=== PATIENT | male | born 1940 | race Caucasian/White ===

== ENCOUNTER 2017-06-26 12:56 | Emergency (ER) | payer OTHER ==
[~2017-06-26] VITALS: Ht 165.1 cm; Wt 60.0 kg
[~2017-06-26 12:56] MED LIST: ASPI325T PO
[2017-06-26 13:07] VITALS: BP 135/73; PULSE 86; RESP 18; TEMP 97.9; O2SAT 99
[2017-06-26] MEDS ORDERED: TETANUS/DIPHTHERIA TOXOID ADULT 0.5 ML VIAL IM ONE (13:15)
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
[2017-06-26 13:35] LABS: AUTOMATED NEUTROPHIL # 2.8 TH/MM3 (1.8-7.7); BASOPHIL % 0.7 % (0.0-2.0); EOSINOPHIL # 0.2 TH/MM3 (0-0.4); EOSINOPHIL % 2.5 % (0.0-4.0); HEMATOCRIT 41.8 % (39.0-51.0); HEMOGLOBIN 14.9 GM/DL (13.0-17.0); LYMPH % 44.7 % (9.0-44.0); LYMPHOCYTE # 2.9 TH/MM3 (1.0-4.8); MEAN CELL VOLUME 97.2 FL (80.0-100.0); MEAN CORPUSCULAR HEMOGLOBIN 34.6 PG (27.0-34.0); MEAN CORPUSCULAR HGB CONC 35.6 % (32.0-36.0); MEAN PLATELET VOLUME 7.4 FL (7.0-11.0); MONO % 8.3 % (0.0-8.0); MONOCYTE # 0.5 TH/MM3 (0-0.9); NEUT % 43.8 % (16.0-70.0); PLATELET COUNT 165 TH/MM3 (150-450); RED CELL DISTRIBUTION WIDTH 14.3 % (11.6-17.2); WHITE BLOOD COUNT 6.4 TH/MM3 (4.0-11.0)
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
[2017-06-26 15:37] VITALS: BP 176/82; PULSE 79; RESP 18; O2SAT 98
[2017-06-26 16:30] LABS: BICARBONATE 26.3 MEQ/L (21.0-32.0); CALCIUM 8.3 MG/DL (8.5-10.1); CREATININE 0.56 MG/DL (0.60-1.30)
[2017-06-26 16:35] LABS: INTERNATIONAL NORMALIZED RATIO 0.9 RATIO; PROTHROMBIN TIME - PATIENT 9.6 SEC (9.8-11.6)
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
== END 2017-06-26 18:47 | disposition home or self-care (01) ==
LOC: NEPE 12:56
DX: S01.81XA Laceration without foreign body of other part of head, initial encounter (principal); F10.129 Alcohol abuse with intoxication, unspecified; R07.9 Chest pain, unspecified; V49.40XA Driver injured in collision with unspecified motor vehicles in traffic accident, initial encounter; W01.0XXA Fall on same level from slipping, tripping and stumbling without subsequent striking against object, initial encounter; Y90.8 Blood alcohol level of 240 mg/100 ml or more; Z23 Encounter for immunization; Z79.82 Long term (current) use of aspirin
CPT/HCPCS: 70450; 71010; 72125; 72170; 80048; 80307; 85025; 85610; 85730; 90471; 90714

== ENCOUNTER 2017-09-19 10:49 | Inpatient (IN) | payer OTHER, MEDICARE ==
[~2017-09-19] VITALS: Ht 165.1 cm; Wt 58.0 kg
[2017-09-19 10:51] VITALS: BP 144/99; PULSE 163; RESP 19; TEMP 98.8
[2017-09-19] MEDS ORDERED: DILTIAZEM HCL 25 MG/5 ML VIAL IV PUSH ONE (11:00)
[2017-09-19] MEDS ORDERED: SODIUM CHLORIDE 0.9% FLUSH 10 ML FLUSH IV FLUSH PRN ×2 (11:00→12:45)
[2017-09-19] MEDS ORDERED: SODIUM CHLORIDE 0.9% FLUSH 10 ML FLUSH IVF PRN (11:00)
[2017-09-19] MEDS ORDERED: DILTIAZEM INJ 125 MG in SODIUM CHLORIDE 0.9% INJ 100 ML IV PRN (11:00)
[2017-09-19 11:05] VITALS: BP 144/99; PULSE 140; O2SAT 95
[2017-09-19] MEDS ORDERED: ASPI-183 PO (11:05)
[2017-09-19] MEDS ORDERED: LISI-515 PO (11:05)
[2017-09-19] MEDS ORDERED: APIX5TAB PO (11:05)
--- NOTE | 2017-09-19 11:15 | PD ---
HPI Chief Complaint: Cardiac Complaint Time Seen by Provider: 10:56 Travel History International Travel<30 days: No Contact w/Intl Traveler<30days: No Traveled to known affect area: No History of Present Illness HPI 77-year-old male patient with history of atrial fibrillation, CAD, presents to the ER today brought in by EMS from cardiology office, was about to get a nuclear stress test when they had identified that he was having rapid A. fib rates of about 160 bpm. Patient is otherwise asymptomatic, but states he has not been feeling well for several months. He denies any new chest pains, shortness of breath, or other symptoms. He states that he does feel weaker than usual but that has been going on for several months. They apparently had tried to get him started on Eliquis last week but he states he responded badly. Modifying Factors: None Associated Signs & Symptoms: General weakness, A. fib with rapid ventricular response Risk Factors: History of A. fib PFSH Past Medical History Cancer: No Cardiovascular Problems: Yes Coronary Artery Disease: Yes Diabetes: No Diminished Hearing: No Glaucoma: No Hepatitis: No Hiatal Hernia: No Hypertension: Yes Medical other: Yes (arthritis) Thyroid Disease: Yes Tetanus Vaccination: < 5 Years Past Surgical History Pacemaker: No Social History Alcohol Use: Yes (3 drinks per day) Tobacco Use: Yes (1 PPD) Substance Use: No Allergies-Medications (Allergen,Severity, Reaction): Coded Allergies: hydrocodone (Unverified Allergy, Severe, nausea and vomiting, 09/19/17) penicillin G (Unverified Allergy, Mild, 09/19/17) heart palpitations Reported Meds & Prescriptions Reported Meds & Active Scripts Active Reported Eliquis (Apixaban) 5 Mg Tab 5 Mg PO BID Aspirin 325 Mg Tab 325 Mg PO DAILY Lisinopril 20 Mg Tab 20 Mg PO DAILY Aspirin 325 mg (Aspirin) 325 Mg Tab 325 Mg PO PRN Review of Systems Except as stated in HPI: all other systems reviewed are Neg Physical Exam Narrative GENERAL: Well-developed elderly white male patient currently and mild distress, mildly agitated. Awake and oriented 3. SKIN: Focused skin assessment warm/dry. HEAD: Atraumatic. Normocephalic. EYES: Pupils equal and round. No scleral icterus. No injection or drainage. ENT: No nasal bleeding or discharge. Mucous membranes pink and moist. NECK: Trachea midline. No JVD. Supple. CARDIOVASCULAR: Fast and irregularly irregular. RESPIRATORY: No accessory muscle use. Clear to auscultation. Breath sounds equal bilaterally. GASTROINTESTINAL: Abdomen soft, non-tender, nondistended. Hepatic and splenic margins not palpable. MUSCULOSKELETAL: No obvious deformities. No clubbing. No cyanosis. No edema. NEUROLOGICAL: Awake and alert. No obvious cranial nerve deficits. Motor grossly within normal limits. Normal speech. PSYCHIATRIC: Appropriate mood and affect; insight and judgment normal. Data Data Last Documented VS Vital Signs Date Time Temp Pulse Resp B/P (MAP) Pulse Ox O2 Delivery O2 Flow Rate FiO2 09/19/17 11:34 81 20 112/66 (81) 95 Room Air 09/19/17 10:51 98.8 Orders Orders Electrocardiogram (09/19/17 10:56) Basic Metabolic Panel (Bmp) (09/19/17 10:56) B-Type Natriuretic Peptide (09/19/17 10:56) Ckmb (Isoenzyme) Profile (09/19/17 10:56) Complete Blood Count With Diff (09/19/17 10:56) Magnesium (Mg) (09/19/17 10:56) Prothrombin Time / Inr (Pt) (09/19/17 10:56) Act Partial Throm Time (Ptt) (09/19/17 10:56) Troponin I (09/19/17 10:56) Ecg Monitoring (09/19/17 10:56) Bilateral Bp Monitoring (09/19/17 10:56) Iv Access Insert/Monitor (09/19/17 10:56) Oximetry (09/19/17 10:56) Oxygen Administration (09/19/17 10:56) Sodium Chloride 0.9% Flush (Ns Flush) (09/19/17 11:00) Chest, Pa & Lat (09/19/17 10:56) Diltiazem Inj (Cardizem Inj) (09/19/17 11:00) Sodium Chloride 0.9% Flush (Ns Flush) (09/19/17 11:00) Diltiazem Inj (Cardizem Inj) (09/19/17 11:30) CKMB (09/19/17 11:05) CKMB% (09/19/17 11:05) Labs Laboratory Tests Test 09/19/17 11:05 White Blood Count 8.8 TH/MM3 Red Blood Count 4.72 MIL/MM3 Hemoglobin 15.6 GM/DL Hematocrit 46.4 % Mean Corpuscular Volume 98.3 FL Mean Corpuscular Hemoglobin 33.1 PG Mean Corpuscular Hemoglobin Concent 33.7 % Red Cell Distribution Width 14.4 % Platelet Count 223 TH/MM3 Mean Platelet Volume 8.3 FL Neutrophils (%) (Auto) 71.1 % Lymphocytes (%) (Auto) 20.5 % Monocytes (%) (Auto) 7.5 % Eosinophils (%) (Auto) 0.6 % Basophils (%) (Auto) 0.3 % Neutrophils # (Auto) 6.2 TH/MM3 Lymphocytes # (Auto) 1.8 TH/MM3 Monocytes # (Auto) 0.7 TH/MM3 Eosinophils # (Auto) 0.1 TH/MM3 Basophils # (Auto) 0.0 TH/MM3 CBC Comment DIFF FINAL Differential Comment Prothrombin Time 9.9 SEC Prothromb Time International Ratio 1.0 RATIO Activated Partial Thromboplast Time 25.7 SEC Blood Urea Nitrogen 17 MG/DL Creatinine 0.89 MG/DL Random Glucose 177 MG/DL Calcium Level 8.7 MG/DL Magnesium Level 2.1 MG/DL Sodium Level 136 MEQ/L Potassium Level 4.7 MEQ/L Chloride Level 100 MEQ/L Carbon Dioxide Level 28.0 MEQ/L Anion Gap 8 MEQ/L Estimat Glomerular Filtration Rate 83 ML/MIN Total Creatine Kinase 113 U/L Creatine Kinase MB 10.6 NG/ML Troponin I 0.40 NG/ML B-Type Natriuretic Peptide 106 PG/ML MDM Medical Decision Making Medical Screen Exam Complete: Yes Emergency Medical Condition: Yes Medical Record Reviewed: Yes Interpretation(s) EKG shows A. fib with rapid ventricular response at a rate of [address] depressions and T-wave depressions in the lateral leads. No signs of ST elevations. Differential Diagnosis A. fib with rapid ventricular response Narrative Course Case was briefly discussed with Dr. Francis who is patient's mohs surgeon/general dermatologist and he recommends that we slow the heart rate down with Cardizem and recommends that we admit the patient to the hospital. Lab work shows mildly elevated troponin likely related to patient's elevated heart rate. After Cardizem was given, his heart rate came down into the 80s. Case was discussed with Dr. Villanueva for admission. Diagnosis Primary Impression: Atrial fibrillation with rapid ventricular response Admitting Information Admitting Physician Requests: it Joann Yang MD Sep 19, 2017 11:15
[2017-09-19 11:22] LABS: AUTOMATED NEUTROPHIL # 6.2 TH/MM3 (1.8-7.7); BASOPHIL % 0.3 % (0.0-2.0); EOSINOPHIL # 0.1 TH/MM3 (0-0.4); EOSINOPHIL % 0.6 % (0.0-4.0); HEMATOCRIT 46.4 % (39.0-51.0); HEMOGLOBIN 15.6 GM/DL (13.0-17.0); LYMPH % 20.5 % (9.0-44.0); LYMPHOCYTE # 1.8 TH/MM3 (1.0-4.8); MEAN CELL VOLUME 98.3 FL (80.0-100.0); MEAN CORPUSCULAR HEMOGLOBIN 33.1 PG (27.0-34.0); MEAN CORPUSCULAR HGB CONC 33.7 % (32.0-36.0); MEAN PLATELET VOLUME 8.3 FL (7.0-11.0); MONO % 7.5 % (0.0-8.0); MONOCYTE # 0.7 TH/MM3 (0-0.9); NEUT % 71.1 % (16.0-70.0); PLATELET COUNT 223 TH/MM3 (150-450); RED BLOOD COUNT 4.72 MIL/MM3 (4.50-5.90); RED CELL DISTRIBUTION WIDTH 14.4 % (11.6-17.2); WHITE BLOOD COUNT 8.8 TH/MM3 (4.0-11.0)
[2017-09-19] MEDS ORDERED: DILTIAZEM HCL 50 MG/10 ML VIAL IV PUSH ONE (11:30)
[2017-09-19 11:33] LABS: PROTHROMBIN TIME - PATIENT 9.9 SEC (9.8-11.6)
[2017-09-19 11:34] VITALS: BP 112/66; PULSE 81; RESP 20; O2SAT 95
[2017-09-19 11:49] LABS: BLOOD UREA NITROGEN 17 MG/DL (7-18); CALCIUM 8.7 MG/DL (8.5-10.1); CHLORIDE 100 MEQ/L (98-107); CREATININE 0.89 MG/DL (0.60-1.30); GLOMERULAR FILTRATION RATE 83 ML/MIN (>89); GLUCOSE,RANDOM 177 MG/DL (74-106); MAGNESIUM 2.1 MG/DL (1.5-2.5); SODIUM (NA) 136 MEQ/L (136-145)
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
[2017-09-19 12:30] VITALS: BP 115/79; PULSE 83; RESP 20; O2SAT 96
--- NOTE | 2017-09-19 12:44 | HHI.HP ---
HPI Service [facility] Primary Care Physician Unknown Admission Diagnosis A. fib with RVR/elevated troponin Diagnoses: (1) Atrial fibrillation with rapid ventricular response Chief Complaint: Sent from doctor's office secondary to A. fib with RVR Travel History International Travel<30 Days: No Contact w/Intl Traveler <30 Da: No Traveled to Known Affected Are: No History of Present Illness 77-year-old male with a history of PAF, hypertension was sent from doctor's office secondary to atrial fibrillation with RVR and patient was scheduled for exercise stress test this a.m. secondary to ongoing chest pain over the past several days to weeks, however prior to the beginning of the study he was noted to be in A. fib with RVR for which he was sent to the ED for further evaluation. He was recently diagnosed with PAF and started on Eliquis among other medicine on 09/09/17. However patient states, 4 days into taking this medicine he started having severe chest discomfort, dizziness and a feeling of heart attack. He had stopped taking that medicine 3-4 days now. He was put back on aspirin and continued on his lisinopril for hypertension. Her this morning, patient had complaint of chest pain however since his admissions report improvements of symptoms. He also complained of decreased appetite but denies any nausea and vomiting with by mouth intake. Initial cardiac enzyme was elevated Review of Systems Except as stated in HPI: all other systems reviewed are Neg Past Family Social History Past Medical History Cardiovascular Problems: Yes Coronary Artery Disease: Yes Hypertension: Yes Medical other: Yes (arthritis) Thyroid Disease: Yes Past Surgical History Tonsillectomy Reported Medications Eliquis (Apixaban) 5 Mg Tab 5 Mg PO BID Aspirin 325 Mg Tab 325 Mg PO DAILY Lisinopril 20 Mg Tab 20 Mg PO DAILY Aspirin 325 mg (Aspirin) 325 Mg Tab 325 Mg PO PRN Allergies: Coded Allergies: hydrocodone (Unverified Allergy, Severe, nausea and vomiting, 09/19/17) penicillin G (Unverified Allergy, Mild, 09/19/17) heart palpitations Family History Mother had diabetes type 2 Social History Alcohol Use: Yes (3 drinks per day) Tobacco Use: Yes (1 PPD) Substance Use: No Physical Exam Vital Signs Vital Signs Date Time Temp Pulse Resp B/P (MAP) Pulse Ox O2 Delivery O2 Flow Rate FiO2 09/19/17 11:34 81 20 112/66 (81) 95 Room Air 09/19/17 11:05 18 95 Room Air 09/19/17 11:05 95 Room Air 09/19/17 11:05 140 144/99 (114) 09/19/17 10:51 98.8 163 19 144/99 (114) Physical Exam GENERAL: This is a well-nourished, well-developed patient, in no apparent distress. SKIN: No rashes, ecchymoses or lesions. Cool and dry. HEAD: Atraumatic. Normocephalic. No temporal or scalp tenderness. EYES: Pupils equal round and reactive. Extraocular motions intact. No scleral icterus. No injection or drainage. ENT: Nose without bleeding, purulent drainage or septal hematoma. Throat without erythema, tonsillar hypertrophy or exudate. Uvula midline. Airway patent. NECK: Trachea midline. No JVD or lymphadenopathy. Supple, nontender, no meningeal signs. CARDIOVASCULAR: Irregular Regular rate and rhythm without murmurs, gallops, or rubs. RESPIRATORY: Clear to auscultation. Breath sounds equal bilaterally. No wheezes , rales, or rhonchi. GASTROINTESTINAL: Abdomen soft, non-tender, nondistended. No hepato-splenomegaly , or palpable masses. No guarding. MUSCULOSKELETAL: Extremities without clubbing, cyanosis, or edema. No joint tenderness, effusion, or edema noted. No calf tenderness. Negative Homans sign bilaterally. NEUROLOGICAL: Awake and alert. Cranial nerves II through XII intact. Motor and sensory grossly within normal limits. Five out of 5 muscle strength in all muscle groups. Normal speech. Laboratory Laboratory Tests Test 09/19/17 11:05 White Blood Count 8.8 Red Blood Count 4.72 Hemoglobin 15.6 Hematocrit 46.4 Mean Corpuscular Volume 98.3 Mean Corpuscular Hemoglobin 33.1 Mean Corpuscular Hemoglobin Concent 33.7 Red Cell Distribution Width 14.4 Platelet Count 223 Mean Platelet Volume 8.3 Neutrophils (%) (Auto) 71.1 Lymphocytes (%) (Auto) 20.5 Monocytes (%) (Auto) 7.5 Eosinophils (%) (Auto) 0.6 Basophils (%) (Auto) 0.3 Neutrophils # (Auto) 6.2 Lymphocytes # (Auto) 1.8 Monocytes # (Auto) 0.7 Eosinophils # (Auto) 0.1 Basophils # (Auto) 0.0 CBC Comment DIFF FINAL Differential Comment Prothrombin Time 9.9 Prothromb Time International Ratio 1.0 Activated Partial Thromboplast Time 25.7 Blood Urea Nitrogen 17 Creatinine 0.89 Random Glucose 177 Calcium Level 8.7 Magnesium Level 2.1 Sodium Level 136 Potassium Level 4.7 Chloride Level 100 Carbon Dioxide Level 28.0 Anion Gap 8 Estimat Glomerular Filtration Rate 83 Total Creatine Kinase 113 Creatine Kinase MB 10.6 Troponin I 0.40 B-Type Natriuretic Peptide 106 Result Diagram: 09/19/17 1105 09/19/17 1105 Imaging Last Impressions Chest X-Ray 09/19/17 1056 Signed Impressions: Service Date/Time: Tuesday, September 19, 2017 11:55 - CONCLUSION: 1. COPD changes. No acute abnormality. Chi Berg MD Septic Shock Reassessment Septic shock perfusion: reassessment completed Caprini VTE Risk Assessment Caprini VTE Risk Assessment: Mod/High Risk (score >= 2) Caprini Risk Assessment Model Point Value = 1 Point Value = 2 Point Value = 3 Point Value = 5 Age 41-60 Minor surgery BMI > 25 kg/m2 Swollen legs Varicose veins or History of unexplained or recurrent spontaneous Oral contraceptives or hormone replacement Sepsis (< 1 month) Serious lung disease, including pneumonia (< 1 month) Abnormal pulmonary function Acute myocardial infarction Congestive heart failure (< 1 month) History of inflammatory bowel disease Medical patient at bed rest Age 61-74 Arthroscopic surgery Major open surgery (> 45 min) Laparoscopic surgery (> 45 min) Malignancy Confined to bed (> 72 hours) Immobilizing plaster cast Central venous access Age >= 75 History of VTE Family history of VTE Factor V Leiden Prothrombin [id number] Lupus anticoagulant Anticardiolipin antibodies Elevated serum homocysteine Heparin-induced thrombocytopenia Other congenital or acquired thrombophilia Stroke (< 1 month) Elective arthroplasty Hip, pelvis, or leg fracture Acute spinal cord injury (< 1 month) Prophylaxis Regimen Total Risk Factor Score Risk Level Prophylaxis Regimen 0-1 Low Early ambulation 2 Moderate Order ONE of the following: *Sequential Compression Device (SCD) *Heparin 5000 units SQ BID 3-4 Higher Order ONE of the following medications: *Heparin 5000 units SQ TID *Enoxaparin/Lovenox 40 mg SQ daily (WT < 150 kg, CrCl > 30 mL/min) *Enoxaparin/Lovenox 30 mg SQ daily (WT < 150 kg, CrCl > 10-29 mL/min) *Enoxaparin/Lovenox 30 mg SQ BID (WT < 150 kg, CrCl > 30 mL/min) AND/OR *Sequential Compression Device (SCD) 5 or more Highest Order ONE of the following medications: *Heparin 5000 units SQ TID (Preferred with Epidurals) *Enoxaparin/Lovenox 40 mg SQ daily (WT < 150 kg, CrCl > 30 mL/min) *Enoxaparin/Lovenox 30 mg SQ daily (WT < 150 kg, CrCl > 10-29 mL/min) *Enoxaparin/Lovenox 30 mg SQ BID (WT < 150 kg, CrCl > 30 mL/min) AND *Sequential Compression Device (SCD) Assessment and Plan Problem List: (1) Atrial fibrillation with rapid ventricular response ICD Code: I48.91 - Unspecified atrial fibrillation Status: Acute Assessment and Plan 77-year-old man with Atrial fibrillation with RVR Rule out ACS per protocol with serial cardiac enzyme and EKGs Chest x-ray noted and review by me without any cardio pulmonary disease start Heparin drip pending consultation from cardiology Hold Eliquis secondary to side effect Responded well to Cardizem IV 1, start Cardizem 30 mg 4 times a day Check 2-D echo Hypertension Resume lisinopril Tobacco abuse Tobacco cessation counseling provided Patient declined nicotine patch DVT prophylaxis: Heparin drip Code Status Full code Discussed Condition With Patient, ED physician Physician Certification 2 Midnight Certification Type: Admission for Inpatient Services Order for Inpatient Services The services are ordered in accordance with Medicare regulations or non- Medicare payer requirements, as applicable. In the case of services not specified as inpatient-only, they are appropriately provided as inpatient services in accordance with the 2-midnight benchmark. Estimated LOS (days): 2 days is the estimated time the patient will need to remain in the hospital, assuming treatment plan goals are met and no additional complications. Post-Hospital Plan: Not yet determined Malachi Villanueva MD Sep 19, 2017 12:44
[2017-09-19] MEDS ORDERED: ONDANSETRON HCL 4 MG/2 ML VIAL IV PUSH PRN (12:45)
[2017-09-19] MEDS ORDERED: RESP: ALBUTEROL 2.5 MG/IPRATROPIUM 0.5 MG NEB (PRN) NEB (12:45)
[2017-09-19] MEDS ORDERED: TEMAZEPAM 15 MG CAP PO PRN (12:45)
[2017-09-19] MEDS ORDERED: DOCUSATE SODIUM 50 MG/SENNA 8.6 MG TAB PO PRN (12:45)
[2017-09-19] MEDS ORDERED: ENALAPRILAT 2.5 MG/2 ML VIAL IV PUSH PRN (12:45)
[2017-09-19] MEDS ORDERED: ALUMINUM/MAGNESIUM/SIMETH 30 ML CUP PO PRN (12:45)
[2017-09-19] MEDS ORDERED: ACETAMINOPHEN 325 MG TAB PO PRN (12:45)
[2017-09-19] MEDS: DILTIAZEM-CD 240 MG CAP ER PO SCH (14:49)
[2017-09-19 16:18] VITALS: BP 128/78; PULSE 110; RESP 20; TEMP 99.3; O2SAT 95
[2017-09-19] MEDS ORDERED: DILTIAZEM HCL 30 MG TAB PO SCH (18:00)
[2017-09-19] MEDS ORDERED: PILL SPLITTER OTHER PRN (19:15)
[2017-09-19 20:36] VITALS: BP 101/64; PULSE 80; RESP 18; TEMP 99.1; O2SAT 94
[2017-09-19 22:37] LABS: ALBUMIN 3.3 GM/DL (3.4-5.0); ALT (GPT) 25 U/L (12-78); AST (GOT) 150 U/L (15-37); BICARBONATE 24.8 MEQ/L (21.0-32.0); BLOOD UREA NITROGEN 22 MG/DL (7-18); CALCIUM 8.7 MG/DL (8.5-10.1); CHLORIDE 100 MEQ/L (98-107); CREATININE 1.03 MG/DL (0.60-1.30); GLOMERULAR FILTRATION RATE 70 ML/MIN (>89); GLUCOSE,RANDOM 251 MG/DL (74-106); MAGNESIUM 2.1 MG/DL (1.5-2.5); SODIUM (NA) 136 MEQ/L (136-145)
[2017-09-19 22:42] LABS: ALKALINE PHOSPHATASE 86 U/L (45-117); TOTAL BILIRUBIN ADULT 0.7 MG/DL (0.2-1.0); TOTAL PROTEIN 6.5 GM/DL (6.4-8.2)
[2017-09-20] VITALS (13 sets, daily range): BP systolic 80–105; BP diastolic 50–63; PULSE 44–81; RESP 16–20; TEMP 98.1–99.5; O2SAT 93–96
[2017-09-20] MEDS: SODIUM CHLORIDE 0.9% FLUSH 10 ML FLUSH IV FLUSH SCH ×3 (00:33→21:00)
[2017-09-20] MEDS: HEPARIN-D5W 25,000 U/250 ML 250 ML IV PRN (00:37)
[2017-09-20] MEDS: METOPROLOL TARTRATE 25 MG TAB PO SCH ×4 (00:41→22:00)
[2017-09-20 05:57] LABS: HEMATOCRIT 43.8 % (39.0-51.0); MEAN CELL VOLUME 98.2 FL (80.0-100.0); MEAN CORPUSCULAR HEMOGLOBIN 33.6 PG (27.0-34.0); MEAN CORPUSCULAR HGB CONC 34.2 % (32.0-36.0); MEAN PLATELET VOLUME 8.1 FL (7.0-11.0); PLATELET COUNT 150 TH/MM3 (150-450); RED BLOOD COUNT 4.46 MIL/MM3 (4.50-5.90); RED CELL DISTRIBUTION WIDTH 14.2 % (11.6-17.2); WHITE BLOOD COUNT 9.7 TH/MM3 (4.0-11.0)
[2017-09-20 06:07] LABS: CHOLESTEROL 174 MG/DL (120-200); TRIGLYCERIDES 87 MG/DL (42-150)
[2017-09-20 06:10] LABS: CHOLESTEROL/ HDL RATIO 2.17 RATIO; LDL CHOLESTEROL 77 MG/DL (0-99)
[2017-09-20] MEDS: ASPIRIN 325 MG TAB PO SCH (08:20)
[2017-09-20] MEDS: DILTIAZEM-CD 240 MG CAP ER PO SCH (08:20)
[2017-09-20] MEDS: SODIUM CHLOR 0.9% 1000 ML INJ 1,000 ML IV SCH ×2 (08:28→21:29)
[2017-09-20] MEDS ORDERED: DIAZEPAM 5 MG TAB PO SCH (08:30)
[2017-09-20] MEDS ORDERED: diphenhydrAMINE HCL 50 MG CAP PO SCH (08:30)
--- NOTE | 2017-09-20 08:35 | PD.CARD.PN ---
Subjective Subjective Remarks no chest pain since treatment with diltiazem Objective Medications Current Medications Medications (Trade) Dose Ordered Sig/Casey Route Start Time Stop Time Status Last Admin Diltiazem HCl 125 mg/Sodium Chloride 125 ml @ 5 mls/hr TITRATE PRN IV 09/19/17 11:00 (NS Flush) 2 ml UNSCH PRN IV FLUSH 09/19/17 12:45 (NS Flush) 2 ml BID IV FLUSH 09/19/17 21:00 09/20/17 00:33 (Tylenol) 650 mg Q4H PRN PO 09/19/17 12:45 (Zofran Inj) 4 mg Q6H PRN IV PUSH 09/19/17 12:45 (Katie-Colace) 1 tab BID PRN PO 09/19/17 12:45 09/20/17 08:19 (Mag-Al Plus Susp Liq) 30 ml Q6H PRN PO 09/19/17 12:45 (Restoril) 15 mg HS PRN PO 09/19/17 12:45 09/20/17 00:42 (Duoneb Neb) 1 ampule Q2HR NEB PRN NEB 09/19/17 12:45 (Vasotec Inj) 2.5 mg Q6H PRN IV PUSH 09/19/17 12:45 Heparin Sodium/ Dextrose 250 ml @ 7 mls/hr TITRATE PRN IV 09/19/17 15:00 09/20/17 00:37 (Prinivil) 20 mg DAILY PO 09/20/17 09:00 09/20/17 08:20 (Cardizem Cd) 240 mg DAILY PO 09/19/17 14:00 09/20/17 08:20 (Aspirin) 81 mg DAILY PO 09/20/17 09:00 09/20/17 08:20 (Lopressor) 12.5 mg Q8HR PO 09/19/17 22:00 09/20/17 00:41 (Pill Splitter) 1 ea UNSCH PRN OTHER 09/19/17 19:15 Vital Signs / I&O Vital Signs Date Time Temp Pulse Resp B/P (MAP) Pulse Ox O2 Delivery O2 Flow Rate FiO2 09/20/17 08:00 98.6 78 18 98/62 (74) 93 09/20/17 04:12 99.5 77 18 93/63 (73) 93 09/20/17 00:40 99.2 81 18 105/61 (76) 96 09/19/17 20:36 99.1 80 18 101/64 (76) 94 09/19/17 16:18 99.3 110 20 128/78 (95) 95 09/19/17 12:30 83 20 115/79 (91) 96 Room Air 09/19/17 11:34 81 20 112/66 (81) 95 Room Air 09/19/17 11:05 18 95 Room Air 09/19/17 11:05 95 Room Air 09/19/17 11:05 140 144/99 (114) 09/19/17 10:51 98.8 163 19 144/99 (114) Physical Exam rersting in NAD Tele: AF controlled Chest: diminished BS CV S1S2 irr irr No edema EKG's have shown ST depression Laboratory Laboratory Tests Test 09/19/17 11:05 09/19/17 21:31 09/20/17 04:59 White Blood Count 8.8 TH/MM3 9.7 TH/MM3 Red Blood Count 4.72 MIL/MM3 4.46 MIL/MM3 Hemoglobin 15.6 GM/DL 15.0 GM/DL Hematocrit 46.4 % 43.8 % Mean Corpuscular Volume 98.3 FL 98.2 FL Mean Corpuscular Hemoglobin 33.1 PG 33.6 PG Mean Corpuscular Hemoglobin Concent 33.7 % 34.2 % Red Cell Distribution Width 14.4 % 14.2 % Platelet Count 223 TH/MM3 150 TH/MM3 Mean Platelet Volume 8.3 FL 8.1 FL Neutrophils (%) (Auto) 71.1 % Lymphocytes (%) (Auto) 20.5 % Monocytes (%) (Auto) 7.5 % Eosinophils (%) (Auto) 0.6 % Basophils (%) (Auto) 0.3 % Neutrophils # (Auto) 6.2 TH/MM3 Lymphocytes # (Auto) 1.8 TH/MM3 Monocytes # (Auto) 0.7 TH/MM3 Eosinophils # (Auto) 0.1 TH/MM3 Basophils # (Auto) 0.0 TH/MM3 CBC Comment DIFF FINAL Differential Comment Prothrombin Time 9.9 SEC Prothromb Time International Ratio 1.0 RATIO Activated Partial Thromboplast Time 25.7 SEC 26.2 SEC Blood Urea Nitrogen 17 MG/DL 22 MG/DL Creatinine 0.89 MG/DL 1.03 MG/DL Random Glucose 177 MG/DL 251 MG/DL Calcium Level 8.7 MG/DL 8.7 MG/DL Magnesium Level 2.1 MG/DL 2.1 MG/DL Sodium Level 136 MEQ/L 136 MEQ/L Potassium Level 4.7 MEQ/L 4.0 MEQ/L Chloride Level 100 MEQ/L 100 MEQ/L Carbon Dioxide Level 28.0 MEQ/L 24.8 MEQ/L Anion Gap 8 MEQ/L 11 MEQ/L Estimat Glomerular Filtration Rate 83 ML/MIN 70 ML/MIN Total Creatine Kinase 113 U/L 812 U/L 512 U/L Creatine Kinase MB 10.6 NG/ML 113.4 NG/ML Troponin I 0.40 NG/ML 34.10 NG/ML 20.30 NG/ML B-Type Natriuretic Peptide 106 PG/ML Total Protein 6.5 GM/DL Albumin 3.3 GM/DL Alkaline Phosphatase 86 U/L Aspartate Amino Transf (AST/SGOT) 150 U/L Alanine Aminotransferase (ALT/SGPT) 25 U/L Total Bilirubin 0.7 MG/DL Creatine Kinase MB % 14.0 % Triglycerides Level 87 MG/DL Cholesterol Level 174 MG/DL LDL Cholesterol 77 MG/DL HDL Cholesterol 80.0 MG/DL Cholesterol/HDL Ratio 2.17 RATIO Imaging Last 24 hours Impressions Chest X-Ray 09/19/17 1056 Signed Impressions: Service Date/Time: Tuesday, September 19, 2017 11:55 - CONCLUSION: 1. COPD changes. No acute abnormality. Chi Berg MD Assessment and Plan Problem List: (1) Tobacco abuse ICD Codes: Z72.0 - Tobacco use Plan: counseled to stop (2) Non-STEMI (non-ST elevated myocardial infarction) ICD Codes: I21.4 - Non-ST elevation (NSTEMI) myocardial infarction Plan: cardiac cath 7:30AM. Cont hepain/ ASA. Move to CIC (3) Atrial fibrillation with rapid ventricular response ICD Codes: I48.91 - Unspecified atrial fibrillation Status: Acute Plan: now controlled Andrea Huynh MD Sep 20, 2017 08:35
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
[2017-09-20] MEDS ORDERED: LISINOPRIL 20 MG TAB PO SCH (09:00)
[2017-09-20] MEDS ORDERED: ASPIRIN 325 MG TAB PO SCH (09:00)
[2017-09-20] MEDS: LISINOPRIL 5 MG TAB PO SCH (09:56)
--- NOTE | 2017-09-20 12:21 | ECHRPT ---
Indication: Atrial fib CONCLUSIONS The left ventricular systolic function is hyperdynamic with an estimated ejection fraction in the ra nge of 65- 70%. Normal left ventricular size. Wall thickness is normal. No regional wall motion abnormalities are present. Trace mitral valve regurgitation. Aortic valve sclerosis is present. There is trace tricuspid valve regurgitation. The estimated pulmonary arterial pressure is 45 mmHg. BP: 98 / 62 HR: 78 Rhythm: Atrial flutter Technical Quality:Good FINDINGS LEFT VENTRICLE The left ventricular systolic function is hyperdynamic with an estimated ejection fraction in the ra nge of 65- 70%. Normal left ventricular size. Wall thickness is normal. No regional wall motion abnormalities are present. RIGHT VENTRICLE Normal right ventricular size and systolic function. LEFT ATRIUM The left atrial size is normal. RIGHT ATRIUM The right atrial size is normal. ATRIAL SEPTUM Normal atrial septal thickness without atrial level shunting by limited color doppler interrogation. AORTA The aortic root and proximal ascending aorta are normal in size on limited imaging. MITRAL VALVE Trace mitral valve regurgitation. AORTIC VALVE Trileaflet aortic valve. Aortic valve sclerosis is present. TRICUSPID VALVE Structurally normal tricuspid valve. There is trace tricuspid valve regurgitation. The estimated pulmonary arterial pressure is 45 mmHg. PULMONARY VALVE The pulmonary valve is not well visualized. VESSELS The inferior vena cava is normal in size. PERICARDIUM No pericardial effusion. Shon Horner MD, FACC (Electronically Signed) Final Date:20 September 2017 12:20
--- NOTE | 2017-09-20 15:14 | HHI.PR ---
Subjective Remarks Follow up NSTEMI/PAF 09/20/17-patient seen and examined, denies any chest pain or shortness of breath. NO Palpitation Objective Vitals Vital Signs Date Time Temp Pulse Resp B/P (MAP) Pulse Ox O2 Delivery O2 Flow Rate FiO2 09/20/17 11:59 98.8 51 20 100/57 (71) 95 09/20/17 08:00 98.6 78 18 98/62 (74) 93 09/20/17 04:12 99.5 77 18 93/63 (73) 93 09/20/17 00:40 99.2 81 18 105/61 (76) 96 09/19/17 20:36 99.1 80 18 101/64 (76) 94 09/19/17 16:18 99.3 110 20 128/78 (95) 95 Result Diagram: 09/20/17 0459 09/19/17 2131 Imaging Last Impressions Chest X-Ray 09/19/17 1056 Signed Impressions: Service Date/Time: Tuesday, September 19, 2017 11:55 - CONCLUSION: 1. COPD changes. No acute abnormality. Chi Berg MD Objective Remarks GENERAL: NAD SKIN: Warm and dry. HEAD: Normocephalic. EYES: No scleral icterus. No injection or drainage. NECK: Supple, trachea midline. No JVD or lymphadenopathy. CARDIOVASCULAR: irreg Regular rate and rhythm without murmurs, gallops, or rubs. RESPIRATORY: Breath sounds equal bilaterally. No accessory muscle use. GASTROINTESTINAL: Abdomen soft, non-tender, nondistended. MUSCULOSKELETAL: No cyanosis, or edema. BACK: Nontender without obvious deformity. No CVA tenderness. A/P Problem List: (1) Atrial fibrillation with rapid ventricular response ICD Code: I48.91 - Unspecified atrial fibrillation Status: Acute (2) Non-STEMI (non-ST elevated myocardial infarction) ICD Code: I21.4 - Non-ST elevation (NSTEMI) myocardial infarction Assessment and Plan 77-year-old man with Atrial fibrillation with RVR Rate controlled on Cardizem 30 mg 4 times a day Heparin drip until OAC started by Cardiology 2-D echo pending NSTEMI Continue with Heparin drip/ASA Plan for left heart catheterization Cardiology ff Hypertension continue lisinopril Tobacco abuse Tobacco cessation counseling provided Patient declined nicotine patch DVT prophylaxis: Heparin drip Malachi Villanueva MD Sep 20, 2017 15:14
[2017-09-20 16:10] LABS: HEMOGLOBIN A1C 5.7 % (4.3-6.0)
--- NOTE | 2017-09-20 16:12 | EKG ---
Date Performed: 09/19/2017 Time Performed: 11:43:42 PTAGE: 77 years EKG: ATRIAL FLUTTER/TACHYCARDIA MARKED ST DEPRESSION, CONSIDER SUBENDOCARDIAL INJURY ABNORMAL E CG PREVIOUS TRACING : 02/11/2009 09.20 No significant change from previous tracing noted. DOCTOR: Inder Sheridan Interpretating Date/Time 09/20/2017 16:10:57
--- NOTE | 2017-09-20 16:15 | EKG ---
Date Performed: 09/19/2017 Time Performed: 10:52:56 PTAGE: 77 years EKG: ATRIAL FIBRILLATION WITH RAPID VENTRICULAR RESPONSE MARKED ST DEPRESSION, CONSIDER SUBENDO CARDIAL INJURY ABNORMAL ECG NO PREVIOUS TRACING DOCTOR: Inder Sheridan Interpretating Date/Time 09/20/2017 16:13:02
--- NOTE | 2017-09-20 17:15 | PD.CARD.PN ---
Subjective Subjective Remarks Note: Patient was seen at 8:30AM. No chest pain since treatment with diltiazem Objective Medications Current Medications Medications (Trade) Dose Ordered Sig/Casey Route Start Time Stop Time Status Last Admin Diltiazem HCl 125 mg/Sodium Chloride 125 ml @ 5 mls/hr TITRATE PRN IV 09/19/17 11:00 (NS Flush) 2 ml UNSCH PRN IV FLUSH 09/19/17 12:45 (NS Flush) 2 ml BID IV FLUSH 09/19/17 21:00 09/20/17 00:33 (Tylenol) 650 mg Q4H PRN PO 09/19/17 12:45 (Zofran Inj) 4 mg Q6H PRN IV PUSH 09/19/17 12:45 (Katie-Colace) 1 tab BID PRN PO 09/19/17 12:45 09/20/17 08:19 (Mag-Al Plus Susp Liq) 30 ml Q6H PRN PO 09/19/17 12:45 (Restoril) 15 mg HS PRN PO 09/19/17 12:45 09/20/17 00:42 (Duoneb Neb) 1 ampule Q2HR NEB PRN NEB 09/19/17 12:45 (Vasotec Inj) 2.5 mg Q6H PRN IV PUSH 09/19/17 12:45 Heparin Sodium/ Dextrose 250 ml @ 7 mls/hr TITRATE PRN IV 09/19/17 15:00 09/20/17 00:37 (Cardizem Cd) 240 mg DAILY PO 09/19/17 14:00 09/20/17 08:20 (Aspirin) 81 mg DAILY PO 09/20/17 09:00 09/20/17 08:20 (Lopressor) 12.5 mg Q8HR PO 09/19/17 22:00 09/20/17 14:00 (Pill Splitter) 1 ea UNSCH PRN OTHER 09/19/17 19:15 Sodium Chloride 1,000 ml @ 100 mls/hr Q10H IV 09/20/17 08:28 09/25/17 08:27 (Benadryl) 25 mg HOUSE VISITOR PO 09/20/17 08:30 09/24/17 08:29 (Valium) 5 mg HOUSE VISITOR PO 09/20/17 08:30 09/24/17 08:29 (Prinivil) 5 mg DAILY PO 09/20/17 09:00 09/20/17 09:56 Vital Signs / I&O Vital Signs Date Time Temp Pulse Resp B/P (MAP) Pulse Ox O2 Delivery O2 Flow Rate FiO2 09/20/17 11:59 98.8 51 20 100/57 (71) 95 09/20/17 08:00 98.6 78 18 98/62 (74) 93 09/20/17 04:12 99.5 77 18 93/63 (73) 93 09/20/17 00:40 99.2 81 18 105/61 (76) 96 09/19/17 20:36 99.1 80 18 101/64 (76) 94 Physical Exam rersting in NAD Tele: AF controlled Chest: diminished BS CV S1S2 irr irr No edema EKG's have shown ST depression Troponins significantly elevated. Laboratory Laboratory Tests Test 09/19/17 21:31 09/20/17 04:59 09/20/17 08:30 Activated Partial Thromboplast Time 26.2 SEC 31.9 SEC Blood Urea Nitrogen 22 MG/DL Creatinine 1.03 MG/DL Random Glucose 251 MG/DL Total Protein 6.5 GM/DL Albumin 3.3 GM/DL Calcium Level 8.7 MG/DL Magnesium Level 2.1 MG/DL Alkaline Phosphatase 86 U/L Aspartate Amino Transf (AST/SGOT) 150 U/L Alanine Aminotransferase (ALT/SGPT) 25 U/L Total Bilirubin 0.7 MG/DL Sodium Level 136 MEQ/L Potassium Level 4.0 MEQ/L Chloride Level 100 MEQ/L Carbon Dioxide Level 24.8 MEQ/L Anion Gap 11 MEQ/L Estimat Glomerular Filtration Rate 70 ML/MIN Total Creatine Kinase 812 U/L 512 U/L Creatine Kinase MB 113.4 NG/ML 59.7 NG/ML Creatine Kinase MB % 14.0 % 11.7 % Troponin I 34.10 NG/ML 20.30 NG/ML White Blood Count 9.7 TH/MM3 Red Blood Count 4.46 MIL/MM3 Hemoglobin 15.0 GM/DL Hematocrit 43.8 % Mean Corpuscular Volume 98.2 FL Mean Corpuscular Hemoglobin 33.6 PG Mean Corpuscular Hemoglobin Concent 34.2 % Red Cell Distribution Width 14.2 % Platelet Count 150 TH/MM3 Mean Platelet Volume 8.1 FL Triglycerides Level 87 MG/DL Cholesterol Level 174 MG/DL LDL Cholesterol 77 MG/DL HDL Cholesterol 80.0 MG/DL Cholesterol/HDL Ratio 2.17 RATIO Imaging Last 48 hours Impressions Chest X-Ray 09/19/17 1056 Signed Impressions: Service Date/Time: Tuesday, September 19, 2017 11:55 - CONCLUSION: 1. COPD changes. No acute abnormality. Chi Berg MD Assessment and Plan Problem List: (1) Tobacco abuse ICD Codes: Z72.0 - Tobacco use (2) Non-STEMI (non-ST elevated myocardial infarction) ICD Codes: I21.4 - Non-ST elevation (NSTEMI) myocardial infarction (3) Atrial fibrillation with rapid ventricular response ICD Codes: I48.91 - Unspecified atrial fibrillation Status: Acute Plan: Ventricular rate controlled Assessment and Plan Informed consent for cardiac cath 7:30AM with possible PCI. Will continue IV heparin. Andrea Huynh MD Sep 20, 2017 17:15
[2017-09-20] MEDS ORDERED: SODIUM CHLORID 0.9% 500 ML INJ 500 ML IV ONE (18:15)
[2017-09-20] MEDS ORDERED: SODIUM CHLOR 0.9% 1000 ML INJ 1,000 ML IV SCH (18:15)
[2017-09-21] VITALS (27 sets, daily range): BP systolic 107–126; BP diastolic 53–83; PULSE 52–114; RESP 16–24; TEMP 98.8–99.2; O2SAT 92–99
[2017-09-21] MEDS: SODIUM CHLOR 0.9% 1000 ML INJ 1,000 ML IV SCH (03:30)
[2017-09-21] MEDS: HEPARIN-D5W 25,000 U/250 ML 250 ML IV PRN (03:32)
[2017-09-21] MEDS: ASPIRIN 325 MG TAB PO SCH (06:59)
[2017-09-21] MEDS: METOPROLOL TARTRATE 25 MG TAB PO SCH ×3 (07:00→22:22)
[2017-09-21] MEDS ORDERED: HEPARIN-NS/PF FLUSH BAG 2,000 ML IV FLUSH ONE (07:20)
[2017-09-21] MEDS ORDERED: MIDAZOLAM HCL 2 MG/2 ML VIAL ONE (07:21)
[2017-09-21] MEDS ORDERED: NITROGLYCERIN INJ 5 ML ONE (07:21)
--- NOTE | 2017-09-21 08:34 | CATHPROC ---
[facility] Report Study Information Study Number Admission Scheduled Start Study Start [id number] Sep 19 2017 12:42PM 09/20/2017 Sep 21 2017 7:26AM [place] [facility] Cardiac Catheterization Admit Source Facility Department Other [facility] - Inside Barrel Polisher Physician and Clinical Staff Initial Andrea Cantu Spa Coordinator Dipti Perez,DISHA Spa Coordinator Cruz Zavala,DISHA Other cathlab, cathlab Recorder Ivon Nunez,RT(R) TECH2 Recorder Tiffanie Bains RCIS TECH2 Scrub Sanna Headley,RT(R) (BS) Procedures Performed Procedure Location (Site) Vessel Name Angiogram LV LV Ventricle Coronary Angiograms LCA Left Coronary Equipment Time Dental Hygiene Administrative Assistant Description Size Mfg Part Number Used/Scraped TRANSDUCER, TRCHRISTIANO [id number] 07:28 TESFAYE MASSEY * Used W/STOCKCOCK *[id number] *[id number] *[id number] *[id number] PIGTAIL ANG. 145 INFINITI [id number] CATHETER *[id number] 08:01 DAIG/ST. ASHLEY MEDICAL ANGIOSEAL, FR6 VIP FR 6 Used *[id number] 07:28 MEDLINE INDUSTRIES PACK, CCL CUSTOM * Used *[id number] 07:28 MEDLINE PACER PEN, SKIN DUAL W/ RULER * Used *[id number] 07:28 Guitar Party MEDICAL SHEATH, FR6.5 PRELUDE 11CM FR 6.5 038ACT Used *[id number] 07:28 Guitar Party MEDICAL WIRE, 3MMJ .035 180CM 180CM Used *[id number] 07:28 NAMIC MANIFOLD, 4 PORT * Used *[id number] 07:28 NYCOMED OMNIPAQUE, 350 MG, 100ML 100ML [id number] Used [id number] 07:28 COELLO MEDICAL BLANKET,WARM AIR CCL * Used *[id number] Equipment Model, Serial, Lot Number and Expiration Data Description Model Number Serial Number Lot Number Expiration Date ANGIOSEAL, FR6 VIP [id number] 06-02-2018 History: Current Medications Medication Dosage/Unit Route Frequency Last Date/Time Taken ASA LOPRESSOR ELIQUIS LASIX History: Allergies Allergy Reaction hydrocodone nausea and vomiting penicillin G History: Risk Factors Family History of Hypertension Dyslipidemia Previous [place] Previous Heart Failure Premature CAD Yes No No No No Prior Valve Prior PCI Prior CABG Surgery No Yes No Cerebrovascular Peripheral Artery Chronic Lung On Dialysis Diabetes Disease Disease Disease No No No No No History: Stress Tests Stress or Imaging Studies Performed No History: Other Disease Selection Items HTN History: Other Current Smoker Method Packs a Day Years Used Pack Years Yes Cigarettes 1 54 54 Labs Hgb (g/dl) Hct (%) WBC (l/cumm) Platelets (thousands) 11.60-17.00 35.00-51.00 4.00-11.00 150.00-450.00 15.0 43.8 9.7 150 Glucose (mg/dl) BUN (mg/dl) Creatinine (mg/dl) BUN:Creatinine (1:x) 74.00-106.00 7.00-18.00 0.50-1.30 10.00-20.00 251 22 1.0 22 Na (meq/l) K (meq/l) 136.00-145.00 3.50-5.10 136 4 PT (sec) PTT (sec) INR (PTT:PT) 9.80-11.60 24.30-30.10 0.90-1.10 9.9 45.6 1 Troponin I (ng/ml) CPK (u/l) CPK-MB (ng/ML) 0.02-0.05 26.00-308.00 0.50-3.60 20.3 512 59.7 Medication Medication Total Dose (Bolus/Oral) Medication Total Dosage/Unit 1% XYLOCAINE 20 mL OXYGEN 5 l/min Medications (Bolus/Oral) Medication Time Given Dosage/Unit Administered By Reason OXYGEN 09/21/2017 7:15:23 AM 3 l/min Patient arrived on 3 l/min OXYGEN via Nasal. 1% XYLOCAINE 09/21/2017 7:44:53 AM 20 mL Andrea Huynh For pain 20 mL 1% XYLOCAINE given in lab by Andrea Huynh in Right Groin via Subcutaneous. Ordered by Andrea Huynh. Reason: For pain. OXYGEN 09/21/2017 7:56:48 AM 2 l/min Dipti Perez 2 l/min OXYGEN given in lab by Dipti Perez, RN via Nasal. Ordered by Andrea Huynh. Medication (Drip) Medication Time Given Dosage/Unit Concentration/Unit Diluent (ml) Solution HEPARIN DRIP 09/21/2017 7:31:01 AM 900 units/hr 65205 units 250 D5W 900 units/hr HEPARIN DRIP given pre op by cathasha ross in Left Antecubital via Peripheral IV. Pum p/Drip Flow = 9 ml/hr [place] [address] units in 250 ml. Ordered by Andrea Huynh. IV Solutions 09/21/2017 7:30:39 AM 0 mL (IV) 500 NaCl .9 IV Solutions given pre op by asha barry in Right Antecubital via Peripheral IV. Pump/Drip Flow = 100 ml/hr using NaCl .9. Ordered by Andrea Huynh. Final Case Assessment Cardiovascular HR NIBP Chest Pain 75 119/78 0 Circulatory - Right Pulses Dorsalis Pedis Femoral 1 2 Scale (0,1,2,3,4,d) Circulatory - Left Pulses Dorsalis Pedis Femoral 1 2 Scale (0,1,2,3,4,d) Neurological State Oriented to time-place- Alert Moves all extremities person Respiration - General Respiration Rate SpO2 (%) O2 (lpm) (B/min) 20 95 4 Initial Case Assessment Cardiovascular HR Rhythm NIBP Chest Pain 80 sr 128/85 0 Circulatory - Right Pulses Dorsalis Pedis Femoral 1 2 Scale (0,1,2,3,4,d) Circulatory - Left Pulses Dorsalis Pedis Femoral 1 2 Scale (0,1,2,3,4,d) Neurological State Oriented to time-place- Alert Moves all extremities person Respiration - General Respiration Rate SpO2 (%) O2 (lpm) (B/min) 20 95 3 Chronological Log Time Study Chronological Log 7:15:14 Patient arrived via Bed. 7:15:20 Patient Name, D.O.B, / Armband Verified By R.N. 7:15:23 Patient arrived on 3 l/min OXYGEN via Nasal. 7:16:25 Pre-op and post- op instructions given; patient acknowledges understanding of instructions. 7:26:30 Presedation assessment performed by Inside Barrel Polisher RN. 7:26:32 Patient has been NPO for More than 6Hrs. 7:26:33 Skin Breakdown-none per patient 7:27:09 HR=80 bpm, VMNO=902/85 mmhg, SpO2=95.0 %, Resp=20 B/min, Pain=0, Chava=10, Cool=2 Vitals capture started with the following parameters, Patient=Adult, Interval=5 min, Initial Pre imiwx=385 mmHg, 7:27:24 Deflation Rate=5 mmHg, Cuff placed on Unknown Assessment: Initial Case, HR=80 BPM, Rhythm=sr, HITV=262/85 mmhg, Chest Pain=0 Right Pulses: Anirudh Ped=1, Femoral=2 7:27:32 Left Pulses: Anirudh Ped=1, Femoral=2 Neurological: State=Alert, Ox3, ZUNIGA Respiration: Resp=20 B/min, SpO2=95 %, O2=3 lpm 7:27:52 HR=80 bpm, SDDE=963/97 mmhg, SpO2=95.0 %, Resp=21 B/min, Pain=0, Chava=10, Cool=2 7:28:39 Lea Prominences Protected 7:28:47 A # 20 IV was noted in the Antecubital (left). Grade = 0 7:30:32 A # 20 IV was noted in the Antecubital (right). Grade = 0 IV Solutions given pre op by cathlab, cathlab in Right Antecubital via Peripheral IV. Pump/Drip Flow = 100 ml/hr using 7:30:39 NaCl .9. Ordered by Andrea Huynh. 900 units/hr HEPARIN DRIP given pre op by cathlab, cathlab in Left Antecubital via Peripheral IV . Pump/Drip Flow = 9 7:31:01 ml/hr [place] [address] units in 250 ml. Ordered by Andrea Huynh. 7:31:22 paged 7:31:28 Bilateral groins prepped with 2% chlorhexidine, and draped after a 3 minute waiting time. 7:32:06 HR=80 bpm, YICU=354/72 mmhg, SpO2=95.0 %, Resp=18 B/min, Pain=0, Chava=10, Cool=2 7:32:29 Pressure channel 1 zeroed. 7:33:20 Reference ECG taken 7:36:46 MD arrived. 7:37:09 HR=79 bpm, MOPR=135/76 mmhg, SpO2=96 %, Resp=20 B/min, Pain=0, Chava=10, Cool=2 7:42:10 HR=79 bpm, JDAG=474/71 mmhg, SpO2=93.0 %, Resp=21 B/min, Pain=0, Chava=10, Cool=2 Time Out. Correct patient, correct procedure, correct physician, power injector loaded with cont rast with surgical team 7:43:22 present. Time Out Concurred by MD and individual staff in procedure. 7:43:38 Case Start 20 mL 1% XYLOCAINE given in lab by Andrea Huynh in Right Groin via Subcutaneous. Ordered by Andrea Peace. 7:44:53 Reason: For pain. 7:45:48 Access site was Right Femoral Artery. 7:45:56 A SHEATH, FR6.5 PRELUDE 11CM FR 6.5 was advanced into the Fem Art (right) using the Percutan eous technique. A PIGTAIL ANG. 145 INFINITI CATHETER FR 6 was advanced over a wire. OMNIPAQUE, 350 MG, 100ML 100 ML was 7:46:28 used for injections. 7:47:09 HR=84 bpm, XOWI=230/69 mmhg, SpO2=95 %, Resp=20 B/min Recorded Pressure: LV, HR=79, Condition=Condition 1 7:47:50 (Left Ventricle) LV 111/5/11 7:48:10 The LV was injected at 8 cc/sec for a total of 24. OMNIPAQUE, 350 MG, 100ML 100ML used. Recorded Pressure: LV, Ao, HR=77, Condition=Condition 1 7:49:56 (Left Ventricle) LV 108/8/13, (Aorta) Ao 113/62/83 7:50:08 Catheter was removed A JL 5.0 INFINITI CATHETER FR 6 was advanced over a wire. OMNIPAQUE, 350 MG, 100ML 100ML was ed for 7:50:08 injections. Recorded Pressure: Ao, HR=77, Condition=Condition 1 7:52:08 (Aorta) Ao 113/62/85 7:52:08 HR=77 bpm, CTOF=761/76 mmhg, SpO2=97.0 %, Resp=25 B/min 7:53:00 The Recorder is being relieved by Tiffanie Bains RCIS TECH2. 7:53:14 The LCA was injected and visualized at various angles. OMNIPAQUE, 350 MG, 100ML 100ML used . 7:56:48 2 l/min OXYGEN given in lab by Dipti Perez, DISHA via Nasal. Ordered by Andrea Huynh. 7:57:11 HR=73 bpm, CWLO=905/66 mmhg, SpO2=94.0 %, Resp=24 B/min After removing the current catheter a 3DRC INFINITI CATHETER FR 6 was advanced over a WIRE, 3MM J .035 180CM 7:58:09 180CM. 7:59:31 Catheter was removed 8:00:29 An injection in the Fem Art (right) was made through the SHEATH, FR6.5 PRELUDE 11CM FR 6.5. 8:01:02 Access site prepped with chloroprep for closure device. 8:02:43 HR=75 bpm, ILIB=954/78 mmhg, SpO2=95.0 %, Resp=23 B/min 8:03:12 ANGIOSEAL, FR6 VIP FR 6 placement in the Fem Art (right) 8:03:21 Sterile dressing applied to site 8:03:22 No case complications noted. 8:03:24 Cine recording checked. Assessment: Final Case, HR=75 BPM, TICO=760/78 mmhg, Chest Pain=0 Right Pulses: Anirudh Ped=1, Femoral=2 8:03:27 Left Pulses: Anirudh Ped=1, Femoral=2 Neurological: State=Alert, Ox3, ZUNIGA Respiration: Resp=20 B/min, SpO2=95 %, O2=4 lpm 8:04:40 Case End 8:07:09 HR=76 bpm, JIDE=241/75 mmhg, SpO2=90.0 %, Resp=25 B/min 8:15:04 CICU called. Spoke to Noem[facility] unit receptionist. 8:15:24 [facility] Cine recording checked. 8:16:30 Bedside Report will be given. End Study - Contrast Media Used In Study Contrast Total Opened (mL) Total Used (mL) Total Wasted (mL) Omnipaque 60 60 0 End Study - Maximum Contrast Load Max Contrast Load (mL) 275.0 End Study - Radiation Exposure Fluoro Time (minutes) 3.0 End Study - Sheaths Sheaths Pulled By Sheath Hold Time (min) Andrea Huynh End Study - Patient Disposition Complications Transferred To Interventional Outcome No Telemetry Bed No attempt made
[2017-09-21] MEDS ORDERED: SODIUM CHLORIDE 0.9% FLUSH 10 ML FLUSH IV FLUSH PRN ×2 (08:45→17:00)
[2017-09-21] MEDS ORDERED: ONDANSETRON HCL 4 MG/2 ML VIAL IV PUSH PRN (08:45)
[2017-09-21] MEDS ORDERED: SODIUM CHLOR 0.9% 1000 ML INJ 1,000 ML IV SCH (08:45)
[2017-09-21] MEDS ORDERED: MISC INFORMATION XX ONE (08:45)
[2017-09-21] MEDS ORDERED: BACITRACIN OINT 0.9 GM PKT TOP ONE (08:45)
[2017-09-21] MEDS ORDERED: IOHEXOL 350 MG/ML 50 ML BTL (for Cath Lab) OTHER ONE (09:03)
--- NOTE | 2017-09-21 09:17 | MA ---
cc: Andrea Huynh MD, Joshua A MD DATE: 09/21/2017 PROCEDURE PERFORMED: Left heart catheterization, left ventriculography, coronary angiography, right femoral angiography with Angio-Seal placement. DESCRIPTION OF THE PROCEDURE: The patient was brought to the cardiac catheterization lab in a fasting state. The right groin was prepped and draped in sterile fashion. Using 1% lidocaine for local anesthesia, a 6-1/2-St Helenian sheath was inserted in the right femoral artery. Next, left ventricular pressure was recorded using a pigtail catheter, followed by left ventriculography and then a pullback. Coronary angiography was then performed using a left 5 Maria Isabel for the left coronary artery and a 3DRC for the right coronary artery. The patient tolerated the procedure well. There was no hypotension or chest pain. He had obvious left main disease. I made a clinical decision not to place a balloon pump. Cardiothoracic surgery is being consulted. IV heparin is being continued. The right groin was sealed with Angio-Seal with hemostasis. FINDINGS: Hemodynamics: Left ventricular pressure was 108/8 with an end diastolic pressure of 13. Aortic pressure is 113/62 with a mean of 85. There is no gradient during pullback from the left ventricle to the aorta. Left ventriculography: there was mild anterolateral and apical hypokinesis with a preserved ejection fraction of 60%. Coronary Angiography: Prior to coronary angiography, it is noted that the aortic root is significantly calcified and mildly dilated. The left main tapers to a distal 60% stenosis. There is ostial LAD disease of 70% severity. There is ostial circumflex disease of 70% severity. This is a Girard classification 1,1,1. The LAD gives off 1 major diagonal branch which in the TONY views can be shown to have at least 80% disease proximally. The distal LAD appears graftable, but it is not much more than about 2 mm in size. The circumflex artery is nondominant. It bifurcates to a small marginal branch and a small distal circumflex. At the bifurcation, there is a severe disease of about 70%. The marginal branch is small and may not be graftable. The right coronary artery is dominant. The proximal, mid, and distal vessels appear fairly smooth and normal. The posterior descending artery branch is severely and diffusely diseased. It is also small caliber and there is probably 75% mid disease of the PDA branch. The posterolateral branch of the right coronary artery is very small. One of the major finding from this procedure is that all of his coronary arteries are very small. CONCLUSIONS: 1. Normal hemodynamics. 2. Preserved left ventricular function, but with wall motion abnormalities in the LAD distribution. 3. Critical coronary disease involving the distal left main, ostial circumflex, and ostial LAD. Additionally, there is diagonal involvement. The coronary vessels are small. The aortic root is significantly calcified. This patient is going to be very high risk for revascularization. We will get a cardiothoracic surgery consult and go from there. Andrea Huynh MD VEMadeline/HILARIO , 08:30 AM , 09:16 AM
[2017-09-21] MEDS: SODIUM CHLORIDE 0.9% FLUSH 10 ML FLUSH IV FLUSH SCH ×3 (09:54→22:22)
[2017-09-21] MEDS: DILTIAZEM-CD 240 MG CAP ER PO SCH (10:01)
[2017-09-21] MEDS: LISINOPRIL 5 MG TAB PO SCH (10:01)
--- NOTE | 2017-09-21 11:20 | HHI.PR ---
Subjective Remarks Follow up NSTEMI/PAF 09/20/17-patient seen and examined, denies any chest pain or shortness of breath. NO Palpitation 09/21/17-patient seen and examined, he had left heart catheterization this morning with finding of multivessel disease. Patient is very upset and wants to be discharged home Objective Vitals Vital Signs Date Time Temp Pulse Resp B/P (MAP) Pulse Ox O2 Delivery O2 Flow Rate FiO2 09/21/17 10:20 76 09/21/17 09:00 76 09/21/17 08:36 76 09/21/17 07:15 99.2 80 23 126/76 (93) 92 09/21/17 07:00 80 09/21/17 06:00 78 09/21/17 05:00 78 09/21/17 04:00 78 09/21/17 03:00 98.8 79 16 107/53 (71) 96 09/21/17 03:00 78 09/21/17 02:00 80 09/21/17 01:00 78 09/21/17 00:00 52 09/20/17 23:00 53 09/20/17 23:00 98.1 53 16 94/50 (65) 94 09/20/17 22:00 46 09/20/17 21:00 50 09/20/17 20:00 60 09/20/17 19:00 44 09/20/17 18:17 98.6 48 20 80/50 (60) 94 09/20/17 17:58 48 09/20/17 16:00 99.4 53 18 90/53 (65) 93 09/20/17 14:00 74 09/20/17 11:59 98.8 51 20 100/57 (71) 95 I/O 09/20/17 09/20/17 09/20/17 09/21/17 09/21/17 09/21/17 07:00 15:00 23:00 07:00 15:00 23:00 Intake Total 500 ml 480 ml Balance 500 ml 480 ml Intake Oral 480 ml IV Total 500 ml # Voids 1 3 1 # Bowel Movements 1 1 Result Diagram: 09/20/17 0459 09/19/17 2131 Objective Remarks GENERAL: NAD SKIN: Warm and dry. HEAD: Normocephalic. EYES: No scleral icterus. No injection or drainage. NECK: Supple, trachea midline. No JVD or lymphadenopathy. CARDIOVASCULAR: irreg Regular rate and rhythm without murmurs, gallops, or rubs. RESPIRATORY: Breath sounds equal bilaterally. No accessory muscle use. GASTROINTESTINAL: Abdomen soft, non-tender, nondistended. MUSCULOSKELETAL: No cyanosis, or edema. BACK: Nontender without obvious deformity. No CVA tenderness. A/P Problem List: (1) Atrial fibrillation with rapid ventricular response ICD Code: I48.91 - Unspecified atrial fibrillation Status: Acute (2) Non-STEMI (non-ST elevated myocardial infarction) ICD Code: I21.4 - Non-ST elevation (NSTEMI) myocardial infarction Assessment and Plan 77-year-old man with Atrial fibrillation with RVR Rate controlled on Cardizem 30 mg 4 times a day Heparin drip until OAC started by Cardiology 2-D echo with EF 65-70% NSTEMI Continue with Heparin drip/ASA Status post left heart catheterization 09/21/17 Cardiology ff Multivessel coronary artery disease Patient is status post left heart catheterization today with finding of Critical coronary disease involving the distal left main, ostial circumflex, and ostial LAD Cardiothoracic surgery has been consulted Hold lisinopril in anticipation for possible CABG Hypertension d/t Hypotension will hold lisinopril Tobacco abuse Tobacco cessation counseling provided Patient declined nicotine patch DVT prophylaxis: Heparin drip Malachi Villanueva MD Sep 21, 2017 11:20
--- NOTE | 2017-09-21 15:44 | RADRPT ---
EXAM DATE/TIME: 09/21/2017 13:23 [place] COMPARISON: CHEST PA & LAT, September 19, 2017, 11:55. INDICATIONS : Chest pain. RADIATION DOSE: 6.05 CTDIvol (mGy) MEDICAL HISTORY : Cardiovascular disease. Hypertension. SURGICAL HISTORY : None. ENCOUNTER: Initial ACUITY: 1 day PAIN SCALE: 4/10 LOCATION: chest TECHNIQUE: Volumetric scanning of the chest was performed. Using automated exposure control and adjustment of t he mA and/or kV according to patient size, radiation dose was kept as low as reasonably achievable to obtain optimal diagnostic quality images. DICOM format image data is available electronically for r eview and comparison. Follow-up recommendations for detected pulmonary nodules are based at a minimum on nodule size and pa tient risk factors according to Fleischner Society Guidelines. FINDINGS: LUNGS: There is a 1.2 cm spiculated nodule in the right upper lobe inferiorly. Adjacent satellite nodule jumana suring up to 7 mm. Small cluster of groundglass nodules in the left upper lobe measuring up to 5 mm. Mild interlobular septal thickening with groundglass opacities at the lung bases. Mild upper lobe pre dominant bilateral centrilobular emphysema. PLEURAE: Small bilateral pleural effusions slightly larger on the right with very small loculation superiorly. MEDIASTINUM: Ascending thoracic aorta is aneurysmal measuring up to 4.1 cm. Moderate coronary artery calcification s. Heart is unremarkable without significant pericardial effusion. Multiple mediastinal nodes but the largest in the AP window and anterior toribio measuring up to 11 mm. AXILLAE: Within normal limits. No lymphadenopathy. MUSCULOSKELETAL: No abnormal focal lytic or blastic bony lesions. MISCELLANEOUS: The visualized upper abdominal organs demonstrate no acute abnormality. CONCLUSION: 1. Upper lobe predominant centrilobular emphysema with 1.2 cm spiculated nodule in the right upper lo be inferiorly and adjacent satellite nodule measuring up to 7 mm. The findings are highly concerning for primary lung malignancy. Recommend PET/CT examination or sampling per 2017 Fleischner criteria. 2. Mediastinal adenopathy measuring up to 11 mm. Although nonspecific, cannot exclude metastatic eder opathy. PET/CT examination would be extremely beneficial in further assessment of the mediastinal tatiana nopathy. 3. Small bilateral pleural effusions more prominent on the right with associated compressive atelecta sis in the lower lobes and upper lobe interstitial edema, particularly on the right 4. Ascending thoracic aortic aneurysm measuring up to 4.1 cm. 5. Moderate coronary artery calcifications. Baldo Mcclain MD on September 21, 2017 at 15:31 Board Certified Radiologist. This report was verified electronically.
[2017-09-21] MEDS ORDERED: PAPAVERINE INJ 60 MG, NITROGLYCERIN INJ 100 MCG, DILTIAZEM INJ 100 MG in SODIUM CHLORID... IRRIGATION SCH (17:00)
[2017-09-21] MEDS ORDERED: DEXTROSE 50% IN WATER 50 ML VIAL(D50) IV PUSH PRN (17:00)
[2017-09-21] MEDS ORDERED: METOPROLOL TARTRATE 25 MG TAB PO SCH (17:00)
[2017-09-21] MEDS ORDERED: INSULIN REGULAR (IV INFUSION) 100 UNITS in SODIUM CHLORIDE 0.9% INJ 99 ML IV PRN (17:00)
[2017-09-21] MEDS ORDERED: CHLORHEXIDINE GLUCONATE 4% SOLN 120 ML BTL TOPICAL SCH (17:00)
[2017-09-21] MEDS ORDERED: VANCOMYCIN INJ 1,000 MG in SODIUM CHLORIDE 0.9% IRR BTL 1,000 ML IRRIGATION SCH (17:00)
[2017-09-21] MEDS ORDERED: VANCOMYCIN INJ 1,000 MG in SODIUM CHLOR 0.9% 250 ML INJ 250 ML IV SCH (17:00)
--- NOTE | 2017-09-21 18:13 | PD.CAR.PN ---
CVT Progress Note Subjective/Hospital Course: Risk Model and Variables - [facility] Adult Cardiac Surgery Database Version 2.81 RISK SCORES About the STS Risk Calculator Procedure: CAB Only Risk of Mortality: 2.584% Morbidity or Mortality: 18.389% Long Length of Stay: 7.74% Short Length of Stay: 35.189% Permanent Stroke: 1.805% Prolonged Ventilation: 12.904% DSW Infection: 0.288% Renal Failure: 3.19% Reoperation: 7.647% Objective: Vital Signs Date Time Temp Pulse Resp B/P (MAP) Pulse Ox O2 Delivery O2 Flow Rate FiO2 09/21/17 17:18 81 09/21/17 16:00 81 09/21/17 15:18 98.8 74 22 126/83 (97) 94 09/21/17 15:00 75 09/21/17 14:00 80 09/21/17 13:05 76 09/21/17 12:15 78 09/21/17 11:21 98.9 77 24 126/83 (97) 99 09/21/17 11:08 77 09/21/17 10:20 76 09/21/17 09:00 76 09/21/17 08:36 76 09/21/17 07:15 99.2 80 23 126/76 (93) 92 09/21/17 07:00 80 09/21/17 06:00 78 09/21/17 05:00 78 09/21/17 04:00 78 09/21/17 03:00 98.8 79 16 107/53 (71) 96 09/21/17 03:00 78 09/21/17 02:00 80 09/21/17 01:00 78 09/21/17 00:00 52 09/20/17 23:00 53 09/20/17 23:00 98.1 53 16 94/50 (65) 94 09/20/17 22:00 46 09/20/17 21:00 50 09/20/17 20:00 60 09/20/17 19:00 44 09/20/17 18:17 98.6 48 20 80/50 (60) 94 Labs: Laboratory Tests Test 09/21/17 15:17 Activated Partial Thromboplast Time 39.4 SEC (24.3-30.1) Result Diagram: 09/20/17 3162 09/19/172130 (1) Tobacco abuse (2) Non-STEMI (non-ST elevated myocardial infarction) (3) Atrial fibrillation with rapid ventricular response Plan: Ventricular rate controlled Kevin Ferrell MD Sep 21, 2017 18:13
--- NOTE | 2017-09-21 18:14 | RADRPT ---
EXAM DATE/TIME: 09/21/2017 17:12 [facility] COMPARISON: No previous studies available for comparison. INDICATIONS : Pre op cardiac surgery. MEDICAL HISTORY : Hypertension. Arthritis. Myocardial infarction. Coronary artery disease. Thyroid disease. Afib. SURGICAL HISTORY : Right shoulder surgery. ENCOUNTER: Initial ACUITY: 1 day PAIN SCORE: 0/10 LOCATION: Bilateral legs. TECHNIQUE: Venous ultrasound of the left and right leg was performed from the inguinal ligament to the proximal calf. Real-time, color Doppler and spectral tracing, compression and augmentation techniques were us ed. FINDINGS: RIGHT LEG: There is normal compressibility of the deep venous system from the inguinal region to the proximal ca lf. No echogenic clot is seen in the lumen of the common femoral, femoral, popliteal, and posterior tibial veins. There is a normal response of the venous system to proximal and distal augmentation an d respiration. LEFT LEG: There is normal compressibility of the deep venous system from the inguinal region to the proximal ca lf. No echogenic clot is seen in the lumen of the common femoral, femoral, popliteal, and posterior tibial veins. There is a normal response of the venous system to proximal and distal augmentation an d respiration. CONCLUSION: Normal examination. Farhad Chao MD on September 21, 2017 at 18:12 Board Certified Radiologist. This report was verified electronically.
--- NOTE | 2017-09-21 18:15 | RADRPT ---
EXAM DATE/TIME: 09/21/2017 17:20 [facility] COMPARISON: No previous studies available for comparison. INDICATIONS : Pre op cardiac surgery. MEDICAL HISTORY : Hypertension. Arthritis. Myocardial infarction. Coronary artery disease. Thyroid disease. Afib. SURGICAL HISTORY : Right shoulder surgery. ENCOUNTER: Initial ACUITY: 1 day PAIN SCORE: 0/10 LOCATION: Bilateral legs. GREATER SAPHENOUS VEIN THIGH: PROXIMAL: Right 4 mm Left 6 mm MID: Right 3 mm Left 5 mm DISTAL: Right 2 mm Left 4 mm CALF: PROXIMAL: Right 1 mm Left 3 mm MID: Right 1 mm Left 1 mm DISTAL: Right 2 mm Left 2 mm FINDINGS: The venous system of the lower extremities are patent by color Doppler imaging. Measurements of the leg veins (in mm) are listed above. CONCLUSION: 1. Venous measurements as above. Findings within normal limits. Farhad Chao MD on September 21, 2017 at 18:12 Board Certified Radiologist. This report was verified electronically.
--- NOTE | 2017-09-21 18:16 | RADRPT ---
EXAM DATE/TIME: 09/21/2017 17:39 [facility] COMPARISON: No previous studies available for comparison. INDICATIONS : Pre op cardiac surgery. MEDICAL HISTORY : Hypertension. Arthritis. Myocardial infarction. Coronary artery disease. Thyroid disease. Afib. SURGICAL HISTORY : Right shoulder surgery. ENCOUNTER: Initial ACUITY: 1 day PAIN SCORE: 0/10 LOCATION: Bilateral neck PEAK SYSTOLIC VELOCITIES (cm/sec): ICA/CCA RATIO: Right: 1.0 Left: 1.1 ICA: Right: 57 Left: 66 CCA: Right: 55 Left: 59 ECA: Right: 104 Left: 101 VERTEBRAL: Right: 34 antegrade Left: 32 antegrade Elevated flow velocities and ICA/CCA ratios have been found to correlate with increased degrees of vessel stenosis, calculated as percentage of diameter relative to a normal segment of distal ICA/CCA FINDINGS: RIGHT CAROTID: No significant stenosis is visualized. The waveforms are within normal limits. LEFT CAROTID: No significant stenosis is visualized. The waveforms are within normal limits. VERTEBRAL ARTERIES: Antegrade flow is seen in both vertebral arteries. MISCELLANEOUS: None. CONCLUSION: 1. Mild visible plaque formation in the carotid arteries. No hemodynamically significant stenosis. Ve rtebral artery flow antegrade. Farhad Chao MD on September 21, 2017 at 18:14 Board Certified Radiologist. This report was verified electronically.
--- NOTE | 2017-09-21 18:21 | PD.CAR.PN ---
CVT Progress Note Subjective/Hospital Course: Pt examined and chart reviewed. Full consult dictated. Planned OR - 3rd case - tomorrow if Plavix Verify is within normal range. Thanks. Objective: Vital Signs Date Time Temp Pulse Resp B/P (MAP) Pulse Ox O2 Delivery O2 Flow Rate FiO2 09/21/17 17:18 81 09/21/17 16:00 81 09/21/17 15:18 98.8 74 22 126/83 (97) 94 09/21/17 15:00 75 09/21/17 14:00 80 09/21/17 13:05 76 09/21/17 12:15 78 09/21/17 11:21 98.9 77 24 126/83 (97) 99 09/21/17 11:08 77 09/21/17 10:20 76 09/21/17 09:00 76 09/21/17 08:36 76 09/21/17 07:15 99.2 80 23 126/76 (93) 92 09/21/17 07:00 80 09/21/17 06:00 78 09/21/17 05:00 78 09/21/17 04:00 78 09/21/17 03:00 98.8 79 16 107/53 (71) 96 09/21/17 03:00 78 09/21/17 02:00 80 09/21/17 01:00 78 09/21/17 00:00 52 09/20/17 23:00 53 09/20/17 23:00 98.1 53 16 94/50 (65) 94 09/20/17 22:00 46 09/20/17 21:00 50 09/20/17 20:00 60 09/20/17 19:00 44 Labs: Laboratory Tests Test 09/21/17 15:17 Activated Partial Thromboplast Time 39.4 SEC (24.3-30.1) Result Diagram: 09/20/17 0459 09/19/17 213 (1) Tobacco abuse (2) Non-STEMI (non-ST elevated myocardial infarction) (3) Atrial fibrillation with rapid ventricular response Plan: Ventricular rate controlled Kevin Ferrell MD Sep 21, 2017 18:21
[2017-09-21 18:39] LABS: BILIRUBIN, URINE NEG (NEG); BLOOD, URINE TRACE (NEG); GLUCOSE,URINE NEG (NEG); KETONE, URINE NEG (NEG); NITRITE,URINE NEG (NEG); SQUAMOUS EPITHELIAL CELL URINE <1 /hpf (0-5); URINE COLOR YELLOW (YELLW/STRAW); URINE LEUKOCYTE ESTERASE NEG (NEG)
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
[2017-09-21] MEDS: MUPIROCIN 2% OINT 1 APPLIC/GM SYR EACH NARE SCH (22:22)
[2017-09-22] VITALS (25 sets, daily range): BP systolic 92–130; BP diastolic 47–79; PULSE 51–84; RESP 12–16; TEMP 97.7–98.9; O2SAT 90–99
[2017-09-22] MEDS: METOPROLOL TARTRATE 25 MG TAB PO SCH ×3 (05:47→22:00)
[2017-09-22 06:54] LABS: AUTOMATED NEUTROPHIL # 7.4 TH/MM3 (1.8-7.7); BASOPHIL % 0.4 % (0.0-2.0); EOSINOPHIL # 0.1 TH/MM3 (0-0.4); EOSINOPHIL % 0.6 % (0.0-4.0); HEMATOCRIT 42.2 % (39.0-51.0); HEMOGLOBIN 14.2 GM/DL (13.0-17.0); LYMPH % 15.4 % (9.0-44.0); LYMPHOCYTE # 1.5 TH/MM3 (1.0-4.8); MEAN CELL VOLUME 99.7 FL (80.0-100.0); MEAN CORPUSCULAR HEMOGLOBIN 33.6 PG (27.0-34.0); MEAN CORPUSCULAR HGB CONC 33.7 % (32.0-36.0); MEAN PLATELET VOLUME 8.7 FL (7.0-11.0); MONO % 9.7 % (0.0-8.0); NEUT % 73.9 % (16.0-70.0); PLATELET COUNT 125 TH/MM3 (150-450); RED BLOOD COUNT 4.24 MIL/MM3 (4.50-5.90); RED CELL DISTRIBUTION WIDTH 13.9 % (11.6-17.2)
[2017-09-22 07:31] LABS: BICARBONATE 23.2 MEQ/L (21.0-32.0); CALCIUM 8.3 MG/DL (8.5-10.1); CREATININE 0.72 MG/DL (0.60-1.30)
[2017-09-22] MEDS ORDERED: ASPIRIN 81 MG CHEW TAB PO SCH (09:00)
[2017-09-22] MEDS: SODIUM CHLORIDE 0.9% FLUSH 10 ML FLUSH IV FLUSH SCH ×3 (09:11→21:00)
[2017-09-22] MEDS: DILTIAZEM-CD 240 MG CAP ER PO SCH (09:25)
[2017-09-22] MEDS: MUPIROCIN 2% OINT 1 APPLIC/GM SYR EACH NARE SCH ×2 (09:25→21:00)
[2017-09-22] MEDS: HEPARIN-D5W 25,000 U/250 ML 250 ML IV PRN (09:27)
--- NOTE | 2017-09-22 11:03 | HHI.PR ---
Subjective Remarks Follow up NSTEMI/PAF 09/20/17-patient seen and examined, denies any chest pain or shortness of breath. NO Palpitation 09/21/17-patient seen and examined, he had left heart catheterization this morning with finding of multivessel disease. Patient is very upset and wants to be discharged home 09/22/17-patient seen and examined, states he is ready for surgery today. No acute event overnight Objective Vitals Vital Signs Date Time Temp Pulse Resp B/P (MAP) Pulse Ox O2 Delivery O2 Flow Rate FiO2 09/22/17 10:03 78 09/22/17 09:00 62 09/22/17 08:00 56 09/22/17 07:46 98.4 55 16 92/49 (63) 94 09/22/17 07:00 51 09/22/17 05:51 79 09/22/17 05:00 68 09/22/17 04:00 78 09/22/17 03:15 58 09/22/17 03:00 97.7 78 16 130/79 (96) 97 09/22/17 02:00 64 09/22/17 01:00 63 09/22/17 00:00 61 09/21/17 23:00 98.8 81 16 117/74 (88) 96 09/21/17 23:00 81 09/21/17 22:00 85 09/21/17 21:00 80 09/21/17 20:00 82 09/21/17 20:00 98.9 82 18 122/67 (85) 93 09/21/17 19:22 114 09/21/17 18:05 80 09/21/17 17:18 81 09/21/17 16:00 81 09/21/17 15:18 98.8 74 22 126/83 (97) 94 09/21/17 15:00 75 09/21/17 14:00 80 09/21/17 13:05 76 09/21/17 12:15 78 09/21/17 11:21 98.9 77 24 126/83 (97) 99 09/21/17 11:08 77 I/O 09/21/17 09/21/17 09/21/17 09/22/17 09/22/17 09/22/17 07:00 15:00 23:00 07:00 15:00 23:00 Intake Total 480 ml 150 ml 1600 ml 480 ml Output Total 1400 ml 550 ml Balance 480 ml 150 ml 200 ml -70 ml Intake Oral 480 ml 600 ml 480 ml IV Total 150 ml 1000 ml Output Urine Total 1400 ml 550 ml # Voids 1 # Bowel Movements 1 Result Diagram: 09/22/17 0509 09/22/17 0509 Imaging Last Impressions Lower Extremity Ultrasound 09/21/17 0000 Signed Impressions: Service Date/Time: Thursday, September 21, 2017 17:12 - CONCLUSION: Normal examination. Farhad Chao MD Chest CT 09/21/17 0000 Signed Impressions: Service Date/Time: Thursday, September 21, 2017 13:23 - CONCLUSION: 1. Upper lobe predominant centrilobular emphysema with 1.2 cm spiculated nodule in the right upper lobe inferiorly and adjacent satellite nodule measuring up to 7 mm. The findings are highly concerning for primary lung malignancy. Recommend PET/CT examination or sampling per 2017 Fleischner criteria. 2. Mediastinal adenopathy measuring up to 11 mm. Although nonspecific, cannot exclude metastatic adenopathy. PET/CT examination would be extremely beneficial in further assessment of the mediastinal adenopathy. 3. Small bilateral pleural effusions more prominent on the right with associated compressive atelectasis in the lower lobes and upper lobe interstitial edema, particularly on the right 4. Ascending thoracic aortic aneurysm measuring up to 4.1 cm. 5. Moderate coronary artery calcifications. Baldo Mcclain MD Carotid Artery Ultrasound 09/21/17 0000 Signed Impressions: Service Date/Time: Thursday, September 21, 2017 17:39 - CONCLUSION: 1. Mild visible plaque formation in the carotid arteries. No hemodynamically significant stenosis. Vertebral artery flow antegrade. Farhad Chao MD Chest X-Ray 09/19/17 1056 Signed Impressions: Service Date/Time: Tuesday, September 19, 2017 11:55 - CONCLUSION: 1. COPD changes. No acute abnormality. Chi Berg MD Objective Remarks GENERAL: NAD SKIN: Warm and dry. HEAD: Normocephalic. EYES: No scleral icterus. No injection or drainage. NECK: Supple, trachea midline. No JVD or lymphadenopathy. CARDIOVASCULAR: irreg Regular rate and rhythm without murmurs, gallops, or rubs. RESPIRATORY: Breath sounds equal bilaterally. No accessory muscle use. GASTROINTESTINAL: Abdomen soft, non-tender, nondistended. MUSCULOSKELETAL: No cyanosis, or edema. BACK: Nontender without obvious deformity. No CVA tenderness. A/P Problem List: (1) Atrial fibrillation with rapid ventricular response ICD Code: I48.91 - Unspecified atrial fibrillation Status: Acute (2) Non-STEMI (non-ST elevated myocardial infarction) ICD Code: I21.4 - Non-ST elevation (NSTEMI) myocardial infarction (3) Multi-vessel coronary artery stenosis ICD Code: I25.10 - Atherosclerotic heart disease of [place] coronary artery without angina pectoris Assessment and Plan 77-year-old man with Atrial fibrillation with RVR Rate controlled on Cardizem 30 mg 4 times a day Heparin drip until OAC started by Cardiology 2-D echo with EF 65-70% NSTEMI Continue with Heparin drip/ASA Status post left heart catheterization 09/21/17 Cardiology ff Multivessel coronary artery disease Patient is status post left heart catheterization today with finding of Critical coronary disease involving the distal left main, ostial circumflex, and ostial LAD Cardiothoracic surgery has been consulted and plan for surgery today 09/22/17 Hold lisinopril in anticipation for possible CABG Hypertension hold lisinopril Beta maurice Tobacco abuse Tobacco cessation counseling provided Patient declined nicotine patch DVT prophylaxis: Heparin drip Malachi Villanueva MD Sep 22, 2017 11:03
[2017-09-22] MEDS ORDERED: MAGNESIUM SULFATE 1 GM/2 ML VIAL IV ONE (12:00)
[2017-09-22] MEDS ORDERED: HEPARIN SODIUM - SQ 10,000 UNITS/ML VIAL SQ ONE (12:00)
[2017-09-22] MEDS ORDERED: LIDOCAINE HCL 2% 100 MG/5 ML SYRINGE IV PUSH ONE (12:00)
[2017-09-22] MEDS ORDERED: PHENYLEPH/NS 1000 MCG/10 ML SYR IV ONE (12:00)
[2017-09-22] MEDS ORDERED: VECURONIUM BROMIDE 20 MG VIAL IV ONE (12:00)
[2017-09-22] MEDS ORDERED: PROTAMINE SULFATE 50 MG/5 ML VIAL IV ONE (12:00)
[2017-09-22] MEDS ORDERED: DEXMEDETOMIDINE HCL 200 MCG/2 ML VIAL IV ONE (12:00)
[2017-09-22] MEDS ORDERED: DOPamine 800 MG/500 ML INJ 500 ML IV ONE (12:00)
[2017-09-22] MEDS ORDERED: SODIUM CHLOR 0.9% 250 ML INJ 250 ML ONE (14:21)
[2017-09-22] MEDS ORDERED: VANCOMYCIN HCL 1000 MG VIAL ONE ×2 (14:21→14:23)
[2017-09-22] MEDS ORDERED: HEPARIN SODIUM - SQ 10,000 UNITS/ML VIAL ONE (14:23)
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
[2017-09-22] MEDS ORDERED: MIDAZOLAM HCL 5 MG/ML VIAL (1 ML) ONE (17:04)
[2017-09-22] MEDS ORDERED: fentaNYL CITRATE 250 MCG/5 ML AMP ONE (17:04)
[2017-09-22] MEDS ORDERED: POTASSIUM CHLORIDE 20 MEQ/10 ML VIAL ONE (20:10)
[2017-09-22] MEDS ORDERED: DOBUTamine PREMIX DRIP 250 ML IV PRN (20:33)
--- NOTE | 2017-09-22 20:43 | PD.OP ---
cc: Kevin Ferrell MD; Andrea Huynh MD Operative Report Date of Surgery: Sep 22, 2017 Preoperative Diagnosis: Postoperative Diagnosis: Procedure: 1. Urgent Off-pump Coronary Artery Bypass Grafting x 1 with Left Internal Mammary Artery (BRODERICK) to the Left Anterior Descending (LAD) 2. Synchronized Cardioversion 3. Left Leg Endoscopic Vein Scenic 4. Intraoperative Vein Mapping Surgeon: Kevin Ferrell Athletic Shoe Designer(s): Joseph Gonsalez Operation and Findings: PREPROCEDURE DIAGNOSES 1. Multi-Vessel Coronary Artery Disease. 2. Atrial Flutter with Rapid Ventricular Response 3. Porcelain Aorta 4. Severe COPD POSTPROCEDURE DIAGNOSES Same SURGICAL PROCEDURE 1. Urgent Off-pump Coronary Artery Bypass Grafting x 1 with Left Internal Mammary Artery (BRODERICK) to the Left Anterior Descending (LAD) 2. Synchronized Cardioversion 3. Left Leg Endoscopic Vein Scenic 4. Intraoperative Vein Mapping SURGEON Kevin Ferrell MD LACQUER PIN PRESS OPERATOR Gregorio Gonsalez SALES ASSISTANT ANESTHESIA General endotracheal CODER OPERATOR WALT Alvarez MD PREPARATION ChloraPrep. COUNTS Needle, sponge, and instrument counts were correct. DRAINS Two 32-[place] mediastinal tubes. COMPLICATIONS None. INDICATIONS FOR PROCEDURE The patient is a 63-year-old initially presenting with chest pain and multi- vessel coronary artery disease. He is being brought to the operating room for surgical revascularization therapy. PROCEDURE Patient was brought to the operating room and placed supine on the OR table. Following the induction of adequate general endotracheal anesthesia and placement of appropriate monitoring devices, intraoperative vein mapping was performed which revealed suitable-caliber conduit in the left leg. The patient was then prepped and draped in standard sterile fashion. Next, 2500 units of intravenous heparin was given. Left leg greater saphenous veins were harvested endoscopically. This appeared to be a good-caliber conduit. Simultaneously, a median sternotomy was performed and the left internal mammary artery dissected free off the posterior sternal table. Of note, the BRODERICK was densely adherent to the posterior table of the sternum in its mid aspect and was carefully dissected free. The patient was systemically heparinized and anticoagulation monitored by serial ACT measurements. The internal mammary artery had good pulsatile flow in it and was an decent-caliber conduit. The pericardium was then divided in the midline, the cradle created and target analyzed. Palpation of the ascending aorta confirmed the preoperative findings of a porcelain aorta extending into the arch with no soft spots. At this point, the left internal mammary artery was anastomosed to the distal LAD (2 mm) in an end-to-side fashion using 7-0 Prolene. This was done in a beating heart fashion using the Maquet stabilizing system. The anastomotic site was inspected and appeared to be hemostatic and patent. Protamine solution was given. CAMRYN was performed to assure that there was no thrombus in the pulmonary veins and then synchronized cardioversion was performed at 20 Joules with successful conversion to NSR. Strict hemostasis was assured. The closure was undertaken. 2 chest tubes were placed. The pericardium was reapproximated in the midline. The sternum was approximated using sternal wires. The muscular and fascial layer were then closed in 3 layers. The endoscopic vein harvest sites were closed in 2 layers. The patient tolerated the procedure well and was transferred to CVICU in stable condition. Kevin Ferrell MD Sep 22, 2017 20:43
[2017-09-22] MEDS ORDERED: POTASSIUM CHLOR 20 MEQ PREMIX 100 ML IV PRN ×3 (20:45)
[2017-09-22] MEDS ORDERED: PHENYLEPHRINE INJ 40 MG in DEXTROSE 5% IN WATE 500 ML INJ 496 ML IV PRN ×2 (20:45)
[2017-09-22] MEDS ORDERED: hydrALAZINE HCL 20 MG/ML VIAL IV PUSH PRN (20:45)
[2017-09-22] MEDS ORDERED: POTASSIUM CHLORIDE 20 MEQ CONTROLLED RELEASE TAB PO PRN ×2 (20:45)
[2017-09-22] MEDS ORDERED: CALCIUM CHLORIDE 10% 1 GRAM/10 ML VIAL IV PUSH PRN (20:45)
[2017-09-22] MEDS ORDERED: NITROGLYCERIN-D5W 50 MG/250 ML 250 ML IV PRN (20:45)
[2017-09-22] MEDS ORDERED: MEPERIDINE HCL 25 MG/ML VIAL IV PUSH PRN (20:45)
[2017-09-22] MEDS ORDERED: SODIUM CHLORIDE 0.9% FLUSH 10 ML FLUSH IV FLUSH PRN (20:45)
[2017-09-22] MEDS ORDERED: ACETAMINOPHEN 325 MG TAB PO PRN (20:45)
[2017-09-22] MEDS ORDERED: DOPamine 800 MG/500 ML INJ 500 ML IV PRN (20:45)
[2017-09-22] MEDS ORDERED: RESP: RACEPINEPHRINE 2.25% 0.5 ML NEB NEB PRN ×2 (20:45→21:30)
[2017-09-22] MEDS ORDERED: METOPROLOL TARTRATE 5 MG/5 ML VIAL IV PUSH PRN (20:45)
[2017-09-22] MEDS ORDERED: SODIUM BICARBONATE 8.4% SOLN 50 MEQ/50 ML VIAL IV PUSH PRN ×2 (20:45)
[2017-09-22] MEDS ORDERED: DEXMEDETOMIDINE INJ 200 MCG in SODIUM CHLORIDE 0.9% INJ 50 ML IV PRN (20:45)
[2017-09-22] MEDS ORDERED: Post-op Orders (for Pharmacy) OTHER ONE (20:45)
[2017-09-22] MEDS ORDERED: ACETAMINOPHEN 650 MG SUPP RECTAL PRN (20:45)
[2017-09-22] MEDS ORDERED: MAGNESIUM SULFATE INJ 2 GM in SODIUM CHLORIDE 0.9% INJ 100 ML IV PRN ×4 (20:45)
[2017-09-22] MEDS ORDERED: CLEVIDIPINE INJ 50 ML IV PRN (20:45)
[2017-09-22] MEDS ORDERED: DEXTROSE 50% IN WATER 50 ML VIAL(D50) IV PUSH PRN (20:45)
[2017-09-22] MEDS ORDERED: MORPHINE SULFATE 4 MG/ML INJ IV PUSH PRN (20:45)
[2017-09-22] MEDS ORDERED: INSULIN REGULAR (IV INFUSION) 100 UNITS in SODIUM CHLORIDE 0.9% INJ 99 ML IV PRN (20:45)
[2017-09-22] MEDS ORDERED: KETOROLAC TROMETHAMINE 30 MG/ML (IVP) VIAL IV PUSH PRN (20:45)
[2017-09-22] MEDS ORDERED: ONDANSETRON HCL 4 MG/2 ML VIAL IV PUSH PRN (20:45)
[2017-09-22] MEDS: AMIODARONE 200 MG TAB PO SCH (21:00)
[2017-09-22] MEDS ORDERED: LACTATED RINGER'S 1000 ML INJ 500 ML IV PRN (21:00)
[2017-09-22] MEDS ORDERED: RESP: ALBUTEROL 2.5 MG/IPRATROPIUM 0.5 MG NEB (PRN) NEB (21:30)
[2017-09-22] MEDS ORDERED: RESP: ALBUTEROL 2.5 MG/IPRATROPIUM 0.5 MG NEB (SCH) NEB (22:00)
[2017-09-22] MEDS: RESP: ALBUTEROL 2.5 MG/IPRATROPIUM 0.5 MG NEB (SCH) NEB (22:08)
[2017-09-22] MEDS: CALCIUM CHLORIDE INJ 1 GM in SODIUM CHLORIDE 0.9% INJ 100 ML IV PRN ×2 (22:16→23:30)
[2017-09-22] MEDS: ACETAMINOPHEN 1000 MG/100 ML 100 ML IV SCH (22:24)
--- NOTE | 2017-09-22 22:28 | RADRPT ---
EXAM DATE/TIME: 09/22/2017 21:37 [facility] COMPARISON: No previous studies available for comparison. INDICATIONS : Post CABG. MEDICAL HISTORY : Cardiovascular disease. Hypertension. SURGICAL HISTORY : None. ENCOUNTER: Subsequent ACUITY: 4 - 6 days PAIN SCORE: Non-responsive. LOCATION: Bilateral chest FINDINGS: A single view of the chest demonstrates endotracheal tube in good position. NG enters stomach. Centra l and left chest tube without significant pneumothorax. Right central line in superior cava. Patchy a irspace disease in the lungs. Small effusions. CONCLUSION: 1. Postoperative CABG with support apparatus as above. No pneumothorax. 2. Bilateral mostly basilar and perihilar airspace disease. Farhad Chao MD on September 22, 2017 at 22:25 Board Certified Radiologist. This report was verified electronically.
[2017-09-22] MEDS: ALBUMIN 5% INJ 250 ML IV PRN ×2 (22:47→23:02)
[2017-09-23] VITALS (10 sets, daily range): BP systolic 91–137; BP diastolic 44–73; PULSE 81–98; RESP 18–24; TEMP 97.8–98.6; O2SAT 92–98
[2017-09-23] MEDS: RESP: ALBUTEROL 2.5 MG/IPRATROPIUM 0.5 MG NEB (PRN) NEB (01:13)
[2017-09-23] MEDS: RESP: ALBUTEROL 2.5 MG/IPRATROPIUM 0.5 MG NEB (SCH) NEB ×4 (02:54→20:09)
[2017-09-23] MEDS: ACETAMINOPHEN 1000 MG/100 ML 100 ML IV SCH ×2 (03:29→09:44)
[2017-09-23 04:42] LABS: HEMATOCRIT 29.9 % (39.0-51.0); HEMOGLOBIN 10.1 GM/DL (13.0-17.0); MEAN CELL VOLUME 100.3 FL (80.0-100.0); MEAN CORPUSCULAR HEMOGLOBIN 33.9 PG (27.0-34.0); MEAN CORPUSCULAR HGB CONC 33.8 % (32.0-36.0); MEAN PLATELET VOLUME 8.6 FL (7.0-11.0); PLATELET COUNT 119 TH/MM3 (150-450); RED BLOOD COUNT 2.98 MIL/MM3 (4.50-5.90)
[2017-09-23] MEDS: PANTOPRAZOLE SOD 40 MG DELAYED RELEASE TAB PO SCH (05:03)
[2017-09-23] MEDS: VANCOMYCIN INJ 1,000 MG in SODIUM CHLOR 0.9% 250 ML INJ 250 ML IV SCH ×2 (05:03→17:30)
[2017-09-23 05:07] LABS: BICARBONATE 16.8 MEQ/L (21.0-32.0); CALCIUM 7.7 MG/DL (8.5-10.1); CREATININE 0.48 MG/DL (0.60-1.30); MAGNESIUM 1.9 MG/DL (1.5-2.5)
[2017-09-23] MEDS: METOPROLOL TARTRATE 25 MG TAB PO SCH ×2 (05:39→20:16)
--- NOTE | 2017-09-23 05:52 | RADRPT ---
EXAM DATE/TIME: 09/23/2017 04:48 [facility] COMPARISON: CHEST SINGLE AP, September 22, 2017, 21:37. INDICATIONS : Status post CABG. MEDICAL HISTORY : Cardiovascular disease. Hypertension. SURGICAL HISTORY : None. ENCOUNTER: Subsequent ACUITY: 2 days PAIN SCORE: Non-responsive. LOCATION: chest FINDINGS: A single AP semierect view of the chest was obtained and demonstrates interval extubation and removal of the nasogastric tube. The right internal jugular central venous line remains in place. A mediasti nal chest tube a left-sided chest tube remain in place without pneumothorax. Coarse interstitial opac ities remain in both lungs right greater than left. This appears increased at the right lung base. Th e heart size is mildly prominent. The patient is again noted to be status post median sternotomy. Bot h costophrenic angles are mildly blunted. CONCLUSION: 1. Interval extubation and removal of nasogastric tube. 2. Hazy opacity remains in both lungs with interval increase in opacity at the right lung base. 3. The costophrenic angles are mildly blunted. Ángel Frazier MD on September 23, 2017 at 5:47 Board Certified Radiologist. This report was verified electronically.
[2017-09-23] MEDS: MUPIROCIN 2% OINT 1 APPLIC/GM SYR EACH NARE SCH (09:42)
[2017-09-23] MEDS: DILTIAZEM-CD 240 MG CAP ER PO SCH (09:44)
[2017-09-23] MEDS: CLOPIDOGREL 75 MG TAB PO SCH (09:45)
[2017-09-23] MEDS: ASPIRIN 81 MG CHEW TAB PO SCH (09:45)
[2017-09-23] MEDS: AMIODARONE 200 MG TAB PO SCH ×2 (09:45→20:14)
[2017-09-23] MEDS: SODIUM CHLORIDE 0.9% FLUSH 10 ML FLUSH IV FLUSH SCH ×2 (09:47→21:00)
[2017-09-23] MEDS: ACETAMINOPHEN/HYDROcodone 325 MG/5 MG TAB PO PRN ×2 (10:14→17:31)
[2017-09-23] MEDS ORDERED: GLUCAGON 1 MG/ML VIAL OTHER PRN (11:15)
[2017-09-23] MEDS ORDERED: DEXTROSE 50% IN WATER 50 ML VIAL(D50) IV PUSH PRN (11:15)
[2017-09-23] MEDS ORDERED: BISACODYL 10 MG SUPP RECTAL PRN (11:15)
[2017-09-23] MEDS ORDERED: SOD PHOSPHATE/SOD BIPHOSPHATE (ADULT) ENEMA 133ML RECTAL PRN (11:15)
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
[2017-09-23] MEDS: INSULIN ASPART SUPPLEMENTAL SCALE SQ SCH ×3 (14:46→22:00)
[2017-09-23] MEDS: DOCUSATE SODIUM 100 MG CAP PO SCH ×2 (14:48→21:00)
[2017-09-23] MEDS: FOLIC ACID 1 MG TAB PO SCH (14:48)
[2017-09-23] MEDS: THIAMINE HCL 100 MG TAB PO SCH (14:48)
[2017-09-23] MEDS ORDERED: POTASSIUM CHLORIDE 20 MEQ CONTROLLED RELEASE TAB PO ONE (18:15)
[2017-09-23] MEDS ORDERED: FUROSEMIDE 40 MG/4 ML VIAL IV PUSH ONE (18:15)
[2017-09-23 18:21] LABS: AUTOMATED NEUTROPHIL # 2.5 TH/MM3 (1.8-7.7); BASOPHIL % 0.3 % (0.0-2.0); HEMATOCRIT 30.6 % (39.0-51.0); HEMOGLOBIN 10.3 GM/DL (13.0-17.0); LYMPH % 13.6 % (9.0-44.0); LYMPHOCYTE # 0.5 TH/MM3 (1.0-4.8); MEAN CELL VOLUME 99.7 FL (80.0-100.0); MEAN CORPUSCULAR HEMOGLOBIN 33.6 PG (27.0-34.0); MEAN CORPUSCULAR HGB CONC 33.7 % (32.0-36.0); MEAN PLATELET VOLUME 8.4 FL (7.0-11.0); MONO % 16.7 % (0.0-8.0); MONOCYTE # 0.6 TH/MM3 (0-0.9); NEUT % 69.4 % (16.0-70.0); PLATELET COUNT 130 TH/MM3 (150-450); RED BLOOD COUNT 3.07 MIL/MM3 (4.50-5.90); RED CELL DISTRIBUTION WIDTH 13.9 % (11.6-17.2); WHITE BLOOD COUNT 3.6 TH/MM3 (4.0-11.0)
[2017-09-23 18:33] LABS: PROTHROMBIN TIME - PATIENT 10.2 SEC (9.8-11.6)
--- NOTE | 2017-09-23 19:53 | EKG ---
Date Performed: 09/23/2017 Time Performed: 03:40:08 PTAGE: 77 years EKG: Sinus rhythm with PAC(s) Lateral ST-T changes may be due to myocardial ischemia Since previous tracing, no signif icant change noted Abnormal ECG PREVIOUS TRACING : 09/19/2017 11.43 DOCTOR: Song Mullins Interpretating Date/Time 09/23/2017 19:51:44
[2017-09-23] MEDS: SENNOSIDES 8.6 MG TAB PO SCH (20:15)
[2017-09-23] MEDS ORDERED: METOPROLOL TARTRATE 25 MG TAB PO SCH (21:00)
[2017-09-24] VITALS (20 sets, daily range): BP systolic 99–128; BP diastolic 55–81; PULSE 75–118; RESP 20; TEMP 97.8–100; O2SAT 95–97
[2017-09-24] MEDS: ACETAMINOPHEN/HYDROcodone 325 MG/5 MG TAB PO PRN ×2 (05:06→09:23)
[2017-09-24] MEDS: VANCOMYCIN INJ 1,000 MG in SODIUM CHLOR 0.9% 250 ML INJ 250 ML IV SCH (05:07)
[2017-09-24] MEDS: PANTOPRAZOLE SOD 40 MG DELAYED RELEASE TAB PO SCH (05:07)
[2017-09-24 06:00] LABS: AUTOMATED NEUTROPHIL # 1.7 TH/MM3 (1.8-7.7); BASOPHIL % 0.4 % (0.0-2.0); EOSINOPHIL % 0.1 % (0.0-4.0); HEMATOCRIT 28.2 % (39.0-51.0); HEMOGLOBIN 9.5 GM/DL (13.0-17.0); LYMPH % 22.5 % (9.0-44.0); LYMPHOCYTE # 0.7 TH/MM3 (1.0-4.8); MEAN CELL VOLUME 100.1 FL (80.0-100.0); MEAN CORPUSCULAR HEMOGLOBIN 33.7 PG (27.0-34.0); MEAN CORPUSCULAR HGB CONC 33.6 % (32.0-36.0); MONO % 19.3 % (0.0-8.0); MONOCYTE # 0.6 TH/MM3 (0-0.9); NEUT % 57.7 % (16.0-70.0); PLATELET COUNT 116 TH/MM3 (150-450); RED BLOOD COUNT 2.82 MIL/MM3 (4.50-5.90); RED CELL DISTRIBUTION WIDTH 13.8 % (11.6-17.2)
[2017-09-24] MEDS: INSULIN ASPART SUPPLEMENTAL SCALE SQ SCH ×4 (06:00→21:00)
[2017-09-24 06:15] LABS: ALBUMIN 2.4 GM/DL (3.4-5.0); AST (GOT) 23 U/L (15-37); BICARBONATE 20.2 MEQ/L (21.0-32.0); BLOOD UREA NITROGEN 19 MG/DL (7-18); CALCIUM 7.7 MG/DL (8.5-10.1); CHLORIDE 108 MEQ/L (98-107); CREATININE 0.82 MG/DL (0.60-1.30); GLOMERULAR FILTRATION RATE 91 ML/MIN (>89); GLUCOSE,RANDOM 139 MG/DL (74-106); MAGNESIUM 2.2 MG/DL (1.5-2.5); SODIUM (NA) 137 MEQ/L (136-145)
[2017-09-24 06:17] LABS: ALT (GPT) 19 U/L (12-78)
[2017-09-24 06:19] LABS: ALKALINE PHOSPHATASE 48 U/L (45-117); TOTAL BILIRUBIN ADULT 0.5 MG/DL (0.2-1.0); TOTAL PROTEIN 5.1 GM/DL (6.4-8.2)
[2017-09-24] MEDS: RESP: ALBUTEROL 2.5 MG/IPRATROPIUM 0.5 MG NEB (SCH) NEB (08:09)
[2017-09-24] MEDS: METOPROLOL TARTRATE 25 MG TAB PO SCH ×2 (09:00→21:38)
[2017-09-24] MEDS: POLYETHYLENE GLYCOL 17 GM PKG PO SCH (09:00)
[2017-09-24] MEDS: MULTIVITAMINS/MINERALS THERAPEUTIC TAB PO SCH (09:00)
[2017-09-24] MEDS: SODIUM CHLORIDE 0.9% FLUSH 10 ML FLUSH IV FLUSH SCH ×2 (09:00→21:37)
[2017-09-24] MEDS: MAGNESIUM HYDROXIDE SUSP 30 ML CUP PO SCH (09:23)
[2017-09-24] MEDS: THIAMINE HCL 100 MG TAB PO SCH (09:23)
[2017-09-24] MEDS: ASPIRIN 81 MG CHEW TAB PO SCH (09:23)
[2017-09-24] MEDS: FOLIC ACID 1 MG TAB PO SCH (09:23)
[2017-09-24] MEDS: CLOPIDOGREL 75 MG TAB PO SCH (09:23)
[2017-09-24] MEDS: AMIODARONE 200 MG TAB PO SCH (09:24)
[2017-09-24] MEDS: DOCUSATE SODIUM 100 MG CAP PO SCH ×2 (09:24→21:38)
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
[2017-09-24] MEDS ORDERED: AMIODARONE 150 MG/D5W 97 ML BOLUS 10 MINUTES IV ONE ×2 (13:30)
[2017-09-24] MEDS: MAGNESIUM SULFAT 1 GM PREMIX 100 ML x2 bags IV SCH ×2 (14:28→15:00)
--- NOTE | 2017-09-24 14:51 | HHI.PR ---
Subjective Remarks Patient is transferred out of the CVICU today. He feels he is not doing well and his discouragement regards to his ability to walk. I think he is progressing nicely for his age. Chest tube still present. Objective Vital Signs Date Time Temp Pulse Resp B/P (MAP) Pulse Ox O2 Delivery O2 Flow Rate FiO2 09/24/17 14:31 91 123/62 09/24/17 13:00 93 09/24/17 12:00 95 09/24/17 11:00 98.0 86 20 103/56 (72) 96 09/24/17 11:00 96 09/24/17 10:00 94 09/24/17 09:00 96 09/24/17 08:09 97 Nasal Cannula 3.00 09/24/17 08:00 98.2 81 20 109/62 (78) 97 09/24/17 08:00 76 09/24/17 06:37 18 09/24/17 06:00 80 09/24/17 03:00 98.4 75 20 99/55 (70) 97 09/24/17 03:00 75 09/23/17 23:00 81 09/23/17 23:00 98.2 81 20 101/55 (70) 97 Arterial Line 09/23/17 21:15 20 09/23/17 20:09 96 Nasal Cannula 6.00 09/23/17 19:00 97.9 98 24 114/70 (85) 92 09/23/17 19:00 98 09/23/17 16:00 98.5 84 18 135/73 (93) 98 09/23/17 16:00 107 135/73 09/23/17 15:00 94 139/59 I/O 09/23/17 09/23/17 09/23/17 09/24/17 09/24/17 09/24/17 06:59 14:59 22:59 06:59 14:59 22:59 Intake Total 1270 ml 970 ml 730 ml 100 ml Output Total 880 ml 1730 ml 1690 ml Balance 390 ml -760 ml -960 ml 100 ml Intake Oral 100 ml 720 ml 480 ml IV Total 1170 ml 250 ml 250 ml 100 ml Output Urine Total 500 ml 400 ml 1200 ml Chest Tube Drainage Total 380 ml 1330 ml 490 ml # Bowel Movements 0 0 Result Diagram: 09/24/17 0418 09/24/17 0418 Imaging Last Impressions Chest X-Ray 09/23/17 0500 Signed Impressions: Service Date/Time: Saturday, September 23, 2017 04:48 - CONCLUSION: 1. Interval extubation and removal of nasogastric tube. 2. Hazy opacity remains in both lungs with interval increase in opacity at the right lung base. 3. The costophrenic angles are mildly blunted. Ángle Frazier MD Lower Extremity Ultrasound 09/21/17 0000 Signed Impressions: Service Date/Time: Thursday, September 21, 2017 17:12 - CONCLUSION: Normal examination. Farhad Chao MD Chest CT 09/21/17 0000 Signed Impressions: Service Date/Time: Thursday, September 21, 2017 13:23 - CONCLUSION: 1. Upper lobe predominant centrilobular emphysema with 1.2 cm spiculated nodule in the right upper lobe inferiorly and adjacent satellite nodule measuring up to 7 mm. The findings are highly concerning for primary lung malignancy. Recommend PET/CT examination or sampling per 2017 Fleischner criteria. 2. Mediastinal adenopathy measuring up to 11 mm. Although nonspecific, cannot exclude metastatic adenopathy. PET/CT examination would be extremely beneficial in further assessment of the mediastinal adenopathy. 3. Small bilateral pleural effusions more prominent on the right with associated compressive atelectasis in the lower lobes and upper lobe interstitial edema, particularly on the right 4. Ascending thoracic aortic aneurysm measuring up to 4.1 cm. 5. Moderate coronary artery calcifications. Baldo Mcclain MD Carotid Artery Ultrasound 09/21/17 0000 Signed Impressions: Service Date/Time: Thursday, September 21, 2017 17:39 - CONCLUSION: 1. Mild visible plaque formation in the carotid arteries. No hemodynamically significant stenosis. Vertebral artery flow antegrade. Farhad Chao MD Objective Remarks GENERAL: NAD, A&Ox3 HEAD: Normocephalic. NECK: Supple, trachea midline. No lymphadenopathy. EYES: No scleral icterus. No injection or drainage. CARDIOVASCULAR: Regular rate and rhythm without murmurs, gallops, or rubs. RESPIRATORY: Breath sounds equal bilaterally. No accessory muscle use. GASTROINTESTINAL: Abdomen soft, non-tender, nondistended. MUSCULOSKELETAL: No cyanosis, or edema. Sternal wound is present. Chest tube remains. SKIN: Warm and dry. NEURO: No focal neurological deficitis. A/P Problem List: (1) S/P CABG x 1 ICD Code: Z95.1 - Presence of aortocoronary bypass graft (2) Multi-vessel coronary artery stenosis ICD Code: I25.10 - Atherosclerotic heart disease of [place] coronary artery without angina pectoris (3) Non-STEMI (non-ST elevated myocardial infarction) ICD Code: I21.4 - Non-ST elevation (NSTEMI) myocardial infarction (4) Tobacco abuse ICD Code: Z72.0 - Tobacco use (5) Atrial fibrillation with rapid ventricular response ICD Code: I48.91 - Unspecified atrial fibrillation Status: Acute Assessment and Plan 77-year-old man admitted with A. fib RVR and NSTEMI now status post CABG 1 Status post CABG 1 Coronary artery disease Cardiovascular surgery following Continue pain treatments Continue postop care Continue rehabilitation Atrial fibrillation with RVR Rate controlled Continue Cardizem Status post NSTEMI Cardiology following Status post bypass surgery Hypertension No change in present treatment Follow blood pressures Tobacco abuse Patient has quit smoking, declines NicoDerm patch DVT prophylaxis SCDs Chi Holden MD Sep 24, 2017 14:51
[2017-09-24] MEDS: ATORVASTATIN 40 MG TAB PO SCH (21:37)
[2017-09-24] MEDS: SENNOSIDES 8.6 MG TAB PO SCH (21:38)
[2017-09-25] VITALS (15 sets, daily range): BP systolic 116–190; BP diastolic 68–135; PULSE 86–110; RESP 16–24; TEMP 97.6–99.5; O2SAT 93–99
[2017-09-25 05:05] LABS: AUTOMATED NEUTROPHIL # 3.2 TH/MM3 (1.8-7.7); BASOPHIL % 0.2 % (0.0-2.0); EOSINOPHIL % 0.6 % (0.0-4.0); HEMOGLOBIN 9.8 GM/DL (13.0-17.0); LYMPHOCYTE # 0.6 TH/MM3 (1.0-4.8); MEAN CORPUSCULAR HEMOGLOBIN 33.3 PG (27.0-34.0); MEAN PLATELET VOLUME 8.5 FL (7.0-11.0); MONO % 19.6 % (0.0-8.0); NEUT % 66.6 % (16.0-70.0); PLATELET COUNT 133 TH/MM3 (150-450); RED BLOOD COUNT 2.96 MIL/MM3 (4.50-5.90); RED CELL DISTRIBUTION WIDTH 13.7 % (11.6-17.2); WHITE BLOOD COUNT 4.8 TH/MM3 (4.0-11.0)
[2017-09-25 05:30] LABS: ALBUMIN 2.3 GM/DL (3.4-5.0); BICARBONATE 22.9 MEQ/L (21.0-32.0); CALCIUM 7.3 MG/DL (8.5-10.1); CREATININE 0.49 MG/DL (0.60-1.30)
[2017-09-25 05:34] LABS: CALCIUM-PROTEIN CORRECTED 8.4 MG/DL (8.5-10.1); TOTAL BILIRUBIN ADULT 0.5 MG/DL (0.2-1.0); TOTAL PROTEIN 5.1 GM/DL (6.4-8.2)
[2017-09-25] MEDS: PANTOPRAZOLE SOD 40 MG DELAYED RELEASE TAB PO SCH (06:21)
[2017-09-25] MEDS: INSULIN ASPART SUPPLEMENTAL SCALE SQ SCH ×4 (08:00→21:00)
--- NOTE | 2017-09-25 08:25 | RADRPT ---
EXAM DATE/TIME: 09/25/2017 08:10 [facility] COMPARISON: CT BRAIN W/O CONTRAST, June 26, 2017, 16:04. INDICATIONS : Stroke alert.Right gaze, aphasic, right extremities flaccid. RADIATION DOSE: 57.67 CTDIvol (mGy) This report was called by Dr. Mckeon to Dr. Khan at the 8: 21 AM on 09/25/17. MEDICAL HISTORY : Cardiovascular disease. Hypertension. CAD,Afib SURGICAL HISTORY : None. ENCOUNTER: Initial ACUITY: 1 day PAIN SCALE: 0/10 LOCATION: cranial TECHNIQUE: Multiple contiguous axial images were obtained of the head. Using automated exposure control and adj ustment of the mA and/or kV according to patient size, radiation dose was kept as low as reasonably a chievable to obtain optimal diagnostic quality images. DICOM format image data is available electro nically for review and comparison. FINDINGS: CEREBRUM: The ventricles are normal for age. No evidence of midline shift, mass lesion, hemorrhage or acute in farction. No extra-axial fluid collections are seen. POSTERIOR FOSSA: There is a focal area of decreased attenuation within the left cerebellar hemisphere consistent with possible acute infarct. Clinical correlation is recommended. The brainstem is intact. The 4th ventri sascha is midline. The cerebellopontine angle is unremarkable. EXTRACRANIAL: The visualized portion of the orbits is intact. Mild mucosal thickening is noted within the left maxi llary sinus. SKULL: The calvaria is intact. No evidence of skull fracture. CONCLUSION: 1. Focal area decreased attenuation within the left cerebellar hemisphere consistent with possible ac [place] infarct. Clinical correlation is recommended. 2. No acute hemorrhage, midline shift or extra-axial fluid collections. Scotty Mckeon MD on September 25, 2017 at 8:17 Board Certified Radiologist. This report was verified electronically.
[2017-09-25 08:56] LABS: TROPONIN I 0.65 NG/ML (0.02-0.05)
[2017-09-25] MEDS: METOPROLOL TARTRATE 25 MG TAB PO SCH (09:00)
[2017-09-25] MEDS ORDERED: IOHEXOL 350 MG/ML 10 ML VIAL (for RAD DIAG) IVCONTRAST ONE (09:11)
[2017-09-25] MEDS ORDERED: PHENYLEPHRINE HCL 10 MG/ML VIAL ONE (09:18)
[2017-09-25] MEDS ORDERED: TERBUTALINE INJ 1 MG/ML AMP SQ PRN (09:30)
--- NOTE | 2017-09-25 09:45 | RADRPT ---
EXAM DATE/TIME: 09/25/2017 09:05 [facility] COMPARISON: No previous studies available for comparison. INDICATIONS : Altered mental status, aphasia and right sided facial droop. IV CONTRAST: 73 cc Omnipaque 350 (iohexol) IV ; Cumulative dose for multiple exams. RADIATION DOSE: 27.71 CTDIvol (mGy) ; Combined studies MEDICAL HISTORY : Hypertension. SURGICAL HISTORY : Non-responsive. ENCOUNTER: Initial ACUITY: 1 day PAIN SCALE: Non-responsive LOCATION: Bilateral head TECHNIQUE: Volumetric scanning was performed using a multi-row detector CT scanner. The data was post processed with a variety of visualization algorithms including full volume maximum intensity projection, multi -planar sliding thin slab reformation, curved planar reformation, and surface rendering techniques. Using automated exposure control and adjustment of the mA and/or kV according to patient size, radiat ion dose was kept as low as reasonably achievable to obtain optimal diagnostic quality images. DICO M format image data is available electronically for review and comparison. FINDINGS: There is evidence of truncation of the left middle cerebral artery suggesting acute thrombus at the M 1 segment extending for a 11 mm to the trifurcation. The findings were called immediately to Dr. Bairon rodriguez at 9:42 AM on 09/25/17. There are tiny biapical pneumothoraces. Patchy opacities are noted within th e upper lung [place] bilaterally. Underlying emphysematous changes are noted. CONCLUSION: 1. Truncation of the left middle cerebral artery suggesting acute thrombus at the M1 segment extendin g for a 11 mm to the trifurcation. The findings were called immediately to Dr. Khan at 9: 2. 42 AM on 09/25/17. 3. Tiny biapical pneumothoraces. 4. Patchy opacities are noted within the upper lung waddell bilaterally. 5. Underlying emphysematous changes are noted. Scotty Mckeon MD on September 25, 2017 at 9:37 Board Certified Radiologist. This report was verified electronically.
--- NOTE | 2017-09-25 09:53 | RADRPT ---
EXAM DATE/TIME: 09/25/2017 09:05 [facility] COMPARISON: No previous studies available for comparison. INDICATIONS : Altered mental status, aphasia and right sided facial droop. IV CONTRAST: 73 cc Omnipaque 350 (iohexol) IV ; Cumulative dose for multiple exams. RADIATION DOSE: 25.24 CTDIvol (mGy) ; Combined studies MEDICAL HISTORY : Hypertension. SURGICAL HISTORY : None. ENCOUNTER: Initial ACUITY: 1 day PAIN SCALE: Non-responsive LOCATION: Bilateral neck Elevated flow velocities and ICA/CCA ratios have been found to correlate with increased degrees of vessel stenosis, calculated as percentage of diameter relative to a normal segment of distal ICA/CCA. TECHNIQUE: Volumetric scanning was performed using a multirow detector CT scanner. The data was post processed with a variety of visualization algorithms including full-volume maximum intensity projection, multip lanar sliding thin-slab reformation, curved-planar reformation, and surface-rendering techniques. Us ing automated exposure control and adjustment of the mA and/or kV according to patient size, radiatio n dose was kept as low as reasonably achievable to obtain optimal diagnostic quality images. DICOM f ormat image data is available electronically for review and comparison. FINDINGS: AORTIC ARCH: There is a three-vessel origin of the great vessels from the aorta. No evidence of ostial narrowing. RIGHT CAROTID: The common carotid artery is intact. The carotid bulb has a normal configuration without ulceration o r narrowing. The internal carotid artery lumen is smooth without stenosis. The external carotid lisa ry is intact. LEFT CAROTID: The common carotid artery is intact. The carotid bulb has a normal configuration without ulceration or narrowing. The internal carotid artery lumen is smooth without stenosis. The external carotid ar ida is intact. VERTEBRALS: The vertebral arteries have a symmetric diameter. No stenotic lesions are seen. CONCLUSION: No significant stenosis or occlusion of the carotid or vertebral arteries. Tiny biapical pneumothorac es. Patchiness within the lung apices consistent with possible pneumonia superimposed on emphysematou s changes. Scotty Mckeon MD on September 25, 2017 at 9:48 Board Certified Radiologist. This report was verified electronically.
--- NOTE | 2017-09-25 09:54 | PD.CONS ---
[facility] Service Critical Care Medicine Consult Requested By Dr. Holland Reason for Consult acute change in mental status Primary Care Physician Unknown History of Present Illness This is a 77-year-old male with a history of paroxysmal A. fib, hypertension, and presented with ischemic A. fib RVR with a proximal LAD lesion. He is now postop day 3 status post off-pump CABG with a BRODERICK to the LAD. He was on the floor clinically improving when he had sudden onset altered mental status and obtundation. He was last seen normal at 5 AM. Stroke alert was called at 7:[address] suggested the possibility of a left posterior fossa ischemic territory without evidence of hemorrhage. He was emergently transferred to the CVICU. I immediately evaluated him in the CVICU where he had acute left-sided facial droop, left-sided gaze deviation, flaccid right upper and lower extremities, and both receptive and expressive aphasia. I me immediately ordered an emergent CTA head and neck which demonstrated large filling defect in the primary left MCA near the M1 branch. I discussed the case with Dr. Gary front loader residential driver with interventional radiology who took the patient emergently for intervention. I placed emergent right radial arterial line, see separate procedure note for details. We will suppress the patient above 180 for systolic blood pressure and found that he intermittently with spontaneous movement his right upper extremity with blood pressures above 180. No additional information is available from the patient due to his severe obtundation. ROS unavailable. Review of Systems ROS Limitations: Clinical Condition, Altered Mental Status, Unresponsive Past Family Social History Allergies: Coded Allergies: hydrocodone (Unverified Allergy, Severe, nausea and vomiting, 09/19/17) penicillin G (Unverified Allergy, Mild, 09/19/17) heart palpitations Past Medical History HTN arthritis thyroid disease Past Surgical History Tonsillectomy Reported Medications Eliquis (Apixaban) 5 Mg Tab 5 Mg PO BID Aspirin 325 Mg Tab 325 Mg PO DAILY Lisinopril 20 Mg Tab 20 Mg PO DAILY Active Ordered Medications See MAR Family History Mother had diabetes type 2 Social History 1ppd smoker, drinks 3 drinks/day. Physical Exam Vital Signs Vital Signs Date Time Temp Pulse Resp B/P (MAP) Pulse Ox O2 Delivery O2 Flow Rate FiO2 09/25/17 08:50 99.5 101 16 116/68 (84) 93 09/25/17 06:00 107 09/25/17 05:14 90 09/25/17 04:00 101 09/25/17 03:00 98.4 107 120/76 (91) 97 09/25/17 03:00 98 09/25/17 03:00 97 Nasal Cannula 2.00 09/25/17 02:00 110 09/25/17 01:00 100 09/25/17 00:00 102 09/24/17 23:00 90 09/24/17 23:00 95 Nasal Cannula 2.00 09/24/17 23:00 100.0 101 110/67 (81) 95 09/24/17 22:00 114 09/24/17 21:00 110 09/24/17 20:04 96 Nasal Cannula 3.00 09/24/17 20:00 96 09/24/17 19:00 94 09/24/17 19:00 96 Nasal Cannula 2.00 09/24/17 19:00 99.6 112 128/81 (97) 96 09/24/17 18:00 109 09/24/17 17:00 118 09/24/17 16:00 104 09/24/17 15:00 93 09/24/17 15:00 97.8 88 20 124/68 (86) 95 09/24/17 14:31 91 123/62 09/24/17 14:00 102 09/24/17 13:00 93 09/24/17 12:00 95 09/24/17 11:00 98.0 86 20 103/56 (72) 96 09/24/17 11:00 96 09/24/17 10:00 94 Physical Exam GENERAL: Elderly male, lying in bed, acutely altered HEENT: Normocephalic. Atraumatic. Pupils are 3 mm, equal, reactive, but deviated to the left. Mucous membranes are moist NECK: Trachea is midline. There is no JVD. CHEST: There is a midline sternotomy incision with a wound VAC in place. Equal chest rise. Nasal cannula oxygen. There is a chest tube exit subxiphoid and is on waterseal. CARDIOVASCULAR: Tachycardic rate, regular rhythm. Appears sinus by telemetry. ABDOMEN: Soft, nontender, nondistended. No guarding. MUSCULOSKELETAL: Pulses 2+. No peripheral edema. NEUROLOGICAL: RASS -3. Pupils as above with noted left gaze deviation. Right- sided facial droop. Patient has evidence of both expressive and receptive aphasia. Right upper and lower extremities are flaccid without any movement to painful stimuli. Briskly withdraws to pain in the left upper extremity, purposeful in the left upper extremity, moves both the left and upper and lower extremities to pain and spontaneously. Does not follow any commands, though this is likely secondary to his aphasia. Gait not assessed. Laboratory Laboratory Tests Test 09/25/17 04:20 09/25/17 07:50 White Blood Count 4.8 Red Blood Count 2.96 Hemoglobin 9.8 Hematocrit 29.0 Mean Corpuscular Volume 98.0 Mean Corpuscular Hemoglobin 33.3 Mean Corpuscular Hemoglobin Concent 34.0 Red Cell Distribution Width 13.7 Platelet Count 133 Mean Platelet Volume 8.5 Neutrophils (%) (Auto) 66.6 Lymphocytes (%) (Auto) 13.0 Monocytes (%) (Auto) 19.6 Eosinophils (%) (Auto) 0.6 Basophils (%) (Auto) 0.2 Neutrophils # (Auto) 3.2 Lymphocytes # (Auto) 0.6 Monocytes # (Auto) 1.0 Eosinophils # (Auto) 0.0 Basophils # (Auto) 0.0 CBC Comment DIFF FINAL Differential Comment Blood Urea Nitrogen 17 Creatinine 0.49 Random Glucose 84 Total Protein 5.1 Albumin 2.3 Calcium Level 7.3 Alkaline Phosphatase 52 Aspartate Amino Transf (AST/SGOT) 21 Alanine Aminotransferase (ALT/SGPT) 17 Total Bilirubin 0.5 Sodium Level 134 Potassium Level 3.8 Chloride Level 103 Carbon Dioxide Level 22.9 Anion Gap 8 Estimat Glomerular Filtration Rate 165 Protein Corrected Calcium 8.4 Bedside Hemoglobin 9.2 Bedside Hematocrit 27.0 Prothrombin Time 10.0 Prothromb Time International Ratio 1.0 Activated Partial Thromboplast Time 30.1 Fibrinogen 407 Bedside Sodium 134 Bedside Potassium 3.6 Bedside Chloride 101 Bedside Blood Urea Nitrogen 14 Bedside Creatinine 0.5 Bedside Glucose 80 Total Creatine Kinase 122 Troponin I 0.65 Result Diagram: 09/25/1741909/25/17 042 Imaging Last Impressions Chest X-Ray 09/23/17 0500 Signed Impressions: Service Date/Time: Saturday, September 23, 2017 04:48 - CONCLUSION: 1. Interval extubation and removal of nasogastric tube. 2. Hazy opacity remains in both lungs with interval increase in opacity at the right lung base. 3. The costophrenic angles are mildly blunted. Ángel Frazier MD Lower Extremity Ultrasound 09/21/17 0000 Signed Impressions: Service Date/Time: Thursday, September 21, 2017 17:12 - CONCLUSION: Normal examination. Farhad Chao MD Chest CT 09/21/17 0000 Signed Impressions: Service Date/Time: Thursday, September 21, 2017 13:23 - CONCLUSION: 1. Upper lobe predominant centrilobular emphysema with 1.2 cm spiculated nodule in the right upper lobe inferiorly and adjacent satellite nodule measuring up to 7 mm. The findings are highly concerning for primary lung malignancy. Recommend PET/CT examination or sampling per 2017 Fleischner criteria. 2. Mediastinal adenopathy measuring up to 11 mm. Although nonspecific, cannot exclude metastatic adenopathy. PET/CT examination would be extremely beneficial in further assessment of the mediastinal adenopathy. 3. Small bilateral pleural effusions more prominent on the right with associated compressive atelectasis in the lower lobes and upper lobe interstitial edema, particularly on the right 4. Ascending thoracic aortic aneurysm measuring up to 4.1 cm. 5. Moderate coronary artery calcifications. Baldo Mcclain MD Carotid Artery Ultrasound 09/21/17 0000 Signed Impressions: Service Date/Time: Thursday, September 21, 2017 17:39 - CONCLUSION: 1. Mild visible plaque formation in the carotid arteries. No hemodynamically significant stenosis. Vertebral artery flow antegrade. Farhad Chao MD Assessment and Plan Assessment and Plan Assessment: This is a 77-year-old male with coronary artery disease now status post CABG course, gated by large left MCA CVA. Taken emergently for interventional radiology and thrombectomy, however when he went down to angiography, there was no more evidence of clot on four-vessel angioplasty at there is adequate perfusion distal to the left MCA, M1 branch. He remains very critically ill and has very large deficits with an NIH stroke scale 31. We will press the patient up, as in a trial of vasopressors, when his systolic was greater than 180 he had evidence of very small amount of intermittent spontaneous movement of his right side and normalization of his gaze deviation. We will continue at least 24 hours of elevation of blood pressure greater than 180. Continue aspirin and Plavix. Consult neurology. He remains very critically ill. Active problems: Status post CABG Coronary artery disease Acute large left MCA CVA Acute encephalopathy Plan: N.p.o. Place NG tube for meds Swallow eval Press patient with a systolic greater than 180 Use phenylephrine for vasopressor Consult neurology Contraindicated for systemic TPA IR attempted thrombectomy 09/25 with apparent resolution of the clot Hold on further diuresis as this may worsen cerebral perfusion Hold beta blockers Start maintenance fluids, normal saline at 75 cc an hour Continue aspirin Plavix Transfer back to ICU Frequent neuro checks Already has recent 2D echo Already has recent carotid Dopplers Already has recent lipid panel: Continue Lipitor [facility] [place] Continue arterial line This patient remains critically ill with one or more organ systems which are or may become a threat to life. I have spent in excess of 77 minutes discontinuously in the care and management of this patient. This time is exclusive of procedures, and includes, but is not limited to, evaluation of the patient, review of the medical record, discussions with family, consultants, nursing staff, or respiratory therapy, and documentation in the medical record. Charly Mcghee MD Sep 25, 2017 09:54
[2017-09-25] MEDS ORDERED: VERAPAMIL HCL 5 MG/2 ML VIAL ONE (10:33)
[2017-09-25] MEDS ORDERED: MIDAZOLAM HCL 2 MG/2 ML VIAL ONE (10:42)
--- NOTE | 2017-09-25 11:07 | PD.RAD ---
Post Procedure Progress Note Pre Procedure Diagnosis: (1) CVA (cerebral vascular accident) Post Procedure Diagnosis: (1) CVA (cerebral vascular accident) Procedure Date: Sep 25, 2017 Supervising Radiologist: Emile Gary Proceduralist/Assist: Beatris Barr, RT(R), Tegan Bright RT(R)() Anesthesia: Conscious Sedation Plan of Activity Patient to Unit: Critical Care Patient Condition: Critical See PACS Report for procedural detail/treatment Vascular-Arterial Procedure Procedure 1 Procedure Site: Cerebral Procedure(s): Angiogram Access Access Site(s): Right Femoral Artery Closure Site(s): Right manual pressure Findings: no embolism identified Emile aGry MD Sep 25, 2017 11:07
[2017-09-25] MEDS ORDERED: IODIXANOL 320 MG/ML 50 ML VIAL (for RAD SPEC) I-ARTERIAL ONE (11:24)
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
[2017-09-25] MEDS: RESP: ALBUTEROL 2.5 MG/IPRATROPIUM 0.5 MG NEB (PRN) NEB ×2 (13:11→20:23)
--- NOTE | 2017-09-25 14:13 | PD.PROCEDR ---
Procedure Note Procedure Procedure: Arterial Line Placement Right radial arterial line Diagnosis: Acute CVA Indications: Need for beat to beat hemodynamic monitoring Consent: Emergent Description of the Procedure: The right wrist was prepped and draped sterilely. 1% lidocaine was used for local anesthesia. The pulse was located and a needle was advanced into the artery. A 20 gauge, 12 cm catheter was advanced into the artery using a modified Seldinger technique. The catheter was sutured to the skin and a sterile dressing was applied. The catheter was connected to a pressure transducer and an arterial waveform was noted. There were no immediate complications noted. There was minimal EBL. I personally performed the procedure. Charly Mcghee MD Sep 25, 2017 14:13
[2017-09-25] MEDS: THIAMINE HCL 100 MG TAB PO SCH (14:17)
[2017-09-25] MEDS: MAGNESIUM HYDROXIDE SUSP 30 ML CUP PO SCH (14:17)
[2017-09-25] MEDS: MULTIVITAMINS/MINERALS THERAPEUTIC TAB PO SCH (14:17)
[2017-09-25] MEDS: ASPIRIN 81 MG CHEW TAB PO SCH (14:17)
[2017-09-25] MEDS: POLYETHYLENE GLYCOL 17 GM PKG PO SCH (14:18)
[2017-09-25] MEDS: FOLIC ACID 1 MG TAB PO SCH (14:18)
[2017-09-25] MEDS: DOCUSATE SODIUM 100 MG CAP PO SCH ×2 (14:18→21:53)
[2017-09-25] MEDS: CLOPIDOGREL 75 MG TAB PO SCH (14:18)
[2017-09-25] MEDS: SODIUM CHLORIDE 0.9% FLUSH 10 ML FLUSH IV FLUSH SCH ×2 (16:12→21:00)
--- NOTE | 2017-09-25 16:12 | HHI.PR ---
Subjective Remarks Onset of CVA symptoms overnight (at about 5am). Symptoms included right-sided movement deficits and difficulty speaking. By time I understand the patient has afternoon he has improvement in his right-sided movement and some residual signs of facial droop. No new complaints from the patient. She's been transferred to intensive service. Objective Vital Signs Date Time Temp Pulse Resp B/P (MAP) Pulse Ox O2 Delivery O2 Flow Rate FiO2 09/25/17 14:18 12 09/25/17 08:50 99.5 101 16 116/68 (84) 93 09/25/17 08:25 101 09/25/17 08:25 93 Nasal Cannula 3.00 09/25/17 06:00 107 09/25/17 05:14 90 09/25/17 04:00 101 09/25/17 03:00 98.4 107 120/76 (91) 97 09/25/17 03:00 98 09/25/17 03:00 97 Nasal Cannula 2.00 09/25/17 02:00 110 09/25/17 01:00 100 09/25/17 00:00 102 09/24/17 23:00 90 09/24/17 23:00 95 Nasal Cannula 2.00 09/24/17 23:00 100.0 101 110/67 (81) 95 09/24/17 22:00 114 09/24/17 21:00 110 09/24/17 20:04 96 Nasal Cannula 3.00 09/24/17 20:00 96 09/24/17 19:00 94 09/24/17 19:00 96 Nasal Cannula 2.00 09/24/17 19:00 99.6 112 128/81 (97) 96 09/24/17 18:00 109 09/24/17 17:00 118 I/O 09/24/17 09/24/17 09/24/17 09/25/17 09/25/17 09/25/17 07:00 15:00 23:00 07:00 15:00 23:00 Intake Total 730 ml 100 ml 960 ml 120 ml Output Total 1690 ml 1190 ml 520 ml Balance -960 ml 100 ml -230 ml -400 ml Intake Oral 480 ml 960 ml 120 ml IV Total 250 ml 100 ml Output Urine Total 1200 ml 850 ml 350 ml Chest Tube Drainage Total 490 ml 340 ml 170 ml # Bowel Movements 0 0 Result Diagram: 09/25/1741909/25/17419 Objective Remarks GENERAL: NAD, A&Ox3 HEAD: Normocephalic. NECK: Supple, trachea midline. No lymphadenopathy. EYES: No scleral icterus. No injection or drainage. CARDIOVASCULAR: Regular rate and rhythm without murmurs, gallops, or rubs. RESPIRATORY: Breath sounds equal bilaterally. No accessory muscle use. GASTROINTESTINAL: Abdomen soft, non-tender, nondistended. MUSCULOSKELETAL: No cyanosis, or edema. Sternal wound is present. Chest tube remains. SKIN: Warm and dry. NEURO: No focal neurological deficitis. A/P Problem List: (1) S/P CABG x 1 ICD Code: Z95.1 - Presence of aortocoronary bypass graft (2) Multi-vessel coronary artery stenosis ICD Code: I25.10 - Atherosclerotic heart disease of [place] coronary artery without angina pectoris (3) Non-STEMI (non-ST elevated myocardial infarction) ICD Code: I21.4 - Non-ST elevation (NSTEMI) myocardial infarction (4) Tobacco abuse ICD Code: Z72.0 - Tobacco use (5) Atrial fibrillation with rapid ventricular response ICD Code: I48.91 - Unspecified atrial fibrillation Status: Acute Assessment and Plan 77-year-old man admitted with A. fib RVR and NSTEMI now status post CABG 1, status post CVA. New onset CVA Neurology has been consulted Patient transferred to ICU Director Plans consulted TOS to Director Plans Neurology consulted Monitor neurological status Neurological status improving to time Patient is not yet to baseline Status post CABG 1 Coronary artery disease Cardiovascular surgery following Continue pain treatments Continue postop care Continue rehabilitation Atrial fibrillation with RVR Rate controlled Continue Cardizem Status post NSTEMI Cardiology following Status post bypass surgery Hypertension No change in present treatment Follow blood pressures Tobacco abuse Patient has quit smoking, declines NicoDerm patch DVT prophylaxis SCDs Chi Holden MD Sep 25, 2017 16:12
--- NOTE | 2017-09-25 19:47 | EKG ---
Date Performed: 09/24/2017 Time Performed: 12:46:22 PTAGE: 77 years EKG: Atrial fibrillation with rapid ventricular response Ant/septal and lateral ST-T changes are nonspecific Since the previous tracing, no significant change noted Abnormal ECG PREVIOUS TRACING : 09/23/2017 03.40 DOCTOR: Nomi Giles Interpretating Date/Time 09/25/2017 19:45:33
[2017-09-25] MEDS: PHENYLEPHRINE INJ 40 MG in SODIUM CHLORID 0.9% 500 ML INJ 500 ML IV PRN (19:55)
[2017-09-25] MEDS: ATORVASTATIN 40 MG TAB PO SCH (21:52)
[2017-09-25] MEDS: SENNOSIDES 8.6 MG TAB PO SCH (21:52)
[2017-09-26] VITALS (12 sets, daily range): BP systolic 153–200; BP diastolic 87–110; PULSE 85–104; RESP 16–20; TEMP 97.2–99.5; O2SAT 98–99
[2017-09-26] MEDS: RESP: ALBUTEROL 2.5 MG/IPRATROPIUM 0.5 MG NEB (PRN) NEB ×2 (03:15→11:08)
[2017-09-26] MEDS: PHENYLEPHRINE INJ 40 MG in SODIUM CHLORID 0.9% 500 ML INJ 500 ML IV PRN ×3 (04:00→14:39)
[2017-09-26 05:28] LABS: ALBUMIN 2.3 GM/DL (3.4-5.0); BICARBONATE 17.1 MEQ/L (21.0-32.0); CALCIUM 7.4 MG/DL (8.5-10.1); CALCIUM-PROTEIN CORRECTED 8.3 MG/DL (8.5-10.1); CREATININE 0.51 MG/DL (0.60-1.30); TOTAL BILIRUBIN ADULT 0.5 MG/DL (0.2-1.0); TOTAL PROTEIN 5.4 GM/DL (6.4-8.2)
--- NOTE | 2017-09-26 05:36 | RADRPT ---
EXAM DATE/TIME: 09/26/2017 04:47 [facility] COMPARISON: CHEST SINGLE AP, September 23, 2017, 4:48. INDICATIONS : Shortness of breath, possible pulmonary disease. MEDICAL HISTORY : Cardiovascular disease. Hypertension SURGICAL HISTORY : CABG. ENCOUNTER: Subsequent ACUITY: 1 week PAIN SCORE: Non-responsive. LOCATION: Bilateral chest FINDINGS: A single view of the chest demonstrates worsening consolidation throughout the right lung. Pulmonary vascular congestion and interstitial prominence. Heart mildly enlarged. Status post CABG. Nasogastric tube tip in stomach. Mediastinal and left-sided chest tube without pneumothorax.. Osseous structure s are intact. CONCLUSION: 1. Worsening dilation throughout the right lung. 2. Status post CABG. 3. Mediastinal and left-sided chest tube without pneumothorax. Malachi Bauman MD on September 26, 2017 at 5:32 Board Certified Radiologist. This report was verified electronically.
[2017-09-26] MEDS: PANTOPRAZOLE SOD 40 MG DELAYED RELEASE TAB PO SCH (06:00)
[2017-09-26 06:12] LABS: AUTOMATED NEUTROPHIL # 6.1 TH/MM3 (1.8-7.7); BASOPHIL % 0.1 % (0.0-2.0); HEMATOCRIT 30.8 % (39.0-51.0); HEMOGLOBIN 10.4 GM/DL (13.0-17.0); LYMPHOCYTE # 0.8 TH/MM3 (1.0-4.8); MEAN CORPUSCULAR HEMOGLOBIN 33.5 PG (27.0-34.0); MEAN CORPUSCULAR HGB CONC 33.8 % (32.0-36.0); MEAN PLATELET VOLUME 8.1 FL (7.0-11.0); MONO % 16.4 % (0.0-8.0); MONOCYTE # 1.4 TH/MM3 (0-0.9); NEUT % 73.5 % (16.0-70.0); PLATELET COUNT 178 TH/MM3 (150-450); RED BLOOD COUNT 3.11 MIL/MM3 (4.50-5.90); RED CELL DISTRIBUTION WIDTH 13.8 % (11.6-17.2); WHITE BLOOD COUNT 8.4 TH/MM3 (4.0-11.0)
[2017-09-26] MEDS ORDERED: ETOMIDATE 20 MG/10 ML VIAL IV PUSH ONE (07:30)
[2017-09-26] MEDS ORDERED: MIDAZOLAM HCL 5 MG/ML VIAL (1 ML) IV ONE (07:30)
--- NOTE | 2017-09-26 07:39 | HHI.CCPN ---
Subjective Remarks/Hospital Course This is a 77-year-old male with a history of paroxysmal A. fib, hypertension, and presented with ischemic A. fib RVR with a proximal LAD lesion. He is now postop day 3 status post off-pump CABG with a BRODERICK to the LAD. He was on the floor clinically improving when he had sudden onset altered mental status and obtundation. He was last seen normal at 5 AM. Stroke alert was called at 7:[address] suggested the possibility of a left posterior fossa ischemic territory without evidence of hemorrhage. He was emergently transferred to the CVICU. I immediately evaluated him in the CVICU where he had acute left-sided facial droop, left-sided gaze deviation, flaccid right upper and lower extremities, and both receptive and expressive aphasia. I me immediately ordered an emergent CTA head and neck which demonstrated large filling defect in the primary left MCA near the M1 branch. I discussed the case with Dr. Gary shop and alteration tailor with interventional radiology who took the patient emergently for intervention. I placed emergent right radial arterial line, see separate procedure note for details. We will suppress the patient above 180 for systolic blood pressure and found that he intermittently with spontaneous movement his right upper extremity with blood pressures above 180. No additional information is available from the patient due to his severe obtundation. ROS unavailable. SUBJ 09/27: Worsening respiratory status, tachypneic. Bilateral coarse rhonchi and crackles. Chest x-ray shows extensive right-sided consolidation. Questionable airway protection probable aspiration. Patient and daughter at the bedside updated. Due to progressive respiratory failure and inability to protect airway will proceed with endotracheal intubation. Both are agreeable for trach if needed Objective Vital Signs Date Time Temp Pulse Resp B/P (MAP) Pulse Ox O2 Delivery O2 Flow Rate FiO2 09/26/17 04:00 119 213/103 09/26/17 03:00 99 Simple Mask 8.00 09/26/17 03:00 98.6 18 09/22/17 22:03 50 Intake and Output 09/26/17 09/26/17 09/27/17 08:00 16:00 00:00 Intake Total 1697 ml Output Total 780 ml Balance 917 ml Result Diagram: 09/26/17 0430 09/26/17 0420 Other Results Laboratory Tests Test 09/26/17 07:05 Blood Gas Puncture Site ART LINE Blood Gas Patient Temperature 98.6 Blood Gas HCO3 17 mmol/L (22-26) Blood Gas Base Excess -7.2 mmol/L (-2-2) Blood Gas Oxygen Saturation 97 % (90-100) Arterial Blood pH 7.37 (7.380-7.420) Arterial Blood Partial Pressure CO2 31 mmHg (38-42) Arterial Blood Partial Pressure O2 168 mmHg (61-120) Arterial Blood Oxygen Content 14.2 Vol % (12.0-20.0) Arterial Blood Carboxyhemoglobin 0.7 % (0-4) Arterial Blood Methemoglobin 1.2 % (0-2) Blood Gas Hemoglobin 10.1 G/DL (12.0-16.0) Oxygen Delivery Device SIMPLE MASK Blood Gas Liter Flow 8 L/M Imaging Last Impressions Chest X-Ray 09/23/17 0500 Signed Impressions: Service Date/Time: Saturday, September 23, 2017 04:48 - CONCLUSION: 1. Interval extubation and removal of nasogastric tube. 2. Hazy opacity remains in both lungs with interval increase in opacity at the right lung base. 3. The costophrenic angles are mildly blunted. Ángel Frazier MD Lower Extremity Ultrasound 09/21/17 0000 Signed Impressions: Service Date/Time: Thursday, September 21, 2017 17:12 - CONCLUSION: Normal examination. Farhad Chao MD Chest CT 09/21/17 0000 Signed Impressions: Service Date/Time: Thursday, September 21, 2017 13:23 - CONCLUSION: 1. Upper lobe predominant centrilobular emphysema with 1.2 cm spiculated nodule in the right upper lobe inferiorly and adjacent satellite nodule measuring up to 7 mm. The findings are highly concerning for primary lung malignancy. Recommend PET/CT examination or sampling per 2017 Fleischner criteria. 2. Mediastinal adenopathy measuring up to 11 mm. Although nonspecific, cannot exclude metastatic adenopathy. PET/CT examination would be extremely beneficial in further assessment of the mediastinal adenopathy. 3. Small bilateral pleural effusions more prominent on the right with associated compressive atelectasis in the lower lobes and upper lobe interstitial edema, particularly on the right 4. Ascending thoracic aortic aneurysm measuring up to 4.1 cm. 5. Moderate coronary artery calcifications. Baldo Mcclain MD Carotid Artery Ultrasound 09/21/17 0000 Signed Impressions: Service Date/Time: Thursday, September 21, 2017 17:39 - CONCLUSION: 1. Mild visible plaque formation in the carotid arteries. No hemodynamically significant stenosis. Vertebral artery flow antegrade. Farhad Chao MD Objective Remarks GENERAL: Elderly male, lying in bed, tachypneic audible wheezing HEENT: Normocephalic. Atraumatic. Pupils are 3 mm, equal, reactive NECK: Trachea is midline. There is no JVD. CHEST: There is a midline sternotomy incision with a wound VAC in place. Equal chest rise. Coarse bilateral rhonchi and crackles predominantly right chest CARDIOVASCULAR: Tachycardic rate, rhythm atrial fibrillation. On Richard- Synephrine to maintain systolic blood pressure 160-180 ABDOMEN: Soft, nontender, nondistended. No guarding. MUSCULOSKELETAL: Pulses 2+. No peripheral edema. NEUROLOGICAL: Alert awake able to follow commands. Right-sided facial droop. + expressive, but able to state his name. Right upper and lower extremities 4/5 power. Normal strength on the left side A/P Assessment and Plan Assessment: This is a 77-year-old male with coronary artery disease now status post CABG complicated by large left MCA CVA. Taken emergently for interventional radiology and thrombectomy, however when he went down to angiography, there was no more evidence of clot on four-vessel angioplasty at there is adequate perfusion distal to the left MCA, M1 branch. He remains very critically ill and has left sided deficits with (NIH stroke scale 31 09/25/17). Keep systolic was greater than 160- 180. Continue aspirin and Plavix. Consult neurology. He remains very critically ill. Now with evidence of aspiration and increasing right lung consolidation. Proceed with endotracheal intubation Active problems: Acute large left MCA CVA Acute encephalopathy Acute hypoxemic respiratory failure Aspiration pneumonia Inability to protect her Status post CABG Coronary artery disease Plan: N.p.o. continue NG tube for meds D/W Dr. Mcgovern neurology, avoid full anticoagulation with heparin now due to cerebellar infarct possibility of secondary hemorrhage Continue aspirin Plavix Respiratory status deteriorating with evidence of aspiration and extensive right lung consolidation Intubate for airway protection and hypoxia Start Zosyn 4.5 g every 6 hours, check sputum culture Press patient with a systolic greater than 180 Use phenylephrine for vasopressor Consult neurology (Dr. Khan did not get consult yesterday, I have discussed with Dr. Mcgovern who will see him today) Contraindicated for systemic TPA IR attempted thrombectomy 09/25 with apparent resolution of the clot Holding further diuresis as this may worsen cerebral perfusion Hold beta blockers Start maintenance fluids, normal saline at 75 cc an hour Frequent neuro checks Already has recent 2D echo Already has recent carotid Dopplers Already has recent lipid panel: Continue Lipitor [facility] [place] Continue arterial line, may need central line This patient remains critically ill with one or more organ systems which are or may become a threat to life. I have spent in excess of 37 minutes discontinuously in the care and management of this patient, excluding procedures. This time is exclusive of procedures, and includes, but is not limited to, evaluation of the patient, review of the medical record, discussions with family, consultants, nursing staff, or respiratory therapy, and documentation in the medical record. Discussed with patient and daughter, discussed with Yassine Edgar MD Sep 26, 2017 07:39
[2017-09-26] MEDS ORDERED: ROCURONIUM INJ 50 MG/5 ML VIAL IV ONE (08:15)
[2017-09-26] MEDS ORDERED: SODIUM BICARBONATE 8.4% INJ 50 MEQ/50 ML SYR IV PUSH ONE (08:15)
[2017-09-26] MEDS ORDERED: PROPOFOL 500 MG/50 ML INJ 50 ML ONE (08:53)
[2017-09-26] MEDS: SODIUM CHLORIDE 0.9% FLUSH 10 ML FLUSH IV FLUSH SCH ×2 (09:00→20:56)
--- NOTE | 2017-09-26 09:13 | PD.PROCEDR ---
Procedure Note Procedure Resp failure, inability to protect airway: INTUBATION: The patient was put in optimal position for the procedure. Rapid sequence intubation was initiated by me using 20 milligrams of etomidate IV and 5 milligrams of Versed IV. NM paralysis with 50 mg IV rocuronium. DL with Mac 4 blade grade 1 view. The patient was intubated with a 8.0 cuffed endotracheal tube. Tube placement was confirmed by visualization of the tube and balloon passing through the cords, capnometry and subsequent chest x-ray. Breath sounds were equal and well aerated bilaterally postintubation. No breath sounds over stomach. Patient tolerated procedure well. Yassine Perkins MD Sep 26, 2017 09:13
--- NOTE | 2017-09-26 09:14 | PD.PROCEDR ---
Central Line Procedure REASON FOR PROCEDURE Central venous access PROCEDURE PERFORMED Central line placement: Davin subclavian central line CONSENT Informed consent for procedure was obtained from daughter. The risks and benefits of the procedure were discussed to include but limited to bleeding, clot formation, infection, and even . ANESTHESIA Local injection of 1% Lidocaine DESCRIPTION OF THE PROCEDURE The patient was placed in supine, mild Trendelenburg position. The area was exposed and cleansed with ChloraPrep, times two. Large sterile drape was used to cover the patient, with the site exposed, under sterile conditions including cap, face mask, sterile gown, and sterile gloves. On single attempt, the introducer needle was inserted with negative pressure in syringe and venous flash was obtained. The guide wire was then advanced without any restriction and the needle was removed. The dilator was used without any complications. Using Seldinger technique the 20 cm 7f triple lumen catheter was advanced over the guide wire to a depth of 17 centimeters. The guide wire was removed. All ports were aspirated with dark venous blood return and flushed easily with sterile saline. All ports were capped. Antibiotic disc was placed around central line at puncture site. The central line was secured to the skin with two interrupted 2.0 silk sutures. The area was bandaged with sterile see- through central line bandage. COMPLICATIONS: No apparent complications ESTIMATED BLOOD LOSS: Less than 1 cc. Yassine Perkins MD Sep 26, 2017 09:14
[2017-09-26] MEDS ORDERED: METOPROLOL TARTRATE 5 MG/5 ML VIAL ONE (09:20)
--- NOTE | 2017-09-26 09:57 | RADRPT ---
EXAM DATE/TIME: 09/26/2017 09:14 [facility] COMPARISON: CHEST SINGLE AP, September 26, 2017, 4:47. INDICATIONS : Intubation. Central line. MEDICAL HISTORY : Cardiovascular disease. Hypertension SURGICAL HISTORY : CABG. ENCOUNTER: Subsequent ACUITY: 1 week PAIN SCORE: Non-responsive. LOCATION: Bilateral chest FINDINGS: 2 AP supine portable views of the chest were obtained again demonstrating interval intubation with th e endotracheal tube tip approximately 2 cm above the toribio. The nasogastric tube remains in place. T here has been interval placement of a left subclavian central venous line with the tip projected over the superior vena cava. The lungs are slightly better expanded. There has been no significant change in the bilateral airspace disease right greater than left. Infiltrate remains throughout the right l jillian. The heart size at the upper limits of normal. The patient is status post median sternotomy. The mediastinal and left-sided chest tubes remain in place with no pneumothorax. Both costophrenic angles are mildly blunted. CONCLUSION: 1. No intubation with the endotracheal tube tip approximately 2 cm above the toribio. 2. Interval placement of nasogastric tube. 3. No significant change in the bilateral airspace disease right greater than left. There are bilater al small effusions again noted. Ángel Frazier MD on September 26, 2017 at 9:52 Board Certified Radiologist. This report was verified electronically.
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
[2017-09-26] MEDS: FOLIC ACID 1 MG TAB PO SCH (10:45)
[2017-09-26] MEDS: THIAMINE HCL 100 MG TAB PO SCH (10:45)
[2017-09-26] MEDS: DOCUSATE SODIUM 100 MG CAP PO SCH ×2 (10:45→20:55)
[2017-09-26] MEDS: MAGNESIUM HYDROXIDE SUSP 30 ML CUP PO SCH (10:45)
[2017-09-26] MEDS: POLYETHYLENE GLYCOL 17 GM PKG PO SCH (10:45)
[2017-09-26] MEDS: ASPIRIN 81 MG CHEW TAB PO SCH (10:45)
[2017-09-26] MEDS: MULTIVITAMINS/MINERALS THERAPEUTIC TAB PO SCH (10:45)
[2017-09-26] MEDS: CLOPIDOGREL 75 MG TAB PO SCH (10:46)
[2017-09-26] MEDS: metroNIDAZOLE 500 MG INJ 100 ML IV SCH ×2 (10:46→18:38)
[2017-09-26] MEDS: INSULIN ASPART SUPPLEMENTAL SCALE SQ SCH ×4 (10:55→21:00)
--- NOTE | 2017-09-26 12:11 | RSPPFT ---
DATE OF PROCEDURE: 09/21/17 COMMENTS: The forced vital capacity is markedly reduced. The FEV1 and FEF 25-75 are both markedly reduced. The FEV1/FVC ratio is normal. IMPRESSION: This is compatible with severe, large and small airways, obstructive lung disease. There may be a restriction that can be determined with a total lung capacity.
[2017-09-26] MEDS: CEFEPIME INJ 2,000 MG in SODIUM CHLORIDE 0.9% INJ 100 ML IV SCH ×2 (12:17→20:55)
[2017-09-26] MEDS: PROPOFOL 1000 MG/100 ML INJ 100 ML IV PRN (12:58)
--- NOTE | 2017-09-26 15:20 | MB ---
cc: Andrea Mcgovern MD, PhD DATE: 09/26/2017 REASON FOR CONSULTATION: Stroke. HISTORY OF PRESENT ILLNESS: Mr. Sullivan is a 77-year-old man who is 4 days status post CABG procedure. The patient was recovering well yesterday and developed acute onset of obtunded mental status with weakness involving the right side with a left facial droop, left-sided gaze deviation. He has flaccid right upper and lower extremities. A stroke alert was called. CT of the brain showed an area of low attenuation, left cerebellar hemisphere consistent with acute stroke, no hemorrhage. He had also a CTA done of the neck, which was normal with no evidence of any significant stenosis. He had a CTA of the brain done as well showing truncation of the left MCA suggesting acute thrombus at the M1 segment. As the patient was postop, he was not a candidate for IV TPA. He underwent emergent cerebral angiography in search of a possible thrombus for thrombectomy; however, no thrombus was identified. The patient has been on Plavix and aspirin. He does have atrial fibrillation. Apparently, prior to admission, was on Eliquis. PAST MEDICAL HISTORY: He has a history of atrial fibrillation, recently diagnosed on 09/09 of this year, started on Eliquis at that time. He stopped the Eliquis because he developed chest pain, which he thought was due to the Eliquis. He is status post recent CABG 4 days ago. CURRENT MEDICATIONS: Plavix 75 mg daily, Lipitor 40 mg daily, terbutaline, phenylephrine, propofol, multivitamin, folic acid, thiamine, aspirin 81 mg daily, Protonix 40 mg daily, Tylenol p.r.n. PHYSICAL EXAMINATION: VITAL SIGNS: Blood pressure is 199/110, pulse is 95, in Afib. NEUROLOGIC: Higher cortical function, he is sedated. The pupils are 1 mm, symmetric, minimally reactive. Extraocular movements intact to doll's eyes. There is no facial asymmetry. Motor: He is sedated. It is difficult to fully assess. There is no posturing, no withdrawal. Reflexes are symmetric. LABORATORY DATA: The white count is 8400, hemoglobin 10.4, hematocrit 30%, platelet count 178,000. Sodium is 139, potassium 3.8, chloride 108, CO2 is 17, BUN is 13, creatinine 0.51, glucose 121, calcium 7.4, AST 20, ALT is 18. Cholesterol is 174, LDL is 77. PT 10, INR 1, aPTT 30.1. IMPRESSION: 1. Cerebellar stroke on CT scan, left hemisphere. 2. Atrial fibrillation. RECOMMENDATION: Continue Plavix and aspirin for now. I would not recommend anticoagulation at the present time because of the potential for hemorrhagic conversion of the stroke. I would recommend continuing Plavix and aspirin for the next 2-3 days. At that point, repeat CT of the brain and if stable, consider anticoagulation at that time. Andrea Mcgovern MD, PhD TOM/SB , 03:01 PM , 03:20 PM
[2017-09-26] MEDS: SENNOSIDES 8.6 MG TAB PO SCH (20:55)
[2017-09-26] MEDS: ATORVASTATIN 40 MG TAB PO SCH (20:55)
[2017-09-26] MEDS: CHLORHEXIDINE 0.12% (ORAL KIT) 15 ML CUP MT SCH (20:57)
[2017-09-27] VITALS (13 sets, daily range): BP systolic 135–168; BP diastolic 73–87; PULSE 73–107; RESP 15–25; TEMP 98.1–100.4; O2SAT 97–99
[2017-09-27] MEDS: metroNIDAZOLE 500 MG INJ 100 ML IV SCH ×3 (02:00→18:19)
[2017-09-27] MEDS: CEFEPIME INJ 2,000 MG in SODIUM CHLORIDE 0.9% INJ 100 ML IV SCH ×3 (04:00→20:46)
--- NOTE | 2017-09-27 04:34 | RADRPT ---
EXAM DATE/TIME: 09/27/2017 03:20 [facility] COMPARISON: CHEST SINGLE AP, September 26, 2017, 9:14. INDICATIONS : Short of breath. MEDICAL HISTORY : Cardiovascular disease. Hypertension SURGICAL HISTORY : CABG. ENCOUNTER: Subsequent ACUITY: 1 week PAIN SCORE: 0/10 LOCATION: Bilateral chest FINDINGS: A single view of the chest demonstrates slight improvement of airspace disease throughout the right l jillian and left lung base. Mediastinal and left-sided chest tube without pneumothorax. Endotracheal tube , nasogastric and left subclavian central line in stable position. Osseous structures are intact. CONCLUSION: Slight improvement of airspace disease in the right lung and left lung base. Malachi Bauman MD on September 27, 2017 at 4:30 Board Certified Radiologist. This report was verified electronically.
[2017-09-27 04:39] LABS: AUTOMATED NEUTROPHIL # 5.7 TH/MM3 (1.8-7.7); BASOPHIL % 0.3 % (0.0-2.0); EOSINOPHIL # 0.1 TH/MM3 (0-0.4); EOSINOPHIL % 0.8 % (0.0-4.0); HEMATOCRIT 28.8 % (39.0-51.0); LYMPH % 14.5 % (9.0-44.0); LYMPHOCYTE # 1.2 TH/MM3 (1.0-4.8); MEAN CELL VOLUME 97.2 FL (80.0-100.0); MEAN CORPUSCULAR HEMOGLOBIN 33.6 PG (27.0-34.0); MEAN CORPUSCULAR HGB CONC 34.6 % (32.0-36.0); MEAN PLATELET VOLUME 7.4 FL (7.0-11.0); MONO % 16.4 % (0.0-8.0); MONOCYTE # 1.4 TH/MM3 (0-0.9); PLATELET COUNT 212 TH/MM3 (150-450); RED BLOOD COUNT 2.96 MIL/MM3 (4.50-5.90); RED CELL DISTRIBUTION WIDTH 14.1 % (11.6-17.2); WHITE BLOOD COUNT 8.4 TH/MM3 (4.0-11.0)
[2017-09-27 05:06] LABS: ALBUMIN 1.9 GM/DL (3.4-5.0); BICARBONATE 24.9 MEQ/L (21.0-32.0); CALCIUM 7.3 MG/DL (8.5-10.1); CALCIUM-PROTEIN CORRECTED 8.6 MG/DL (8.5-10.1); CREATININE 0.46 MG/DL (0.60-1.30); MAGNESIUM 2.3 MG/DL (1.5-2.5); TOTAL BILIRUBIN ADULT 0.4 MG/DL (0.2-1.0); TOTAL PROTEIN 4.8 GM/DL (6.4-8.2)
[2017-09-27] MEDS: PANTOPRAZOLE SOD 40 MG DELAYED RELEASE TAB PO SCH (06:00)
[2017-09-27] MEDS: CHLORHEXIDINE 0.12% (ORAL KIT) 15 ML CUP MT SCH ×2 (08:00→20:46)
[2017-09-27] MEDS: INSULIN ASPART SUPPLEMENTAL SCALE SQ SCH ×4 (08:00→21:00)
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
[2017-09-27] MEDS: LACTULOSE SYRUP 20 GM/30 ML CUP PO SCH (09:29)
[2017-09-27] MEDS: MAGNESIUM HYDROXIDE SUSP 30 ML CUP PO SCH (09:29)
[2017-09-27] MEDS: POLYETHYLENE GLYCOL 17 GM PKG PO SCH (09:29)
[2017-09-27] MEDS: DOCUSATE SODIUM 100 MG CAP PO SCH ×2 (09:30→20:46)
[2017-09-27] MEDS: CLOPIDOGREL 75 MG TAB PO SCH (09:30)
[2017-09-27] MEDS: PROPOFOL 1000 MG/100 ML INJ 100 ML IV PRN (09:30)
[2017-09-27] MEDS: ASPIRIN 81 MG CHEW TAB PO SCH (09:30)
[2017-09-27] MEDS: FOLIC ACID 1 MG TAB PO SCH (09:30)
[2017-09-27] MEDS: MULTIVITAMINS/MINERALS THERAPEUTIC TAB PO SCH (09:30)
[2017-09-27] MEDS: THIAMINE HCL 100 MG TAB PO SCH (09:31)
[2017-09-27] MEDS: SODIUM CHLORIDE 0.9% FLUSH 10 ML FLUSH IV FLUSH SCH ×2 (09:32→20:47)
[2017-09-27] MEDS ORDERED: POTASSIUM CHLORIDE 25 MEQ EFFERVESCENT TAB PO ONE (10:00)
[2017-09-27] MEDS ORDERED: FUROSEMIDE 40 MG/4 ML VIAL IV PUSH ONE (10:00)
--- NOTE | 2017-09-27 11:40 | HHI.CCPN ---
Subjective Remarks/Hospital Course This is a 77-year-old male with a history of paroxysmal A. fib, hypertension, and presented with ischemic A. fib RVR with a proximal LAD lesion. He is now postop day 3 status post off-pump CABG with a BRODERICK to the LAD. He was on the floor clinically improving when he had sudden onset altered mental status and obtundation. He was last seen normal at 5 AM. Stroke alert was called at 7:[address] suggested the possibility of a left posterior fossa ischemic territory without evidence of hemorrhage. He was emergently transferred to the CVICU. I immediately evaluated him in the CVICU where he had acute left-sided facial droop, left-sided gaze deviation, flaccid right upper and lower extremities, and both receptive and expressive aphasia. I me immediately ordered an emergent CTA head and neck which demonstrated large filling defect in the primary left MCA near the M1 branch. I discussed the case with Dr. Gary evp operations with interventional radiology who took the patient emergently for intervention. I placed emergent right radial arterial line, see separate procedure note for details. We will suppress the patient above 180 for systolic blood pressure and found that he intermittently with spontaneous movement his right upper extremity with blood pressures above 180. No additional information is available from the patient due to his severe obtundation. ROS unavailable. SUBJ 09/26: Worsening respiratory status, tachypneic. Bilateral coarse rhonchi and crackles. Chest x-ray shows extensive right-sided consolidation. Questionable airway protection probable aspiration. Patient and daughter at the bedside updated. Due to progressive respiratory failure and inability to protect airway will proceed with endotracheal intubation. Both are agreeable for trach if needed 09/27: Intubated yesterday for worsening respiratory status and aspiration. Currently intubated sedated but wakes up follows commands 4. Cough appears to be improved, secretions are decreasing. Chest x-ray shows some improvement in right-sided infiltrates. Remains on Richard-Synephrine 90 mcg/min to maintain cerebral perfusion. Will reduce systolic blood pressure target to 140-[address] Mcgovern. Also start IV Lasix 40 mg now and 20 every 12 due to fluid overload. Objective Vital Signs Date Time Temp Pulse Resp B/P (MAP) Pulse Ox O2 Delivery O2 Flow Rate FiO2 09/27/17 11:02 40 09/27/17 11:01 98 09/27/17 07:00 98.6 78 16 166/86 (112) 09/27/17 07:00 Mechanical Ventilator 09/26/17 07:59 8.00 Intake and Output 09/27/17 09/27/17 09/27/17 07:59 15:59 23:59 Intake Total 1027 ml Output Total 705 ml Balance 322 ml Result Diagram: 09/27/17 0400 09/27/17 0400 Imaging Last Impressions Chest X-Ray 09/23/17 0500 Signed Impressions: Service Date/Time: Saturday, September 23, 2017 04:48 - CONCLUSION: 1. Interval extubation and removal of nasogastric tube. 2. Hazy opacity remains in both lungs with interval increase in opacity at the right lung base. 3. The costophrenic angles are mildly blunted. Ángel Frazier MD Lower Extremity Ultrasound 09/21/17 0000 Signed Impressions: Service Date/Time: Thursday, September 21, 2017 17:12 - CONCLUSION: Normal examination. Farhad Chao MD Chest CT 09/21/17 0000 Signed Impressions: Service Date/Time: Thursday, September 21, 2017 13:23 - CONCLUSION: 1. Upper lobe predominant centrilobular emphysema with 1.2 cm spiculated nodule in the right upper lobe inferiorly and adjacent satellite nodule measuring up to 7 mm. The findings are highly concerning for primary lung malignancy. Recommend PET/CT examination or sampling per 2017 Fleischner criteria. 2. Mediastinal adenopathy measuring up to 11 mm. Although nonspecific, cannot exclude metastatic adenopathy. PET/CT examination would be extremely beneficial in further assessment of the mediastinal adenopathy. 3. Small bilateral pleural effusions more prominent on the right with associated compressive atelectasis in the lower lobes and upper lobe interstitial edema, particularly on the right 4. Ascending thoracic aortic aneurysm measuring up to 4.1 cm. 5. Moderate coronary artery calcifications. Baldo Mcclain MD Carotid Artery Ultrasound 09/21/17 0000 Signed Impressions: Service Date/Time: Thursday, September 21, 2017 17:39 - CONCLUSION: 1. Mild visible plaque formation in the carotid arteries. No hemodynamically significant stenosis. Vertebral artery flow antegrade. Farhad Chao MD Objective Remarks GENERAL: Elderly male, lying in bed, sedated. HEENT: Normocephalic. Atraumatic. Pupils are 3 mm, equal, reactive NECK: Trachea is midline. There is no JVD. CHEST: There is a midline sternotomy incision with a wound VAC in place. Equal chest rise. Bilateral rhonchi and crackles predominantly right chest CARDIOVASCULAR: Intermittently tachycardic rate, rhythm atrial fibrillation. On Richard-Synephrine to maintain systolic blood pressure 160-180 ABDOMEN: Soft, nontender, nondistended. No guarding. MUSCULOSKELETAL: Pulses 2+. No peripheral edema. NEUROLOGICAL: On lightening sedation able to follow commands. Right-sided facial droop. Unable to check accurate muscle strength A/P Assessment and Plan Assessment: This is a 77-year-old male with coronary artery disease now status post CABG complicated by large left MCA CVA. Taken emergently for interventional radiology and thrombectomy, however when he went down to angiography, there was no more evidence of clot on four-vessel angioplasty at there is adequate perfusion distal to the left MCA, M1 branch. He remains very critically ill and has left sided deficits with (NIH stroke scale 31 09/25/17). He remains very critically ill. Now with evidence of aspiration and increasing right lung consolidation. Intubated yesterday Active problems: Acute large left MCA stroke Acute encephalopathy Acute hypoxemic respiratory failure Aspiration pneumonia Inability to protect her Status post CABG Coronary artery disease Plan: N.p.o. Start tube feeds with Jevity D/W Dr. Mcgovern neurology, avoid full anticoagulation with heparin now due to cerebellar infarct possibility of secondary hemorrhage Continue aspirin Plavix. Start Lovenox 40 mg sq daily. Will d/w Dr. Mcgovern, Dr Paredes Keep SBP 150-170, due to recent CABG Intubated 09/26 for aspiration and extensive right lung consolidation Continue Zosyn 4.5 g every 6 hours, GPC in sputum Gram stain, give 1 dose of vancomycin Use phenylephrine for vasopressor Neuro Dr. Mcgovern. Contraindicated for systemic TPA IR attempted thrombectomy 09/25 with apparent resolution of the clot Start diuresis to facilitate vent weaning, 40 mg IV Lasix 1 now and 20 every 12 Hold beta blockers Discontinue maintenance fluids Frequent neuro checks Already has recent 2D echo, Already has recent carotid Dopplers Already has recent lipid panel: Continue Lipitor Clemente Continue arterial line, L subclavian central line placed 3/26/18 This patient remains critically ill with one or more organ systems which are or may become a threat to life. I have spent in excess of 32 minutes discontinuously in the care and management of this patient, excluding procedures. This time is exclusive of procedures, and includes, but is not limited to, evaluation of the patient, review of the medical record, discussions with family, consultants, nursing staff, or respiratory therapy, and documentation in the medical record. Discussed with patient and daughter, discussed with Yassine Edgar MD Sep 27, 2017 11:40
[2017-09-27] MEDS ORDERED: VANCOMYCIN INJ 1,000 MG in SODIUM CHLOR 0.9% 250 ML INJ 250 ML IV ONE (12:00)
[2017-09-27] MEDS ORDERED: ENOXAPARIN SODIUM 40 MG/0.4 ML SYRINGE SQ SCH (16:00)
[2017-09-27] MEDS: FUROSEMIDE 20 MG/2 ML VIAL IV PUSH SCH (18:20)
[2017-09-27] MEDS: SENNOSIDES 8.6 MG TAB PO SCH (20:46)
[2017-09-27] MEDS: ATORVASTATIN 40 MG TAB PO SCH (20:46)
--- NOTE | 2017-09-27 21:24 | HHI.PR ---
Review/Management Diagnosis left cerebellar CVA afib Plan repeat CT brain on and if stable could start anticoagulation Diagnosis/Plan: Subjective Subjective Comments No acute events reported Active Medications Current Medications Medications (Trade) Dose Ordered Sig/Casey Route Start Time Stop Time Status Last Admin (Mag-Al Plus Susp Liq) 30 ml Q6H PRN PO 09/19/17 12:45 (Pill Splitter) 1 ea UNSCH PRN OTHER 09/19/17 19:15 (NS Flush) 2 ml BID IV FLUSH 09/22/17 21:00 09/27/17 20:47 (NS Flush) 2 ml UNSCH PRN IV FLUSH 09/22/17 20:45 (Aspirin Chew) 81 mg DAILY PO 09/23/17 09:00 09/27/17 09:30 (Plavix) 75 mg DAILY PO 09/23/17 09:00 09/27/17 09:30 (Protonix) 40 mg DAILY@06 PO 09/23/17 06:00 09/27/17 06:00 (Tylenol) 650 mg Q4H PRN PO 09/22/17 20:45 (Zofran Inj) 4 mg Q6H PRN IV PUSH 09/22/17 20:45 (Apresoline Inj) 10 mg Q4H PRN IV PUSH 09/22/17 20:45 (Duoneb Neb) 1 ampule Q2HR NEB PRN NEB 09/22/17 20:45 09/26/17 11:08 (Colace) 100 mg BID PO 09/23/17 12:00 09/27/17 20:46 (Theragran M Tab) 1 tab DAILY PO 09/24/17 09:00 09/27/17 09:30 (Milk Of Magnesia Liq) 30 ml DAILY PO 09/24/17 09:00 09/27/17 09:29 (Dulcolax Supp) 10 mg UNSCH PRN RECTAL 09/23/17 11:15 (Miralax) 17 gm DAILY PO 09/24/17 09:00 09/27/17 09:29 (Senokot) 8.6 mg HS PO 09/23/17 21:00 09/27/17 20:46 (Fleets Enema (Adult)) 118 ml UNSCH PRN RECTAL 09/23/17 11:15 (D50w (Vial) Inj) 50 ml UNSCH PRN IV PUSH 09/23/17 11:15 (Glucagon Inj) 1 mg UNSCH PRN OTHER 09/23/17 11:15 (Folate) 1 mg DAILY PO 09/23/17 12:00 09/27/17 09:30 (Vitamin B1) 100 mg DAILY PO 09/23/17 12:00 09/27/17 09:31 (NovoLOG SUPPLEMENTAL SCALE) 1 ACHS SQ 09/24/17 17:00 09/26/17 10:55 (Lopressor) 12.5 mg Q12HR PO 09/23/17 18:15 Future Hold 09/24/17 21:38 (Lipitor) 40 mg HS PO 09/24/17 21:00 09/27/17 20:46 (Brethine Inj) 1 mg UNSCH PRN SQ 09/25/17 09:30 (Peridex 0.12% Liq) 15 ml BID@08,20 MT 09/26/17 20:00 09/27/17 20:46 Propofol 100 ml @ 0 mls/hr TITRATE PRN IV 09/26/17 11:00 09/27/17 09:30 (Lopressor Inj) 5 mg Q6H PRN IV PUSH 09/26/17 11:00 Cefepime HCl 2000 mg/Sodium Chloride 100 ml @ 200 mls/hr Q8H IV 09/26/17 12:00 09/27/17 20:46 Metronidazole 100 ml @ 100 mls/hr Q8H IV 09/26/17 10:00 09/27/17 18:19 (Lactulose Liq) 30 ml DAILY PO 09/27/17 09:00 09/27/17 09:29 (Lasix Inj) 20 mg BID@09,18 IV PUSH 09/27/17 18:00 09/27/17 18:20 Phenylephrine HCl 40 mg/Sodium Chloride 500 ml @ 30 mls/hr TITRATE PRN IV 09/27/17 12:00 (Lovenox Inj) 40 mg Q24H SQ 09/27/17 16:00 09/27/17 18:20 Allergies Allergies Coded Allergies hydrocodone (Unverified Allergy, Severe, nausea and vomiting, 09/19/17) penicillin G (Unverified Allergy, Mild, 09/19/17) Exam I&O / VS 09/27/17 09/27/17 09/28/17 15:00 23:00 07:00 Intake Total 0 ml Balance 0 ml Intake Oral 0 ml Vital Signs Date Time Temp Pulse Resp B/P (MAP) Pulse Ox O2 Delivery O2 Flow Rate FiO2 09/27/17 20:20 98 40 09/27/17 19:55 98 Mechanical Ventilator 40 09/27/17 19:55 40 09/27/17 16:11 96 120/70 09/27/17 15:11 99 40 09/27/17 15:00 90 09/27/17 15:00 40 09/27/17 15:00 98 Mechanical Ventilator 09/27/17 15:00 98.6 94 15 144/84 (104) 99 147/74 (98) 09/27/17 12:09 97 40 09/27/17 11:27 98.1 107 25 154/81 (105) 97 09/27/17 11:27 105 09/27/17 11:27 98 Mechanical Ventilator 09/27/17 11:02 40 09/27/17 11:01 98 40 09/27/17 08:07 98 40 09/27/17 07:00 98.6 78 16 166/86 (112) 98 09/27/17 07:00 82 09/27/17 07:00 40 09/27/17 07:00 98 Mechanical Ventilator 40 09/27/17 05:00 89 167/87 09/27/17 04:00 91 176/88 09/27/17 03:49 98 40 09/27/17 03:00 40 09/27/17 03:00 98 Mechanical Ventilator 40 09/27/17 03:00 73 09/27/17 03:00 99.6 73 16 163/87 (112) 98 09/27/17 00:00 98 40 09/26/17 23:00 40 09/26/17 23:00 98 Mechanical Ventilator 40 09/26/17 23:00 99.5 91 16 153/87 (109) 98 09/26/17 23:00 87 Exam Comments more alert, follow simple commands CN intact MOTOR weaker RUE compared with LUE Objective Micro and Labs Laboratory Tests Test 09/27/17 04:00 White Blood Count 8.4 Red Blood Count 2.96 Hemoglobin 10.0 Hematocrit 28.8 Mean Corpuscular Volume 97.2 Mean Corpuscular Hemoglobin 33.6 Mean Corpuscular Hemoglobin Concent 34.6 Red Cell Distribution Width 14.1 Platelet Count 212 Mean Platelet Volume 7.4 Neutrophils (%) (Auto) 68.0 Lymphocytes (%) (Auto) 14.5 Monocytes (%) (Auto) 16.4 Eosinophils (%) (Auto) 0.8 Basophils (%) (Auto) 0.3 Neutrophils # (Auto) 5.7 Lymphocytes # (Auto) 1.2 Monocytes # (Auto) 1.4 Eosinophils # (Auto) 0.1 Basophils # (Auto) 0.0 CBC Comment DIFF FINAL Differential Comment Blood Urea Nitrogen 10 Creatinine 0.46 Random Glucose 90 Total Protein 4.8 Albumin 1.9 Calcium Level 7.3 Magnesium Level 2.3 Alkaline Phosphatase 62 Aspartate Amino Transf (AST/SGOT) 15 Alanine Aminotransferase (ALT/SGPT) 14 Total Bilirubin 0.4 Sodium Level 143 Potassium Level 3.3 Chloride Level 108 Carbon Dioxide Level 24.9 Anion Gap 10 Estimat Glomerular Filtration Rate 178 Protein Corrected Calcium 8.6 Date/Time Source Procedure Growth Status 09/26/17 17:00 Blood Peripheral Aerobic Blood Culture - Preliminary NO GROWTH IN 1 DAY Resulted 09/26/17 17:00 Blood Peripheral Anaerobic Blood Culture - Preliminary NO GROWTH IN 1 DAY Resulted 09/26/17 10:21 Sputum Endotracheal Gram Stain - Final Resulted 09/26/17 10:21 Sputum Culture - Preliminary Gram Negative Pop Resulted Andrea Mcgovern MD PhD Sep 27, 2017 21:24
[2017-09-27] MEDS: PHENYLEPHRINE INJ 40 MG in SODIUM CHLORID 0.9% 500 ML INJ 496 ML IV PRN (22:02)
[2017-09-28] VITALS (16 sets, daily range): BP systolic 116–167; BP diastolic 54–102; PULSE 77–121; RESP 16–18; TEMP 98.1–99.9; O2SAT 97–99
[2017-09-28] MEDS: metroNIDAZOLE 500 MG INJ 100 ML IV SCH ×3 (02:15→18:09)
[2017-09-28] MEDS: PROPOFOL 1000 MG/100 ML INJ 100 ML IV PRN ×2 (02:53→21:58)
[2017-09-28] MEDS: CEFEPIME INJ 2,000 MG in SODIUM CHLORIDE 0.9% INJ 100 ML IV SCH ×3 (04:30→22:31)
--- NOTE | 2017-09-28 05:48 | RADRPT ---
EXAM DATE/TIME: 09/28/2017 04:22 [facility] COMPARISON: CHEST SINGLE AP, September 27, 2017, 3:20. INDICATIONS : Short of breath. MEDICAL HISTORY : Cardiovascular disease. Hypertension SURGICAL HISTORY : CABG. ENCOUNTER: Subsequent ACUITY: 1 week PAIN SCORE: 0/10 LOCATION: Bilateral chest FINDINGS: A single view of the chest demonstrates hazy opacities throughout the right lung. Left basilar densit y. Status post CABG. Endotracheal tube, nasogastric tube and left subclavian central line in stable p osition. Mediastinal and left-sided chest tube without pneumothorax. CONCLUSION: Airspace disease throughout the right lung and left lower lobe. Status post CABG. Left sided chest tu be without pneumothorax. Malachi Bauman MD on September 28, 2017 at 5:45 Board Certified Radiologist. This report was verified electronically.
[2017-09-28 05:49] LABS: AUTOMATED NEUTROPHIL # 6.4 TH/MM3 (1.8-7.7); BASOPHIL # 0.2 TH/MM3 (0-0.2); EOSINOPHIL # 0.2 TH/MM3 (0-0.4); EOSINOPHIL % 2.1 % (0.0-4.0); HEMATOCRIT 28.7 % (39.0-51.0); HEMOGLOBIN 9.7 GM/DL (13.0-17.0); LYMPH % 11.9 % (9.0-44.0); LYMPHOCYTE # 1.1 TH/MM3 (1.0-4.8); MEAN CELL VOLUME 96.8 FL (80.0-100.0); MEAN CORPUSCULAR HEMOGLOBIN 32.8 PG (27.0-34.0); MEAN CORPUSCULAR HGB CONC 33.9 % (32.0-36.0); MEAN PLATELET VOLUME 7.3 FL (7.0-11.0); MONO % 11.5 % (0.0-8.0); NEUT % 72.5 % (16.0-70.0); PLATELET COUNT 247 TH/MM3 (150-450); RED BLOOD COUNT 2.97 MIL/MM3 (4.50-5.90); RED CELL DISTRIBUTION WIDTH 13.8 % (11.6-17.2); WHITE BLOOD COUNT 8.8 TH/MM3 (4.0-11.0)
[2017-09-28] MEDS: PANTOPRAZOLE SOD 40 MG DELAYED RELEASE TAB PO SCH (06:00)
[2017-09-28 06:20] LABS: ALBUMIN 1.7 GM/DL (3.4-5.0); BICARBONATE 26.4 MEQ/L (21.0-32.0); CALCIUM 7.1 MG/DL (8.5-10.1); CALCIUM-PROTEIN CORRECTED 8.5 MG/DL (8.5-10.1); CREATININE 0.54 MG/DL (0.60-1.30); MAGNESIUM 2.3 MG/DL (1.5-2.5); TOTAL BILIRUBIN ADULT 0.5 MG/DL (0.2-1.0); TOTAL PROTEIN 4.6 GM/DL (6.4-8.2)
--- NOTE | 2017-09-28 07:51 | HHI.CCPN ---
Subjective Remarks/Hospital Course This is a 77-year-old male with a history of paroxysmal A. fib, hypertension, and presented with ischemic A. fib RVR with a proximal LAD lesion. He is now postop day 3 status post off-pump CABG with a BRODERICK to the LAD. He was on the floor clinically improving when he had sudden onset altered mental status and obtundation. He was last seen normal at 5 AM. Stroke alert was called at 7:[address] suggested the possibility of a left posterior fossa ischemic territory without evidence of hemorrhage. He was emergently transferred to the CVICU. I immediately evaluated him in the CVICU where he had acute left-sided facial droop, left-sided gaze deviation, flaccid right upper and lower extremities, and both receptive and expressive aphasia. I me immediately ordered an emergent CTA head and neck which demonstrated large filling defect in the primary left MCA near the M1 branch. I discussed the case with Dr. Gary finance and administration manager with interventional radiology who took the patient emergently for intervention. I placed emergent right radial arterial line, see separate procedure note for details. We will suppress the patient above 180 for systolic blood pressure and found that he intermittently with spontaneous movement his right upper extremity with blood pressures above 180. No additional information is available from the patient due to his severe obtundation. ROS unavailable. SUBJ 09/26: Worsening respiratory status, tachypneic. Bilateral coarse rhonchi and crackles. Chest x-ray shows extensive right-sided consolidation. Questionable airway protection probable aspiration. Patient and daughter at the bedside updated. Due to progressive respiratory failure and inability to protect airway will proceed with endotracheal intubation. Both are agreeable for trach if needed 09/27: Intubated yesterday for worsening respiratory status and aspiration. Currently intubated sedated but wakes up follows commands 4. Cough appears to be improved, secretions are decreasing. Chest x-ray shows some improvement in right-sided infiltrates. Remains on Richard-Synephrine 90 mcg/min to maintain cerebral perfusion. Will reduce systolic blood pressure target to 140-[address] Mcgovern. Also start IV Lasix 40 mg now and 20 every 12 due to fluid overload. 09/28: Clinically showing some respiratory improvement even though chest x-ray shows consolidation involving most of right lung and left lower lobe. Will get CT to further evaluate the chest also repeat CT of the brain. Not cleared for subcu Lovenox by Dr. Mcgovern. Remains on Richard-Synephrine to maintain cerebral perfusion Objective Vital Signs Date Time Temp Pulse Resp B/P (MAP) Pulse Ox O2 Delivery O2 Flow Rate FiO2 09/28/17 05:01 88 101/50 09/28/17 04:00 99.2 16 98 09/28/17 04:00 Mechanical Ventilator 35 09/26/17 07:59 8.00 Intake and Output 09/28/17 09/28/17 09/29/17 08:00 16:00 00:00 Intake Total 847 ml Output Total 1915 ml Balance -1068 ml Result Diagram: 09/28/17 0530 09/28/17 0530 Imaging Last Impressions Chest X-Ray 09/23/17 0500 Signed Impressions: Service Date/Time: Saturday, September 23, 2017 04:48 - CONCLUSION: 1. Interval extubation and removal of nasogastric tube. 2. Hazy opacity remains in both lungs with interval increase in opacity at the right lung base. 3. The costophrenic angles are mildly blunted. Ángel Frazier MD Lower Extremity Ultrasound 09/21/17 0000 Signed Impressions: Service Date/Time: Thursday, September 21, 2017 17:12 - CONCLUSION: Normal examination. Farhad Chao MD Chest CT 09/21/17 0000 Signed Impressions: Service Date/Time: Thursday, September 21, 2017 13:23 - CONCLUSION: 1. Upper lobe predominant centrilobular emphysema with 1.2 cm spiculated nodule in the right upper lobe inferiorly and adjacent satellite nodule measuring up to 7 mm. The findings are highly concerning for primary lung malignancy. Recommend PET/CT examination or sampling per 2017 Fleischner criteria. 2. Mediastinal adenopathy measuring up to 11 mm. Although nonspecific, cannot exclude metastatic adenopathy. PET/CT examination would be extremely beneficial in further assessment of the mediastinal adenopathy. 3. Small bilateral pleural effusions more prominent on the right with associated compressive atelectasis in the lower lobes and upper lobe interstitial edema, particularly on the right 4. Ascending thoracic aortic aneurysm measuring up to 4.1 cm. 5. Moderate coronary artery calcifications. Baldo Mcclain MD Carotid Artery Ultrasound 09/21/17 0000 Signed Impressions: Service Date/Time: Thursday, September 21, 2017 17:39 - CONCLUSION: 1. Mild visible plaque formation in the carotid arteries. No hemodynamically significant stenosis. Vertebral artery flow antegrade. Farhad Chao MD Objective Remarks GENERAL: Elderly male, lying in bed, sedated. HEENT: Normocephalic. Atraumatic. Pupils are 3 mm, equal, reactive NECK: Trachea is midline. There is no JVD. CHEST: Midline sternotomy incision with wound VAC in place. Bilateral rhonchi and crackles predominantly right chest CARDIOVASCULAR: Intermittently tachycardic rate, rhythm atrial fibrillation. On Richard-Synephrine to maintain SBP 150-170 ABDOMEN: Soft, nontender, nondistended. No guarding. MUSCULOSKELETAL: Pulses 2+. No peripheral edema. NEUROLOGICAL: On lightening sedation able to follow commands. Right-sided facial droop. Unable to check accurate muscle strength, but right side appears weaker. Urinary Catheter: Yes Assessment to: Continue A/P Assessment and Plan Assessment: This is a 77-year-old male with coronary artery disease now status post CABG complicated by large left MCA CVA. Taken emergently for interventional radiology and thrombectomy, however when he went down to angiography, there was no more evidence of clot on four-vessel angioplasty at there is adequate perfusion distal to the left MCA, M1 branch. He remains very critically ill and has left sided deficits with (NIH stroke scale 31 09/25/17). He remains very critically ill. Now with evidence of aspiration and increasing right lung consolidation. Intubated yesterday Active problems: Acute large left MCA stroke Acute encephalopathy Acute hypoxemic respiratory failure Aspiration pneumonia Inability to protect her Status post CABG Coronary artery disease Spiculated right upper lobe mass concerning for primary lung cancer Emphysema Alcohol dependence Plan: CT of the chest on 321 concerning for primary lung malignancy right upper lobe Check MRI brain with and without contrast to rule out metastatic disease, and reevaluate stroke D/W Dr. Mcgovern neurology, avoid full anticoagulation/or prophylactic heparin now due to cerebellar infarct possibility of secondary hemorrhage Continue aspirin Plavix. Keep SBP 150-170, recent stroke but post CABG. Use phenylephrine for vasopressor Intubated 09/26 for aspiration and extensive right lung consolidation Continue Zosyn 4.5 g every 6 hours,GNR in sputum IR attempted thrombectomy 09/25 with apparent resolution of the clot IV Lasix 20 every 12 Tube feeds with Jevity Continue DuoNeb breathing treatments, add inhaled budesonide Holding beta blockers Frequent neuro checks Already has recent 2D echo, Already has recent carotid Dopplers Already has recent lipid panel: Continue Lipitor Continue Clemente Continue arterial line, L subclavian central line placed 09/26/17 This patient remains critically ill with one or more organ systems which are or may become a threat to life. I have spent in excess of 32 minutes discontinuously in the care and management of this patient, excluding procedures. This time is exclusive of procedures, and includes, but is not limited to, evaluation of the patient, review of the medical record, discussions with family, consultants, nursing staff, or respiratory therapy, and documentation in the medical record. Discussed with patient and daughter, discussed with Yassine Edgar MD Sep 28, 2017 07:51
[2017-09-28] MEDS: INSULIN ASPART SUPPLEMENTAL SCALE SQ SCH ×4 (08:00→21:00)
[2017-09-28] MEDS: SODIUM CHLORIDE 0.9% FLUSH 10 ML FLUSH IV FLUSH SCH ×2 (09:00→21:00)
[2017-09-28] MEDS: FOLIC ACID 1 MG TAB PO SCH (09:33)
[2017-09-28] MEDS: THIAMINE HCL 100 MG TAB PO SCH (09:33)
[2017-09-28] MEDS: LACTULOSE SYRUP 20 GM/30 ML CUP PO SCH (09:33)
[2017-09-28] MEDS: DOCUSATE SODIUM 100 MG CAP PO SCH ×2 (09:33→21:00)
[2017-09-28] MEDS: POTASSIUM CHLORIDE 25 MEQ EFFERVESCENT TAB PO SCH ×2 (09:33→21:58)
[2017-09-28] MEDS: MULTIVITAMINS/MINERALS THERAPEUTIC TAB PO SCH (09:33)
[2017-09-28] MEDS: POLYETHYLENE GLYCOL 17 GM PKG PO SCH (09:33)
[2017-09-28] MEDS: FUROSEMIDE 20 MG/2 ML VIAL IV PUSH SCH ×2 (09:34→18:10)
[2017-09-28] MEDS: ASPIRIN 81 MG CHEW TAB PO SCH (09:34)
[2017-09-28] MEDS: CHLORHEXIDINE 0.12% (ORAL KIT) 15 ML CUP MT SCH ×2 (09:34→21:57)
[2017-09-28] MEDS: MAGNESIUM HYDROXIDE SUSP 30 ML CUP PO SCH (09:35)
[2017-09-28] MEDS: CLOPIDOGREL 75 MG TAB PO SCH (09:35)
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
[2017-09-28] MEDS ORDERED: ATROPINE SULFATE 1 MG/10 ML SYRINGE ONE (11:50)
[2017-09-28] MEDS ORDERED: EPINEPHrine HCL (1:10,000) 1 MG/10 ML SYRINGE ONE (11:51)
--- NOTE | 2017-09-28 16:21 | HHI.PR ---
Review/Management Diagnosis left cerebellar CVA afib Plan repeat CT brain on and if stable could start anticoagulation For brain MRI today to evaluate cva and r/o metastatic lesion given lung mass on prior ct chest Diagnosis/Plan: Subjective Subjective Comments No acute events reported Active Medications Current Medications Medications (Trade) Dose Ordered Sig/Casey Route Start Time Stop Time Status Last Admin (Mag-Al Plus Susp Liq) 30 ml Q6H PRN PO 09/19/17 12:45 (Pill Splitter) 1 ea UNSCH PRN OTHER 09/19/17 19:15 (NS Flush) 2 ml BID IV FLUSH 09/22/17 21:00 09/28/17 09:00 (NS Flush) 2 ml UNSCH PRN IV FLUSH 09/22/17 20:45 (Aspirin Chew) 81 mg DAILY PO 09/23/17 09:00 09/28/17 09:34 (Plavix) 75 mg DAILY PO 09/23/17 09:00 09/28/17 09:35 (Protonix) 40 mg DAILY@06 PO 09/23/17 06:00 09/27/17 06:00 (Tylenol) 650 mg Q4H PRN PO 09/22/17 20:45 (Zofran Inj) 4 mg Q6H PRN IV PUSH 09/22/17 20:45 (Apresoline Inj) 10 mg Q4H PRN IV PUSH 09/22/17 20:45 (Colace) 100 mg BID PO 09/23/17 12:00 09/28/17 09:33 (Theragran M Tab) 1 tab DAILY PO 09/24/17 09:00 09/28/17 09:33 (Milk Of Magnesia Liq) 30 ml DAILY PO 09/24/17 09:00 09/28/17 09:35 (Dulcolax Supp) 10 mg UNSCH PRN RECTAL 09/23/17 11:15 (Miralax) 17 gm DAILY PO 09/24/17 09:00 09/28/17 09:33 (Senokot) 8.6 mg HS PO 09/23/17 21:00 09/27/17 20:46 (Fleets Enema (Adult)) 118 ml UNSCH PRN RECTAL 09/23/17 11:15 (D50w (Vial) Inj) 50 ml UNSCH PRN IV PUSH 09/23/17 11:15 (Glucagon Inj) 1 mg UNSCH PRN OTHER 09/23/17 11:15 (Folate) 1 mg DAILY PO 09/23/17 12:00 09/28/17 09:33 (Vitamin B1) 100 mg DAILY PO 09/23/17 12:00 09/28/17 09:33 (NovoLOG SUPPLEMENTAL SCALE) 1 ACHS SQ 09/24/17 17:00 09/26/17 10:55 (Lopressor) 12.5 mg Q12HR PO 09/23/17 18:15 Future Hold 09/24/17 21:38 (Lipitor) 40 mg HS PO 09/24/17 21:00 09/27/17 20:46 (Brethine Inj) 1 mg UNSCH PRN SQ 09/25/17 09:30 (Peridex 0.12% Liq) 15 ml BID@08,20 MT 09/26/17 20:00 09/28/17 09:34 Propofol 100 ml @ 0 mls/hr TITRATE PRN IV 09/26/17 11:00 09/28/17 02:53 (Lopressor Inj) 5 mg Q6H PRN IV PUSH 09/26/17 11:00 Cefepime HCl 2000 mg/Sodium Chloride 100 ml @ 200 mls/hr Q8H IV 09/26/17 12:00 09/28/17 11:56 Metronidazole 100 ml @ 100 mls/hr Q8H IV 09/26/17 10:00 09/28/17 09:33 (Lactulose Liq) 30 ml DAILY PO 09/27/17 09:00 09/28/17 09:33 (Lasix Inj) 20 mg BID@18 IV PUSH 09/27/17 18:00 09/28/17 09:34 Phenylephrine HCl 40 mg/Sodium Chloride 500 ml @ 30 mls/hr TITRATE PRN IV 09/27/17 12:00 09/27/17 22:02 (K-Lyte Cl Eff) 25 meq Q12HR PO 09/28/17 09:00 09/28/17 09:33 Allergies Allergies Coded Allergies hydrocodone (Unverified Allergy, Severe, nausea and vomiting, 09/19/17) penicillin G (Unverified Allergy, Mild, 09/19/17) Exam I&O / VS 09/28/17 09/28/17 09/29/17 15:00 23:00 07:00 Intake Total 100 ml Balance 100 ml IV Total 100 ml Vital Signs Date Time Temp Pulse Resp B/P (MAP) Pulse Ox O2 Delivery O2 Flow Rate FiO2 09/28/17 15:41 98 Mechanical Ventilator 35 09/28/17 15:40 35 09/28/17 15:37 98.4 88 16 165/80 (108) 98 09/28/17 15:00 86 09/28/17 11:26 98 35 09/28/17 11:24 98 Mechanical Ventilator 35 09/28/17 11:24 35 09/28/17 11:20 98.2 98 16 153/54 (87) 98 128/102 (111) 09/28/17 11:00 121 09/28/17 08:00 35 09/28/17 08:00 98 Mechanical Ventilator 35 09/28/17 08:00 98.1 77 16 124/57 (79) 98 137/68 (91) 09/28/17 07:50 98 35 09/28/17 07:00 77 09/28/17 05:01 88 101/50 09/28/17 04:34 79 147/71 09/28/17 04:00 99.2 82 16 98 167/81 (109) 09/28/17 04:00 98 Mechanical Ventilator 35 09/28/17 04:00 35 09/28/17 03:48 99 35 09/28/17 03:45 82 163/85 09/28/17 03:30 81 09/28/17 00:00 99.9 80 16 158/75 (102) 99 143/73 (96) 09/28/17 00:00 87 09/27/17 23:40 99 Mechanical Ventilator 40 09/27/17 23:40 40 09/27/17 22:02 88 112/58 09/27/17 20:20 98 40 09/27/17 20:00 100.4 80 16 168/79 (108) 98 135/73 (93) 09/27/17 19:55 98 Mechanical Ventilator 40 09/27/17 19:55 40 09/27/17 19:00 89 Exam Comments lethargic CN intact MOTOR weaker RUE compared with LUE Objective Micro and Labs Laboratory Tests Test 09/28/17 05:30 White Blood Count 8.8 Red Blood Count 2.97 Hemoglobin 9.7 Hematocrit 28.7 Mean Corpuscular Volume 96.8 Mean Corpuscular Hemoglobin 32.8 Mean Corpuscular Hemoglobin Concent 33.9 Red Cell Distribution Width 13.8 Platelet Count 247 Mean Platelet Volume 7.3 Neutrophils (%) (Auto) 72.5 Lymphocytes (%) (Auto) 11.9 Monocytes (%) (Auto) 11.5 Eosinophils (%) (Auto) 2.1 Basophils (%) (Auto) 2.0 Neutrophils # (Auto) 6.4 Lymphocytes # (Auto) 1.1 Monocytes # (Auto) 1.0 Eosinophils # (Auto) 0.2 Basophils # (Auto) 0.2 CBC Comment DIFF FINAL Differential Comment Blood Urea Nitrogen 15 Creatinine 0.54 Random Glucose 117 Total Protein 4.6 Albumin 1.7 Calcium Level 7.1 Magnesium Level 2.3 Alkaline Phosphatase 57 Aspartate Amino Transf (AST/SGOT) 11 Alanine Aminotransferase (ALT/SGPT) 10 Total Bilirubin 0.5 Sodium Level 145 Potassium Level 2.9 Chloride Level 110 Carbon Dioxide Level 26.4 Anion Gap 9 Estimat Glomerular Filtration Rate 148 Protein Corrected Calcium 8.5 Date/Time Source Procedure Growth Status 09/26/17 17:00 Blood Peripheral Aerobic Blood Culture - Preliminary NO GROWTH IN 2 DAYS Resulted 09/26/17 17:00 Blood Peripheral Anaerobic Blood Culture - Preliminary NO GROWTH IN 2 DAYS Resulted 09/26/17 10:21 Sputum Endotracheal Gram Stain - Final Complete 09/26/17 10:21 Sputum Culture - Final Escherichia Coli Complete Andrea Mcgovern MD PhD Sep 28, 2017 16:21
--- NOTE | 2017-09-28 16:50 | RADRPT ---
EXAM DATE/TIME: 09/28/2017 16:19 [place] COMPARISON: CT THORAX W/O CONTRAST, September 21, 2017, 13:23. INDICATIONS : Evaluate effusion . RADIATION DOSE: 5.87 CTDIvol (mGy) MEDICAL HISTORY : Non-responsive. Rt side weakness. SURGICAL HISTORY : Non-responsive. ENCOUNTER: Initial ACUITY: 1 day PAIN SCALE: Non-responsive LOCATION: chest TECHNIQUE: Volumetric scanning of the chest was performed. Using automated exposure control and adjustment of t he mA and/or kV according to patient size, radiation dose was kept as low as reasonably achievable to obtain optimal diagnostic quality images. DICOM format image data is available electronically for r eview and comparison. Follow-up recommendations for detected pulmonary nodules are based at a minimum on nodule size and pa tient risk factors according to Fleischner Society Guidelines. FINDINGS: LUNGS: There is central lobar emphysema with chronic interstitial changes bilaterally. There is a stable 1.2 cm spiculated mass in the right midlung. There is a left-sided chest tube in place with a small left apical pneumothorax with 6 mm of separation. There is a mediastinal chest tube in place with evidenc e of recent cardiothoracic surgery. There is compressive atelectasis and some infiltrates in both peewee g bases. PLEURAE: Moderate right-sided pleural effusion. Small left-sided pleural effusion. MEDIASTINUM: Status post cardiothoracic surgery. Anterior mediastinal chest tube in place. There is an ET tube in place. There is an NG tube in place. AXILLAE: Within normal limits. No lymphadenopathy. MUSCULOSKELETAL: Within normal limits for patient age. MISCELLANEOUS: The visualized upper abdominal organs demonstrate no acute abnormality. CONCLUSION: 1. Moderate right-sided pleural effusion. 2. Small left-sided pleural effusion. 3. Compressive atelectasis and some infiltrates in both lung bases. 4. Central lobar emphysema bilaterally with chronic interstitial changes. 5. Stable 1.2 cm spiculated nodular density in the right midlung. 6. Left-sided chest tube in place with small left apical pneumothorax with 6 mm of separation. Americo Vera MD on September 28, 2017 at 16:44 Board Certified Radiologist. This report was verified electronically.
[2017-09-28] MEDS ORDERED: GADODIAMIDE PF 287 MG/ML 5 ML VIAL (for RAD MRI) IVCONTRAST ONE (17:10)
--- NOTE | 2017-09-28 18:22 | RADRPT ---
EXAM DATE/TIME: 09/28/2017 16:40 [facility] COMPARISON: CT BRAIN W/O CONTRAST, September 25, 2017, 8:10. INDICATIONS : CVA. Right sided weakness. CONTRAST: 12 cc Omniscan (gadodiamide) IV MEDICAL HISTORY : CAD, HTN, Arthritis, Smoker SURGICAL HISTORY : CABG Tonsillectomy. ENCOUNTER: Subsequent ACUITY: 4-6 days PAIN SCORE: 0/10 LOCATION: Brain TECHNIQUE: Multiplanar, multisequence MRI of the brain was performed both prior to and following the administrat ion of paramagnetic contrast. FINDINGS: CEREBRUM: There is an area of infarction involving the left basal ganglia and left caudate. This area appears l arger on the flair images suggesting this is subacute. The increased size on the flair image represen ts some edema. There is mass effect on the left lateral ventricle. Significant midline shift is not s een. There is a small area of low signal seen in the left basal ganglia in the central region of this infarct measuring 0.7 cm. This could be a small focus of hemorrhage with intracellular methemoglobin . The ventricles are normal for age. There is an area of encephalomalacia at the posterior right fron clarissa lobe. No extraaxial fluid collections are seen. The pituitary gland and suprasellar cistern are normal in configuration. WHITE MATTER: No significant signal abnormalities are seen in the white matter. POSTERIOR FOSSA: There is a small area of increased signal seen in the inferior left cerebellar hemisphere on the flai r images. This could represent a small area of prior infarction. This demonstrates minimal shine thr ough phenomenon on the diffusion weighted images. The cerebellum and brainstem are otherwise intact. The 4th ventricle is midline. The cerebellopontine angle is unremarkable. The cerebellar tonsils ar e normal in position. DIFFUSION IMAGING: Again noted is the area of suspected subacute infarction involving the left basal ganglia and left ca udate. EXTRACRANIAL: The visualized portions of the orbits and paranasal sinuses are unremarkable. There is sinus disease. Fluid is seen in the nasopharynx. POST-CONTRAST: No abnormal areas of parenchymal or dural enhancement. No evidence of blood-brain barrier breakdown. CONCLUSION: 1. Acute to subacute area of infarction involving the left basal ganglia and left caudate with a poss ible small area of the focal hemorrhage in the left basal ganglia measuring 0.7 cm. 2. Suspected areas of encephalomalacia at the right frontal lobe and left cerebellar hemisphere Gregorio Diaz MD on September 28, 2017 at 18:11 Board Certified Radiologist. This report was verified electronically.
[2017-09-28] MEDS: SENNOSIDES 8.6 MG TAB PO SCH (21:00)
[2017-09-28] MEDS: ATORVASTATIN 40 MG TAB PO SCH (21:58)
[2017-09-29] VITALS (16 sets, daily range): BP systolic 101–155; BP diastolic 55–86; PULSE 84–102; RESP 16–18; TEMP 98.9–99.9; O2SAT 96–99
[2017-09-29] MEDS ORDERED: POTASSIUM PHOSPHATE INJ 30 MMOL in SODIUM CHLOR 0.9% 250 ML INJ 250 ML IV PRN ×2
[2017-09-29] MEDS ORDERED: MAGNESIUM OXIDE 400 MG TAB PO PRN
[2017-09-29] MEDS ORDERED: POTASSIUM CHLORIDE 25 MEQ EFFERVESCENT TAB PO PRN
[2017-09-29] MEDS ORDERED: POTASSIUM PHOSPHATE MONOBASIC 500 MG TAB PO PRN
[2017-09-29] MEDS ORDERED: MAGNESIUM SULFATE INJ 2 GM in SODIUM CHLORIDE 0.9% INJ 96 ML IV PRN ×2
[2017-09-29] MEDS ORDERED: POTASSIUM PHOSPHATE MONOBASIC 500 MG TAB PO/TUBE PRN
[2017-09-29] MEDS ORDERED: POTASSIUM CHLOR 40 MEQ PREMIX 100 ML IV PRN
[2017-09-29] MEDS ORDERED: MAGNESIUM SULFATE INJ 4 GM in SODIUM CHLORIDE 0.9% INJ 92 ML IV PRN ×2
[2017-09-29] MEDS ORDERED: SODIUM PHOSPHATE INJ 30 MMOL in SODIUM CHLOR 0.9% 250 ML INJ 240 ML IV PRN ×2
[2017-09-29] MEDS: metroNIDAZOLE 500 MG INJ 100 ML IV SCH ×2 (02:00→08:48)
[2017-09-29] MEDS: PROPOFOL 1000 MG/100 ML INJ 100 ML IV PRN (02:45)
[2017-09-29] MEDS: CEFEPIME INJ 2,000 MG in SODIUM CHLORIDE 0.9% INJ 100 ML IV SCH (04:00)
--- NOTE | 2017-09-29 05:06 | RADRPT ---
EXAM DATE/TIME: 09/29/2017 03:55 [facility] COMPARISON: CHEST SINGLE AP, September 28, 2017, 4:22. INDICATIONS : Shortness of breath, possible pulmonary disease. MEDICAL HISTORY : Cardiovascular disease. Hypertension SURGICAL HISTORY : CABG. ENCOUNTER: Subsequent ACUITY: 1 week PAIN SCORE: Non-responsive. LOCATION: Bilateral chest FINDINGS: A single view of the chest demonstrates better aeration of the lungs. Status post CABG. Endotracheal tube, nasogastric tube, left subclavian central line, mediastinal and left-sided chest tubes are stab le. No pneumothorax. Osseous structures are intact. CONCLUSION: 1. Lungs are better aerated. 2. Support lines and tubes are unchanged. 3. No pneumothorax. Malachi Bauman MD on September 29, 2017 at 5:02 Board Certified Radiologist. This report was verified electronically.
[2017-09-29 05:18] LABS: AUTOMATED NEUTROPHIL # 7.4 TH/MM3 (1.8-7.7); BASOPHIL % 0.5 % (0.0-2.0); EOSINOPHIL # 0.3 TH/MM3 (0-0.4); EOSINOPHIL % 3.1 % (0.0-4.0); HEMATOCRIT 29.7 % (39.0-51.0); HEMOGLOBIN 10.3 GM/DL (13.0-17.0); LYMPH % 12.9 % (9.0-44.0); LYMPHOCYTE # 1.3 TH/MM3 (1.0-4.8); MEAN CORPUSCULAR HEMOGLOBIN 33.3 PG (27.0-34.0); MEAN CORPUSCULAR HGB CONC 34.7 % (32.0-36.0); MEAN PLATELET VOLUME 7.5 FL (7.0-11.0); MONO % 8.2 % (0.0-8.0); MONOCYTE # 0.8 TH/MM3 (0-0.9); NEUT % 75.3 % (16.0-70.0); PLATELET COUNT 315 TH/MM3 (150-450); RED BLOOD COUNT 3.09 MIL/MM3 (4.50-5.90); RED CELL DISTRIBUTION WIDTH 13.6 % (11.6-17.2); WHITE BLOOD COUNT 9.8 TH/MM3 (4.0-11.0)
[2017-09-29] MEDS: PANTOPRAZOLE SODIUM 40 MG VIAL IV SCH (05:20)
[2017-09-29 05:31] LABS: ALBUMIN 1.8 GM/DL (3.4-5.0); ALT (GPT) 14 U/L (12-78); AST (GOT) 10 U/L (15-37); BLOOD UREA NITROGEN 17 MG/DL (7-18); CALCIUM 7.6 MG/DL (8.5-10.1); CHLORIDE 108 MEQ/L (98-107); CREATININE 0.44 MG/DL (0.60-1.30); GLOMERULAR FILTRATION RATE 187 ML/MIN (>89); GLUCOSE,RANDOM 114 MG/DL (74-106); MAGNESIUM 2.3 MG/DL (1.5-2.5); PHOSPHORUS 2.6 MG/DL (2.5-4.9); SODIUM (NA) 145 MEQ/L (136-145)
[2017-09-29 05:33] LABS: ALKALINE PHOSPHATASE 56 U/L (45-117); TOTAL BILIRUBIN ADULT 0.4 MG/DL (0.2-1.0); TOTAL PROTEIN 4.9 GM/DL (6.4-8.2)
[2017-09-29] MEDS: PHENYLEPHRINE INJ 40 MG in SODIUM CHLORID 0.9% 500 ML INJ 496 ML IV PRN ×2 (06:15→23:25)
[2017-09-29] MEDS: POTASSIUM CHLOR 40 MEQ PREMIX 100 ML IV PRN ×2 (06:16→08:46)
[2017-09-29] MEDS: CHLORHEXIDINE 0.12% (ORAL KIT) 15 ML CUP MT SCH ×2 (08:00→20:00)
[2017-09-29] MEDS: INSULIN ASPART SUPPLEMENTAL SCALE SQ SCH ×4 (08:00→21:00)
[2017-09-29] MEDS: POTASSIUM CHLORIDE 25 MEQ EFFERVESCENT TAB PO SCH ×2 (08:46→22:41)
[2017-09-29] MEDS: ASPIRIN 81 MG CHEW TAB PO SCH (08:47)
[2017-09-29] MEDS: FUROSEMIDE 20 MG/2 ML VIAL IV PUSH SCH ×2 (08:47→17:49)
[2017-09-29] MEDS: LACTULOSE SYRUP 20 GM/30 ML CUP PO SCH (08:47)
[2017-09-29] MEDS: MULTIVITAMINS/MINERALS THERAPEUTIC TAB PO SCH (08:47)
[2017-09-29] MEDS: FOLIC ACID 1 MG TAB PO SCH (08:47)
[2017-09-29] MEDS: CLOPIDOGREL 75 MG TAB PO SCH (08:47)
[2017-09-29] MEDS: THIAMINE HCL 100 MG TAB PO SCH (08:47)
[2017-09-29] MEDS: POLYETHYLENE GLYCOL 17 GM PKG PO SCH (08:48)
[2017-09-29] MEDS: SODIUM CHLORIDE 0.9% FLUSH 10 ML FLUSH IV FLUSH SCH ×2 (08:48→22:38)
[2017-09-29] MEDS: MAGNESIUM HYDROXIDE SUSP 30 ML CUP PO SCH (08:48)
[2017-09-29] MEDS: DOCUSATE SODIUM 100 MG CAP PO SCH ×2 (09:00→21:00)
--- NOTE | 2017-09-29 10:49 | HHI.CCPN ---
Subjective Remarks/Hospital Course This is a 77-year-old male with a history of paroxysmal A. fib, hypertension, and presented with ischemic A. fib RVR with a proximal LAD lesion. He is now postop day 3 status post off-pump CABG with a BRODERICK to the LAD. He was on the floor clinically improving when he had sudden onset altered mental status and obtundation. He was last seen normal at 5 AM. Stroke alert was called at 7:[address] suggested the possibility of a left posterior fossa ischemic territory without evidence of hemorrhage. He was emergently transferred to the CVICU. I immediately evaluated him in the CVICU where he had acute left-sided facial droop, left-sided gaze deviation, flaccid right upper and lower extremities, and both receptive and expressive aphasia. I me immediately ordered an emergent CTA head and neck which demonstrated large filling defect in the primary left MCA near the M1 branch. I discussed the case with Dr. Gary class a regional drivers with interventional radiology who took the patient emergently for intervention. I placed emergent right radial arterial line, see separate procedure note for details. We will suppress the patient above 180 for systolic blood pressure and found that he intermittently with spontaneous movement his right upper extremity with blood pressures above 180. No additional information is available from the patient due to his severe obtundation. ROS unavailable. SUBJ 09/26: Worsening respiratory status, tachypneic. Bilateral coarse rhonchi and crackles. Chest x-ray shows extensive right-sided consolidation. Questionable airway protection probable aspiration. Patient and daughter at the bedside updated. Due to progressive respiratory failure and inability to protect airway will proceed with endotracheal intubation. Both are agreeable for trach if needed 09/27: Intubated yesterday for worsening respiratory status and aspiration. Currently intubated sedated but wakes up follows commands 4. Cough appears to be improved, secretions are decreasing. Chest x-ray shows some improvement in right-sided infiltrates. Remains on Richard-Synephrine 90 mcg/min to maintain cerebral perfusion. Will reduce systolic blood pressure target to 140-[address] Mcgovern. Also start IV Lasix 40 mg now and 20 every 12 due to fluid overload. 09/28: Clinically showing some respiratory improvement even though chest x-ray shows consolidation involving most of right lung and left lower lobe. Will get CT to further evaluate the chest also repeat CT of the brain. Not cleared for subcu Lovenox by Dr. Mcgovern. Remains on Richard-Synephrine to maintain cerebral perfusion 09/29: remains intubated. following commands this morning. secretions are still a problem. ultrasound at bedside and less than 2cm pocket of pleural effusion by right costophrenic angle and liver is anatomically in the way of reaching fluid. unable to thoracentese, and if that is the largest pocket of fluid, unlikely to be inhibiting pulmonary mechanics enough to prevent extubation. mental status and dysphagia/dysarthria poor cough/gag/swallow likely biggest barrier to successful extubation. Objective Vital Signs Date Time Temp Pulse Resp B/P (MAP) Pulse Ox O2 Delivery O2 Flow Rate FiO2 09/29/17 07:44 96 30 09/29/17 07:00 84 109/58 09/29/17 04:00 99.2 16 09/29/17 04:00 Mechanical Ventilator 09/26/17 07:59 8.00 Intake and Output 09/29/17 09/29/17 09/30/17 08:00 16:00 00:00 Intake Total 800 ml Output Total 1010 ml Balance -210 ml Result Diagram: 09/29/17 0430 09/29/17 0430 Imaging Last Impressions Chest X-Ray 09/23/17 0500 Signed Impressions: Service Date/Time: Saturday, September 23, 2017 04:48 - CONCLUSION: 1. Interval extubation and removal of nasogastric tube. 2. Hazy opacity remains in both lungs with interval increase in opacity at the right lung base. 3. The costophrenic angles are mildly blunted. Ángel Frazier MD Lower Extremity Ultrasound 09/21/17 0000 Signed Impressions: Service Date/Time: Thursday, September 21, 2017 17:12 - CONCLUSION: Normal examination. Farhad Chao MD Chest CT 09/21/17 0000 Signed Impressions: Service Date/Time: Thursday, September 21, 2017 13:23 - CONCLUSION: 1. Upper lobe predominant centrilobular emphysema with 1.2 cm spiculated nodule in the right upper lobe inferiorly and adjacent satellite nodule measuring up to 7 mm. The findings are highly concerning for primary lung malignancy. Recommend PET/CT examination or sampling per 2017 Fleischner criteria. 2. Mediastinal adenopathy measuring up to 11 mm. Although nonspecific, cannot exclude metastatic adenopathy. PET/CT examination would be extremely beneficial in further assessment of the mediastinal adenopathy. 3. Small bilateral pleural effusions more prominent on the right with associated compressive atelectasis in the lower lobes and upper lobe interstitial edema, particularly on the right 4. Ascending thoracic aortic aneurysm measuring up to 4.1 cm. 5. Moderate coronary artery calcifications. Baldo Mcclain MD Carotid Artery Ultrasound 09/21/17 0000 Signed Impressions: Service Date/Time: Thursday, September 21, 2017 17:39 - CONCLUSION: 1. Mild visible plaque formation in the carotid arteries. No hemodynamically significant stenosis. Vertebral artery flow antegrade. Farhad Chao MD Objective Remarks GENERAL: Elderly male, lying in bed, sedated. HEENT: Normocephalic. Atraumatic. Pupils are 3 mm, equal, reactive NECK: Trachea is midline. There is no JVD. CHEST: Midline sternotomy incision with wound VAC in place. equal chest rise. fio2 30%. moderate amount of phipps secretions. CARDIOVASCULAR: normal rate, afib. on 40mcg/min phenylephrine. ABDOMEN: Soft, nontender, nondistended. No guarding. MUSCULOSKELETAL: Pulses 2+. No peripheral edema. NEUROLOGICAL: On lightening sedation able to follow commands. Right-sided facial droop. LUPE 5/5 in left upper/lower extremities. LUPE 2/5 in right distal upper extremity, 0/5 right proximal. 1/5 right distal lower extremity, 0/5 right poximal lower extremity. A/P Assessment and Plan Assessment: This is a 77-year-old male with coronary artery disease now status post CABG complicated by large left MCA CVA. Taken emergently for interventional radiology and thrombectomy, however when he went down to angiography, there was no more evidence of clot on four-vessel angioplasty at there is adequate perfusion distal to the left MCA, M1 branch. Clinically making improvements, but very high risk for decompensation and particularly may not be able to successfully separate from mechanical ventilation due to inability to handle secretions. will work towards SBT today. I have spoken at length with the family about the risks of failing a trial of extubation requiring a tracheostomy and PEG tube, as well as the risks of tracheostomy with sternal incision. they understand the risks ahead, but will pursue trial of extubation when he passes SBT. Remains very critically ill with persistent respiratory failure and evolving CVA. Active problems: Acute large left MCA stroke Acute encephalopathy Acute hypoxemic respiratory failure Aspiration pneumonia Status post CABG Coronary artery disease Spiculated right upper lobe mass concerning for primary lung cancer Emphysema Alcohol dependence Acute dysphagia Acute dysarthria Plan: CT of the chest on 09/21 concerning for primary lung malignancy right upper lobe IR attempted thrombectomy 09/25 with apparent resolution of the clot Check MRI brain with and without contrast to rule out metastatic disease, and reevaluate stroke D/W Dr. Mcgovern neurology, avoid full anticoagulation/or prophylactic heparin now due to cerebellar infarct possibility of secondary hemorrhage Continue aspirin Plavix. will liberate blood pressure goals to 130 - 170. recent stroke but post CABG. Use phenylephrine for vasopressor Intubated 09/26 for aspiration and extensive right lung consolidation d/c cefepime and flagy. start Ancef 1gm iv q8h x 4 days (total 7 day course for aspiration pneumonia). pansensitive ecoli IV Lasix 40 every 12 Tube feeds with Jevity Continue DuoNeb breathing treatments, inhaled budesonide Holding beta blockers Frequent neuro checks Already has recent 2D echo, Already has recent carotid Dopplers Already has recent lipid panel: Continue Lipitor Continue Clemente Continue arterial line, L subclavian central line placed 09/26/17 daily SBT. OOB to chair. PT/OT/ST. This patient remains critically ill with one or more organ systems which are or may become a threat to life. I have spent in excess of 31 minutes discontinuously in the care and management of this patient, excluding procedures. This time is exclusive of procedures, and includes, but is not limited to, evaluation of the patient, review of the medical record, discussions with family, consultants, nursing staff, or respiratory therapy, and documentation in the medical record. Discussed with patient and daughter, son, discussed with Charly Carmen MD Sep 29, 2017 10:49
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
--- NOTE | 2017-09-29 11:05 | RADRPT ---
EXAM DATE/TIME: 09/29/2017 09:50 [facility] COMPARISON: No previous studies available for comparison. EXTERNAL COMPARISON : [facility], XR CHEST PA & LAT INDICATIONS : Right pleural effusion. MEDICAL HISTORY : Hypertension. Arthritis. Thyroid disease. Coronary artery disease. Tobacco use. SURGICAL HISTORY : Right shoulder surgery. ENCOUNTER: Initial ACUITY: 1 day PAIN SCORE: Nonresponsive. LOCATION: Right chest MEASUREMENTS: SKIN TO PARIETAL PLEURA: Inadequate fluid SKIN TO MAX SAFE DEPTH: Inadequate fluid ESTIMATED FLUID VOLUME: FLUID COMPOSITION: simple FINDINGS: No marking was performed. CONCLUSION: Minimal right pleural fluid, volume insufficient for safe thoracentesis at present Gregorio Jacinto MD on September 29, 2017 at 11:02 Board Certified Radiologist. This report was verified electronically.
--- NOTE | 2017-09-29 11:22 | RADRPT ---
EXAM DATE/TIME: 09/25/2017 10:25 [facility] COMPARISON: MRI BRAIN W & W/O CONTRAST, September 28, 2017, 16:40. INDICATIONS : Patient with a history of stroke needs angiogram. MEDICAL HISTORY : HTN Coranary artery disease A-fib SURGICAL HISTORY : CABG ENCOUNTER: Initial ACUITY: 1 day PAIN SCORE: Nonresponsive. FLUORO TIME: 15.2 minutes IMAGE SERIES: 6 ACCESS SITE: Right Femoral artery CONTRAST: 35 cc Visipaque (iodixanol) DEVICE(S): 1.) Right common femoral artery Syvek patch TIMELINE: Interventional team called: 954 am Interventional team arrived: 1015 am Interventional team ready: 1016 am Patient arrival: 1015 am Groin puncture: 1031 am Recanalization: PROCEDURE : 1. Ultrasound-guided puncture of the access site. 2. Angiography of the access site prior to closure device. 3. Conscious sedation with continuous EKG and Oximetry monitoring. 4. Percutaneous closure of the access site. 5. Angiography of the left common carotid artery 6. Angiography of the left internal carotid artery The risks, benefits and alternatives to the procedure were explained and verbal and written consent w as obtained. The site was prepped in sterile fashion. Full sterile technique was used, including ca p, mask, sterile gloves and gown and a large sterile sheet. Hand hygiene and 2% chlorhexidine and/or betadine/alcohol prep was utilized per protocol for cutaneous antisepsis. Sterile gel and sterile p robe cover were utilized for ultrasound guidance. The skin and subcutaneous tissues were infiltrated with local anesthetic solution. With ultrasound and fluoroscopic guidance the selected artery was punctured and a vascular sheath was placed. Angiography of the common femoral artery was performed for evaluation prior to percutaneous closure device placement. A JB2 catheter was placed in the left common carotid artery and likely the bifurcation demonstrates n o evidence of high-grade stenosis. The catheter was advanced into the left internal carotid artery wh ere AP and like and laterals were obtained demonstrating no evidence of acute thrombus. The procedure was terminated at this point. Hemostasis was obtained with the prescribed medicated closure device. Conscious sedation was perform ed with the prescribed dosages and duration as above in the presence of an independent trained radiol ogy nurse to assist in the monitoring of the patient. EKG and oximetry remained stable throughout e procedure. CONCLUSION: 1. No embolism identified Emile Gary MD on September 29, 2017 at 11:16 Board Certified Radiologist. This report was verified electronically.
--- NOTE | 2017-09-29 18:07 | HHI.PR ---
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 Unable to fully anticoagulate at this point due to small hemorrhagic conversion of left BG cva. Repeat MRI next week to follow up and if hemorrhage resolves, start anticoagulation Diagnosis/Plan: Subjective Subjective Comments No acute events reported Off sedation and following commands Active Medications Current Medications Medications (Trade) Dose Ordered Sig/Casey Route Start Time Stop Time Status Last Admin (Mag-Al Plus Susp Liq) 30 ml Q6H PRN PO 09/19/17 12:45 (Pill Splitter) 1 ea UNSCH PRN OTHER 09/19/17 19:15 (NS Flush) 2 ml BID IV FLUSH 09/22/17 21:00 09/29/17 08:48 (NS Flush) 2 ml UNSCH PRN IV FLUSH 09/22/17 20:45 (Aspirin Chew) 81 mg DAILY PO 09/23/17 09:00 09/29/17 08:47 (Plavix) 75 mg DAILY PO 09/23/17 09:00 09/29/17 08:47 (Tylenol) 650 mg Q4H PRN PO 09/22/17 20:45 (Zofran Inj) 4 mg Q6H PRN IV PUSH 09/22/17 20:45 (Apresoline Inj) 10 mg Q4H PRN IV PUSH 09/22/17 20:45 (Colace) 100 mg BID PO 09/23/17 12:00 09/28/17 09:33 (Theragran M Tab) 1 tab DAILY PO 09/24/17 09:00 09/29/17 08:47 (Milk Of Magnesia Liq) 30 ml DAILY PO 09/24/17 09:00 09/28/17 09:35 (Dulcolax Supp) 10 mg UNSCH PRN RECTAL 09/23/17 11:15 (Miralax) 17 gm DAILY PO 09/24/17 09:00 09/28/17 09:33 (Senokot) 8.6 mg HS PO 09/23/17 21:00 09/27/17 20:46 (Fleets Enema (Adult)) 118 ml UNSCH PRN RECTAL 09/23/17 11:15 (D50w (Vial) Inj) 50 ml UNSCH PRN IV PUSH 09/23/17 11:15 (Glucagon Inj) 1 mg UNSCH PRN OTHER 09/23/17 11:15 (Folate) 1 mg DAILY PO 09/23/17 12:00 09/29/17 08:47 (Vitamin B1) 100 mg DAILY PO 09/23/17 12:00 09/29/17 08:47 (NovoLOG SUPPLEMENTAL SCALE) 1 ACHS SQ 09/24/17 17:00 09/26/17 10:55 (Lopressor) 12.5 mg Q12HR PO 09/23/17 18:15 Future Hold 09/24/17 21:38 (Lipitor) 40 mg HS PO 09/24/17 21:00 09/28/17 21:58 (Brethine Inj) 1 mg UNSCH PRN SQ 09/25/17 09:30 (Peridex 0.12% Liq) 15 ml BID@08,20 MT 09/26/17 20:00 09/29/17 08:00 Propofol 100 ml @ 0 mls/hr TITRATE PRN IV 09/26/17 11:00 09/29/17 02:45 (Lopressor Inj) 5 mg Q6H PRN IV PUSH 09/26/17 11:00 (Lactulose Liq) 30 ml DAILY PO 09/27/17 09:00 09/28/17 09:33 (Lasix Inj) 20 mg BID@18 IV PUSH 09/27/17 18:00 09/29/17 17:49 Phenylephrine HCl 40 mg/Sodium Chloride 500 ml @ 30 mls/hr TITRATE PRN IV 09/27/17 12:00 09/29/17 06:15 (K-Lyte Cl Eff) 25 meq Q12HR PO 09/28/17 09:00 09/29/17 08:46 Potassium Chloride 100 ml @ 50 mls/hr Q2H PRN IV 09/29/17 00:00 09/29/17 08:46 Potassium Chloride 100 ml @ 50 mls/hr Q2H PRN IV 09/29/17 00:00 (K-Lyte Cl Eff) 50 meq UNSCH PRN PO 09/29/17 00:00 Potassium Chloride 100 ml @ 25 mls/hr UNSCH PRN IV 09/29/17 00:00 Potassium Chloride 100 ml @ 50 mls/hr Q2H PRN IV 09/29/17 00:00 Magnesium Sulfate 4 gm/Sodium Chloride 100 ml @ 50 mls/hr UNSCH PRN IV 09/29/17 00:00 (Mag-Ox) 800 mg UNSCH PRN PO 09/29/17 00:00 Magnesium Sulfate 2 gm/Sodium Chloride 100 ml @ 50 mls/hr UNSCH PRN IV 09/29/17 00:00 (K-Phos) 2,000 mg Q4H PRN PO 09/29/17 00:00 Sodium Phosphate 30 mmol/Sodium Chloride 250 ml @ 42 mls/hr UNSCH PRN IV 09/29/17 00:00 (K-Phos) 2,000 mg UNSCH PRN PO/TUBE 09/29/17 00:00 Potassium Phosphate 30 mmol/ Sodium Chloride 260 ml @ 42 mls/hr UNSCH PRN IV 09/29/17 00:00 (Protonix Inj) 40 mg DAILY@0600 IV 09/29/17 06:00 09/29/17 05:20 Cefazolin Sodium 1000 mg/Sodium Chloride 100 ml @ 200 mls/hr Q8H IV 09/29/17 10:45 10/03/17 10:44 09/29/17 17:50 Allergies Allergies Coded Allergies hydrocodone (Unverified Allergy, Severe, nausea and vomiting, 09/19/17) penicillin G (Unverified Allergy, Mild, 09/19/17) Exam I&O / VS 09/29/17 09/29/17 09/30/17 15:00 23:00 07:00 Intake Total 100 ml 100 ml Balance 100 ml 100 ml IV Total 100 ml 100 ml Vital Signs Date Time Temp Pulse Resp B/P (MAP) Pulse Ox O2 Delivery O2 Flow Rate FiO2 09/29/17 17:20 97 30 09/29/17 17:20 30 09/29/17 15:00 30 09/29/17 15:00 96 Mechanical Ventilator 30 09/29/17 15:00 98.9 87 18 129/82 (98) 98 119/65 (83) 09/29/17 15:00 87 09/29/17 11:26 99 30 09/29/17 11:00 92 09/29/17 11:00 99.1 92 16 121/78 (92) 98 117/65 (82) 09/29/17 11:00 98 Mechanical Ventilator 30 3/29/18 11:00 30 09/29/17 08:00 109/58 (75) 144/86 (105) 09/29/17 07:44 96 30 09/29/17 07:00 98 Mechanical Ventilator 30 09/29/17 07:00 99.2 84 16 144/86 (105) 98 109/58 (75) 09/29/17 07:00 84 09/29/17 07:00 84 109/58 09/29/17 07:00 30 09/29/17 06:15 84 110/54 09/29/17 04:00 84 09/29/17 04:00 35 09/29/17 04:00 99.2 84 16 137/81 (99) 98 127/65 (85) 09/29/17 04:00 98 Mechanical Ventilator 35 09/29/17 03:52 98 30 09/29/17 00:33 97 30 09/29/17 00:00 88 09/29/17 00:00 98 Mechanical Ventilator 35 09/29/17 00:00 99.0 87 16 120/74 (89) 98 101/55 (70) 09/29/17 00:00 35 09/28/17 21:34 98 35 09/28/17 20:00 35 09/28/17 20:00 97 Mechanical Ventilator 35 09/28/17 20:00 82 09/28/17 20:00 98.9 83 18 116/75 (89) 97 118/66 (83) Exam Comments alert, follow simple commands CN intact MOTOR --1/5 RUE 0/5 RLE Objective Radiology Results MRI brain --left basal ganglia cva with small amount of hemorrhage. left cerrebellar cva Micro and Labs Laboratory Tests Test 09/29/17 04:30 White Blood Count 9.8 Red Blood Count 3.09 Hemoglobin 10.3 Hematocrit 29.7 Mean Corpuscular Volume 96.0 Mean Corpuscular Hemoglobin 33.3 Mean Corpuscular Hemoglobin Concent 34.7 Red Cell Distribution Width 13.6 Platelet Count 315 Mean Platelet Volume 7.5 Neutrophils (%) (Auto) 75.3 Lymphocytes (%) (Auto) 12.9 Monocytes (%) (Auto) 8.2 Eosinophils (%) (Auto) 3.1 Basophils (%) (Auto) 0.5 Neutrophils # (Auto) 7.4 Lymphocytes # (Auto) 1.3 Monocytes # (Auto) 0.8 Eosinophils # (Auto) 0.3 Basophils # (Auto) 0.0 CBC Comment DIFF FINAL Differential Comment Blood Urea Nitrogen 17 Creatinine 0.44 Random Glucose 114 Total Protein 4.9 Albumin 1.8 Calcium Level 7.6 Phosphorus Level 2.6 Magnesium Level 2.3 Alkaline Phosphatase 56 Aspartate Amino Transf (AST/SGOT) 10 Alanine Aminotransferase (ALT/SGPT) 14 Total Bilirubin 0.4 Sodium Level 145 Potassium Level 3.2 Chloride Level 108 Carbon Dioxide Level 25.0 Anion Gap 12 Estimat Glomerular Filtration Rate 187 Date/Time Source Procedure Growth Status 09/26/17 17:00 Blood Peripheral Aerobic Blood Culture - Preliminary NO GROWTH IN 3 DAYS Resulted 09/26/17 17:00 Blood Peripheral Anaerobic Blood Culture - Preliminary NO GROWTH IN 3 DAYS Resulted 09/26/17 10:21 Sputum Endotracheal Gram Stain - Final Complete 09/26/17 10:21 Sputum Culture - Final Escherichia Coli Complete Andrea Mcgovern MD PhD Sep 29, 2017 18:07
[2017-09-29] MEDS: SENNOSIDES 8.6 MG TAB PO SCH (21:00)
[2017-09-29] MEDS: ATORVASTATIN 40 MG TAB PO SCH (22:41)
[2017-09-30] VITALS (12 sets, daily range): BP systolic 115–174; BP diastolic 61–105; PULSE 92–130; RESP 12–17; TEMP 98–99.7; O2SAT 96–98
[2017-09-30] MEDS: PANTOPRAZOLE SODIUM 40 MG VIAL IV SCH (06:00)
--- NOTE | 2017-09-30 06:03 | RADRPT ---
EXAM DATE/TIME: 09/30/2017 05:18 [facility] COMPARISON: CHEST SINGLE AP, September 29, 2017, 3:55. INDICATIONS : Chest tube removal. Evaluate for pneumothorax. MEDICAL HISTORY : Cardiovascular disease. Hypertension SURGICAL HISTORY : CABG. ENCOUNTER: Subsequent ACUITY: 2 weeks PAIN SCORE: Non-responsive. LOCATION: chest FINDINGS: Left chest tube has been removed. No perceptible pneumothorax. A shadow projects over the left lung a pex but I believe it is related to overlying support apparatus. Very mild bibasilar atelectasis seen. Endotracheal tube tip is approximately 2 cm above the toribio. Nasogastric tube courses into the stoma ch. There is a left subclavian central venous catheter again seen, tip in the superior vena cava. CONCLUSION: 1. Left chest tube out. No perceptible pneumothorax. 2. Other lines and tubes unchanged as above. 3. Very mild basilar atelectasis. Gregorio Ward MD on September 30, 2017 at 6:00 Board Certified Radiologist. This report was verified electronically.
[2017-09-30] MEDS: CHLORHEXIDINE 0.12% (ORAL KIT) 15 ML CUP MT SCH ×2 (08:00→22:18)
[2017-09-30] MEDS: INSULIN ASPART SUPPLEMENTAL SCALE SQ SCH ×4 (08:00→21:00)
[2017-09-30] MEDS: SODIUM CHLORIDE 0.9% FLUSH 10 ML FLUSH IV FLUSH SCH ×2 (09:00→22:18)
[2017-09-30] MEDS: MAGNESIUM HYDROXIDE SUSP 30 ML CUP PO SCH (10:29)
[2017-09-30] MEDS: POTASSIUM CHLORIDE 25 MEQ EFFERVESCENT TAB PO SCH ×2 (10:30→22:18)
[2017-09-30] MEDS: LACTULOSE SYRUP 20 GM/30 ML CUP PO SCH (10:30)
[2017-09-30] MEDS: FOLIC ACID 1 MG TAB PO SCH (10:30)
[2017-09-30] MEDS: CLOPIDOGREL 75 MG TAB PO SCH (10:30)
[2017-09-30] MEDS: ASPIRIN 81 MG CHEW TAB PO SCH (10:30)
[2017-09-30] MEDS: DOCUSATE SODIUM 100 MG CAP PO SCH ×2 (10:30→22:18)
[2017-09-30] MEDS: MULTIVITAMINS/MINERALS THERAPEUTIC TAB PO SCH (10:30)
[2017-09-30] MEDS: FUROSEMIDE 20 MG/2 ML VIAL IV PUSH SCH ×2 (10:31→17:45)
[2017-09-30] MEDS: POLYETHYLENE GLYCOL 17 GM PKG PO SCH (10:32)
[2017-09-30] MEDS: THIAMINE HCL 100 MG TAB PO SCH (10:32)
[2017-09-30 11:42] LABS: AUTOMATED NEUTROPHIL # 11.4 TH/MM3 (1.8-7.7); BASOPHIL # 0.1 TH/MM3 (0-0.2); BASOPHIL % 0.5 % (0.0-2.0); EOSINOPHIL # 0.1 TH/MM3 (0-0.4); HEMATOCRIT 34.4 % (39.0-51.0); HEMOGLOBIN 11.4 GM/DL (13.0-17.0); LYMPH % 9.6 % (9.0-44.0); LYMPHOCYTE # 1.3 TH/MM3 (1.0-4.8); MEAN CORPUSCULAR HEMOGLOBIN 31.9 PG (27.0-34.0); MEAN CORPUSCULAR HGB CONC 33.2 % (32.0-36.0); MEAN PLATELET VOLUME 7.7 FL (7.0-11.0); MONOCYTE # 0.8 TH/MM3 (0-0.9); NEUT % 82.9 % (16.0-70.0); PLATELET COUNT 344 TH/MM3 (150-450); RED BLOOD COUNT 3.58 MIL/MM3 (4.50-5.90); RED CELL DISTRIBUTION WIDTH 13.8 % (11.6-17.2); WHITE BLOOD COUNT 13.7 TH/MM3 (4.0-11.0)
[2017-09-30 12:32] LABS: BICARBONATE 26.5 MEQ/L (21.0-32.0); CALCIUM 7.9 MG/DL (8.5-10.1); CREATININE 0.58 MG/DL (0.60-1.30); MAGNESIUM 2.4 MG/DL (1.5-2.5)
--- NOTE | 2017-09-30 12:54 | HHI.CCPN ---
Subjective Remarks/Hospital Course This is a 77-year-old male with a history of paroxysmal A. fib, hypertension, and presented with ischemic A. fib RVR with a proximal LAD lesion. He is now postop day 3 status post off-pump CABG with a BRODERICK to the LAD. He was on the floor clinically improving when he had sudden onset altered mental status and obtundation. He was last seen normal at 5 AM. Stroke alert was called at 7:[address] suggested the possibility of a left posterior fossa ischemic territory without evidence of hemorrhage. He was emergently transferred to the CVICU. I immediately evaluated him in the CVICU where he had acute left-sided facial droop, left-sided gaze deviation, flaccid right upper and lower extremities, and both receptive and expressive aphasia. I me immediately ordered an emergent CTA head and neck which demonstrated large filling defect in the primary left MCA near the M1 branch. I discussed the case with Dr. Gary director of construction with interventional radiology who took the patient emergently for intervention. I placed emergent right radial arterial line, see separate procedure note for details. We will suppress the patient above 180 for systolic blood pressure and found that he intermittently with spontaneous movement his right upper extremity with blood pressures above 180. No additional information is available from the patient due to his severe obtundation. ROS unavailable. SUBJ 09/26: Worsening respiratory status, tachypneic. Bilateral coarse rhonchi and crackles. Chest x-ray shows extensive right-sided consolidation. Questionable airway protection probable aspiration. Patient and daughter at the bedside updated. Due to progressive respiratory failure and inability to protect airway will proceed with endotracheal intubation. Both are agreeable for trach if needed 09/27: Intubated yesterday for worsening respiratory status and aspiration. Currently intubated sedated but wakes up follows commands 4. Cough appears to be improved, secretions are decreasing. Chest x-ray shows some improvement in right-sided infiltrates. Remains on Richard-Synephrine 90 mcg/min to maintain cerebral perfusion. Will reduce systolic blood pressure target to 140-[address] Mcgovern. Also start IV Lasix 40 mg now and 20 every 12 due to fluid overload. 09/28: Clinically showing some respiratory improvement even though chest x-ray shows consolidation involving most of right lung and left lower lobe. Will get CT to further evaluate the chest also repeat CT of the brain. Not cleared for subcu Lovenox by Dr. Mcgovern. Remains on Richard-Synephrine to maintain cerebral perfusion 09/29: remains intubated. following commands this morning. secretions are still a problem. ultrasound at bedside and less than 2cm pocket of pleural effusion by right costophrenic angle and liver is anatomically in the way of reaching fluid. unable to thoracentese, and if that is the largest pocket of fluid, unlikely to be inhibiting pulmonary mechanics enough to prevent extubation. mental status and dysphagia/dysarthria poor cough/gag/swallow likely biggest barrier to successful extubation. 09/30: clinically worse than yesterday: only tolerated cpap for an hour and only about 10 minutes on minimal settings. adequate net negative balance. this appears to be a fatigue problem due to deconditioning. long discussion with his daughter today about need for aggressive PT, and my concerns that he may need trach/PEG and LTAC level care. Objective Vital Signs Date Time Temp Pulse Resp B/P (MAP) Pulse Ox O2 Delivery O2 Flow Rate FiO2 09/30/17 11:01 97 30 09/30/17 11:00 97 09/30/17 11:00 98.7 12 131/78 (95) 142/82 (102) 09/30/17 11:00 Mechanical Ventilator 09/26/17 07:59 8.00 Intake and Output 09/30/17 09/30/17 09/30/17 07:59 15:59 23:59 Intake Total 412 ml Output Total 1150 ml Balance -738 ml Result Diagram: 09/30/17 1129 09/30/17 1129 Imaging Last Impressions Chest X-Ray 09/23/17 0500 Signed Impressions: Service Date/Time: Saturday, September 23, 2017 04:48 - CONCLUSION: 1. Interval extubation and removal of nasogastric tube. 2. Hazy opacity remains in both lungs with interval increase in opacity at the right lung base. 3. The costophrenic angles are mildly blunted. Ángel Frazier MD Lower Extremity Ultrasound 09/21/17 0000 Signed Impressions: Service Date/Time: Thursday, September 21, 2017 17:12 - CONCLUSION: Normal examination. Farhad Chao MD Chest CT 09/21/17 0000 Signed Impressions: Service Date/Time: Thursday, September 21, 2017 13:23 - CONCLUSION: 1. Upper lobe predominant centrilobular emphysema with 1.2 cm spiculated nodule in the right upper lobe inferiorly and adjacent satellite nodule measuring up to 7 mm. The findings are highly concerning for primary lung malignancy. Recommend PET/CT examination or sampling per 2017 Fleischner criteria. 2. Mediastinal adenopathy measuring up to 11 mm. Although nonspecific, cannot exclude metastatic adenopathy. PET/CT examination would be extremely beneficial in further assessment of the mediastinal adenopathy. 3. Small bilateral pleural effusions more prominent on the right with associated compressive atelectasis in the lower lobes and upper lobe interstitial edema, particularly on the right 4. Ascending thoracic aortic aneurysm measuring up to 4.1 cm. 5. Moderate coronary artery calcifications. Baldo Mcclain MD Carotid Artery Ultrasound 09/21/17 0000 Signed Impressions: Service Date/Time: Thursday, September 21, 2017 17:39 - CONCLUSION: 1. Mild visible plaque formation in the carotid arteries. No hemodynamically significant stenosis. Vertebral artery flow antegrade. Farhad Chao MD Objective Remarks GENERAL: Elderly male, lying in bed, sedated. HEENT: Normocephalic. Atraumatic. Pupils are 3 mm, equal, reactive NECK: Trachea is midline. There is no JVD. CHEST: Midline sternotomy incision with wound VAC in place. equal chest rise. fio2 30%. moderate amount of phipps secretions. CARDIOVASCULAR: normal rate, afib. on 30mcg/min phenylephrine. ABDOMEN: Soft, nontender, nondistended. No guarding. MUSCULOSKELETAL: Pulses 2+. No peripheral edema. NEUROLOGICAL: On lightening sedation able to follow commands. Right-sided facial droop. LUPE 5/5 in left upper/lower extremities. LUPE 2/5 in right distal upper extremity, 0/5 right proximal. 1/5 right distal lower extremity, 0/5 right poximal lower extremity. A/P Assessment and Plan Assessment: This is a 77-year-old male with coronary artery disease now status post CABG complicated by large left MCA CVA. Taken emergently for interventional radiology and thrombectomy, however when he went down to angiography, there was no more evidence of clot on four-vessel angioplasty at there is adequate perfusion distal to the left MCA, M1 branch. Clinically making improvements, but very high risk for decompensation and particularly may not be able to successfully separate from mechanical ventilation due to inability to handle secretions. daily SBT. aggressive PT. I have spoken at length with the family about the risks of failing a trial of extubation requiring a tracheostomy and PEG tube, as well as the risks of tracheostomy with sternal incision. they understand the risks ahead, but will pursue trial of extubation when he passes SBT. Remains very critically ill with persistent respiratory failure and evolving CVA. Active problems: Acute large left MCA stroke Acute encephalopathy Acute hypoxemic respiratory failure Aspiration pneumonia Status post CABG Coronary artery disease Spiculated right upper lobe mass concerning for primary lung cancer Emphysema Alcohol dependence Acute dysphagia Acute dysarthria Plan: CT of the chest on 09/21 concerning for primary lung malignancy right upper lobe IR attempted thrombectomy 09/25 with apparent resolution of the clot Check MRI brain with and without contrast to rule out metastatic disease, and reevaluate stroke D/W Dr. Mcgovern neurology, avoid full anticoagulation/or prophylactic heparin now due to cerebellar infarct possibility of secondary hemorrhage Continue aspirin Plavix. will liberate blood pressure goals to 120 - 170. recent stroke but post CABG. Use phenylephrine for vasopressor. will add midodrine in an effort to wean off phenylephrine and keep elevated CPP. Intubated 09/26 for aspiration and extensive right lung consolidation Ancef 1gm iv q8h x 4 days (total 7 day course for aspiration pneumonia). pansensitive ecoli IV Lasix 40 every 12 Tube feeds with Jevity Continue DuoNeb breathing treatments, inhaled budesonide Holding beta blockers Frequent neuro checks Already has recent 2D echo, Already has recent carotid Dopplers Already has recent lipid panel: Continue Lipitor Continue Clemente Continue arterial line, L subclavian central line placed 09/26/17 daily SBT. OOB to chair. PT/OT/ST. Discussed with patient and daughter, son, discussed with Charly Carmen MD Sep 30, 2017 12:54
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
[2017-09-30] MEDS: METOPROLOL TARTRATE 5 MG/5 ML VIAL IV PUSH PRN (15:13)
[2017-09-30] MEDS: MIDODRINE 5 MG TAB PO SCH ×2 (17:45→22:18)
[2017-09-30] MEDS: PHENYLEPHRINE INJ 40 MG in SODIUM CHLORID 0.9% 500 ML INJ 496 ML IV PRN (22:17)
[2017-09-30] MEDS: SENNOSIDES 8.6 MG TAB PO SCH (22:18)
[2017-09-30] MEDS: ATORVASTATIN 40 MG TAB PO SCH (22:18)
[2017-10-01] VITALS (18 sets, daily range): BP systolic 110–138; BP diastolic 59–78; PULSE 92–106; RESP 16; TEMP 98–99.1; O2SAT 89–99
[2017-10-01 04:58] LABS: HEMATOCRIT 31.7 % (39.0-51.0); HEMOGLOBIN 10.5 GM/DL (13.0-17.0); MEAN CELL VOLUME 95.8 FL (80.0-100.0); MEAN CORPUSCULAR HEMOGLOBIN 31.6 PG (27.0-34.0); MEAN PLATELET VOLUME 7.9 FL (7.0-11.0); PLATELET COUNT 337 TH/MM3 (150-450); RED BLOOD COUNT 3.31 MIL/MM3 (4.50-5.90); RED CELL DISTRIBUTION WIDTH 13.9 % (11.6-17.2); WHITE BLOOD COUNT 14.7 TH/MM3 (4.0-11.0)
[2017-10-01] MEDS: MIDODRINE 5 MG TAB PO SCH ×3 (06:31→21:01)
[2017-10-01] MEDS: PANTOPRAZOLE SODIUM 40 MG VIAL IV SCH (06:31)
[2017-10-01] MEDS: INSULIN ASPART SUPPLEMENTAL SCALE SQ SCH ×4 (07:34→21:00)
[2017-10-01] MEDS: POLYETHYLENE GLYCOL 17 GM PKG PO SCH (07:49)
[2017-10-01] MEDS: MAGNESIUM HYDROXIDE SUSP 30 ML CUP PO SCH (07:49)
[2017-10-01] MEDS: LACTULOSE SYRUP 20 GM/30 ML CUP PO SCH (07:49)
[2017-10-01] MEDS: DOCUSATE SODIUM 100 MG CAP PO SCH ×2 (07:49→21:01)
[2017-10-01] MEDS: CLOPIDOGREL 75 MG TAB PO SCH (08:10)
[2017-10-01] MEDS: FOLIC ACID 1 MG TAB PO SCH (08:10)
[2017-10-01] MEDS: ASPIRIN 81 MG CHEW TAB PO SCH (08:10)
[2017-10-01] MEDS: FUROSEMIDE 20 MG/2 ML VIAL IV PUSH SCH ×2 (08:10→17:53)
[2017-10-01] MEDS: MULTIVITAMINS/MINERALS THERAPEUTIC TAB PO SCH (08:10)
[2017-10-01] MEDS: CHLORHEXIDINE 0.12% (ORAL KIT) 15 ML CUP MT SCH ×2 (08:10→20:00)
[2017-10-01] MEDS: SODIUM CHLORIDE 0.9% FLUSH 10 ML FLUSH IV FLUSH SCH ×2 (08:11→21:03)
[2017-10-01] MEDS: THIAMINE HCL 100 MG TAB PO SCH (08:11)
[2017-10-01] MEDS: POTASSIUM CHLORIDE 25 MEQ EFFERVESCENT TAB PO SCH ×2 (08:11→21:00)
--- NOTE | 2017-10-01 08:36 | HHI.CCPN ---
Subjective Remarks/Hospital Course This is a 77-year-old male with a history of paroxysmal A. fib, hypertension, and presented with ischemic A. fib RVR with a proximal LAD lesion. He is now postop day 3 status post off-pump CABG with a BRODERICK to the LAD. He was on the floor clinically improving when he had sudden onset altered mental status and obtundation. He was last seen normal at 5 AM. Stroke alert was called at 7:[address] suggested the possibility of a left posterior fossa ischemic territory without evidence of hemorrhage. He was emergently transferred to the CVICU. I immediately evaluated him in the CVICU where he had acute left-sided facial droop, left-sided gaze deviation, flaccid right upper and lower extremities, and both receptive and expressive aphasia. I me immediately ordered an emergent CTA head and neck which demonstrated large filling defect in the primary left MCA near the M1 branch. I discussed the case with Dr. Gary television producer with interventional radiology who took the patient emergently for intervention. I placed emergent right radial arterial line, see separate procedure note for details. We will suppress the patient above 180 for systolic blood pressure and found that he intermittently with spontaneous movement his right upper extremity with blood pressures above 180. No additional information is available from the patient due to his severe obtundation. ROS unavailable. SUBJ 09/26: Worsening respiratory status, tachypneic. Bilateral coarse rhonchi and crackles. Chest x-ray shows extensive right-sided consolidation. Questionable airway protection probable aspiration. Patient and daughter at the bedside updated. Due to progressive respiratory failure and inability to protect airway will proceed with endotracheal intubation. Both are agreeable for trach if needed 09/27: Intubated yesterday for worsening respiratory status and aspiration. Currently intubated sedated but wakes up follows commands 4. Cough appears to be improved, secretions are decreasing. Chest x-ray shows some improvement in right-sided infiltrates. Remains on Richard-Synephrine 90 mcg/min to maintain cerebral perfusion. Will reduce systolic blood pressure target to 140-[address] Mcgovern. Also start IV Lasix 40 mg now and 20 every 12 due to fluid overload. 09/28: Clinically showing some respiratory improvement even though chest x-ray shows consolidation involving most of right lung and left lower lobe. Will get CT to further evaluate the chest also repeat CT of the brain. Not cleared for subcu Lovenox by Dr. Mcgovern. Remains on Richard-Synephrine to maintain cerebral perfusion 09/29: remains intubated. following commands this morning. secretions are still a problem. ultrasound at bedside and less than 2cm pocket of pleural effusion by right costophrenic angle and liver is anatomically in the way of reaching fluid. unable to thoracentese, and if that is the largest pocket of fluid, unlikely to be inhibiting pulmonary mechanics enough to prevent extubation. mental status and dysphagia/dysarthria poor cough/gag/swallow likely biggest barrier to successful extubation. 09/30: clinically worse than yesterday: only tolerated cpap for an hour and only about 10 minutes on minimal settings. adequate net negative balance. this appears to be a fatigue problem due to deconditioning. long discussion with his daughter today about need for aggressive PT, and my concerns that he may need trach/PEG and LTAC level care. 10/01: wbc uptrending but remains afebrile. tolerating cpap 10/5/40% better than yesterday. sent sputum and urine cultures and will d/c cvl. Objective Vital Signs Date Time Temp Pulse Resp B/P (MAP) Pulse Ox O2 Delivery O2 Flow Rate FiO2 10/01/17 08:00 138/73 (94) 135/68 (90) 10/01/17 07:55 40 10/01/17 07:55 95 10/01/17 07:21 Mechanical Ventilator 10/01/17 07:21 98.6 100 16 Intake and Output 10/01/17 10/01/17 10/02/17 08:00 16:00 00:00 Intake Total 415 ml Output Total 950 ml Balance -535 ml Result Diagram: 10/01/17 0437 09/30/17 1129 Imaging Last Impressions Chest X-Ray 09/23/17 0500 Signed Impressions: Service Date/Time: Saturday, September 23, 2017 04:48 - CONCLUSION: 1. Interval extubation and removal of nasogastric tube. 2. Hazy opacity remains in both lungs with interval increase in opacity at the right lung base. 3. The costophrenic angles are mildly blunted. Ángel Frazier MD Lower Extremity Ultrasound 09/21/17 0000 Signed Impressions: Service Date/Time: Thursday, September 21, 2017 17:12 - CONCLUSION: Normal examination. Farhad Chao MD Chest CT 09/21/17 0000 Signed Impressions: Service Date/Time: Thursday, September 21, 2017 13:23 - CONCLUSION: 1. Upper lobe predominant centrilobular emphysema with 1.2 cm spiculated nodule in the right upper lobe inferiorly and adjacent satellite nodule measuring up to 7 mm. The findings are highly concerning for primary lung malignancy. Recommend PET/CT examination or sampling per 2017 Fleischner criteria. 2. Mediastinal adenopathy measuring up to 11 mm. Although nonspecific, cannot exclude metastatic adenopathy. PET/CT examination would be extremely beneficial in further assessment of the mediastinal adenopathy. 3. Small bilateral pleural effusions more prominent on the right with associated compressive atelectasis in the lower lobes and upper lobe interstitial edema, particularly on the right 4. Ascending thoracic aortic aneurysm measuring up to 4.1 cm. 5. Moderate coronary artery calcifications. Baldo Mcclain MD Carotid Artery Ultrasound 09/21/17 0000 Signed Impressions: Service Date/Time: Thursday, September 21, 2017 17:39 - CONCLUSION: 1. Mild visible plaque formation in the carotid arteries. No hemodynamically significant stenosis. Vertebral artery flow antegrade. Farhad Chao MD Objective Remarks GENERAL: Elderly male, lying in bed, sedated. HEENT: Normocephalic. Atraumatic. Pupils are 3 mm, equal, reactive NECK: Trachea is midline. There is no JVD. CHEST: Midline sternotomy incision with wound VAC in place. equal chest rise. fio2 30%. moderate amount of phipps secretions. CARDIOVASCULAR: normal rate, afib. on 20mcg/min phenylephrine. ABDOMEN: Soft, nontender, nondistended. No guarding. MUSCULOSKELETAL: Pulses 2+. No peripheral edema. NEUROLOGICAL: On lightening sedation able to follow commands. Right-sided facial droop. LUPE 5/5 in left upper/lower extremities. LUPE 2/5 in right distal upper extremity, 0/5 right proximal. 1/5 right distal lower extremity, 0/5 right poximal lower extremity. A/P Assessment and Plan Assessment: This is a 77-year-old male with coronary artery disease now status post CABG complicated by large left MCA CVA. Taken emergently for interventional radiology and thrombectomy, however when he went down to angiography, there was no more evidence of clot on four-vessel angioplasty at there is adequate perfusion distal to the left MCA, M1 branch. Clinically making improvements, but very high risk for decompensation and particularly may not be able to successfully separate from mechanical ventilation due to inability to handle secretions. daily SBT. aggressive PT. I have spoken at length with the family about the risks of failing a trial of extubation requiring a tracheostomy and PEG tube, as well as the risks of tracheostomy with sternal incision. they understand the risks ahead, but will pursue trial of extubation when he passes SBT. Remains very critically ill with persistent respiratory failure and evolving CVA. Active problems: Acute large left MCA stroke Acute encephalopathy Acute hypoxemic respiratory failure Aspiration pneumonia Status post CABG Coronary artery disease Spiculated right upper lobe mass concerning for primary lung cancer Emphysema Alcohol dependence Acute dysphagia Acute dysarthria Plan: CT of the chest on 09/21 concerning for primary lung malignancy right upper lobe IR attempted thrombectomy 09/25 with apparent resolution of the clot per Dr. Mcgovern neurology, avoid full anticoagulation/or prophylactic heparin now due to cerebellar infarct possibility of secondary hemorrhage Intubated 09/26 for aspiration and extensive right lung consolidation Continue aspirin Plavix. will liberate blood pressure goals to 110 - 170. recent stroke but post CABG. Use phenylephrine + midodrine po for vasopressor. Ancef 1gm iv q8h x 4 days (total 7 day course for aspiration pneumonia). pansensitive ecoli IV Lasix 40 every 12 Tube feeds with Jevity Continue DuoNeb breathing treatments, inhaled budesonide Frequent neuro checks Already has recent 2D echo, Already has recent carotid Dopplers Already has recent lipid panel: Continue Lipitor Continue Clemente d/c central and arterial line sputum culture urine culture hold off on re-broadening antibiotics unless patient looks toxic or spikes fever. daily SBT. OOB to chair. PT/OT/ST. Discussed with patient and daughter, son, discussed with Dr. Amalia Mcghee,Charly Ruiz MD Oct 01, 2017 08:36
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
[2017-10-01 10:02] LABS: BILIRUBIN, URINE NEG (NEG); BLOOD, URINE SMALL (NEG); GLUCOSE,URINE NEG (NEG); HYALINE CAST, URINE 5 /lpf (RARE); KETONE, URINE 150 mg/dL (NEG); MUCUS URINE MANY /lpf (OCC); NITRITE,URINE NEG (NEG); SQUAMOUS EPITHELIAL CELL URINE <1 /hpf (0-5); URINE COLOR YELLOW (YELLW/STRAW); URINE LEUKOCYTE ESTERASE NEG (NEG)
[2017-10-01] MEDS: ATORVASTATIN 40 MG TAB PO SCH (21:01)
[2017-10-01] MEDS: SENNOSIDES 8.6 MG TAB PO SCH (21:01)
[2017-10-02] VITALS (17 sets, daily range): BP systolic 118–176; BP diastolic 67–87; PULSE 92–104; RESP 16–20; TEMP 98.6–98.9; O2SAT 94–99
[2017-10-02] MEDS: PANTOPRAZOLE SODIUM 40 MG VIAL IV SCH (05:41)
[2017-10-02] MEDS: MIDODRINE 5 MG TAB PO SCH ×3 (05:41→21:04)
[2017-10-02] MEDS ORDERED: FUROSEMIDE 40 MG/4 ML VIAL ONE (06:41)
[2017-10-02] MEDS ORDERED: FUROSEMIDE 20 MG/2 ML VIAL IV PUSH ONE (06:45)
--- NOTE | 2017-10-02 07:00 | RADRPT ---
EXAM DATE/TIME: 10/02/2017 06:42 [place] COMPARISON: CHEST SINGLE AP, September 30, 2017, 5:18. INDICATIONS : Shortness of breath. MEDICAL HISTORY : Cardiovascular disease. Hypertension SURGICAL HISTORY : CABG. ENCOUNTER: Subsequent ACUITY: 2 weeks PAIN SCORE: Non-responsive. LOCATION: Bilateral chest FINDINGS: A single AP semierect view of the chest was obtained. The patient is mildly rotated to the left. Endo tracheal tube remains in place with the tip approximately 1 cm above the toribio. A nasogastric tube i s seen coursing through the esophagus into the stomach. The heart size remains within normal limits w ith no perihilar edema. Abnormal opacity remains at the left lung base with partial obscuration of th e left hemidiaphragm. The left costophrenic angle appears mildly blunted. There is no pneumothorax. CONCLUSION: No significant change. No pneumothorax. Ángel Frazier MD on October 02, 2017 at 6:56 Board Certified Radiologist. This report was verified electronically.
[2017-10-02] MEDS ORDERED: RESP: ALBUTEROL 2.5 MG/IPRATROPIUM 0.5 MG NEB (PRN) NEB (08:15)
[2017-10-02] MEDS: INSULIN ASPART SUPPLEMENTAL SCALE SQ SCH ×4 (08:20→21:00)
[2017-10-02] MEDS: CHLORHEXIDINE 0.12% (ORAL KIT) 15 ML CUP MT SCH ×2 (08:21→20:00)
[2017-10-02] MEDS: CLOPIDOGREL 75 MG TAB PO SCH (08:23)
[2017-10-02] MEDS: FOLIC ACID 1 MG TAB PO SCH (08:23)
[2017-10-02] MEDS: MULTIVITAMINS/MINERALS THERAPEUTIC TAB PO SCH (08:23)
[2017-10-02] MEDS: ASPIRIN 81 MG CHEW TAB PO SCH (08:23)
--- NOTE | 2017-10-02 08:24 | HHI.CCPN ---
Subjective Remarks/Hospital Course This is a 77-year-old male with a history of paroxysmal A. fib, hypertension, and presented with ischemic A. fib RVR with a proximal LAD lesion. He is now postop day 3 status post off-pump CABG with a BRODERICK to the LAD. He was on the floor clinically improving when he had sudden onset altered mental status and obtundation. He was last seen normal at 5 AM. Stroke alert was called at 7:[address] suggested the possibility of a left posterior fossa ischemic territory without evidence of hemorrhage. He was emergently transferred to the CVICU. I immediately evaluated him in the CVICU where he had acute left-sided facial droop, left-sided gaze deviation, flaccid right upper and lower extremities, and both receptive and expressive aphasia. I me immediately ordered an emergent CTA head and neck which demonstrated large filling defect in the primary left MCA near the M1 branch. I discussed the case with Dr. Gary automation consultant with interventional radiology who took the patient emergently for intervention. I placed emergent right radial arterial line, see separate procedure note for details. We will suppress the patient above 180 for systolic blood pressure and found that he intermittently with spontaneous movement his right upper extremity with blood pressures above 180. No additional information is available from the patient due to his severe obtundation. ROS unavailable. SUBJ 09/26: Worsening respiratory status, tachypneic. Bilateral coarse rhonchi and crackles. Chest x-ray shows extensive right-sided consolidation. Questionable airway protection probable aspiration. Patient and daughter at the bedside updated. Due to progressive respiratory failure and inability to protect airway will proceed with endotracheal intubation. Both are agreeable for trach if needed 09/27: Intubated yesterday for worsening respiratory status and aspiration. Currently intubated sedated but wakes up follows commands 4. Cough appears to be improved, secretions are decreasing. Chest x-ray shows some improvement in right-sided infiltrates. Remains on Richard-Synephrine 90 mcg/min to maintain cerebral perfusion. Will reduce systolic blood pressure target to 140-[address] Mcgovern. Also start IV Lasix 40 mg now and 20 every 12 due to fluid overload. 09/28: Clinically showing some respiratory improvement even though chest x-ray shows consolidation involving most of right lung and left lower lobe. Will get CT to further evaluate the chest also repeat CT of the brain. Not cleared for subcu Lovenox by Dr. Mcgovern. Remains on Richard-Synephrine to maintain cerebral perfusion 09/29: remains intubated. following commands this morning. secretions are still a problem. ultrasound at bedside and less than 2cm pocket of pleural effusion by right costophrenic angle and liver is anatomically in the way of reaching fluid. unable to thoracentese, and if that is the largest pocket of fluid, unlikely to be inhibiting pulmonary mechanics enough to prevent extubation. mental status and dysphagia/dysarthria poor cough/gag/swallow likely biggest barrier to successful extubation. 09/30: clinically worse than yesterday: only tolerated cpap for an hour and only about 10 minutes on minimal settings. adequate net negative balance. this appears to be a fatigue problem due to deconditioning. long discussion with his daughter today about need for aggressive PT, and my concerns that he may need trach/PEG and LTAC level care. 10/01: wbc uptrending but remains afebrile. tolerating cpap 10/5/40% better than yesterday. sent sputum and urine cultures and will d/c cvl. 10/02: Remains intubated off all sedation. Tolerating CPAP 10/5. Chest x-ray no acute changes. Still has moderate ET tube secretions. Urine output 3.3 L in 24 hours. Labs are pending today Objective Vital Signs Date Time Temp Pulse Resp B/P (MAP) Pulse Ox O2 Delivery O2 Flow Rate FiO2 10/02/17 08:00 40 10/02/17 08:00 98.7 97 20 176/76 (109) 94 10/02/17 08:00 Mechanical Ventilator Intake and Output 10/02/17 10/02/17 10/03/17 08:00 16:00 00:00 Intake Total 365 ml Output Total 900 ml Balance -535 ml Result Diagram: 10/01/17 0437 09/30/17 1129 Imaging Last Impressions Chest X-Ray 09/23/17 0500 Signed Impressions: Service Date/Time: Saturday, September 23, 2017 04:48 - CONCLUSION: 1. Interval extubation and removal of nasogastric tube. 2. Hazy opacity remains in both lungs with interval increase in opacity at the right lung base. 3. The costophrenic angles are mildly blunted. Ángel Frazier MD Lower Extremity Ultrasound 09/21/17 0000 Signed Impressions: Service Date/Time: Thursday, September 21, 2017 17:12 - CONCLUSION: Normal examination. Farhad Chao MD Chest CT 09/21/17 0000 Signed Impressions: Service Date/Time: Thursday, September 21, 2017 13:23 - CONCLUSION: 1. Upper lobe predominant centrilobular emphysema with 1.2 cm spiculated nodule in the right upper lobe inferiorly and adjacent satellite nodule measuring up to 7 mm. The findings are highly concerning for primary lung malignancy. Recommend PET/CT examination or sampling per 2017 Fleischner criteria. 2. Mediastinal adenopathy measuring up to 11 mm. Although nonspecific, cannot exclude metastatic adenopathy. PET/CT examination would be extremely beneficial in further assessment of the mediastinal adenopathy. 3. Small bilateral pleural effusions more prominent on the right with associated compressive atelectasis in the lower lobes and upper lobe interstitial edema, particularly on the right 4. Ascending thoracic aortic aneurysm measuring up to 4.1 cm. 5. Moderate coronary artery calcifications. Baldo Mcclain MD Carotid Artery Ultrasound 09/21/17 0000 Signed Impressions: Service Date/Time: Thursday, September 21, 2017 17:39 - CONCLUSION: 1. Mild visible plaque formation in the carotid arteries. No hemodynamically significant stenosis. Vertebral artery flow antegrade. Farhad Chao MD Objective Remarks GENERAL: Elderly male, lying in bed, sedated. HEENT: Normocephalic. Atraumatic. Pupils are 3 mm, equal, reactive NECK: Trachea is midline. There is no JVD. CHEST: Midline sternotomy incision with wound VAC in place. equal chest rise. fio2 40%. moderate amount of phipps secretions. CARDIOVASCULAR: normal rate, afib. ABDOMEN: Soft, nontender, nondistended. No guarding. MUSCULOSKELETAL: Pulses 2+. No peripheral edema. NEUROLOGICAL: Able to follow commands. Right-sided facial droop. LUPE 5/5 in left upper/lower extremities. LUPE 2/5 in right distal upper extremity, 2/5 right proximal. 2/5 right distal lower extremity, 2/5 right proximal lower extremity. Urinary Catheter: Yes Assessment to: Continue Vascular Central Line Catheter: Yes Assessment to: Continue A/P Assessment and Plan Assessment: This is a 77-year-old male with coronary artery disease now status post CABG complicated by large left MCA CVA. Taken emergently for interventional radiology and thrombectomy, however when he went down to angiography, there was no more evidence of clot on four-vessel angioplasty at there is adequate perfusion distal to the left MCA, M1 branch. Clinically making improvements, but very high risk for decompensation and particularly may not be able to successfully separate from mechanical ventilation due to inability to handle secretions. Daily SBT. aggressive PT. I have spoken at length with the family about the risks of failing a trial of extubation requiring a tracheostomy and PEG tube, as well as the risks of tracheostomy with sternal incision. They understand the risks ahead, but will pursue trial of extubation when he passes SBT. Remains very critically ill with persistent respiratory failure and evolving CVA. Active problems: Acute large left MCA stroke (left cerebellar and basal ganglia cva) Acute encephalopathy Acute hypoxemic respiratory failure Aspiration pneumonia Status post CABG Coronary artery disease Spiculated right upper lobe mass concerning for primary lung cancer Emphysema Alcohol dependence Acute dysphagia Acute dysarthria Plan: CT of the chest on 09/21 concerning for primary lung malignancy right upper lobe IR attempted thrombectomy 09/25 with apparent resolution of the clot per Dr. Mcgovern neurology, avoid full anticoagulation/or prophylactic heparin now due to cerebellar infarct possibility of secondary hemorrhage Intubated 09/26 for aspiration and extensive right lung consolidation MRI of the brain showing left basal ganglia and left cerebellar stroke, focal hemorrhage in the left basal ganglia Continue aspirin Plavix. Blood pressure goals to 110 - 170. recent stroke but post CABG. Use phenylephrine + midodrine po for vasopressor as needed Ancef 1gm iv q8h x 4 days (total 7 day course for aspiration pneumonia). pansensitive ecoli IV Lasix 20 every 12. Additional 20 mg IV x1 Tube feeds with Jevity-hold for weaning trials Continue DuoNeb breathing treatments, inhaled budesonide Frequent neuro checks Already has recent 2D echo, Already has recent carotid Dopplers Already has recent lipid panel: Continue Lipitor Continue Clemente d/c central and arterial line sputum culture-PS E Coli urine culture hold off on re-broadening antibiotics unless patient looks toxic or spikes fever. daily SBT. OOB to chair. PT/OT/ST. Will discuss with patient family today Yassine Perkins MD Oct 02, 2017 08:24
[2017-10-02] MEDS: THIAMINE HCL 100 MG TAB PO SCH (08:25)
[2017-10-02] MEDS: POLYETHYLENE GLYCOL 17 GM PKG PO SCH (08:25)
[2017-10-02] MEDS: LACTULOSE SYRUP 20 GM/30 ML CUP PO SCH (08:26)
[2017-10-02] MEDS: MAGNESIUM HYDROXIDE SUSP 30 ML CUP PO SCH (08:26)
[2017-10-02] MEDS: DOCUSATE SODIUM 100 MG CAP PO SCH ×2 (08:26→21:04)
[2017-10-02] MEDS: POTASSIUM CHLORIDE 25 MEQ EFFERVESCENT TAB PO SCH ×2 (08:26→21:03)
[2017-10-02] MEDS: SODIUM CHLORIDE 0.9% FLUSH 10 ML FLUSH IV FLUSH SCH ×2 (08:27→21:05)
[2017-10-02] MEDS: FUROSEMIDE 20 MG/2 ML VIAL IV PUSH SCH ×2 (08:27→17:10)
[2017-10-02] MEDS: RESP: ALBUTEROL 2.5 MG/IPRATROPIUM 0.5 MG NEB (SCH) NEB ×3 (09:34→22:35)
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
[2017-10-02 11:45] LABS: BASOPHIL % 0.3 % (0.0-2.0); EOSINOPHIL % 0.2 % (0.0-4.0); HEMATOCRIT 31.6 % (39.0-51.0); HEMOGLOBIN 10.7 GM/DL (13.0-17.0); LYMPH % 9.2 % (9.0-44.0); LYMPHOCYTE # 1.2 TH/MM3 (1.0-4.8); MEAN CELL VOLUME 94.7 FL (80.0-100.0); MEAN CORPUSCULAR HGB CONC 33.8 % (32.0-36.0); MEAN PLATELET VOLUME 8.1 FL (7.0-11.0); MONO % 7.4 % (0.0-8.0); NEUT % 82.9 % (16.0-70.0); PLATELET COUNT 319 TH/MM3 (150-450); RED BLOOD COUNT 3.34 MIL/MM3 (4.50-5.90); RED CELL DISTRIBUTION WIDTH 14.1 % (11.6-17.2); WHITE BLOOD COUNT 13.3 TH/MM3 (4.0-11.0)
[2017-10-02 12:15] LABS: ALBUMIN 2.2 GM/DL (3.4-5.0); ALKALINE PHOSPHATASE 70 U/L (45-117); ALT (GPT) 12 U/L (12-78); AST (GOT) 22 U/L (15-37); BICARBONATE 37.4 MEQ/L (21.0-32.0); BLOOD UREA NITROGEN 23 MG/DL (7-18); CHLORIDE 99 MEQ/L (98-107); CREATININE 0.62 MG/DL (0.60-1.30); GLOMERULAR FILTRATION RATE 126 ML/MIN (>89); GLUCOSE,RANDOM 144 MG/DL (74-106); MAGNESIUM 2.5 MG/DL (1.5-2.5); PHOSPHORUS 3.5 MG/DL (2.5-4.9); SODIUM (NA) 144 MEQ/L (136-145); TOTAL BILIRUBIN ADULT 0.4 MG/DL (0.2-1.0); TOTAL PROTEIN 5.5 GM/DL (6.4-8.2)
[2017-10-02] MEDS: POTASSIUM CHLOR 20 MEQ PREMIX 100 ML IV PRN ×4 (14:06→21:22)
[2017-10-02] MEDS: METOPROLOL TARTRATE 5 MG/5 ML VIAL IV PUSH PRN (18:18)
[2017-10-02] MEDS: ATORVASTATIN 40 MG TAB PO SCH (21:04)
[2017-10-02] MEDS: SENNOSIDES 8.6 MG TAB PO SCH (21:04)
[2017-10-03] VITALS (15 sets, daily range): BP systolic 112–183; BP diastolic 61–93; PULSE 92–122; RESP 16–18; TEMP 98.6–100.4; O2SAT 94–99
[2017-10-03] MEDS: RESP: ALBUTEROL 2.5 MG/IPRATROPIUM 0.5 MG NEB (SCH) NEB ×4 (03:46→21:37)
[2017-10-03] MEDS: PANTOPRAZOLE SODIUM 40 MG VIAL IV SCH (05:52)
[2017-10-03] MEDS: MIDODRINE 5 MG TAB PO SCH ×3 (05:52→22:04)
[2017-10-03] MEDS: POTASSIUM CHLOR 20 MEQ PREMIX 100 ML IV PRN ×2 (06:30→08:34)
[2017-10-03] MEDS: CHLORHEXIDINE 0.12% (ORAL KIT) 15 ML CUP MT SCH ×2 (08:30→20:00)
[2017-10-03] MEDS: POTASSIUM CHLORIDE 25 MEQ EFFERVESCENT TAB PO SCH ×2 (08:30→22:05)
[2017-10-03] MEDS: SODIUM CHLORIDE 0.9% FLUSH 10 ML FLUSH IV FLUSH SCH ×2 (08:30→21:00)
[2017-10-03] MEDS: POLYETHYLENE GLYCOL 17 GM PKG PO SCH (08:31)
[2017-10-03] MEDS: CLOPIDOGREL 75 MG TAB PO SCH (08:31)
[2017-10-03] MEDS: MAGNESIUM HYDROXIDE SUSP 30 ML CUP PO SCH (08:31)
[2017-10-03] MEDS: INSULIN ASPART SUPPLEMENTAL SCALE SQ SCH ×4 (08:31→21:00)
[2017-10-03] MEDS: METOPROLOL TARTRATE 5 MG/5 ML VIAL IV PUSH PRN ×2 (08:31→19:33)
[2017-10-03] MEDS: LACTULOSE SYRUP 20 GM/30 ML CUP PO SCH (08:31)
[2017-10-03] MEDS: MULTIVITAMINS/MINERALS THERAPEUTIC TAB PO SCH (08:32)
[2017-10-03] MEDS: FOLIC ACID 1 MG TAB PO SCH (08:32)
[2017-10-03] MEDS: DOCUSATE SODIUM 100 MG CAP PO SCH ×2 (08:32→21:00)
[2017-10-03] MEDS: ASPIRIN 81 MG CHEW TAB PO SCH (08:32)
[2017-10-03] MEDS: THIAMINE HCL 100 MG TAB PO SCH (08:32)
[2017-10-03] MEDS: FUROSEMIDE 20 MG/2 ML VIAL IV PUSH SCH ×2 (08:33→17:59)
[2017-10-03] MEDS: METOPROLOL TARTRATE 25 MG TAB PO SCH ×2 (11:00→22:04)
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
--- NOTE | 2017-10-03 17:10 | HHI.CCPN ---
Subjective Remarks/Hospital Course This is a 77-year-old male with a history of paroxysmal A. fib, hypertension, and presented with ischemic A. fib RVR with a proximal LAD lesion. He is now postop day 3 status post off-pump CABG with a BRODERICK to the LAD. He was on the floor clinically improving when he had sudden onset altered mental status and obtundation. He was last seen normal at 5 AM. Stroke alert was called at 7:[address] suggested the possibility of a left posterior fossa ischemic territory without evidence of hemorrhage. He was emergently transferred to the CVICU. I immediately evaluated him in the CVICU where he had acute left-sided facial droop, left-sided gaze deviation, flaccid right upper and lower extremities, and both receptive and expressive aphasia. I me immediately ordered an emergent CTA head and neck which demonstrated large filling defect in the primary left MCA near the M1 branch. I discussed the case with Dr. Gary regional sales representative with interventional radiology who took the patient emergently for intervention. I placed emergent right radial arterial line, see separate procedure note for details. We will suppress the patient above 180 for systolic blood pressure and found that he intermittently with spontaneous movement his right upper extremity with blood pressures above 180. No additional information is available from the patient due to his severe obtundation. ROS unavailable. SUBJ 09/26: Worsening respiratory status, tachypneic. Bilateral coarse rhonchi and crackles. Chest x-ray shows extensive right-sided consolidation. Questionable airway protection probable aspiration. Patient and daughter at the bedside updated. Due to progressive respiratory failure and inability to protect airway will proceed with endotracheal intubation. Both are agreeable for trach if needed 09/27: Intubated yesterday for worsening respiratory status and aspiration. Currently intubated sedated but wakes up follows commands 4. Cough appears to be improved, secretions are decreasing. Chest x-ray shows some improvement in right-sided infiltrates. Remains on Richard-Synephrine 90 mcg/min to maintain cerebral perfusion. Will reduce systolic blood pressure target to 140-[address] Mcgovern. Also start IV Lasix 40 mg now and 20 every 12 due to fluid overload. 09/28: Clinically showing some respiratory improvement even though chest x-ray shows consolidation involving most of right lung and left lower lobe. Will get CT to further evaluate the chest also repeat CT of the brain. Not cleared for subcu Lovenox by Dr. Mcgovern. Remains on Richard-Synephrine to maintain cerebral perfusion 09/29: remains intubated. following commands this morning. secretions are still a problem. ultrasound at bedside and less than 2cm pocket of pleural effusion by right costophrenic angle and liver is anatomically in the way of reaching fluid. unable to thoracentese, and if that is the largest pocket of fluid, unlikely to be inhibiting pulmonary mechanics enough to prevent extubation. mental status and dysphagia/dysarthria poor cough/gag/swallow likely biggest barrier to successful extubation. 09/30: clinically worse than yesterday: only tolerated cpap for an hour and only about 10 minutes on minimal settings. adequate net negative balance. this appears to be a fatigue problem due to deconditioning. long discussion with his daughter today about need for aggressive PT, and my concerns that he may need trach/PEG and LTAC level care. 10/01: wbc uptrending but remains afebrile. tolerating cpap 10/5/40% better than yesterday. sent sputum and urine cultures and will d/c cvl. 10/02: Remains intubated off all sedation. Tolerating CPAP 10/5. Chest x-ray no acute changes. Still has moderate ET tube secretions. Urine output 3.3 L in 24 hours. Labs are pending today. 10/03: Contraction alkalosis after aggressive diuresis. T max 100.4, afebrile now. No new positive cultures. Tachypneic on CPAP. Objective Vital Signs Date Time Temp Pulse Resp B/P (MAP) Pulse Ox O2 Delivery O2 Flow Rate FiO2 10/03/17 15:46 98 40 10/03/17 11:00 98.9 106 18 141/71 (94) 10/03/17 11:00 Mechanical Ventilator Intake and Output 10/03/17 10/03/17 10/04/17 08:00 16:00 00:00 Intake Total 643 ml Output Total 900.0 ml Balance -257.0 ml Result Diagram: 10/02/17 1115 10/03/17 0545 Other Results Microbiology Date/Time Source Procedure Growth Status 10/01/17 07:58 Sputum Endotracheal Gram Stain - Final Complete 10/01/17 07:58 Sputum Endotracheal Sputum Culture - Final LIGHT GROWTH NORMAL RESPIRATORY RADHA Complete Imaging Last Impressions Chest X-Ray 09/23/17 0500 Signed Impressions: Service Date/Time: Saturday, September 23, 2017 04:48 - CONCLUSION: 1. Interval extubation and removal of nasogastric tube. 2. Hazy opacity remains in both lungs with interval increase in opacity at the right lung base. 3. The costophrenic angles are mildly blunted. Ángel Frazier MD Lower Extremity Ultrasound 09/21/17 0000 Signed Impressions: Service Date/Time: Thursday, September 21, 2017 17:12 - CONCLUSION: Normal examination. Farhad Chao MD Chest CT 09/21/17 0000 Signed Impressions: Service Date/Time: Thursday, September 21, 2017 13:23 - CONCLUSION: 1. Upper lobe predominant centrilobular emphysema with 1.2 cm spiculated nodule in the right upper lobe inferiorly and adjacent satellite nodule measuring up to 7 mm. The findings are highly concerning for primary lung malignancy. Recommend PET/CT examination or sampling per 2017 Fleischner criteria. 2. Mediastinal adenopathy measuring up to 11 mm. Although nonspecific, cannot exclude metastatic adenopathy. PET/CT examination would be extremely beneficial in further assessment of the mediastinal adenopathy. 3. Small bilateral pleural effusions more prominent on the right with associated compressive atelectasis in the lower lobes and upper lobe interstitial edema, particularly on the right 4. Ascending thoracic aortic aneurysm measuring up to 4.1 cm. 5. Moderate coronary artery calcifications. Baldo Mcclain MD Carotid Artery Ultrasound 09/21/17 0000 Signed Impressions: Service Date/Time: Thursday, September 21, 2017 17:39 - CONCLUSION: 1. Mild visible plaque formation in the carotid arteries. No hemodynamically significant stenosis. Vertebral artery flow antegrade. Farhad Chao MD Objective Remarks GENERAL: Elderly male, lying in bed, sedated. HEENT: Normocephalic. Atraumatic. Pupils are 3 mm, equal, reactive NECK: Trachea is midline. CHEST: Midline sternotomy incision with wound VAC in place. equal chest rise. fio2 40%. moderate amount of phipps secretions. CARDIOVASCULAR: normal rate, afib. no JVD. ABDOMEN: Soft, nontender, nondistended. No guarding. BS active. MUSCULOSKELETAL: Pulses 2+. No peripheral edema. Warm, well perfused. NEUROLOGICAL: Able to follow commands. Right-sided facial droop. LUPE 5/5 in left upper/lower extremities. LUPE 2/5 in right distal upper extremity, 2/5 right proximal. 2/5 right distal lower extremity, 2/5 right proximal lower extremity. A/P Assessment and Plan Assessment: This is a 77-year-old male with coronary artery disease now status post CABG complicated by large left MCA CVA. Taken emergently for interventional radiology and thrombectomy, however when he went down to angiography, there was no more evidence of clot on four-vessel angioplasty at there is adequate perfusion distal to the left MCA, M1 branch. Clinically making improvements, but very high risk for decompensation and particularly may not be able to successfully separate from mechanical ventilation due to inability to handle secretions. Daily SBT. aggressive PT. I have spoken at length with the family about the risks of failing a trial of extubation requiring a tracheostomy and PEG tube, as well as the risks of tracheostomy with sternal incision. They understand the risks ahead, but will pursue trial of extubation when he passes SBT. Remains very critically ill with persistent respiratory failure and evolving CVA. Active problems: Acute large left MCA stroke (left cerebellar and basal ganglia cva) Acute encephalopathy Acute hypoxemic respiratory failure Aspiration pneumonia Status post CABG Coronary artery disease Spiculated right upper lobe mass concerning for primary lung cancer Emphysema Alcohol dependence Acute dysphagia Acute dysarthria Plan: CT of the chest on 09/21 concerning for primary lung malignancy right upper lobe IR attempted thrombectomy 09/25 with apparent resolution of the clot per Dr. Mcgovern neurology, avoid full anticoagulation/or prophylactic heparin now due to cerebellar infarct possibility of secondary hemorrhage Intubated 09/26 for aspiration and extensive right lung consolidation MRI of the brain showing left basal ganglia and left cerebellar stroke, focal hemorrhage in the left basal ganglia Continue aspirin Plavix. Blood pressure goals to 110 - 170. recent stroke but post CABG. Use phenylephrine + midodrine po for vasopressor as needed Ancef 1gm iv q8h x 4 days (total 7 day course for aspiration pneumonia). pansensitive ecoli IV Lasix 20 every 12. Additional 20 mg IV x1 Tube feeds with Jevity-hold for weaning trials Continue DuoNeb breathing treatments, inhaled budesonide Frequent neuro checks Already has recent 2D echo, Already has recent carotid Dopplers Already has recent lipid panel: Continue Lipitor Continue Clemente d/c central and arterial line sputum culture-PS E Coli urine culture hold off on re-broadening antibiotics unless patient looks toxic or spikes fever. daily SBTs. OOB to chair. PT/OT/ST. Discussed with patient family today Oral Streeter MD Oct 03, 2017 17:10
[2017-10-03] MEDS: SENNOSIDES 8.6 MG TAB PO SCH (21:00)
--- NOTE | 2017-10-03 21:12 | HHI.PR ---
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 Unable to fully anticoagulate at this point due to small hemorrhagic conversion of left BG cva. Repeat MRI tomorrow to follow up and if hemorrhage resolves, start anticoagulation Diagnosis/Plan: Subjective Subjective Comments No acute events reported Active Medications Current Medications Medications (Trade) Dose Ordered Sig/Casey Route Start Time Stop Time Status Last Admin (Mag-Al Plus Susp Liq) 30 ml Q6H PRN PO 09/19/17 12:45 (Pill Splitter) 1 ea UNSCH PRN OTHER 09/19/17 19:15 (NS Flush) 2 ml BID IV FLUSH 09/22/17 21:00 10/03/17 08:30 (NS Flush) 2 ml UNSCH PRN IV FLUSH 09/22/17 20:45 (Aspirin Chew) 81 mg DAILY PO 09/23/17 09:00 10/03/17 08:32 (Plavix) 75 mg DAILY PO 09/23/17 09:00 10/03/17 08:31 (Tylenol) 650 mg Q4H PRN PO 09/22/17 20:45 (Zofran Inj) 4 mg Q6H PRN IV PUSH 09/22/17 20:45 (Apresoline Inj) 10 mg Q4H PRN IV PUSH 09/22/17 20:45 10/03/17 07:40 (Colace) 100 mg BID PO 09/23/17 12:00 10/03/17 08:32 (Theragran M Tab) 1 tab DAILY PO 09/24/17 09:00 10/03/17 08:32 (Milk Of Magnesia Liq) 30 ml DAILY PO 09/24/17 09:00 10/03/17 08:31 (Dulcolax Supp) 10 mg UNSCH PRN RECTAL 09/23/17 11:15 (Miralax) 17 gm DAILY PO 09/24/17 09:00 10/03/17 08:31 (Senokot) 8.6 mg HS PO 09/23/17 21:00 10/02/17 21:04 (Fleets Enema (Adult)) 118 ml UNSCH PRN RECTAL 09/23/17 11:15 (D50w (Vial) Inj) 50 ml UNSCH PRN IV PUSH 09/23/17 11:15 (Glucagon Inj) 1 mg UNSCH PRN OTHER 09/23/17 11:15 (Folate) 1 mg DAILY PO 09/23/17 12:00 10/03/17 08:32 (Vitamin B1) 100 mg DAILY PO 09/23/17 12:00 10/03/17 08:32 (NovoLOG SUPPLEMENTAL SCALE) 1 ACHS SQ 09/24/17 17:00 10/03/17 17:00 (Lipitor) 40 mg HS PO 09/24/17 21:00 10/02/17 21:04 (Brethine Inj) 1 mg UNSCH PRN SQ 09/25/17 09:30 (Peridex 0.12% Liq) 15 ml BID@08,20 MT 09/26/17 20:00 10/03/17 08:30 Propofol 100 ml @ 0 mls/hr TITRATE PRN IV 09/26/17 11:00 09/29/17 02:45 (Lopressor Inj) 5 mg Q6H PRN IV PUSH 09/26/17 11:00 10/03/17 19:33 (Lactulose Liq) 30 ml DAILY PO 09/27/17 09:00 10/03/17 08:31 (Lasix Inj) 20 mg BID@18 IV PUSH 09/27/17 18:00 10/03/17 17:59 Phenylephrine HCl 40 mg/Sodium Chloride 500 ml @ 30 mls/hr TITRATE PRN IV 09/27/17 12:00 09/30/17 22:17 (K-Lyte Cl Eff) 25 meq Q12HR PO 09/28/17 09:00 10/03/17 08:30 Potassium Chloride 100 ml @ 50 mls/hr Q2H PRN IV 09/29/17 00:00 09/29/17 08:46 Potassium Chloride 100 ml @ 50 mls/hr Q2H PRN IV 09/29/17 00:00 10/02/17 21:22 (K-Lyte Cl Eff) 50 meq UNSCH PRN PO 09/29/17 00:00 Potassium Chloride 100 ml @ 25 mls/hr UNSCH PRN IV 09/29/17 00:00 Potassium Chloride 100 ml @ 50 mls/hr Q2H PRN IV 09/29/17 00:00 10/03/17 08:34 Magnesium Sulfate 4 gm/Sodium Chloride 100 ml @ 50 mls/hr UNSCH PRN IV 09/29/17 00:00 (Mag-Ox) 800 mg UNSCH PRN PO 09/29/17 00:00 Magnesium Sulfate 2 gm/Sodium Chloride 100 ml @ 50 mls/hr UNSCH PRN IV 09/29/17 00:00 (K-Phos) 2,000 mg Q4H PRN PO 09/29/17 00:00 Sodium Phosphate 30 mmol/Sodium Chloride 250 ml @ 42 mls/hr UNSCH PRN IV 09/29/17 00:00 (K-Phos) 2,000 mg UNSCH PRN PO/TUBE 09/29/17 00:00 Potassium Phosphate 30 mmol/ Sodium Chloride 260 ml @ 42 mls/hr UNSCH PRN IV 09/29/17 00:00 (Protonix Inj) 40 mg DAILY@0600 IV 09/29/17 06:00 10/03/17 05:52 (Proamatine) 10 mg Q8H PO 09/30/17 14:00 10/03/17 18:00 (Duoneb Neb) 1 ampule Q6HR NEB NEB 10/02/17 10:00 10/03/17 15:46 (Duoneb Neb) 1 ampule Q2HR NEB PRN NEB 10/02/17 08:15 (Lopressor) 25 mg Q12HR PO 10/03/17 11:00 10/03/17 11:00 Allergies Allergies Coded Allergies hydrocodone (Unverified Allergy, Severe, nausea and vomiting, 09/19/17) penicillin G (Unverified Allergy, Mild, 09/19/17) Exam I&O / VS 10/03/17 10/03/17 10/04/17 15:00 23:00 07:00 Intake Total 100 ml 720 ml Output Total 0 ml 600 ml Balance 100 ml 120 ml Intake Oral 0 ml IV Total 100 ml 100 ml Tube Feeding 470 ml Tube Irrigant 150 ml Output Urine Total 600 ml Tube Feeding Residual Discard 0 ml # Bowel Movements 2 Vital Signs Date Time Temp Pulse Resp B/P (MAP) Pulse Ox O2 Delivery O2 Flow Rate FiO2 10/03/17 16:00 40 10/03/17 16:00 98.7 104 18 141/71 (94) 97 10/03/17 16:00 112 4/2/18 16:00 94 Mechanical Ventilator 40 10/03/17 15:46 98 40 10/03/17 13:29 97 40 10/03/17 11:00 98.9 106 18 141/71 (94) 97 10/03/17 11:00 93 10/03/17 11:00 40 10/03/17 11:00 94 Mechanical Ventilator 40 10/03/17 10:14 97 40 10/03/17 09:53 95 40 10/03/17 08:42 40 10/03/17 08:42 98 40 10/03/17 07:00 105 10/03/17 07:00 100.4 116 18 183/93 (123) 94 10/03/17 07:00 94 Mechanical Ventilator 40 10/03/17 07:00 40 10/03/17 03:46 97 40 10/03/17 03:00 40 10/03/17 03:00 92 Mechanical Ventilator 40 10/03/17 03:00 98.6 99 18 148/79 (102) 97 10/03/17 03:00 92 10/03/17 00:43 94 40 10/02/17 23:00 99 10/02/17 23:00 98 Mechanical Ventilator 40 10/02/17 23:00 40 10/02/17 23:00 98.9 99 18 118/87 (97) 98 10/02/17 22:36 98 40 Exam Comments lethargic but arouses easily, follow simple commands CN intact MOTOR --1/5 RUE 0/5 RLE Objective Micro and Labs Laboratory Tests Test 10/03/17 05:45 Potassium Level 3.5 Date/Time Source Procedure Growth Status 09/26/17 17:00 Blood Peripheral Aerobic Blood Culture - Final NO GROWTH IN 5 DAYS Complete 09/26/17 17:00 Blood Peripheral Anaerobic Blood Culture - Final NO GROWTH IN 5 DAYS Complete 10/01/17 07:58 Sputum Endotracheal Gram Stain - Final Complete 10/01/17 07:58 Sputum Endotracheal Sputum Culture - Final LIGHT GROWTH NORMAL RESPIRATORY RADHA Complete Andrea Mcgovern MD PhD Oct 03, 2017 21:12
[2017-10-03] MEDS: ATORVASTATIN 40 MG TAB PO SCH (22:04)
[2017-10-04] VITALS (14 sets, daily range): BP systolic 98–145; BP diastolic 52–80; PULSE 93–109; RESP 15–29; TEMP 98.2–99.9; O2SAT 92–99
[2017-10-04] MEDS: RESP: ALBUTEROL 2.5 MG/IPRATROPIUM 0.5 MG NEB (SCH) NEB ×4 (03:22→21:59)
[2017-10-04 04:42] LABS: HEMATOCRIT 32.6 % (39.0-51.0); HEMOGLOBIN 10.5 GM/DL (13.0-17.0); MEAN CELL VOLUME 97.2 FL (80.0-100.0); MEAN CORPUSCULAR HEMOGLOBIN 31.3 PG (27.0-34.0); MEAN CORPUSCULAR HGB CONC 32.2 % (32.0-36.0); MEAN PLATELET VOLUME 8.8 FL (7.0-11.0); PLATELET COUNT 299 TH/MM3 (150-450); RED BLOOD COUNT 3.35 MIL/MM3 (4.50-5.90); RED CELL DISTRIBUTION WIDTH 14.1 % (11.6-17.2); WHITE BLOOD COUNT 15.4 TH/MM3 (4.0-11.0)
[2017-10-04 05:15] LABS: BICARBONATE 33.2 MEQ/L (21.0-32.0); CALCIUM 8.1 MG/DL (8.5-10.1); CREATININE 0.66 MG/DL (0.60-1.30)
[2017-10-04] MEDS: MIDODRINE 5 MG TAB PO SCH ×3 (06:00→20:51)
[2017-10-04] MEDS: PANTOPRAZOLE SODIUM 40 MG VIAL IV SCH (06:00)
--- NOTE | 2017-10-04 06:52 | HHI.CCPN ---
Subjective Remarks/Hospital Course This is a 77-year-old male with a history of paroxysmal A. fib, hypertension, and presented with ischemic A. fib RVR with a proximal LAD lesion. He is now postop day 3 status post off-pump CABG with a BRODERICK to the LAD. He was on the floor clinically improving when he had sudden onset altered mental status and obtundation. He was last seen normal at 5 AM. Stroke alert was called at 7:[address] suggested the possibility of a left posterior fossa ischemic territory without evidence of hemorrhage. He was emergently transferred to the CVICU. I immediately evaluated him in the CVICU where he had acute left-sided facial droop, left-sided gaze deviation, flaccid right upper and lower extremities, and both receptive and expressive aphasia. I me immediately ordered an emergent CTA head and neck which demonstrated large filling defect in the primary left MCA near the M1 branch. I discussed the case with Dr. Gary suggestion clerk with interventional radiology who took the patient emergently for intervention. I placed emergent right radial arterial line, see separate procedure note for details. We will suppress the patient above 180 for systolic blood pressure and found that he intermittently with spontaneous movement his right upper extremity with blood pressures above 180. No additional information is available from the patient due to his severe obtundation. ROS unavailable. SUBJ 09/26: Worsening respiratory status, tachypneic. Bilateral coarse rhonchi and crackles. Chest x-ray shows extensive right-sided consolidation. Questionable airway protection probable aspiration. Patient and daughter at the bedside updated. Due to progressive respiratory failure and inability to protect airway will proceed with endotracheal intubation. Both are agreeable for trach if needed 09/27: Intubated yesterday for worsening respiratory status and aspiration. Currently intubated sedated but wakes up follows commands 4. Cough appears to be improved, secretions are decreasing. Chest x-ray shows some improvement in right-sided infiltrates. Remains on Richard-Synephrine 90 mcg/min to maintain cerebral perfusion. Will reduce systolic blood pressure target to 140-[address] Mcgovern. Also start IV Lasix 40 mg now and 20 every 12 due to fluid overload. 09/28: Clinically showing some respiratory improvement even though chest x-ray shows consolidation involving most of right lung and left lower lobe. Will get CT to further evaluate the chest also repeat CT of the brain. Not cleared for subcu Lovenox by Dr. Mcgovern. Remains on Richard-Synephrine to maintain cerebral perfusion 09/29: remains intubated. following commands this morning. secretions are still a problem. ultrasound at bedside and less than 2cm pocket of pleural effusion by right costophrenic angle and liver is anatomically in the way of reaching fluid. unable to thoracentese, and if that is the largest pocket of fluid, unlikely to be inhibiting pulmonary mechanics enough to prevent extubation. mental status and dysphagia/dysarthria poor cough/gag/swallow likely biggest barrier to successful extubation. 09/30: clinically worse than yesterday: only tolerated cpap for an hour and only about 10 minutes on minimal settings. adequate net negative balance. this appears to be a fatigue problem due to deconditioning. long discussion with his daughter today about need for aggressive PT, and my concerns that he may need trach/PEG and LTAC level care. 10/01: wbc uptrending but remains afebrile. tolerating cpap 10/5/40% better than yesterday. sent sputum and urine cultures and will d/c cvl. 10/02: Remains intubated off all sedation. Tolerating CPAP 10/5. Chest x-ray no acute changes. Still has moderate ET tube secretions. Urine output 3.3 L in 24 hours. Labs are pending today. 10/03: Contraction alkalosis after aggressive diuresis. T max 100.4, afebrile now. No new positive cultures. Tachypneic on CPAP. 10/04: more awake today. Just placed on CPAP. Afebrile. Daughter at the bedside updated Objective Vital Signs Date Time Temp Pulse Resp B/P (MAP) Pulse Ox O2 Delivery O2 Flow Rate FiO2 10/04/17 04:24 97 40 10/04/17 03:00 Mechanical Ventilator 10/04/17 03:00 109 10/04/17 03:00 98.6 17 145/80 (101) Intake and Output 10/04/17 10/04/17 10/05/17 08:00 16:00 00:00 Intake Total 806 ml Output Total 525 ml Balance 281 ml Result Diagram: 10/04/17 0354 10/04/17 0354 Other Results Microbiology Date/Time Source Procedure Growth Status 10/01/17 07:58 Sputum Endotracheal Gram Stain - Final Complete 10/01/17 07:58 Sputum Endotracheal Sputum Culture - Final LIGHT GROWTH NORMAL RESPIRATORY RADHA Complete Imaging Last Impressions Chest X-Ray 09/23/17 0500 Signed Impressions: Service Date/Time: Saturday, September 23, 2017 04:48 - CONCLUSION: 1. Interval extubation and removal of nasogastric tube. 2. Hazy opacity remains in both lungs with interval increase in opacity at the right lung base. 3. The costophrenic angles are mildly blunted. Ángel Frazier MD Lower Extremity Ultrasound 09/21/17 0000 Signed Impressions: Service Date/Time: Thursday, September 21, 2017 17:12 - CONCLUSION: Normal examination. Farhad Chao MD Chest CT 09/21/17 0000 Signed Impressions: Service Date/Time: Thursday, September 21, 2017 13:23 - CONCLUSION: 1. Upper lobe predominant centrilobular emphysema with 1.2 cm spiculated nodule in the right upper lobe inferiorly and adjacent satellite nodule measuring up to 7 mm. The findings are highly concerning for primary lung malignancy. Recommend PET/CT examination or sampling per 2017 Fleischner criteria. 2. Mediastinal adenopathy measuring up to 11 mm. Although nonspecific, cannot exclude metastatic adenopathy. PET/CT examination would be extremely beneficial in further assessment of the mediastinal adenopathy. 3. Small bilateral pleural effusions more prominent on the right with associated compressive atelectasis in the lower lobes and upper lobe interstitial edema, particularly on the right 4. Ascending thoracic aortic aneurysm measuring up to 4.1 cm. 5. Moderate coronary artery calcifications. Baldo Mcclain MD Carotid Artery Ultrasound 09/21/17 0000 Signed Impressions: Service Date/Time: Thursday, September 21, 2017 17:39 - CONCLUSION: 1. Mild visible plaque formation in the carotid arteries. No hemodynamically significant stenosis. Vertebral artery flow antegrade. Farhad Chao MD Objective Remarks GENERAL: Elderly male, lying in bed, sedated. HEENT: Normocephalic. Atraumatic. Pupils are 3 mm, equal, reactive NECK: Trachea is midline. CHEST: Midline sternotomy incision with wound VAC in place. equal chest rise. fio2 40%. moderate amount of phipps secretions. CARDIOVASCULAR: normal rate, afib. no JVD. ABDOMEN: Soft, nontender, nondistended. No guarding. BS active. MUSCULOSKELETAL: Pulses 2+. No peripheral edema. Warm, well perfused. NEUROLOGICAL: Able to follow commands. Right facial droop. LUPE 5/5 in left upper/lower extremities. LUPE 2/5 in right distal upper extremity, 2/5 right proximal. 2/5 right distal lower extremity, 2/5 right proximal lower extremity. A/P Assessment and Plan Assessment: This is a 77-year-old male with coronary artery disease now status post CABG complicated by large left MCA CVA. Taken emergently for interventional radiology and thrombectomy, however when he went down to angiography, there was no more evidence of clot on four-vessel angioplasty at there is adequate perfusion distal to the left MCA, M1 branch. Clinically making improvements, but very high risk for decompensation and particularly may not be able to successfully separate from mechanical ventilation due to inability to handle secretions. Daily SBT. aggressive PT. I have spoken at length with the family about the risks of failing a trial of extubation requiring a tracheostomy and PEG tube, as well as the risks of tracheostomy with sternal incision. They understand the risks ahead, but will pursue trial of extubation when he passes SBT. Remains very critically ill with persistent respiratory failure and evolving CVA. Active problems: Acute large left MCA stroke (left cerebellar and basal ganglia cva) Acute encephalopathy Acute hypoxemic respiratory failure Aspiration pneumonia Status post CABG Coronary artery disease Spiculated right upper lobe mass concerning for primary lung cancer Emphysema Alcohol dependence Acute dysphagia Acute dysarthria Plan: CT of the chest on 09/21 concerning for primary lung malignancy right upper lobe IR attempted thrombectomy 09/25 with apparent resolution of the clot per Dr. Mcgovern neurology, avoid full anticoagulation/or prophylactic heparin now due to cerebellar infarct possibility of secondary hemorrhage Intubated 09/26 for aspiration and extensive right lung consolidation MRI of the brain showing left basal ganglia and left cerebellar stroke, focal hemorrhage in the left basal ganglia, follow up MRI today Continue aspirin Plavix. Blood pressure goals to 110 - 170. recent stroke but post CABG. Use phenylephrine + midodrine po for vasopressor as needed Ancef 1gm iv q8h x 4 days (total 7 day course for aspiration pneumonia). pansensitive ecoli IV Lasix 20 every 12. = Tube feeds with Jevity-hold for weaning trials Continue DuoNeb breathing treatments, inhaled budesonide Already has recent 2D echo, Already has recent carotid Dopplers Already has recent lipid panel: Continue Lipitor Continue Clemente d/c central and arterial line sputum culture-PS E Coli urine culture hold off on re-broadening antibiotics unless patient looks toxic or spikes fever. daily SBTs. OOB to chair. PT/OT/ST. Discussed with patient family today. Possible trial extubation if he pass SBT. Clearign secretions still could be problematic Level 2 Yassine Perkins MD Oct 04, 2017 06:52
[2017-10-04] MEDS: INSULIN ASPART SUPPLEMENTAL SCALE SQ SCH ×4 (07:41→20:51)
[2017-10-04] MEDS: FOLIC ACID 1 MG TAB PO SCH (07:43)
[2017-10-04] MEDS: METOPROLOL TARTRATE 25 MG TAB PO SCH ×2 (07:43→20:51)
[2017-10-04] MEDS: ASPIRIN 81 MG CHEW TAB PO SCH (07:44)
[2017-10-04] MEDS: CLOPIDOGREL 75 MG TAB PO SCH (07:46)
[2017-10-04] MEDS: THIAMINE HCL 100 MG TAB PO SCH (07:46)
[2017-10-04] MEDS: POTASSIUM CHLORIDE 25 MEQ EFFERVESCENT TAB PO SCH (07:47)
[2017-10-04] MEDS: FUROSEMIDE 20 MG/2 ML VIAL IV PUSH SCH (07:47)
[2017-10-04] MEDS: DOCUSATE SODIUM 100 MG CAP PO SCH ×2 (07:48→20:51)
[2017-10-04] MEDS: MULTIVITAMINS/MINERALS THERAPEUTIC TAB PO SCH (07:48)
[2017-10-04] MEDS: SODIUM CHLORIDE 0.9% FLUSH 10 ML FLUSH IV FLUSH SCH ×2 (07:49→20:51)
[2017-10-04] MEDS: CHLORHEXIDINE 0.12% (ORAL KIT) 15 ML CUP MT SCH ×2 (07:50→20:00)
[2017-10-04] MEDS: MAGNESIUM HYDROXIDE SUSP 30 ML CUP PO SCH (09:00)
[2017-10-04] MEDS: LACTULOSE SYRUP 20 GM/30 ML CUP PO SCH (09:00)
[2017-10-04] MEDS: POLYETHYLENE GLYCOL 17 GM PKG PO SCH (09:00)
[2017-10-04] MEDS ORDERED: DEXTROSE 50% IN WATER 50 ML VIAL(D50) IV PUSH PRN (09:15)
[2017-10-04] MEDS ORDERED: GLUCAGON 1 MG/ML VIAL OTHER PRN (09:15)
[2017-10-04] MEDS ORDERED: GADODIAMIDE PF 287 MG/ML 5 ML VIAL (for RAD MRI) IV PUSH ONE (10:39)
--- NOTE | 2017-10-04 11:40 | RADRPT ---
EXAM DATE/TIME: 10/04/2017 09:37 [facility] COMPARISON: MRI BRAIN W & W/O CONTRAST, September 28, 2017, 16:40. INDICATIONS : Bleed. CONTRAST: 12 cc Omniscan (gadodiamide) IV MEDICAL HISTORY : Hypertension. SURGICAL HISTORY : CABG Tonsillectomy. ENCOUNTER: Initial ACUITY: 2 weeks PAIN SCORE: Nonresponsive. LOCATION: Head TECHNIQUE: Multiplanar, multisequence MRI of the brain was performed both prior to and following the administrat ion of paramagnetic contrast. FINDINGS: The previously seen restricted diffusion in the region of the left basilar ganglia is fainter in the interim. Within this is a crescentic shaped area of T1 signal abnormality measuring 11 x 31 mm in gre atest transaxial dimension compatible with an associated intraparenchymal bleed. A new area of restri cted diffusion has developed in the adjacent left parietal lobe periventricular white matter measurin g 15 mm, series 14 image 40. The 1 cm focus of signal abnormality in the left cerebellar hemisphere is slightly less conspicuous a nd I believe probably an evolving subacute infarct. Reactive appearing left basal ganglia enhancement related to the subacute infarct. No definite mass l esion. No mass effect or midline shift. The old right frontal lobe infarct is unchanged. CONCLUSION: 1. Evolving subacute infarct and associated parenchymal bleed of the left basal ganglia. No midline s hift. 2. A new 15 mm infarct in the left parietal lobe periventricular white matter. 3. 1 cm subacute infarct of the left side of the cerebellum evolving. 4. Old right frontal lobe infarct. Gregorio Ward MD on October 04, 2017 at 11:31 Board Certified Radiologist. This report was verified electronically.
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
--- NOTE | 2017-10-04 12:19 | RADRPT ---
EXAM DATE/TIME: 10/04/2017 10:55 [facility] COMPARISON: CHEST SINGLE AP, October 02, 2017, 6:42. INDICATIONS : Respiratory Disease. MEDICAL HISTORY : Cardiovascular disease. Hypertension SURGICAL HISTORY : CABG. ENCOUNTER: Subsequent ACUITY: 3 weeks PAIN SCORE: Non-responsive. LOCATION: Bilateral chest FINDINGS: Endotracheal tube tip is 3.6 cm above the toribio. Gastric tube traverses the field of view. Persisten t consolidation in the left lower lobe with loss of delineation of the left hemidiaphragm, stable in appearance. The right lung is clear. Heart is normal in size. CONCLUSION: Stable left lower lobe consolidation. Zia Chauhan MD on October 04, 2017 at 12:16 Board Certified Radiologist. This report was verified electronically.
[2017-10-04] MEDS: METOPROLOL TARTRATE 5 MG/5 ML VIAL IV PUSH PRN (17:23)
[2017-10-04] MEDS: ATORVASTATIN 40 MG TAB PO SCH (20:51)
[2017-10-04] MEDS: SENNOSIDES 8.6 MG TAB PO SCH (20:51)
[2017-10-05] VITALS (14 sets, daily range): BP systolic 87–121; BP diastolic 60–80; PULSE 75–107; RESP 17–20; TEMP 97.6–99.4; O2SAT 95–99
[2017-10-05] MEDS: RESP: ALBUTEROL 2.5 MG/IPRATROPIUM 0.5 MG NEB (SCH) NEB ×4 (02:49→20:49)
[2017-10-05] MEDS: PANTOPRAZOLE SODIUM 40 MG VIAL IV SCH (06:00)
[2017-10-05] MEDS: MIDODRINE 5 MG TAB PO SCH ×3 (06:00→22:00)
--- NOTE | 2017-10-05 06:52 | HHI.CCPN ---
Subjective Remarks/Hospital Course This is a 77-year-old male with a history of paroxysmal A. fib, hypertension, and presented with ischemic A. fib RVR with a proximal LAD lesion. He is now postop day 3 status post off-pump CABG with a BRODERICK to the LAD. He was on the floor clinically improving when he had sudden onset altered mental status and obtundation. He was last seen normal at 5 AM. Stroke alert was called at 7:[address] suggested the possibility of a left posterior fossa ischemic territory without evidence of hemorrhage. He was emergently transferred to the CVICU. I immediately evaluated him in the CVICU where he had acute left-sided facial droop, left-sided gaze deviation, flaccid right upper and lower extremities, and both receptive and expressive aphasia. I me immediately ordered an emergent CTA head and neck which demonstrated large filling defect in the primary left MCA near the M1 branch. I discussed the case with Dr. Gary lining ironer with interventional radiology who took the patient emergently for intervention. I placed emergent right radial arterial line, see separate procedure note for details. We will suppress the patient above 180 for systolic blood pressure and found that he intermittently with spontaneous movement his right upper extremity with blood pressures above 180. No additional information is available from the patient due to his severe obtundation. ROS unavailable. SUBJ 09/26: Worsening respiratory status, tachypneic. Bilateral coarse rhonchi and crackles. Chest x-ray shows extensive right-sided consolidation. Questionable airway protection probable aspiration. Patient and daughter at the bedside updated. Due to progressive respiratory failure and inability to protect airway will proceed with endotracheal intubation. Both are agreeable for trach if needed 09/27: Intubated yesterday for worsening respiratory status and aspiration. Currently intubated sedated but wakes up follows commands 4. Cough appears to be improved, secretions are decreasing. Chest x-ray shows some improvement in right-sided infiltrates. Remains on Richard-Synephrine 90 mcg/min to maintain cerebral perfusion. Will reduce systolic blood pressure target to 140-[address] Mcgovern. Also start IV Lasix 40 mg now and 20 every 12 due to fluid overload. 09/28: Clinically showing some respiratory improvement even though chest x-ray shows consolidation involving most of right lung and left lower lobe. Will get CT to further evaluate the chest also repeat CT of the brain. Not cleared for subcu Lovenox by Dr. Mcgovern. Remains on Richard-Synephrine to maintain cerebral perfusion 09/29: remains intubated. following commands this morning. secretions are still a problem. ultrasound at bedside and less than 2cm pocket of pleural effusion by right costophrenic angle and liver is anatomically in the way of reaching fluid. unable to thoracentese, and if that is the largest pocket of fluid, unlikely to be inhibiting pulmonary mechanics enough to prevent extubation. mental status and dysphagia/dysarthria poor cough/gag/swallow likely biggest barrier to successful extubation. 09/30: clinically worse than yesterday: only tolerated cpap for an hour and only about 10 minutes on minimal settings. adequate net negative balance. this appears to be a fatigue problem due to deconditioning. long discussion with his daughter today about need for aggressive PT, and my concerns that he may need trach/PEG and LTAC level care. 10/01: wbc uptrending but remains afebrile. tolerating cpap 10/5/40% better than yesterday. sent sputum and urine cultures and will d/c cvl. 10/02: Remains intubated off all sedation. Tolerating CPAP 10/5. Chest x-ray no acute changes. Still has moderate ET tube secretions. Urine output 3.3 L in 24 hours. Labs are pending today. 10/03: Contraction alkalosis after aggressive diuresis. T max 100.4, afebrile now. No new positive cultures. Tachypneic on CPAP. 10/04: more awake today. Just placed on CPAP. Afebrile. Daughter at the bedside updated 10/05: Awake alert, following commands on left, weakly on right. MRI- evolvng know cerebellar and BG infarct on L. New parietal lobe infarct Objective Vital Signs Date Time Temp Pulse Resp B/P (MAP) Pulse Ox O2 Delivery O2 Flow Rate FiO2 10/05/17 04:01 95 40 10/05/17 03:00 103 10/05/17 03:00 Mechanical Ventilator 10/05/17 03:00 98.9 17 103/72 (82) Intake and Output 10/05/17 10/05/17 10/06/17 08:00 16:00 00:00 Intake Total 300 ml Output Total 310 ml Balance -10 ml Result Diagram: 10/04/17 0354 10/04/17 0354 Other Results Laboratory Tests Test 10/04/17 08:20 Blood Gas Puncture Site RT RADIAL Blood Gas Patient Temperature 98.6 Blood Gas HCO3 33 mmol/L (22-26) Blood Gas Base Excess 9.1 mmol/L (-2-2) Blood Gas Oxygen Saturation 97 % (90-100) Arterial Blood pH 7.46 (7.380-7.420) Arterial Blood Partial Pressure CO2 47 mmHg (38-42) Arterial Blood Partial Pressure O2 127 mmHg (61-120) Arterial Blood Oxygen Content 14.0 Vol % (12.0-20.0) Arterial Blood Carboxyhemoglobin 0.8 % (0-4) Arterial Blood Methemoglobin 1.0 % (0-2) Blood Gas Hemoglobin 10.1 G/DL (12.0-16.0) Oxygen Delivery Device VENTILATOR Blood Gas Ventilator Setting CPAP,PS5,PEEP5 Blood Gas Inspired Oxygen 40 % Imaging Last Impressions Chest X-Ray 09/23/17 0500 Signed Impressions: Service Date/Time: Saturday, September 23, 2017 04:48 - CONCLUSION: 1. Interval extubation and removal of nasogastric tube. 2. Hazy opacity remains in both lungs with interval increase in opacity at the right lung base. 3. The costophrenic angles are mildly blunted. Ángel Frazier MD Lower Extremity Ultrasound 09/21/17 0000 Signed Impressions: Service Date/Time: Thursday, September 21, 2017 17:12 - CONCLUSION: Normal examination. Farhad Chao MD Chest CT 09/21/17 0000 Signed Impressions: Service Date/Time: Thursday, September 21, 2017 13:23 - CONCLUSION: 1. Upper lobe predominant centrilobular emphysema with 1.2 cm spiculated nodule in the right upper lobe inferiorly and adjacent satellite nodule measuring up to 7 mm. The findings are highly concerning for primary lung malignancy. Recommend PET/CT examination or sampling per 2017 Fleischner criteria. 2. Mediastinal adenopathy measuring up to 11 mm. Although nonspecific, cannot exclude metastatic adenopathy. PET/CT examination would be extremely beneficial in further assessment of the mediastinal adenopathy. 3. Small bilateral pleural effusions more prominent on the right with associated compressive atelectasis in the lower lobes and upper lobe interstitial edema, particularly on the right 4. Ascending thoracic aortic aneurysm measuring up to 4.1 cm. 5. Moderate coronary artery calcifications. Baldo Mcclain MD Carotid Artery Ultrasound 09/21/17 0000 Signed Impressions: Service Date/Time: Thursday, September 21, 2017 17:39 - CONCLUSION: 1. Mild visible plaque formation in the carotid arteries. No hemodynamically significant stenosis. Vertebral artery flow antegrade. Farhad Chao MD Objective Remarks GENERAL: Elderly male, lying in bed, off all sedation HEENT: Normocephalic. Atraumatic. Pupils are 3 mm, equal, reactive NECK: Trachea is midline. CHEST: Midline sternotomy incision with wound VAC in place. equal chest rise. fio2 40%. moderate amount of phipps secretions. CARDIOVASCULAR: normal rate, afib. no JVD. ABDOMEN: Soft, nontender, nondistended. No guarding. BS active. MUSCULOSKELETAL: Pulses 2+. No peripheral edema. Warm, well perfused. NEUROLOGICAL: Able to follow commands. Right facial droop. LUPE 5/5 in left upper/lower extremities. LUPE 2/5 in right distal upper extremity, 2/5 right proximal. 2/5 right distal lower extremity, 2/5 right proximal lower extremity. A/P Assessment and Plan Assessment: This is a 77-year-old male with coronary artery disease now status post CABG complicated by large left MCA CVA. Taken emergently for interventional radiology and thrombectomy, however when he went down to angiography, there was no more evidence of clot on four-vessel angioplasty at there is adequate perfusion distal to the left MCA, M1 branch. Clinically making improvements, but very high risk for decompensation and particularly may not be able to successfully separate from mechanical ventilation due to inability to handle secretions. Daily SBT. aggressive PT. I have spoken at length with the family about the risks of failing a trial of extubation requiring a tracheostomy and PEG tube, as well as the risks of tracheostomy with sternal incision. They understand the risks ahead, but will pursue trial of extubation when he passes SBT. Remains very critically ill with persistent respiratory failure and evolving CVA. Active problems: Acute large left MCA stroke (left cerebellar and basal ganglia cva) Acute encephalopathy Acute hypoxemic respiratory failure Aspiration pneumonia Status post CABG Coronary artery disease Spiculated right upper lobe mass concerning for primary lung cancer Emphysema Alcohol dependence Acute dysphagia Acute dysarthria Plan: CT of the chest on 09/21 concerning for primary lung malignancy right upper lobe IR attempted thrombectomy 09/25 with apparent resolution of the clot per Dr. Mcgovern neurology, avoid full anticoagulation/or prophylactic heparin now due to cerebellar infarct possibility of secondary hemorrhage Intubated 09/26 for aspiration and extensive right lung consolidation MRI of the brain showing left basal ganglia and left cerebellar stroke, focal hemorrhage in the left basal ganglia, follow up MRI 10/04 evolving infarcts, new parietal lobe infarct Continue aspirin Plavix. Today on hold for trach Blood pressure goals to 110 - 170. recent stroke but post CABG. Use phenylephrine + midodrine po for vasopressor as needed Ancef 1gm iv q8h x 4 days (total 7 day course for aspiration pneumonia). pansensitive ecoli IV Lasix 20 every 12. changed to qd Tube feeds with Jevity-hold for weaning trials Continue DuoNeb breathing treatments, inhaled budesonide Already has recent 2D echo, Already has recent carotid Dopplers Already has recent lipid panel: Continue Lipitor Continue Clemente d/c central and arterial line sputum culture-PS E Coli urine culture hold off on re-broadening antibiotics unless patient looks toxic or spikes fever. daily SBTs. OOB to chair. PT/OT/ST. Discussed with patient family 10/04. Trach today. Level 2 Yassine Perkins MD Oct 05, 2017 06:52
[2017-10-05] MEDS: INSULIN ASPART SUPPLEMENTAL SCALE SQ SCH ×4 (08:03→21:00)
[2017-10-05] MEDS: DOCUSATE SODIUM 100 MG CAP PO SCH ×2 (08:04→21:00)
[2017-10-05] MEDS: METOPROLOL TARTRATE 25 MG TAB PO SCH ×2 (08:04→21:00)
[2017-10-05] MEDS: POLYETHYLENE GLYCOL 17 GM PKG PO SCH (08:04)
[2017-10-05] MEDS: FOLIC ACID 1 MG TAB PO SCH (08:04)
[2017-10-05] MEDS: MULTIVITAMINS/MINERALS THERAPEUTIC TAB PO SCH (08:04)
[2017-10-05] MEDS: THIAMINE HCL 100 MG TAB PO SCH (08:05)
[2017-10-05] MEDS: SODIUM CHLORIDE 0.9% FLUSH 10 ML FLUSH IV FLUSH SCH ×2 (08:06→21:00)
[2017-10-05] MEDS: CHLORHEXIDINE 0.12% (ORAL KIT) 15 ML CUP MT SCH ×2 (08:07→20:00)
[2017-10-05] MEDS ORDERED: SODIUM CHLOR 0.9% 250 ML INJ 250 ML IV ONE (08:15)
[2017-10-05 08:29] LABS: ALKALINE PHOSPHATASE 76 U/L (45-117); ALT (GPT) 104 U/L (12-78); AST (GOT) 102 U/L (15-37); BICARBONATE 32.1 MEQ/L (21.0-32.0); BLOOD UREA NITROGEN 26 MG/DL (7-18); CALCIUM 7.8 MG/DL (8.5-10.1); CHLORIDE 108 MEQ/L (98-107); CREATININE 0.54 MG/DL (0.60-1.30); GLOMERULAR FILTRATION RATE 148 ML/MIN (>89); GLUCOSE,RANDOM 209 MG/DL (74-106); SODIUM (NA) 146 MEQ/L (136-145); TOTAL BILIRUBIN ADULT 0.5 MG/DL (0.2-1.0); TOTAL PROTEIN 5.6 GM/DL (6.4-8.2)
--- NOTE | 2017-10-05 08:45 | PD.CONS ---
HPI History of Present Illness This is a 77 year old male who presented with ischemic AF with RVR. He had CABG and was recovering and then found with AMS and was obtunded. He was found to have CVA. GI has been consulted for PEG tube placement. He will be having tracheostomy done today. Family wishes to proceed with PEG tube placement. Pt is awake and indicates he is agreeable as well. (Suellen López) PFSH Past Medical History Cardiovascular Problems: Yes Coronary Artery Disease: Yes Hypertension: Yes Medical other: Yes (arthritis) Thyroid Disease: Yes Past Surgical History Tonsillectomy (Suellen López) Coded Allergies: hydrocodone (Unverified Allergy, Severe, nausea and vomiting, 09/19/17) penicillin G (Unverified Allergy, Mild, 09/19/17) heart palpitations Family History Mother had diabetes type 2 Social History Alcohol Use: Yes (3 drinks per day) Tobacco Use: Yes (1 PPD) Substance Use: No (Suellen López) Review of Systems noncontributory (Suellen López) GI Exam Vitals I&O Vital Signs Date Time Temp Pulse Resp B/P (MAP) Pulse Ox O2 Delivery O2 Flow Rate FiO2 10/05/17 04:01 95 40 10/05/17 03:00 40 10/05/17 03:00 103 10/05/17 03:00 98 Mechanical Ventilator 40 10/05/17 03:00 98.9 103 17 103/72 (82) 98 10/05/17 00:20 95 40 10/04/17 23:00 96 Mechanical Ventilator 40 10/04/17 23:00 40 10/04/17 23:00 93 10/04/17 23:00 98.4 98 16 98/67 (77) 96 10/04/17 20:30 98 40 10/04/17 19:00 109 10/04/17 19:00 96 Mechanical Ventilator 40 10/04/17 19:00 98.2 102 16 109/77 (88) 98 10/04/17 19:00 40 10/04/17 16:15 97 40 10/04/17 15:00 99.1 99 15 102/52 (69) 98 10/04/17 15:00 97 Mechanical Ventilator 40 10/04/17 15:00 40 10/04/17 15:00 104 10/04/17 11:25 97 40 10/04/17 11:00 104 10/04/17 11:00 40 10/04/17 11:00 99.1 105 18 124/74 (91) 96 10/04/17 11:00 98 Mechanical Ventilator 40 10/04/17 10:16 99 100 I/O 10/04/17 10/04/17 10/04/17 10/05/17 10/05/17 10/05/17 07:00 15:00 23:00 07:00 15:00 23:00 Intake Total 806 ml 247 ml 300 ml Output Total 525 ml 625 ml 310 ml Balance 281 ml -378 ml -10 ml Intake Oral 0 ml Tube Feeding 706 ml 247 ml 300 ml Tube Irrigant 100 ml Output Urine Total 525 ml 625 ml 310 ml # Bowel Movements 1 0 Imaging Last Impressions Brain MRI 10/04/17 1000 Signed Impressions: Service Date/Time: Wednesday, October 04, 2017 09:37 - CONCLUSION: 1. Evolving subacute infarct and associated parenchymal bleed of the left basal ganglia. No midline shift. 2. A new 15 mm infarct in the left parietal lobe periventricular white matter. 3. 1 cm subacute infarct of the left side of the cerebellum evolving. 4. Old right frontal lobe infarct. Gregorio Ward MD Chest X-Ray 10/04/17 0000 Signed Impressions: Service Date/Time: Wednesday, October 04, 2017 10:55 - CONCLUSION: Stable left lower lobe consolidation. Zia Chauhan MD Chest Ultrasound 09/29/17 0000 Signed Impressions: Service Date/Time: September 09:50 - CONCLUSION: Minimal right pleural fluid, volume insufficient for safe thoracentesis at present Gregorio Jacinto MD Chest CT 09/28/17 0000 Signed Impressions: Service Date/Time: Thursday, September 28, 2017 16:19 - CONCLUSION: 1. Moderate right-sided pleural effusion. 2. Small left-sided pleural effusion. 3. Compressive atelectasis and some infiltrates in both lung bases. 4. Central lobar emphysema bilaterally with chronic interstitial changes. 5. Stable 1.2 cm spiculated nodular density in the right midlung. 6. Left-sided chest tube in place with small left apical pneumothorax with 6 mm of separation. Americo Vera MD Neck CTA 09/25/17 0000 Signed Impressions: Service Date/Time: Monday, September 25, 2017 09:05 - CONCLUSION: No significant stenosis or occlusion of the carotid or vertebral arteries. Tiny biapical pneumothoraces. Patchiness within the lung apices consistent with possible pneumonia superimposed on emphysematous changes. Scotty Mckeon MD Head CTA 09/25/17 0000 Signed Impressions: Service Date/Time: Monday, September 25, 2017 09:05 - CONCLUSION: 1. Truncation of the left middle cerebral artery suggesting acute thrombus at the M1 segment extending for a 11 mm to the trifurcation. The findings were called immediately to Dr. Khan at 9: 2. 42 AM on 09/25/17. 3. Tiny biapical pneumothoraces. 4. Patchy opacities are noted within the upper lung waddell bilaterally. 5. Underlying emphysematous changes are noted. Scotty Mckeon MD Head CT 09/25/17 0000 Signed Impressions: Service Date/Time: Monday, September 25, 2017 08:10 - CONCLUSION: 1. Focal area decreased attenuation within the left cerebellar hemisphere consistent with possible acute infarct. Clinical correlation is recommended. 2. No acute hemorrhage, midline shift or extra-axial fluid collections. Scotty Mckeon MD Cerebral Angiography 09/25/17 0000 Signed Impressions: Service Date/Time: Monday, September 25, 2017 10:25 - CONCLUSION: 1. No embolism identified Emile Gary MD Lower Extremity Ultrasound 09/21/17 0000 Signed Impressions: Service Date/Time: Thursday, September 21, 2017 17:12 - CONCLUSION: Normal examination. Farhad Chao MD Carotid Artery Ultrasound 09/21/17 0000 Signed Impressions: Service Date/Time: Thursday, September 21, 2017 17:39 - CONCLUSION: 1. Mild visible plaque formation in the carotid arteries. No hemodynamically significant stenosis. Vertebral artery flow antegrade. Farhad Chao MD Laboratory Test 10/05/17 07:45 Blood Urea Nitrogen 26 MG/DL Creatinine 0.54 MG/DL Random Glucose 209 MG/DL Total Protein 5.6 GM/DL Albumin 2.0 GM/DL Calcium Level 7.8 MG/DL Alkaline Phosphatase 76 U/L Aspartate Amino Transf (AST/SGOT) 102 U/L Alanine Aminotransferase (ALT/SGPT) 104 U/L Total Bilirubin 0.5 MG/DL Sodium Level 146 MEQ/L Potassium Level 3.7 MEQ/L Chloride Level 108 MEQ/L Carbon Dioxide Level 32.1 MEQ/L Anion Gap 6 MEQ/L Estimat Glomerular Filtration Rate 148 ML/MIN Date/Time Source Procedure Growth Status 09/26/17 17:00 Blood Peripheral Aerobic Blood Culture - Final NO GROWTH IN 5 DAYS Complete 09/26/17 17:00 Blood Peripheral Anaerobic Blood Culture - Final NO GROWTH IN 5 DAYS Complete 10/01/17 07:58 Sputum Endotracheal Gram Stain - Final Complete 10/01/17 07:58 Sputum Endotracheal Sputum Culture - Final LIGHT GROWTH NORMAL RESPIRATORY RADHA Complete Physical Examination HEENT: PERRL; normocephalic; atraumatic; no jaundice. NGT CHEST: CTA CARDIAC: RRR ABDOMEN: Soft, nondistended, nontender; no hepatosplenomegaly; bowel sounds are present in all four quadrants. EXTREMITIES: No clubbing, cyanosis, or edema. SKIN: Normal; no rash; no jaundice. [employer]: awake, intubated, nods appropriately (Suellen López) Assessment and Plan Plan ASSESSMENT - dysphagia - 77 yo male s/p CABG who developed CVA, need for parts counterman ventilation, GI consulted for PEG tube placement getting trach today. family wishes to proceed with PEG. d/w RN PLAN - EGD and PEG tube placement tomorrow - hold TF after MN - 500mg vanc switchboard operator receptionist to OR - obtain consent - further recs to follow pt seen by myself and Dr Garcia and this note is on his behalf (Suellen López) Physician Comments Seen and examined with DARRELL, tracheostomy today. PEG requested for today by Dr. Perkins. EGD/PEG today after tracheostomy. Vancomicin switchboard operator receptionist to gi. Hold TF and anticoagulants. Discussed with Dr. Perkins. Thank you (Nicki Garcia MD) Suellen López Oct 05, 2017 08:45 Nicki Garcia MD Oct 05, 2017 13:14
[2017-10-05] MEDS ORDERED: POTASSIUM CHLORIDE 25 MEQ EFFERVESCENT TAB PO SCH (09:00)
[2017-10-05] MEDS: LACTULOSE SYRUP 20 GM/30 ML CUP PO SCH (09:00)
[2017-10-05] MEDS: MAGNESIUM HYDROXIDE SUSP 30 ML CUP PO SCH (09:00)
[2017-10-05] MEDS ORDERED: FUROSEMIDE 20 MG/2 ML VIAL IV PUSH SCH (09:00)
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
[2017-10-05] MEDS ORDERED: VANCOMYCIN INJ 500 MG in SODIUM CHLORIDE 0.9% INJ 100 ML IV SCH (11:45)
[2017-10-05] MEDS ORDERED: ROCURONIUM INJ 50 MG/5 ML VIAL IV ONE (14:15)
[2017-10-05] MEDS ORDERED: fentaNYL CITRATE 250 MCG/5 ML AMP IV PUSH ONE (14:15)
[2017-10-05] MEDS ORDERED: PROPOFOL 1000 MG/100 ML INJ 100 ML IV PRN (14:15)
[2017-10-05] MEDS ORDERED: MIDAZOLAM HCL 2 MG/2 ML VIAL IV PUSH ONE (14:15)
[2017-10-05] MEDS ORDERED: MIDAZOLAM HCL 2 MG/2 ML VIAL ONE (14:24)
[2017-10-05] MEDS ORDERED: NOREPINEPHRINE-DEXTROSE DRIP 250 ML IV ONE (15:06)
--- NOTE | 2017-10-05 16:15 | GIPROC ---
[facility] [address] [facility]. [facility] [place], [address] EGD WITH PEG PROCEDURE REPORT EXAM DATE: 10/05/2017 PATIENT NAME: Marlo Sullivan MR#: [id number] BIRTHDATE: 1940 ATTENDING: Nicki Garcia MD ORDER #: [id number] EXPEDITER SERVICE ORDER: Cruz Martinez and Emily Singletary STATUS: inpatient INDICATIONS: The patient is a 77 yr old male here for an EGD with PEG due to dysphagia PROCEDURE PERFORMED: EGD with PEG placement MEDICATIONS: None and Per Anesthesia. TOPICAL ANESTHETIC: CONSENT: The patient understands the risks and benefits of the procedure and understands that these risks include, but are not limited to: sedation, allergic reaction, infection, perforation and/or bleeding. Alternative means of evaluation and treatment include, among others: physical exam, x-rays, and/or surgical intervention. The patient elects to proceed with this endoscopic procedure. medical equipment was checked for proper function. Hand hygiene and appropriate measures for infection prevention was taken. After the risks, benefits and alternatives of the procedure were thoroughly explained, Informed consent was verified, confirmed and timeout was successfully executed by the treatment team. The patient was anesthetized with topical anesthesia and the Pentax [id number] endoscope was introduced through the mouth and advanced to the proximal jejunum. The instrument was slowly withdrawn as the mucosa was fully examined. Moderate gastritis was found The stomach was then inflated with air, and by a combination of transillumination and manual palpation, the site for the gastrostomy tube placement was selected and marked on the anterior abdominal wall. The skin of the anterior abdomen was surgically prepped and draped with sterile towels. Utilizing strict sterile technique, the selected site was then anesthetized with 1% xylocaine by injection into the skin and subcutaneous tissue. A 1 cm incision was made through the skin and subcutaneous tissue, and the needle/cannula assembly was then passed through the abdominal wall and through the anterior wall of the stomach, maintaining visualization with the endoscope. A snare device previously placed through the instrument channel was then opened and placed around the cannula, the needle was removed, and the insertion wire was passed through the cannula and into the stomach lumen. The snare was then loosened from the cannula, and repositioned to snare the insertion wire. The snare was then pulled up to the endoscope distal tip, and the scope was then withdrawn bringing with it the snare and insertion wire. The insertion wire was then released from the snare, and then loop-attached to the Bard 20 Fr gastrostomy tube. Using the "pull technique", the G-tube was then pulled into place by traction on the insertion wire at the abdominal wall end. The G-tube insertion site was then cleansed once again, and the external bolster was placed over the tube to secure it to the abdominal wall. A sterile dressing was then applied, and the procedure terminated. no abnormalities The gastroscope was then slowly withdrawn and removed. ADVERSE EVENT: There were no complications. IMPRESSIONS: 1. Moderate gastritis was found 2. No abnormalities RECOMMENDATIONS: PEG recomendations: 1- NPO for 6 hours except for meds 2- Flush PEG tube every 6 hours with water and after each PEG feeding 3- May resume regular diet in the morning 4- May use Ensure or Boost etc. for PEG tube feeding REPEAT EXAM: Return as needed for EGD Nicki Garcia MD eSigned: Nicki Garcia MD 10/05/2017 4:15 PM cc: PATIENT NAME: Marlo Sullivan MR#: [id number]
--- NOTE | 2017-10-05 16:27 | PD.PROCEDR ---
Procedure Note Procedure Procedure: Percutaneous tracheostomy with bronchoscopic guidance Operators: Dr. Yassine Perkins for percutaneous tracheostomy, Dr. Estrada for bronchoscopy Informed consent obtained from family and documented on chart Preoperative diagnosis: CVA, s/p CABG, acute respiratory failure on mechanical ventilation, unable to wean Postoperative diagnosis: Same Anesthesia used: Versed 5 mg IV, fentanyl 100 g IV, Rocuronium 50 mg IV for neuromuscular blockade. 1% lidocaine for local infiltration anesthesia Procedure: After ensuring adequate sedation/analgesia neuromuscular blockade, patient was positioned appropriately. After sterile prepping and draping, 1% lidocaine was used for local infiltration anesthesia. Dr. Streeter proceeded with bronchoscopy and withdrawing ET tube. Tracheal position was visualized by transillumination. Introducer Angiocath was inserted into the trachea under bronchoscopic guidance and Angiocath was advanced into the trachea following which needle was removed. A guidewire was passed via Angiocath and was visualized passing down the trachea following which Angiocath was then removed. Punch dilator was used to dilate the tracheal ring; following which tracheostomy dilator assembly was mounted over the guidewire and advanced to dilate the tracheal opening. The dilator was visualized via bronchoscopic guidance entering the trachea without injuring the posterior tracheal wall. Following this dilator assembly was removed and percutaneous tracheostomy mounted over dilator was advanced over the guidewire into the trachea under direct visualization following which guidewire/dilator were removed. Bronchoscope was inserted at this point by Dr. Streeter via newly inserted tracheostomy and appropriate placement was confirmed by visualizing tracheal rings. Bronchoscope was withdrawn and inner cannula was placed via tracheostomy. After inflating cuff patient was connected to mechanical ventilation via tracheostomy. 4 interrupted sutures were used to secure tracheostomy to neck. Patient tolerated the procedure well with no immediate complications noted. Good hemostasis was achieved at the end of procedure. Postprocedure chest x-ray was ordered and was pending at the time. Yassine Perkins MD Oct 05, 2017 16:27
[2017-10-05] MEDS ORDERED: ROCURONIUM INJ 50 MG/5 ML VIAL IV PUSH PRN (16:30)
[2017-10-05] MEDS ORDERED: ROCURONIUM INJ 50 MG/5 ML VIAL IV PUSH ONE (16:30)
[2017-10-05] MEDS ORDERED: MIDAZOLAM HCL 5 MG/ML VIAL (1 ML) IV PUSH ONE (16:30)
[2017-10-05] MEDS ORDERED: NOREPINEPHRINE INJ 4 MG in SODIUM CHLOR 0.9% 250 ML INJ 246 ML IV PRN (17:15)
[2017-10-05] MEDS ORDERED: TERBUTALINE INJ 1 MG/ML AMP SQ PRN (17:15)
--- NOTE | 2017-10-05 17:49 | RADRPT ---
EXAM DATE/TIME: 10/05/2017 17:09 [place] COMPARISON: CHEST SINGLE AP, October 04, 2017, 10:55. INDICATIONS : Post trach placement. MEDICAL HISTORY : Cardiovascular disease. Hypertension. SURGICAL HISTORY : CABG. ENCOUNTER: Initial ACUITY: 1 day PAIN SCORE: Non-responsive. LOCATION: Bilateral chest FINDINGS: Interval placement of tracheostomy in good position. There is persistent consolidation in the left l ower lobe with loss of delineation of the left hemidiaphragm. The right lung is clear. The heart is normal in size. Prior median sternotomy with sternal wire sutures. CONCLUSION: 1. Tracheostomy in good position. 2. Left lower lobe consolidation, stable. Zia Chauhan MD on October 05, 2017 at 17:47 Board Certified Radiologist. This report was verified electronically.
--- NOTE | 2017-10-05 18:04 | HHI.PR ---
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 I recommend not starting anticoagulation now because of persistent hemorrhage in left basal ganglia. Repeat MRI brain next week and if hemorrhage resolved start anticoagulation . Diagnosis/Plan: Subjective Subjective Comments No acute events reported Active Medications Current Medications Medications (Trade) Dose Ordered Sig/Casey Route Start Time Stop Time Status Last Admin (Mag-Al Plus Susp Liq) 30 ml Q6H PRN PO 09/19/17 12:45 (Pill Splitter) 1 ea UNSCH PRN OTHER 09/19/17 19:15 (NS Flush) 2 ml BID IV FLUSH 09/22/17 21:00 10/05/17 08:06 (NS Flush) 2 ml UNSCH PRN IV FLUSH 09/22/17 20:45 (Aspirin Chew) 81 mg DAILY PO 09/23/17 09:00 Future hold 10/04/17 07:44 (Plavix) 75 mg DAILY PO 09/23/17 09:00 Future hold 10/04/17 07:46 (Tylenol) 650 mg Q4H PRN PO 09/22/17 20:45 (Zofran Inj) 4 mg Q6H PRN IV PUSH 09/22/17 20:45 (Apresoline Inj) 10 mg Q4H PRN IV PUSH 09/22/17 20:45 10/03/17 07:40 (Colace) 100 mg BID PO 09/23/17 12:00 10/05/17 08:04 (Theragran M Tab) 1 tab DAILY PO 09/24/17 09:00 10/05/17 08:04 (Milk Of Magnesia Liq) 30 ml DAILY PO 09/24/17 09:00 10/03/17 08:31 (Dulcolax Supp) 10 mg UNSCH PRN RECTAL 09/23/17 11:15 (Miralax) 17 gm DAILY PO 09/24/17 09:00 10/05/17 08:04 (Senokot) 8.6 mg HS PO 09/23/17 21:00 10/02/17 21:04 (Fleets Enema (Adult)) 118 ml UNSCH PRN RECTAL 09/23/17 11:15 (Folate) 1 mg DAILY PO 09/23/17 12:00 10/05/17 08:04 (Vitamin B1) 100 mg DAILY PO 09/23/17 12:00 10/05/17 08:05 (Lipitor) 40 mg HS PO 09/24/17 21:00 Future Hold 10/04/17 20:51 (Brethine Inj) 1 mg UNSCH PRN SQ 09/25/17 09:30 (Peridex 0.12% Liq) 15 ml BID@08,20 MT 09/26/17 20:00 10/05/17 08:07 (Lopressor Inj) 5 mg Q6H PRN IV PUSH 09/26/17 11:00 10/04/17 17:23 (Lactulose Liq) 30 ml DAILY PO 09/27/17 09:00 10/03/17 08:31 Phenylephrine HCl 40 mg/Sodium Chloride 500 ml @ 30 mls/hr TITRATE PRN IV 09/27/17 12:00 09/30/17 22:17 Potassium Chloride 100 ml @ 50 mls/hr Q2H PRN IV 09/29/17 00:00 09/29/17 08:46 Potassium Chloride 100 ml @ 50 mls/hr Q2H PRN IV 09/29/17 00:00 10/02/17 21:22 (K-Lyte Cl Eff) 50 meq UNSCH PRN PO 09/29/17 00:00 Potassium Chloride 100 ml @ 25 mls/hr UNSCH PRN IV 09/29/17 00:00 Potassium Chloride 100 ml @ 50 mls/hr Q2H PRN IV 09/29/17 00:00 10/03/17 08:34 Magnesium Sulfate 4 gm/Sodium Chloride 100 ml @ 50 mls/hr UNSCH PRN IV 09/29/17 00:00 (Mag-Ox) 800 mg UNSCH PRN PO 09/29/17 00:00 Magnesium Sulfate 2 gm/Sodium Chloride 100 ml @ 50 mls/hr UNSCH PRN IV 09/29/17 00:00 (K-Phos) 2,000 mg Q4H PRN PO 09/29/17 00:00 Sodium Phosphate 30 mmol/Sodium Chloride 250 ml @ 42 mls/hr UNSCH PRN IV 09/29/17 00:00 (K-Phos) 2,000 mg UNSCH PRN PO/TUBE 09/29/17 00:00 Potassium Phosphate 30 mmol/ Sodium Chloride 260 ml @ 42 mls/hr UNSCH PRN IV 09/29/17 00:00 (Protonix Inj) 40 mg DAILY@0600 IV 09/29/17 06:00 10/05/17 06:00 (Duoneb Neb) 1 ampule Q2HR NEB PRN NEB 10/02/17 08:15 (Lopressor) 25 mg Q12HR PO 10/03/17 11:00 10/05/17 08:04 (D50w (Vial) Inj) 50 ml UNSCH PRN IV PUSH 10/04/17 09:15 (Glucagon Inj) 1 mg UNSCH PRN OTHER 10/04/17 09:15 (NovoLOG SUPPLEMENTAL SCALE) 1 ACHS SLIDING SCALE SQ 10/04/17 12:00 10/05/17 17:38 (Proamatine) 5 mg Q8H PO 10/04/17 14:00 10/05/17 16:58 Vancomycin HCl 500 mg/Sodium Chloride 100 ml @ 200 mls/hr FINANCIAL ANALYST ACCOUNTANT IV 10/05/17 11:45 10/08/17 11:44 Propofol 100 ml @ 1.635 mls/ hr TITRATE PRN IV 10/05/17 14:15 10/05/17 14:34 (Duoneb Neb) 1 ampule Q6HR NEB NEB 10/05/17 16:00 (Zemuron Inj) 50 mg ONCE PRN IV PUSH 10/05/17 16:30 10/05/17 18:00 Norepinephrine Bitartrate 4 mg/ Sodium Chloride 250 ml @ 7.5 mls/hr TITRATE PRN IV 10/05/17 17:15 UNV (Brethine Inj) 1 mg UNSCH PRN SQ 10/05/17 17:15 UNV Allergies Allergies Coded Allergies hydrocodone (Unverified Allergy, Severe, nausea and vomiting, 09/19/17) penicillin G (Unverified Allergy, Mild, 09/19/17) Exam I&O / VS 10/05/17 10/05/17 10/06/17 15:00 23:00 07:00 Intake Total 250 ml 100 ml Balance 250 ml 100 ml IV Total 250 ml Other 100 ml Vital Signs Date Time Temp Pulse Resp B/P (MAP) Pulse Ox O2 Delivery O2 Flow Rate FiO2 10/05/17 16:17 99 80 10/05/17 16:06 99 100 10/05/17 11:00 99 Mechanical Ventilator 40 10/05/17 11:00 98 10/05/17 11:00 40 10/05/17 11:00 98.9 98 20 121/80 (94) 99 10/05/17 10:30 99 40 10/05/17 08:40 98 40 10/05/17 07:00 99.1 107 17 91/64 (73) 98 10/05/17 07:00 98 Mechanical Ventilator 40 10/05/17 07:00 107 10/05/17 07:00 40 10/05/17 04:01 95 40 10/05/17 03:00 40 10/05/17 03:00 103 10/05/17 03:00 98 Mechanical Ventilator 40 10/05/17 03:00 98.9 103 17 103/72 (82) 98 10/05/17 00:20 95 40 10/04/17 23:00 96 Mechanical Ventilator 40 10/04/17 23:00 40 10/04/17 23:00 93 10/04/17 23:00 98.4 98 16 98/67 (77) 96 10/04/17 20:30 98 40 10/04/17 19:00 109 10/04/17 19:00 96 Mechanical Ventilator 40 10/04/17 19:00 98.2 102 16 109/77 (88) 98 10/04/17 19:00 40 Exam Comments lethargic due to recent anesthesia CN intact MOTOR --generalized weakness. Objective Radiology Results MRI brain 10/04---left BG cva still with sign of hemorrhage. New small area of infarct left parietal. left cerebellar cva Micro and Labs Laboratory Tests Test 10/05/17 07:45 Blood Urea Nitrogen 26 Creatinine 0.54 Random Glucose 209 Total Protein 5.6 Albumin 2.0 Calcium Level 7.8 Alkaline Phosphatase 76 Aspartate Amino Transf (AST/SGOT) 102 Alanine Aminotransferase (ALT/SGPT) 104 Total Bilirubin 0.5 Sodium Level 146 Potassium Level 3.7 Chloride Level 108 Carbon Dioxide Level 32.1 Anion Gap 6 Estimat Glomerular Filtration Rate 148 Date/Time Source Procedure Growth Status 09/26/17 17:00 Blood Peripheral Aerobic Blood Culture - Final NO GROWTH IN 5 DAYS Complete 09/26/17 17:00 Blood Peripheral Anaerobic Blood Culture - Final NO GROWTH IN 5 DAYS Complete 10/01/17 07:58 Sputum Endotracheal Gram Stain - Final Complete 10/01/17 07:58 Sputum Endotracheal Sputum Culture - Final LIGHT GROWTH NORMAL RESPIRATORY RADHA Complete Andrea Mcgovern MD PhD Oct 05, 2017 18:04
--- NOTE | 2017-10-05 18:14 | PD.PROCEDR ---
Procedure Note Procedure DX: Hypoxemic respiratory failure OP: 1. Therapeutic flexible bronchoscopy Procedure: Time-out performed proper patient identification. Usual ICU monitoring devices in place including mechanical ventilation and oral tracheal intubation. Flexible bronchoscope delivered through a sealed side-port and the vent circuit. The tracheobronchial tree was inspected. The mucosa was normal. There was no sputum. The branching pattern of the bronchial segments was normal. At this juncture the flexible scope and tracheal tube were withdrawn to the level of the cricoid cartilage. Suitable anesthetic was delivered intravenously and documented under separate note. The suprasternal notch was painted with Chloraseptic and draped sterilely. The suprasternal notch was infiltrated with 1% Xylocaine with epinephrine. This was continued down to the level of the trachea. 18-gauge needle was delivered underneath the second tracheal ring and a floppy wire was delivered under bronchoscopic visualization down into the tracheobronchial tree. Serial dilators were passed and the #8 Shiley tracheostomy tube was passed over a wire into the tracheobronchial tree without difficulty. Balloon was inflated and the bronchoscope was delivered into the new tracheostomy tube to confirm presence in the mid trachea and suitably above the toribio. Inner cannula was placed in the new tracheostomy tube and the ventilator circuit was reconnected. Good chest wall motion was immediately noticed, capnography confirmed return of suitable carbon dioxide and ventilator demonstrated suitable tidal volume return. There is no evidence of subcutaneous emphysema. Peak airway pressures were less than 30 cm water. The flange of the tracheostomy tube was sutured to the skin using interrupted 2- 0 Prolene sutures. Tracheostomy ties were placed around the neck for further support. Chest x-ray confirmed position of the tracheostomy tube. Oxygen saturation was maintained greater than 95% throughout the procedure. Oral Streeter MD Oct 05, 2017 18:14
[2017-10-05] MEDS: SENNOSIDES 8.6 MG TAB PO SCH (21:00)
[2017-10-06] VITALS (16 sets, daily range): BP systolic 93–102; BP diastolic 60–68; PULSE 89–106; RESP 18–25; TEMP 98.6–100; O2SAT 97–99
[2017-10-06 04:12] LABS: AUTOMATED NEUTROPHIL # 8.5 TH/MM3 (1.8-7.7); BASOPHIL % 0.4 % (0.0-2.0); EOSINOPHIL # 0.1 TH/MM3 (0-0.4); EOSINOPHIL % 1.1 % (0.0-4.0); HEMATOCRIT 28.8 % (39.0-51.0); HEMOGLOBIN 9.5 GM/DL (13.0-17.0); LYMPH % 8.8 % (9.0-44.0); LYMPHOCYTE # 0.9 TH/MM3 (1.0-4.8); MEAN CELL VOLUME 96.3 FL (80.0-100.0); MEAN CORPUSCULAR HEMOGLOBIN 31.8 PG (27.0-34.0); MONO % 8.8 % (0.0-8.0); MONOCYTE # 0.9 TH/MM3 (0-0.9); NEUT % 80.9 % (16.0-70.0); PLATELET COUNT 296 TH/MM3 (150-450); RED BLOOD COUNT 2.99 MIL/MM3 (4.50-5.90); RED CELL DISTRIBUTION WIDTH 13.9 % (11.6-17.2); WHITE BLOOD COUNT 10.5 TH/MM3 (4.0-11.0)
[2017-10-06] MEDS: RESP: ALBUTEROL 2.5 MG/IPRATROPIUM 0.5 MG NEB (SCH) NEB ×4 (04:13→22:04)
[2017-10-06 04:33] LABS: ALBUMIN 2.2 GM/DL (3.4-5.0); AST (GOT) 68 U/L (15-37); BICARBONATE 29.8 MEQ/L (21.0-32.0); BLOOD UREA NITROGEN 27 MG/DL (7-18); CALCIUM 8.1 MG/DL (8.5-10.1); CHLORIDE 107 MEQ/L (98-107); CREATININE 0.53 MG/DL (0.60-1.30); GLOMERULAR FILTRATION RATE 151 ML/MIN (>89); GLUCOSE,RANDOM 124 MG/DL (74-106); MAGNESIUM 2.4 MG/DL (1.5-2.5); SODIUM (NA) 144 MEQ/L (136-145)
[2017-10-06 04:34] LABS: ALT (GPT) 100 U/L (12-78)
[2017-10-06 04:36] LABS: ALKALINE PHOSPHATASE 76 U/L (45-117); TOTAL BILIRUBIN ADULT 0.7 MG/DL (0.2-1.0); TOTAL PROTEIN 5.7 GM/DL (6.4-8.2)
[2017-10-06] MEDS: MIDODRINE 5 MG TAB PO SCH ×3 (06:34→21:43)
[2017-10-06] MEDS: PANTOPRAZOLE SODIUM 40 MG VIAL IV SCH (06:34)
[2017-10-06] MEDS: SODIUM CHLOR 0.9% 1000 ML INJ 1,000 ML IV SCH ×2 (07:05→19:38)
--- NOTE | 2017-10-06 07:51 | HHI.CCPN ---
Subjective Remarks/Hospital Course This is a 77-year-old male with a history of paroxysmal A. fib, hypertension, and presented with ischemic A. fib RVR with a proximal LAD lesion. He is now postop day 3 status post off-pump CABG with a BRODERICK to the LAD. He was on the floor clinically improving when he had sudden onset altered mental status and obtundation. He was last seen normal at 5 AM. Stroke alert was called at 7:[address] suggested the possibility of a left posterior fossa ischemic territory without evidence of hemorrhage. He was emergently transferred to the CVICU. I immediately evaluated him in the CVICU where he had acute left-sided facial droop, left-sided gaze deviation, flaccid right upper and lower extremities, and both receptive and expressive aphasia. I me immediately ordered an emergent CTA head and neck which demonstrated large filling defect in the primary left MCA near the M1 branch. I discussed the case with Dr. Gary artifacts conservator with interventional radiology who took the patient emergently for intervention. I placed emergent right radial arterial line, see separate procedure note for details. We will suppress the patient above 180 for systolic blood pressure and found that he intermittently with spontaneous movement his right upper extremity with blood pressures above 180. No additional information is available from the patient due to his severe obtundation. ROS unavailable. SUBJ 09/26: Worsening respiratory status, tachypneic. Bilateral coarse rhonchi and crackles. Chest x-ray shows extensive right-sided consolidation. Questionable airway protection probable aspiration. Patient and daughter at the bedside updated. Due to progressive respiratory failure and inability to protect airway will proceed with endotracheal intubation. Both are agreeable for trach if needed 09/27: Intubated yesterday for worsening respiratory status and aspiration. Currently intubated sedated but wakes up follows commands 4. Cough appears to be improved, secretions are decreasing. Chest x-ray shows some improvement in right-sided infiltrates. Remains on Richard-Synephrine 90 mcg/min to maintain cerebral perfusion. Will reduce systolic blood pressure target to 140-[address] Mcgovern. Also start IV Lasix 40 mg now and 20 every 12 due to fluid overload. 09/28: Clinically showing some respiratory improvement even though chest x-ray shows consolidation involving most of right lung and left lower lobe. Will get CT to further evaluate the chest also repeat CT of the brain. Not cleared for subcu Lovenox by Dr. Mcgovern. Remains on Richard-Synephrine to maintain cerebral perfusion 09/29: remains intubated. following commands this morning. secretions are still a problem. ultrasound at bedside and less than 2cm pocket of pleural effusion by right costophrenic angle and liver is anatomically in the way of reaching fluid. unable to thoracentese, and if that is the largest pocket of fluid, unlikely to be inhibiting pulmonary mechanics enough to prevent extubation. mental status and dysphagia/dysarthria poor cough/gag/swallow likely biggest barrier to successful extubation. 09/30: clinically worse than yesterday: only tolerated cpap for an hour and only about 10 minutes on minimal settings. adequate net negative balance. this appears to be a fatigue problem due to deconditioning. long discussion with his daughter today about need for aggressive PT, and my concerns that he may need trach/PEG and LTAC level care. 10/01: wbc uptrending but remains afebrile. tolerating cpap 10/5/40% better than yesterday. sent sputum and urine cultures and will d/c cvl. 10/02: Remains intubated off all sedation. Tolerating CPAP 10/5. Chest x-ray no acute changes. Still has moderate ET tube secretions. Urine output 3.3 L in 24 hours. Labs are pending today. 10/03: Contraction alkalosis after aggressive diuresis. T max 100.4, afebrile now. No new positive cultures. Tachypneic on CPAP. 10/04: more awake today. Just placed on CPAP. Afebrile. Daughter at the bedside updated 10/05: Awake alert, following commands on left, weakly on right. MRI- evolving know cerebellar and BG infarct, hemorrhagic conversion on L. New parietal lobe infarct 10/06: Status post tracheostomy and PEG tube placement yesterday. Will resume aspirin and Plavix. Due to left basal ganglia hemorrhagic conversion, not cleared for anticoagulation by Dr. Mcgovern. Start TP today Objective Vital Signs Date Time Temp Pulse Resp B/P (MAP) Pulse Ox O2 Delivery O2 Flow Rate FiO2 10/06/17 07:23 98 Mechanical Ventilator 40 Trach Collar 10/06/17 07:21 99 10/06/17 07:20 99.7 18 93/64 (74) Intake and Output 10/06/17 10/06/17 10/07/17 08:00 16:00 00:00 Intake Total 100 ml Output Total 240 ml Balance -140 ml Result Diagram: 10/06/17 0325 10/06/17 0325 Imaging Last Impressions Chest X-Ray 09/23/17 0500 Signed Impressions: Service Date/Time: Saturday, September 23, 2017 04:48 - CONCLUSION: 1. Interval extubation and removal of nasogastric tube. 2. Hazy opacity remains in both lungs with interval increase in opacity at the right lung base. 3. The costophrenic angles are mildly blunted. Ángel Frazier MD Lower Extremity Ultrasound 09/21/17 0000 Signed Impressions: Service Date/Time: Thursday, September 21, 2017 17:12 - CONCLUSION: Normal examination. Farhad Chao MD Chest CT 09/21/17 0000 Signed Impressions: Service Date/Time: Thursday, September 21, 2017 13:23 - CONCLUSION: 1. Upper lobe predominant centrilobular emphysema with 1.2 cm spiculated nodule in the right upper lobe inferiorly and adjacent satellite nodule measuring up to 7 mm. The findings are highly concerning for primary lung malignancy. Recommend PET/CT examination or sampling per 2017 Fleischner criteria. 2. Mediastinal adenopathy measuring up to 11 mm. Although nonspecific, cannot exclude metastatic adenopathy. PET/CT examination would be extremely beneficial in further assessment of the mediastinal adenopathy. 3. Small bilateral pleural effusions more prominent on the right with associated compressive atelectasis in the lower lobes and upper lobe interstitial edema, particularly on the right 4. Ascending thoracic aortic aneurysm measuring up to 4.1 cm. 5. Moderate coronary artery calcifications. Baldo Mcclain MD Carotid Artery Ultrasound 09/21/17 0000 Signed Impressions: Service Date/Time: Thursday, September 21, 2017 17:39 - CONCLUSION: 1. Mild visible plaque formation in the carotid arteries. No hemodynamically significant stenosis. Vertebral artery flow antegrade. Farhad Chao MD Objective Remarks GENERAL: Elderly male, lying in bed, off all sedation HEENT: Normocephalic. Atraumatic. Pupils are 3 mm, equal, reactive NECK: Trachea is midline. New trach with no significant bleeding CHEST: Midline sternotomy incision with wound VAC in place. equal chest rise. fio2 40%. moderate amount of phipps secretions. CARDIOVASCULAR: normal rate, afib. no JVD. ABDOMEN: Soft, nontender, nondistended. No guarding. BS active. MUSCULOSKELETAL: Pulses 2+. No peripheral edema. Warm, well perfused. NEUROLOGICAL: Able to follow commands. Right facial droop. LUPE 5/5 in left upper/lower extremities. LUPE 2/5 in right distal upper extremity, 2/5 right proximal. 2/5 right distal lower extremity, 2/5 right proximal lower extremity. A/P Assessment and Plan Assessment: This is a 77-year-old male with coronary artery disease now status post CABG complicated by large left MCA CVA. Taken emergently for interventional radiology and thrombectomy, however when he went down to angiography, there was no more evidence of clot on four-vessel angioplasty at there is adequate perfusion distal to the left MCA, M1 branch. Clinically making improvements, but very high risk for decompensation and particularly may not be able to successfully separate from mechanical ventilation due to inability to handle secretions. Daily SBT. aggressive PT. s/p tracheostomy and PEG tube 10/05/17, Family well aware of risks of tracheostomy with sternal incision. Remains very critically ill with persistent respiratory failure and evolving CVA. Active problems: Acute large left MCA stroke (left cerebellar and basal ganglia cva) Acute encephalopathy Acute hypoxemic respiratory failure Aspiration pneumonia Status post CABG Coronary artery disease Spiculated right upper lobe mass concerning for primary lung cancer Emphysema Alcohol dependence Acute dysphagia Acute dysarthria Plan: NEURO: -CT of the chest on 09/21 concerning for primary lung malignancy right upper lobe -IR attempted thrombectomy 09/25 with apparent resolution of the clot -Per Dr. Mcgovern neurology, avoid full anticoagulation/or prophylactic heparin now due to cerebellar infarct possibility of secondary hemorrhage -Dr. Mcgovern has not cleared for prophylactic Lovenox. -MRI of the brain showing left basal ganglia and left cerebellar stroke, focal hemorrhage in the left basal ganglia, follow up -MRI 10/04 evolving infarcts with persistent basal ganglia hemorrhage, new parietal lobe infarct RESP: -Intubated 09/26 for aspiration and extensive right lung consolidation -Status post trach and PEG 10/05/17 -Continue aspirin Plavix. -Continue DuoNeb breathing treatments, inhaled budesonide -TP up to 2-4 hours today CVS: -Blood pressure goals to 110 - 170. recent stroke but post CABG. Use phenylephrine + midodrine po for vasopressor as needed -Ancef 1gm iv q8h x 4 days (total 7 day course for aspiration pneumonia). pansensitive ecoli -IV Lasix 20 daily, hold due to oliguria and prerenal azotemia. -Normal saline IV fluids 75 mL/h for 24 hours until tube feeds are up to goal Already has recent 2D echo, Already has recent carotid Dopplers Already has recent lipid panel: -Holding Lipitor due to transaminitis GI; -Status post PEG tube placement 10/05/17 -Resume Tube feeds with Jevity -Holding Lipitor due to transaminitis : -Continue Clemente, IV hydration as above ID: -sputum culture-PS E Coli -Continue Ancef. Perioperative antibiotics per GI ENDO: -Electrolyte replacement per protocol OOB to chair. PT/OT/ST. Famotidine, SCDs Chemical DVT prophylaxis not cleared by Dr. Mcgovern due to left basal ganglia hemorrhage Level 2 Yassine Perkins MD Oct 06, 2017 07:51
[2017-10-06] MEDS: CHLORHEXIDINE 0.12% (ORAL KIT) 15 ML CUP MT SCH ×2 (08:00→19:39)
[2017-10-06] MEDS: INSULIN ASPART SUPPLEMENTAL SCALE SQ SCH ×4 (08:00→21:45)
[2017-10-06] MEDS: ASPIRIN 81 MG CHEW TAB PO SCH (08:31)
[2017-10-06] MEDS: MULTIVITAMINS/MINERALS THERAPEUTIC TAB PO SCH (08:31)
[2017-10-06] MEDS: SODIUM CHLORIDE 0.9% FLUSH 10 ML FLUSH IV FLUSH SCH ×2 (08:31→21:46)
[2017-10-06] MEDS: METOPROLOL TARTRATE 25 MG TAB PO SCH ×2 (08:31→21:00)
[2017-10-06] MEDS: CLOPIDOGREL 75 MG TAB PO SCH (08:32)
[2017-10-06] MEDS: DOCUSATE SODIUM 100 MG CAP PO SCH ×2 (08:32→21:00)
[2017-10-06] MEDS: MAGNESIUM HYDROXIDE SUSP 30 ML CUP PO SCH (08:32)
[2017-10-06] MEDS: POLYETHYLENE GLYCOL 17 GM PKG PO SCH (08:32)
[2017-10-06] MEDS: FOLIC ACID 1 MG TAB PO SCH (08:32)
[2017-10-06] MEDS: LACTULOSE SYRUP 20 GM/30 ML CUP PO SCH (08:32)
[2017-10-06] MEDS: THIAMINE HCL 100 MG TAB PO SCH (08:35)
--- NOTE | 2017-10-06 14:18 | HHI.GIFU ---
Subjective Remarks Pt awake, nonverbal Mechanically ventilated via trach PEG tube with Jevity 1.5 running at 40 mL/hr (Kelly Jiménez) Objective Vitals I&O Vital Signs Date Time Temp Pulse Resp B/P (MAP) Pulse Ox O2 Delivery O2 Flow Rate FiO2 10/06/17 11:03 97 Mechanical Ventilator 40 Trach Collar 10/06/17 11:02 40 10/06/17 11:02 94 10/06/17 11:01 98.6 94 25 94/60 (71) 97 10/06/17 09:30 98 T-piece 6.00 40 10/06/17 08:47 99 40 10/06/17 07:23 98 Mechanical Ventilator 40 Trach Collar 10/06/17 07:21 40 10/06/17 07:21 99 10/06/17 07:20 99.7 96 18 93/64 (74) 99 10/06/17 04:12 97 40 10/06/17 03:00 98 Mechanical Ventilator 40 Trach Collar 10/06/17 03:00 106 10/06/17 03:00 40 10/06/17 03:00 98.9 106 20 101/68 (79) 98 10/06/17 01:50 98 40 10/05/17 23:00 107 10/05/17 23:00 98 Mechanical Ventilator 40 Trach Collar 10/05/17 23:00 40 10/05/17 23:00 99.4 106 17 96/65 (75) 98 10/05/17 22:35 99 40 10/05/17 20:47 99 40 10/05/17 19:00 97.6 75 17 100/60 (73) 98 10/05/17 19:00 90 10/05/17 19:00 40 10/05/17 19:00 99 Mechanical Ventilator 40 10/05/17 16:17 99 80 10/05/17 16:06 99 100 10/05/17 15:06 80/48 10/05/17 15:00 99 Mechanical Ventilator 100 10/05/17 15:00 97.8 106 18 87/64 (72) 99 10/05/17 15:00 100 10/05/17 15:00 106 I/O 10/05/17 10/05/17 10/05/17 10/06/17 10/06/17 10/06/17 07:00 15:00 23:00 07:00 15:00 23:00 Intake Total 300 ml 500 ml 263.0 ml 100 ml Output Total 310 ml 250 ml 240 ml Balance -10 ml 500 ml 13.0 ml -140 ml Intake Oral 0 ml IV Total 500 ml 63.0 ml Tube Feeding 300 ml Tube Irrigant 100 ml 100 ml Other 100 ml Output Urine Total 310 ml 250 ml 240 ml # Bowel Movements 0 0 Laboratory Laboratory Tests Test 10/06/17 03:25 White Blood Count 10.5 Red Blood Count 2.99 Hemoglobin 9.5 Hematocrit 28.8 Mean Corpuscular Volume 96.3 Mean Corpuscular Hemoglobin 31.8 Mean Corpuscular Hemoglobin Concent 33.0 Red Cell Distribution Width 13.9 Platelet Count 296 Mean Platelet Volume 9.0 Neutrophils (%) (Auto) 80.9 Lymphocytes (%) (Auto) 8.8 Monocytes (%) (Auto) 8.8 Eosinophils (%) (Auto) 1.1 Basophils (%) (Auto) 0.4 Neutrophils # (Auto) 8.5 Lymphocytes # (Auto) 0.9 Monocytes # (Auto) 0.9 Eosinophils # (Auto) 0.1 Basophils # (Auto) 0.0 CBC Comment DIFF FINAL Differential Comment Blood Urea Nitrogen 27 Creatinine 0.53 Random Glucose 124 Total Protein 5.7 Albumin 2.2 Calcium Level 8.1 Magnesium Level 2.4 Alkaline Phosphatase 76 Aspartate Amino Transf (AST/SGOT) 68 Alanine Aminotransferase (ALT/SGPT) 100 Total Bilirubin 0.7 Sodium Level 144 Potassium Level 3.8 Chloride Level 107 Carbon Dioxide Level 29.8 Anion Gap 7 Estimat Glomerular Filtration Rate 151 Date/Time Source Procedure Growth Status 09/26/17 17:00 Blood Peripheral Aerobic Blood Culture - Final NO GROWTH IN 5 DAYS Complete 09/26/17 17:00 Blood Peripheral Anaerobic Blood Culture - Final NO GROWTH IN 5 DAYS Complete 10/01/17 07:58 Sputum Endotracheal Gram Stain - Final Complete 10/01/17 07:58 Sputum Endotracheal Sputum Culture - Final LIGHT GROWTH NORMAL RESPIRATORY RADHA Complete Imaging Last Impressions Chest X-Ray 10/05/17 0000 Signed Impressions: Service Date/Time: Thursday, October 05, 2017 17:09 - CONCLUSION: 1. Tracheostomy in good position. 2. Left lower lobe consolidation, stable. Zia Chauhan MD Brain MRI 10/04/17 1000 Signed Impressions: Service Date/Time: Wednesday, October 04, 2017 09:37 - CONCLUSION: 1. Evolving subacute infarct and associated parenchymal bleed of the left basal ganglia. No midline shift. 2. A new 15 mm infarct in the left parietal lobe periventricular white matter. 3. 1 cm subacute infarct of the left side of the cerebellum evolving. 4. Old right frontal lobe infarct. Gregorio Ward MD Chest Ultrasound 09/29/17 0000 Signed Impressions: Service Date/Time: September 09:50 - CONCLUSION: Minimal right pleural fluid, volume insufficient for safe thoracentesis at present Gregorio Jacinto MD Chest CT 09/28/17 0000 Signed Impressions: Service Date/Time: Thursday, September 28, 2017 16:19 - CONCLUSION: 1. Moderate right-sided pleural effusion. 2. Small left-sided pleural effusion. 3. Compressive atelectasis and some infiltrates in both lung bases. 4. Central lobar emphysema bilaterally with chronic interstitial changes. 5. Stable 1.2 cm spiculated nodular density in the right midlung. 6. Left-sided chest tube in place with small left apical pneumothorax with 6 mm of separation. Americo Vera MD Neck CTA 09/25/17 0000 Signed Impressions: Service Date/Time: Monday, September 25, 2017 09:05 - CONCLUSION: No significant stenosis or occlusion of the carotid or vertebral arteries. Tiny biapical pneumothoraces. Patchiness within the lung apices consistent with possible pneumonia superimposed on emphysematous changes. Scotty Mckeon MD Head CTA 09/25/17 0000 Signed Impressions: Service Date/Time: Monday, September 25, 2017 09:05 - CONCLUSION: 1. Truncation of the left middle cerebral artery suggesting acute thrombus at the M1 segment extending for a 11 mm to the trifurcation. The findings were called immediately to Dr. Khan at 9: 2. 42 AM on 09/25/17. 3. Tiny biapical pneumothoraces. 4. Patchy opacities are noted within the upper lung waddell bilaterally. 5. Underlying emphysematous changes are noted. Scotty Mckeon MD Head CT 09/25/17 0000 Signed Impressions: Service Date/Time: Monday, September 25, 2017 08:10 - CONCLUSION: 1. Focal area decreased attenuation within the left cerebellar hemisphere consistent with possible acute infarct. Clinical correlation is recommended. 2. No acute hemorrhage, midline shift or extra-axial fluid collections. Scotty Mckeon MD Cerebral Angiography 09/25/17 0000 Signed Impressions: Service Date/Time: Monday, September 25, 2017 10:25 - CONCLUSION: 1. No embolism identified Emile Gary MD Lower Extremity Ultrasound 09/21/17 0000 Signed Impressions: Service Date/Time: Thursday, September 21, 2017 17:12 - CONCLUSION: Normal examination. Farhad Chao MD Carotid Artery Ultrasound 09/21/17 0000 Signed Impressions: Service Date/Time: Thursday, September 21, 2017 17:39 - CONCLUSION: 1. Mild visible plaque formation in the carotid arteries. No hemodynamically significant stenosis. Vertebral artery flow antegrade. Farhad Chao MD Physical Exam HEENT: Normocephalic CHEST: Respirations synchronized with vent, trach CARDIAC: Irregularly irregular ABDOMEN: Soft, nondistended, nontender; bowel sounds active. PEG tube with no active drainage, currently to TF Jevity 1.5 running at 40 mL/hr SKIN: Pale E TAILER: Awake, nonverbal (Kelly Jiménez) Assessment and Plan Plan ASSESSMENT - dysphagia - 77 yo male s/p CABG who developed CVA, need for manager intermediate ventilation, GI consulted for PEG tube placement getting trach today. family wishes to proceed with PEG. d/w RN (10/06) --> S/P trach and PEG yesterday --> Moderate gastritis was found. No abnormalities. Successful placement of PEG. Nutrition recommendations- Jevity 1.5 starting at 30 mL/hr increase by 10mL every 4 hours with a goal rate of 50 mL/hr. Currently running at 40 mL/ hr, started this morning. Site with scant amount of dried blood, no active drainage, gauze is clean and dry. PLAN - Flush PEG tube every 6 hours with water and after each PEG feeding - May use Ensure or Boost etc. for PEG tube feeding - Check TF residuals per protocol - TF recommendations per nutrition- Jevity 1.5 goal rate 50 mL/hr - GI will sign off, please reconsult as needed Pt has been seen and examined by myself and Dr. Garcia and this note is written on his behalf (Kelly Jiménez) Physician Comments Seen and examined with OPHTHALMIC TECHNICIAN, s/p peg. Tolerating TF, Increase rate to meet goals. Flush with water Q shift. GI will sign off. Thank you (Nicki Garcia MD) Kelly Jiménez Oct 06, 2017 14:18 Nicki Garcia MD Oct 06, 2017 17:06
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
--- NOTE | 2017-10-06 19:18 | HHI.PR ---
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 I recommend not starting anticoagulation now because of persistent hemorrhage in left basal ganglia. Repeat MRI brain next week and if hemorrhage resolved start anticoagulation . Diagnosis/Plan: Subjective Subjective Comments No acute events reported Active Medications Current Medications Medications (Trade) Dose Ordered Sig/Casey Route Start Time Stop Time Status Last Admin (Mag-Al Plus Susp Liq) 30 ml Q6H PRN PO 09/19/17 12:45 (Pill Splitter) 1 ea UNSCH PRN OTHER 09/19/17 19:15 (NS Flush) 2 ml BID IV FLUSH 09/22/17 21:00 10/06/17 08:31 (NS Flush) 2 ml UNSCH PRN IV FLUSH 09/22/17 20:45 (Aspirin Chew) 81 mg DAILY PO 09/23/17 09:00 Future hold 10/06/17 08:31 (Plavix) 75 mg DAILY PO 09/23/17 09:00 Future hold 10/06/17 08:32 (Tylenol) 650 mg Q4H PRN PO 09/22/17 20:45 (Zofran Inj) 4 mg Q6H PRN IV PUSH 09/22/17 20:45 (Apresoline Inj) 10 mg Q4H PRN IV PUSH 09/22/17 20:45 10/03/17 07:40 (Colace) 100 mg BID PO 09/23/17 12:00 10/06/17 08:32 (Theragran M Tab) 1 tab DAILY PO 09/24/17 09:00 10/06/17 08:31 (Milk Of Magnesia Liq) 30 ml DAILY PO 09/24/17 09:00 10/06/17 08:32 (Dulcolax Supp) 10 mg UNSCH PRN RECTAL 09/23/17 11:15 (Miralax) 17 gm DAILY PO 09/24/17 09:00 10/06/17 08:32 (Senokot) 8.6 mg HS PO 09/23/17 21:00 10/05/17 21:00 (Fleets Enema (Adult)) 118 ml UNSCH PRN RECTAL 09/23/17 11:15 (Folate) 1 mg DAILY PO 09/23/17 12:00 10/06/17 08:32 (Vitamin B1) 100 mg DAILY PO 09/23/17 12:00 10/06/17 08:35 (Lipitor) 40 mg HS PO 09/24/17 21:00 Future Hold 10/04/17 20:51 (Brethine Inj) 1 mg UNSCH PRN SQ 09/25/17 09:30 (Peridex 0.12% Liq) 15 ml BID@08,20 MT 09/26/17 20:00 10/05/17 08:07 (Lopressor Inj) 5 mg Q6H PRN IV PUSH 09/26/17 11:00 10/04/17 17:23 (Lactulose Liq) 30 ml DAILY PO 09/27/17 09:00 10/06/17 08:32 Phenylephrine HCl 40 mg/Sodium Chloride 500 ml @ 30 mls/hr TITRATE PRN IV 09/27/17 12:00 09/30/17 22:17 Potassium Chloride 100 ml @ 50 mls/hr Q2H PRN IV 09/29/17 00:00 09/29/17 08:46 Potassium Chloride 100 ml @ 50 mls/hr Q2H PRN IV 09/29/17 00:00 10/02/17 21:22 (K-Lyte Cl Eff) 50 meq UNSCH PRN PO 09/29/17 00:00 Potassium Chloride 100 ml @ 25 mls/hr UNSCH PRN IV 09/29/17 00:00 Potassium Chloride 100 ml @ 50 mls/hr Q2H PRN IV 09/29/17 00:00 10/03/17 08:34 Magnesium Sulfate 4 gm/Sodium Chloride 100 ml @ 50 mls/hr UNSCH PRN IV 09/29/17 00:00 (Mag-Ox) 800 mg UNSCH PRN PO 09/29/17 00:00 Magnesium Sulfate 2 gm/Sodium Chloride 100 ml @ 50 mls/hr UNSCH PRN IV 09/29/17 00:00 (K-Phos) 2,000 mg Q4H PRN PO 09/29/17 00:00 Sodium Phosphate 30 mmol/Sodium Chloride 250 ml @ 42 mls/hr UNSCH PRN IV 09/29/17 00:00 (K-Phos) 2,000 mg UNSCH PRN PO/TUBE 09/29/17 00:00 Potassium Phosphate 30 mmol/ Sodium Chloride 260 ml @ 42 mls/hr UNSCH PRN IV 09/29/17 00:00 (Protonix Inj) 40 mg DAILY@0600 IV 09/29/17 06:00 10/06/17 06:34 (Duoneb Neb) 1 ampule Q2HR NEB PRN NEB 10/02/17 08:15 (Lopressor) 25 mg Q12HR PO 10/03/17 11:00 10/06/17 08:31 (D50w (Vial) Inj) 50 ml UNSCH PRN IV PUSH 10/04/17 09:15 (Glucagon Inj) 1 mg UNSCH PRN OTHER 10/04/17 09:15 (NovoLOG SUPPLEMENTAL SCALE) 1 ACHS SLIDING SCALE SQ 10/04/17 12:00 10/06/17 17:12 (Proamatine) 5 mg Q8H PO 10/04/17 14:00 10/06/17 13:49 Vancomycin HCl 500 mg/Sodium Chloride 100 ml @ 200 mls/hr COTTRELL BLOWER IV 10/05/17 11:45 10/08/17 11:44 (Duoneb Neb) 1 ampule Q6HR NEB NEB 10/05/17 16:00 10/06/17 16:30 (Brethine Inj) 1 mg UNSCH PRN SQ 10/05/17 17:15 Sodium Chloride 1,000 ml @ 75 mls/hr [id number] IV 10/06/17 07:00 10/07/17 06:59 10/06/17 07:05 Allergies Allergies Coded Allergies hydrocodone (Unverified Allergy, Severe, nausea and vomiting, 09/19/17) penicillin G (Unverified Allergy, Mild, 09/19/17) Exam I&O / VS 10/06/17 10/06/17 10/07/17 15:00 23:00 07:00 Intake Total 317 ml Output Total 265 ml Balance 52 ml Tube Feeding 317 ml Output Urine Total 265 ml # Bowel Movements 0 Vital Signs Date Time Temp Pulse Resp B/P (MAP) Pulse Ox O2 Delivery O2 Flow Rate FiO2 10/06/17 17:30 97 40 10/06/17 16:30 98 40 10/06/17 16:30 97 T-piece 8.00 40 10/06/17 15:03 97 Blow By 40 Trach Collar 10/06/17 15:02 94 10/06/17 15:02 40 10/06/17 15:01 100.0 98 24 98/62 (74) 97 10/06/17 11:03 97 Mechanical Ventilator 40 Trach Collar 10/06/17 11:02 40 10/06/17 11:02 94 10/06/17 11:01 98.6 94 25 94/60 (71) 97 10/06/17 09:30 98 T-piece 6.00 40 10/06/17 08:47 99 40 10/06/17 07:23 98 Mechanical Ventilator 40 Trach Collar 10/06/17 07:21 40 10/06/17 07:21 99 10/06/17 07:20 99.7 96 18 93/64 (74) 99 10/06/17 04:12 97 40 10/06/17 03:00 98 Mechanical Ventilator 40 Trach Collar 10/06/17 03:00 106 10/06/17 03:00 40 10/06/17 03:00 98.9 106 20 101/68 (79) 98 10/06/17 01:50 98 40 10/05/17 23:00 107 10/05/17 23:00 98 Mechanical Ventilator 40 Trach Collar 10/05/17 23:00 40 10/05/17 23:00 99.4 106 17 96/65 (75) 98 10/05/17 22:35 99 40 10/05/17 20:47 99 40 Exam Comments more alert and follow commands CN intact MOTOR --right hemiparesis 2/5 RUE, 5./5 LUE Objective Micro and Labs Laboratory Tests Test 10/06/17 03:25 White Blood Count 10.5 Red Blood Count 2.99 Hemoglobin 9.5 Hematocrit 28.8 Mean Corpuscular Volume 96.3 Mean Corpuscular Hemoglobin 31.8 Mean Corpuscular Hemoglobin Concent 33.0 Red Cell Distribution Width 13.9 Platelet Count 296 Mean Platelet Volume 9.0 Neutrophils (%) (Auto) 80.9 Lymphocytes (%) (Auto) 8.8 Monocytes (%) (Auto) 8.8 Eosinophils (%) (Auto) 1.1 Basophils (%) (Auto) 0.4 Neutrophils # (Auto) 8.5 Lymphocytes # (Auto) 0.9 Monocytes # (Auto) 0.9 Eosinophils # (Auto) 0.1 Basophils # (Auto) 0.0 CBC Comment DIFF FINAL Differential Comment Blood Urea Nitrogen 27 Creatinine 0.53 Random Glucose 124 Total Protein 5.7 Albumin 2.2 Calcium Level 8.1 Magnesium Level 2.4 Alkaline Phosphatase 76 Aspartate Amino Transf (AST/SGOT) 68 Alanine Aminotransferase (ALT/SGPT) 100 Total Bilirubin 0.7 Sodium Level 144 Potassium Level 3.8 Chloride Level 107 Carbon Dioxide Level 29.8 Anion Gap 7 Estimat Glomerular Filtration Rate 151 Date/Time Source Procedure Growth Status 09/26/17 17:00 Blood Peripheral Aerobic Blood Culture - Final NO GROWTH IN 5 DAYS Complete 09/26/17 17:00 Blood Peripheral Anaerobic Blood Culture - Final NO GROWTH IN 5 DAYS Complete 10/01/17 07:58 Sputum Endotracheal Gram Stain - Final Complete 10/01/17 07:58 Sputum Endotracheal Sputum Culture - Final LIGHT GROWTH NORMAL RESPIRATORY RADHA Complete Andrea Mcgovern MD PhD Oct 06, 2017 19:18
[2017-10-06] MEDS: SENNOSIDES 8.6 MG TAB PO SCH (21:43)
[2017-10-07] VITALS (13 sets, daily range): BP systolic 87–111; BP diastolic 54–75; PULSE 100–109; RESP 16–21; TEMP 98.8–100.2; O2SAT 96–99
[2017-10-07] MEDS: RESP: ALBUTEROL 2.5 MG/IPRATROPIUM 0.5 MG NEB (SCH) NEB ×4 (04:32→20:30)
[2017-10-07] MEDS: PANTOPRAZOLE SODIUM 40 MG VIAL IV SCH (05:13)
[2017-10-07] MEDS: MIDODRINE 5 MG TAB PO SCH ×3 (05:13→22:15)
[2017-10-07 05:39] LABS: HEMOGLOBIN 9.2 GM/DL (13.0-17.0); MEAN CELL VOLUME 96.5 FL (80.0-100.0); MEAN CORPUSCULAR HEMOGLOBIN 31.6 PG (27.0-34.0); MEAN CORPUSCULAR HGB CONC 32.7 % (32.0-36.0); MEAN PLATELET VOLUME 8.8 FL (7.0-11.0); PLATELET COUNT 284 TH/MM3 (150-450); RED CELL DISTRIBUTION WIDTH 14.3 % (11.6-17.2); WHITE BLOOD COUNT 9.4 TH/MM3 (4.0-11.0)
[2017-10-07 06:13] LABS: ALKALINE PHOSPHATASE 96 U/L (45-117); ALT (GPT) 85 U/L (12-78); AST (GOT) 43 U/L (15-37); BICARBONATE 27.3 MEQ/L (21.0-32.0); BLOOD UREA NITROGEN 23 MG/DL (7-18); CALCIUM 7.9 MG/DL (8.5-10.1); CHLORIDE 110 MEQ/L (98-107); CREATININE 0.53 MG/DL (0.60-1.30); GLOMERULAR FILTRATION RATE 151 ML/MIN (>89); GLUCOSE,RANDOM 255 MG/DL (74-106); MAGNESIUM 2.3 MG/DL (1.5-2.5); PHOSPHORUS 3.1 MG/DL (2.5-4.9); SODIUM (NA) 145 MEQ/L (136-145); TOTAL BILIRUBIN ADULT 0.4 MG/DL (0.2-1.0); TOTAL PROTEIN 5.4 GM/DL (6.4-8.2)
--- NOTE | 2017-10-07 06:18 | RADRPT ---
EXAM DATE/TIME: 10/07/2017 05:21 [place] COMPARISON: CHEST SINGLE AP, October 05, 2017, 17:09. INDICATIONS : Respiratory disease. MEDICAL HISTORY : Cardiovascular disease. Hypertension. SURGICAL HISTORY : CABG. ENCOUNTER: Subsequent ACUITY: 1 week PAIN SCORE: Non-responsive. LOCATION: Bilateral chest FINDINGS: Single AP view of the chest. Median sternotomy wires are present. Tracheostomy tube remains in place. Persistent left lower lobe atelectasis versus consolidation. Minimal blunting left costophrenic sulc us. New mild hazy opacity at the lung bases. CONCLUSION: Persistent left lower lobe consolidation versus atelectasis and mild blunting of left costophrenic madera lcus suggesting small left pleural effusion. New mild bilateral lower lung zone hazy opacity may repr esent small pleural effusions or atelectasis. Khoa Kaiser MD on October 07, 2017 at 6:14 Board Certified Radiologist. This report was verified electronically.
[2017-10-07] MEDS: CHLORHEXIDINE 0.12% (ORAL KIT) 15 ML CUP MT SCH ×2 (08:00→19:48)
[2017-10-07] MEDS: INSULIN ASPART SUPPLEMENTAL SCALE SQ SCH ×4 (08:00→22:17)
--- NOTE | 2017-10-07 08:10 | HHI.CCPN ---
Subjective Remarks/Hospital Course This is a 77-year-old male with a history of paroxysmal A. fib, hypertension, and presented with ischemic A. fib RVR with a proximal LAD lesion. He is now postop day 3 status post off-pump CABG with a BRODERICK to the LAD. He was on the floor clinically improving when he had sudden onset altered mental status and obtundation. He was last seen normal at 5 AM. Stroke alert was called at 7:[address] suggested the possibility of a left posterior fossa ischemic territory without evidence of hemorrhage. He was emergently transferred to the CVICU. I immediately evaluated him in the CVICU where he had acute left-sided facial droop, left-sided gaze deviation, flaccid right upper and lower extremities, and both receptive and expressive aphasia. I me immediately ordered an emergent CTA head and neck which demonstrated large filling defect in the primary left MCA near the M1 branch. I discussed the case with Dr. Gary aviation boatswain's mate with interventional radiology who took the patient emergently for intervention. I placed emergent right radial arterial line, see separate procedure note for details. We will suppress the patient above 180 for systolic blood pressure and found that he intermittently with spontaneous movement his right upper extremity with blood pressures above 180. No additional information is available from the patient due to his severe obtundation. ROS unavailable. SUBJ 09/26: Worsening respiratory status, tachypneic. Bilateral coarse rhonchi and crackles. Chest x-ray shows extensive right-sided consolidation. Questionable airway protection probable aspiration. Patient and daughter at the bedside updated. Due to progressive respiratory failure and inability to protect airway will proceed with endotracheal intubation. Both are agreeable for trach if needed 09/27: Intubated yesterday for worsening respiratory status and aspiration. Currently intubated sedated but wakes up follows commands 4. Cough appears to be improved, secretions are decreasing. Chest x-ray shows some improvement in right-sided infiltrates. Remains on Richard-Synephrine 90 mcg/min to maintain cerebral perfusion. Will reduce systolic blood pressure target to 140-[address] Mcgovern. Also start IV Lasix 40 mg now and 20 every 12 due to fluid overload. 09/28: Clinically showing some respiratory improvement even though chest x-ray shows consolidation involving most of right lung and left lower lobe. Will get CT to further evaluate the chest also repeat CT of the brain. Not cleared for subcu Lovenox by Dr. Mcgovern. Remains on Richard-Synephrine to maintain cerebral perfusion 09/29: remains intubated. following commands this morning. secretions are still a problem. ultrasound at bedside and less than 2cm pocket of pleural effusion by right costophrenic angle and liver is anatomically in the way of reaching fluid. unable to thoracentese, and if that is the largest pocket of fluid, unlikely to be inhibiting pulmonary mechanics enough to prevent extubation. mental status and dysphagia/dysarthria poor cough/gag/swallow likely biggest barrier to successful extubation. 09/30: clinically worse than yesterday: only tolerated cpap for an hour and only about 10 minutes on minimal settings. adequate net negative balance. this appears to be a fatigue problem due to deconditioning. long discussion with his daughter today about need for aggressive PT, and my concerns that he may need trach/PEG and LTAC level care. 10/01: wbc uptrending but remains afebrile. tolerating cpap 10/5/40% better than yesterday. sent sputum and urine cultures and will d/c cvl. 10/02: Remains intubated off all sedation. Tolerating CPAP 10/5. Chest x-ray no acute changes. Still has moderate ET tube secretions. Urine output 3.3 L in 24 hours. Labs are pending today. 10/03: Contraction alkalosis after aggressive diuresis. T max 100.4, afebrile now. No new positive cultures. Tachypneic on CPAP. 10/04: more awake today. Just placed on CPAP. Afebrile. Daughter at the bedside updated 10/05: Awake alert, following commands on left, weakly on right. MRI- evolving know cerebellar and BG infarct, hemorrhagic conversion on L. New parietal lobe infarct 10/06: Status post tracheostomy and PEG tube placement yesterday. Will resume aspirin and Plavix. Due to left basal ganglia hemorrhagic conversion, not cleared for anticoagulation by Dr. Mcgovern. Start TP today 10/07: Tolerated approximately 6 hours of T piece yesterday, increase T piece time to 12 hours today and CPAP at night. Low-grade fever check sputum and urine cultures. DC Clemente use condom catheter if needed. MRI next week to reevaluate left basal ganglia bleed Objective Vital Signs Date Time Temp Pulse Resp B/P (MAP) Pulse Ox O2 Delivery O2 Flow Rate FiO2 10/07/17 04:33 97 40 10/07/17 03:00 99.1 109 17 87/54 (65) 10/07/17 03:00 Mechanical Ventilator Trach Collar 10/06/17 16:30 8.00 Intake and Output 10/07/17 10/07/17 10/08/17 08:00 16:00 00:00 Intake Total 1308 ml Output Total 335 ml Balance 973 ml Result Diagram: 10/07/17 0510 10/07/17 0525 Imaging Last Impressions Chest X-Ray 09/23/17 0500 Signed Impressions: Service Date/Time: Saturday, September 23, 2017 04:48 - CONCLUSION: 1. Interval extubation and removal of nasogastric tube. 2. Hazy opacity remains in both lungs with interval increase in opacity at the right lung base. 3. The costophrenic angles are mildly blunted. Ángel Frazier MD Lower Extremity Ultrasound 09/21/17 0000 Signed Impressions: Service Date/Time: Thursday, September 21, 2017 17:12 - CONCLUSION: Normal examination. Farhad Chao MD Chest CT 09/21/17 0000 Signed Impressions: Service Date/Time: Thursday, September 21, 2017 13:23 - CONCLUSION: 1. Upper lobe predominant centrilobular emphysema with 1.2 cm spiculated nodule in the right upper lobe inferiorly and adjacent satellite nodule measuring up to 7 mm. The findings are highly concerning for primary lung malignancy. Recommend PET/CT examination or sampling per 2017 Fleischner criteria. 2. Mediastinal adenopathy measuring up to 11 mm. Although nonspecific, cannot exclude metastatic adenopathy. PET/CT examination would be extremely beneficial in further assessment of the mediastinal adenopathy. 3. Small bilateral pleural effusions more prominent on the right with associated compressive atelectasis in the lower lobes and upper lobe interstitial edema, particularly on the right 4. Ascending thoracic aortic aneurysm measuring up to 4.1 cm. 5. Moderate coronary artery calcifications. Baldo Mcclain MD Carotid Artery Ultrasound 09/21/17 0000 Signed Impressions: Service Date/Time: Thursday, September 21, 2017 17:39 - CONCLUSION: 1. Mild visible plaque formation in the carotid arteries. No hemodynamically significant stenosis. Vertebral artery flow antegrade. Farhad Chao MD Objective Remarks GENERAL: Elderly male, lying in bed, off all sedation HEENT: Normocephalic. Atraumatic. Pupils are 3 mm, equal, reactive NECK: Trachea is midline. New trach with no significant bleeding CHEST: Midline sternotomy incision with wound VAC in place. equal chest rise. fio2 40%. moderate amount of phipps secretions. CARDIOVASCULAR: Afib. no JVD. ABDOMEN: Soft, nontender, nondistended. No guarding. BS active. PEG tube in place MUSCULOSKELETAL: Pulses 2+. No peripheral edema. Warm, well perfused. NEUROLOGICAL: Able to follow commands. Right facial droop. LUPE 5/5 in left upper/lower extremities. LUPE 2/5 in right distal upper extremity, 2/5 right proximal. 2/5 right distal lower extremity, 2/5 right proximal lower extremity. A/P Assessment and Plan Assessment: This is a 77-year-old male with coronary artery disease now status post CABG complicated by large left MCA CVA. Taken emergently for interventional radiology and thrombectomy, however when he went down to angiography, there was no more evidence of clot on four-vessel angioplasty at there is adequate perfusion distal to the left MCA, M1 branch. Clinically making improvements, but very high risk for decompensation and particularly may not be able to successfully separate from mechanical ventilation due to inability to handle secretions. Daily SBT. aggressive PT. s/p tracheostomy and PEG tube 10/05/17, Family well aware of risks of tracheostomy with sternal incision. Remains very critically ill with persistent respiratory failure and evolving CVA. Await LTAC placement Active problems: Acute large left MCA stroke (left cerebellar and basal ganglia cva) Acute encephalopathy Acute hypoxemic respiratory failure Aspiration pneumonia Status post CABG Coronary artery disease Spiculated right upper lobe mass concerning for primary lung cancer Emphysema Alcohol dependence Acute dysphagia Acute dysarthria Plan: NEURO: -IR attempted thrombectomy 09/25 with apparent resolution of the clot -Per Dr. Mcgovern neurology, avoid full anticoagulation/or prophylactic heparin now due to cerebellar infarct possibility of secondary hemorrhage -Dr. Mcgovern has not cleared for prophylactic Lovenox. -MRI of the brain showing left basal ganglia and left cerebellar stroke, focal hemorrhage in the left basal ganglia, follow up -MRI 10/04 evolving infarcts with persistent basal ganglia hemorrhage, new parietal lobe infarct RESP: -Intubated 09/26 for aspiration and extensive right lung consolidation -Status post trach and PEG 10/05/17 -TP up to 12 hour, PSV at night -Continue DuoNeb breathing treatments, inhaled budesonide -CT of the chest on 09/21 concerning for primary lung malignancy right upper lobe , not a candidate for invasive malignancy work up at this time CVS: -Blood pressure goals to 110 - 170. recent stroke but post CABG. Use phenylephrine + midodrine po for vasopressor as needed -IV Lasix on hold due to oliguria and prerenal azotemia. -Normal saline IV fluids 75 mL/h for 24 hours until tube feeds are up to goal- DC today -Continue aspirin Plavix. Already has recent 2D echo, Already has recent carotid Dopplers Already has recent lipid panel: -Holding Lipitor due to transaminitis GI; -Status post PEG tube placement 10/05/17 -Resume Tube feeds with Jevity -Holding Lipitor due to transaminitis -Check GB US to rule out calculus/acalculous cholecystitis (low-grade fever, transaminitis) : -Continue Clemente, IV hydration as above ID: -sputum culture-PS E Coli -Continue Ancef. Perioperative antibiotics per GI -Ancef 1gm iv q8h pansensitive ecoli -Repeat sputum and urine culture ENDO: -Electrolyte replacement per protocol OOB to chair. PT/OT/ST. Famotidine, SCDs Chemical DVT prophylaxis not cleared by Dr. Mcgovern due to left basal ganglia hemorrhage Level 2 Transfer to LTAC once bed available. Yassine Perkins MD Oct 07, 2017 08:10
[2017-10-07] MEDS: MAGNESIUM HYDROXIDE SUSP 30 ML CUP PO SCH (08:25)
[2017-10-07] MEDS: ASPIRIN 81 MG CHEW TAB PO SCH (08:25)
[2017-10-07] MEDS: MULTIVITAMINS/MINERALS THERAPEUTIC TAB PO SCH (08:25)
[2017-10-07] MEDS: THIAMINE HCL 100 MG TAB PO SCH (08:25)
[2017-10-07] MEDS: CLOPIDOGREL 75 MG TAB PO SCH (08:25)
[2017-10-07] MEDS: DOCUSATE SODIUM 100 MG CAP PO SCH ×2 (08:25→22:15)
[2017-10-07] MEDS: POLYETHYLENE GLYCOL 17 GM PKG PO SCH (08:25)
[2017-10-07] MEDS: FOLIC ACID 1 MG TAB PO SCH (08:25)
[2017-10-07] MEDS: METOPROLOL TARTRATE 25 MG TAB PO SCH ×2 (08:26→16:43)
[2017-10-07] MEDS: LACTULOSE SYRUP 20 GM/30 ML CUP PO SCH (08:26)
[2017-10-07] MEDS: INSULIN DETEMIR 100 UNITS/ML VIAL SQ SCH ×2 (09:43→22:16)
[2017-10-07] MEDS: SODIUM CHLORIDE 0.9% FLUSH 10 ML FLUSH IV FLUSH SCH ×2 (09:44→22:16)
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
[2017-10-07 10:37] LABS: BILIRUBIN, URINE NEG (NEG); BLOOD, URINE NEG (NEG); GLUCOSE,URINE 1000 mg/dL (NEG); KETONE, URINE NEG (NEG); MUCUS URINE MOD /lpf (OCC); NITRITE,URINE NEG (NEG); SQUAMOUS EPITHELIAL CELL URINE <1 /hpf (0-5); URINE COLOR YELLOW (YELLW/STRAW); URINE LEUKOCYTE ESTERASE NEG (NEG)
--- NOTE | 2017-10-07 15:28 | RADRPT ---
EXAM DATE/TIME: 10/07/2017 13:46 [place] COMPARISON: CT THORAX W/O CONTRAST, September 28, 2017, 16:19. INDICATIONS : Cholecystitis. MEDICAL HISTORY : Hypertension. Arthritis. Thyroid disease. Coronary artery disease. Tobacco use. SURGICAL HISTORY : Right shoulder surgery. ENCOUNTER: Initial ACUITY: 1 day PAIN SCORE: Nonresponsive. LOCATION: Right upper quadrant MEASUREMENTS: LIVER: 16.0 cm length COMMON DUCT: 4 mm RIGHT KIDNEY: 9.7 x 5.6 x 4.9 cm FINDINGS: Small right pleural effusion. LIVER: Normal echotexture without focal lesion or ductal dilatation. Hepatopedal flow in the portal vein. COMMON DUCT: No intraluminal mass or stone visualized. GALLBLADDER: Contains no stones, demonstrates no wall thickening or pericholecystic fluid. PANCREAS: The visualized portions are within normal limits. RIGHT KIDNEY: No evidence of hydronephrosis, stone, or mass. There is a prominent amount of echogenic fat in the up per pole renal sinus. CONCLUSION: 1. No gallstones seen.. 2. Normal dimension common hepatic duct. 3. Small right pleural effusion. Zia Chauhan MD on October 07, 2017 at 15:23 Board Certified Radiologist. This report was verified electronically.
--- NOTE | 2017-10-07 17:02 | HHI.PR ---
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 I recommend not starting anticoagulation now because of persistent hemorrhage in left basal ganglia. Repeat MRI brain next week and if hemorrhage resolved start anticoagulation . Ok from neurology standpoint to dc to rehab. recheck MRI next week and consider starting anticoagualtion if hemorrhage improved Diagnosis/Plan: Subjective Subjective Comments No acute events reported Active Medications Current Medications Medications (Trade) Dose Ordered Sig/Casey Route Start Time Stop Time Status Last Admin (Mag-Al Plus Susp Liq) 30 ml Q6H PRN PO 09/19/17 12:45 (Pill Splitter) 1 ea UNSCH PRN OTHER 09/19/17 19:15 (NS Flush) 2 ml BID IV FLUSH 09/22/17 21:00 10/07/17 09:44 (NS Flush) 2 ml UNSCH PRN IV FLUSH 09/22/17 20:45 (Aspirin Chew) 81 mg DAILY PO 09/23/17 09:00 Future hold 10/07/17 08:25 (Plavix) 75 mg DAILY PO 09/23/17 09:00 Future hold 10/07/17 08:25 (Tylenol) 650 mg Q4H PRN PO 09/22/17 20:45 (Zofran Inj) 4 mg Q6H PRN IV PUSH 09/22/17 20:45 (Apresoline Inj) 10 mg Q4H PRN IV PUSH 09/22/17 20:45 10/03/17 07:40 (Colace) 100 mg BID PO 09/23/17 12:00 10/07/17 08:25 (Theragran M Tab) 1 tab DAILY PO 09/24/17 09:00 10/07/17 08:25 (Milk Of Magnesia Liq) 30 ml DAILY PO 09/24/17 09:00 10/07/17 08:25 (Dulcolax Supp) 10 mg UNSCH PRN RECTAL 09/23/17 11:15 (Miralax) 17 gm DAILY PO 09/24/17 09:00 10/07/17 08:25 (Senokot) 8.6 mg HS PO 09/23/17 21:00 10/06/17 21:43 (Fleets Enema (Adult)) 118 ml UNSCH PRN RECTAL 09/23/17 11:15 (Folate) 1 mg DAILY PO 09/23/17 12:00 10/07/17 08:25 (Vitamin B1) 100 mg DAILY PO 09/23/17 12:00 10/07/17 08:25 (Lipitor) 40 mg HS PO 09/24/17 21:00 Future Hold 10/04/17 20:51 (Brethine Inj) 1 mg UNSCH PRN SQ 09/25/17 09:30 (Peridex 0.12% Liq) 15 ml BID@08,20 MT 09/26/17 20:00 10/07/17 08:00 (Lopressor Inj) 5 mg Q6H PRN IV PUSH 09/26/17 11:00 10/04/17 17:23 (Lactulose Liq) 30 ml DAILY PO 09/27/17 09:00 10/07/17 08:26 Phenylephrine HCl 40 mg/Sodium Chloride 500 ml @ 30 mls/hr TITRATE PRN IV 09/27/17 12:00 09/30/17 22:17 Potassium Chloride 100 ml @ 50 mls/hr Q2H PRN IV 09/29/17 00:00 09/29/17 08:46 Potassium Chloride 100 ml @ 50 mls/hr Q2H PRN IV 09/29/17 00:00 10/02/17 21:22 (K-Lyte Cl Eff) 50 meq UNSCH PRN PO 09/29/17 00:00 Potassium Chloride 100 ml @ 25 mls/hr UNSCH PRN IV 09/29/17 00:00 Potassium Chloride 100 ml @ 50 mls/hr Q2H PRN IV 09/29/17 00:00 10/03/17 08:34 Magnesium Sulfate 4 gm/Sodium Chloride 100 ml @ 50 mls/hr UNSCH PRN IV 09/29/17 00:00 (Mag-Ox) 800 mg UNSCH PRN PO 09/29/17 00:00 Magnesium Sulfate 2 gm/Sodium Chloride 100 ml @ 50 mls/hr UNSCH PRN IV 09/29/17 00:00 (K-Phos) 2,000 mg Q4H PRN PO 09/29/17 00:00 Sodium Phosphate 30 mmol/Sodium Chloride 250 ml @ 42 mls/hr UNSCH PRN IV 09/29/17 00:00 (K-Phos) 2,000 mg UNSCH PRN PO/TUBE 09/29/17 00:00 Potassium Phosphate 30 mmol/ Sodium Chloride 260 ml @ 42 mls/hr UNSCH PRN IV 09/29/17 00:00 (Protonix Inj) 40 mg DAILY@0600 IV 09/29/17 06:00 10/07/17 05:13 (Duoneb Neb) 1 ampule Q2HR NEB PRN NEB 10/02/17 08:15 (Lopressor) 25 mg Q12HR PO 10/03/17 11:00 10/07/17 16:43 (D50w (Vial) Inj) 50 ml UNSCH PRN IV PUSH 10/04/17 09:15 (Glucagon Inj) 1 mg UNSCH PRN OTHER 10/04/17 09:15 (NovoLOG SUPPLEMENTAL SCALE) 1 ACHS SLIDING SCALE SQ 10/04/17 12:00 10/07/17 16:41 (Proamatine) 5 mg Q8H PO 10/04/17 14:00 10/07/17 14:32 Vancomycin HCl 500 mg/Sodium Chloride 100 ml @ 200 mls/hr E[employer]IPMENT ME[employer]IC [employer]IST IV 10/05/17 11:45 10/08/17 11:44 (Duoneb Neb) 1 ampule Q6HR NEB NEB 10/05/17 16:00 10/07/17 15:48 (Brethine Inj) 1 mg UNSCH PRN SQ 10/05/17 17:15 (Levemir Inj) 5 units Q12HR SQ 10/07/17 09:00 10/07/17 09:43 Allergies Allergies Coded Allergies hydrocodone (Unverified Allergy, Severe, nausea and vomiting, 09/19/17) penicillin G (Unverified Allergy, Mild, 09/19/17) Exam I&O / VS 10/07/17 10/07/17 10/08/17 15:00 23:00 07:00 Intake Total 273 ml Balance 273 ml IV Total 273 ml Vital Signs Date Time Temp Pulse Resp B/P (MAP) Pulse Ox O2 Delivery O2 Flow Rate FiO2 10/07/17 15:00 107 10/07/17 15:00 40 10/07/17 15:00 99.0 107 20 107/71 (83) 99 10/07/17 12:00 98.8 103 21 106/71 (83) 98 10/07/17 09:00 98 T-piece 6.00 40 10/07/17 08:50 97 40 10/07/17 08:00 100.2 103 21 97/69 (78) 98 10/07/17 04:33 97 40 10/07/17 03:00 99.1 109 17 87/54 (65) 98 10/07/17 03:00 40 10/07/17 03:00 98 Mechanical Ventilator 40 Trach Collar 10/07/17 03:00 106 10/07/17 00:57 96 40 10/06/17 23:00 40 10/06/17 23:00 98.9 89 20 97/64 (75) 98 10/06/17 23:00 91 10/06/17 23:00 98 Mechanical Ventilator 40 Trach Collar 10/06/17 22:04 99 40 10/06/17 19:00 102 10/06/17 19:00 40 10/06/17 19:00 99.0 102 20 102/63 (76) 98 10/06/17 19:00 98 Mechanical Ventilator 40 Trach Collar 10/06/17 17:30 97 40 Exam Comments more alert and follow commands CN intact MOTOR --right hemiparesis 2 RUE, 5./5 LUE Objective Micro and Labs Laboratory Tests Test 10/07/17 05:10 10/07/17 05:25 10/07/17 09:00 White Blood Count 9.4 Red Blood Count 2.90 Hemoglobin 9.2 Hematocrit 28.0 Mean Corpuscular Volume 96.5 Mean Corpuscular Hemoglobin 31.6 Mean Corpuscular Hemoglobin Concent 32.7 Red Cell Distribution Width 14.3 Platelet Count 284 Mean Platelet Volume 8.8 Blood Urea Nitrogen 23 Creatinine 0.53 Random Glucose 255 Total Protein 5.4 Albumin 2.0 Calcium Level 7.9 Phosphorus Level 3.1 Magnesium Level 2.3 Alkaline Phosphatase 96 Aspartate Amino Transf (AST/SGOT) 43 Alanine Aminotransferase (ALT/SGPT) 85 Total Bilirubin 0.4 Sodium Level 145 Potassium Level 3.7 Chloride Level 110 Carbon Dioxide Level 27.3 Anion Gap 8 Estimat Glomerular Filtration Rate 151 Urine Color YELLOW Urine Turbidity CLEAR Urine pH 6.0 Urine Specific [place] 1.031 Urine Protein TRACE Urine Glucose (UA) 1000 Urine Ketones NEG Urine Occult Blood NEG Urine Nitrite NEG Urine Bilirubin NEG Urine Urobilinogen LESS THAN 2.0 Urine Leukocyte Esterase NEG Urine RBC 2 Urine WBC 3 Urine Squamous Epithelial Cells <1 Urine Granular Casts 5 Urine Mucus MOD Microscopic Urinalysis Comment CATH-CULT NOT IND Date/Time Source Procedure Growth Status 09/26/17 17:00 Blood Peripheral Aerobic Blood Culture - Final NO GROWTH IN 5 DAYS Complete 09/26/17 17:00 Blood Peripheral Anaerobic Blood Culture - Final NO GROWTH IN 5 DAYS Complete 10/01/17 07:58 Sputum Endotracheal Gram Stain - Final Complete 10/01/17 07:58 Sputum Endotracheal Sputum Culture - Final LIGHT GROWTH NORMAL RESPIRATORY RADHA Complete Andrea Mcgovern MD PhD Oct 07, 2017 17:02
[2017-10-07] MEDS: SENNOSIDES 8.6 MG TAB PO SCH (22:15)
[2017-10-08] MEDS: RESP: ALBUTEROL 2.5 MG/IPRATROPIUM 0.5 MG NEB (SCH) NEB ×2 (02:56→08:18)
[2017-10-08 03:00] VITALS: BP 93/60; PULSE 100; PULSE 95; RESP 16; TEMP 99; O2SAT 99
[2017-10-08 03:43] VITALS: O2SAT 99
[2017-10-08] MEDS: PANTOPRAZOLE SODIUM 40 MG VIAL IV SCH (06:32)
[2017-10-08] MEDS: MIDODRINE 5 MG TAB PO SCH (06:33)
[2017-10-08 07:00] VITALS: BP 99/70; PULSE 94; RESP 16; TEMP 99.2; O2SAT 99
[2017-10-08] MEDS: INSULIN ASPART SUPPLEMENTAL SCALE SQ SCH ×2 (08:04→12:34)
[2017-10-08 08:18] VITALS: O2SAT 98
[2017-10-08] MEDS: THIAMINE HCL 100 MG TAB PO SCH (09:00)
[2017-10-08] MEDS: DOCUSATE SODIUM 100 MG CAP PO SCH (09:43)
[2017-10-08] MEDS: LACTULOSE SYRUP 20 GM/30 ML CUP PO SCH (09:44)
[2017-10-08] MEDS: CLOPIDOGREL 75 MG TAB PO SCH (09:44)
[2017-10-08] MEDS: MAGNESIUM HYDROXIDE SUSP 30 ML CUP PO SCH (09:44)
[2017-10-08] MEDS: METOPROLOL TARTRATE 25 MG TAB PO SCH (09:44)
[2017-10-08] MEDS: INSULIN DETEMIR 100 UNITS/ML VIAL SQ SCH (09:44)
[2017-10-08] MEDS: POLYETHYLENE GLYCOL 17 GM PKG PO SCH (09:44)
[2017-10-08] MEDS: MULTIVITAMINS/MINERALS THERAPEUTIC TAB PO SCH (09:44)
[2017-10-08] MEDS: ASPIRIN 81 MG CHEW TAB PO SCH (09:44)
[2017-10-08] MEDS: FOLIC ACID 1 MG TAB PO SCH (09:44)
[2017-10-08] MEDS: CHLORHEXIDINE 0.12% (ORAL KIT) 15 ML CUP MT SCH (09:46)
[2017-10-08] MEDS: SODIUM CHLORIDE 0.9% FLUSH 10 ML FLUSH IV FLUSH SCH (09:47)
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
[2017-10-08 10:23] VITALS: O2SAT 96
--- NOTE | 2017-10-08 10:29 | HHI.CCPN ---
Subjective Remarks/Hospital Course This is a 77-year-old male with a history of paroxysmal A. fib, hypertension, and presented with ischemic A. fib RVR with a proximal LAD lesion. He is now postop day 3 status post off-pump CABG with a BRODERICK to the LAD. He was on the floor clinically improving when he had sudden onset altered mental status and obtundation. He was last seen normal at 5 AM. Stroke alert was called at 7:[address] suggested the possibility of a left posterior fossa ischemic territory without evidence of hemorrhage. He was emergently transferred to the CVICU. I immediately evaluated him in the CVICU where he had acute left-sided facial droop, left-sided gaze deviation, flaccid right upper and lower extremities, and both receptive and expressive aphasia. I me immediately ordered an emergent CTA head and neck which demonstrated large filling defect in the primary left MCA near the M1 branch. I discussed the case with Dr. Gary sales [employer] associate with interventional radiology who took the patient emergently for intervention. I placed emergent right radial arterial line, see separate procedure note for details. We will suppress the patient above 180 for systolic blood pressure and found that he intermittently with spontaneous movement his right upper extremity with blood pressures above 180. No additional information is available from the patient due to his severe obtundation. ROS unavailable. SUBJ 09/26: Worsening respiratory status, tachypneic. Bilateral coarse rhonchi and crackles. Chest x-ray shows extensive right-sided consolidation. Questionable airway protection probable aspiration. Patient and daughter at the bedside updated. Due to progressive respiratory failure and inability to protect airway will proceed with endotracheal intubation. Both are agreeable for trach if needed 09/27: Intubated yesterday for worsening respiratory status and aspiration. Currently intubated sedated but wakes up follows commands 4. Cough appears to be improved, secretions are decreasing. Chest x-ray shows some improvement in right-sided infiltrates. Remains on Richard-Synephrine 90 mcg/min to maintain cerebral perfusion. Will reduce systolic blood pressure target to 140-[address] Mcgovern. Also start IV Lasix 40 mg now and 20 every 12 due to fluid overload. 09/28: Clinically showing some respiratory improvement even though chest x-ray shows consolidation involving most of right lung and left lower lobe. Will get CT to further evaluate the chest also repeat CT of the brain. Not cleared for subcu Lovenox by Dr. Mcgovern. Remains on Richard-Synephrine to maintain cerebral perfusion 09/29: remains intubated. following commands this morning. secretions are still a problem. ultrasound at bedside and less than 2cm pocket of pleural effusion by right costophrenic angle and liver is anatomically in the way of reaching fluid. unable to thoracentese, and if that is the largest pocket of fluid, unlikely to be inhibiting pulmonary mechanics enough to prevent extubation. mental status and dysphagia/dysarthria poor cough/gag/swallow likely biggest barrier to successful extubation. 09/30: clinically worse than yesterday: only tolerated cpap for an hour and only about 10 minutes on minimal settings. adequate net negative balance. this appears to be a fatigue problem due to deconditioning. long discussion with his daughter today about need for aggressive PT, and my concerns that he may need trach/PEG and LTAC level care. 10/01: wbc uptrending but remains afebrile. tolerating cpap 10/5/40% better than yesterday. sent sputum and urine cultures and will d/c cvl. 10/02: Remains intubated off all sedation. Tolerating CPAP 10/5. Chest x-ray no acute changes. Still has moderate ET tube secretions. Urine output 3.3 L in 24 hours. Labs are pending today. 10/03: Contraction alkalosis after aggressive diuresis. T max 100.4, afebrile now. No new positive cultures. Tachypneic on CPAP. 10/04: more awake today. Just placed on CPAP. Afebrile. Daughter at the bedside updated 10/05: Awake alert, following commands on left, weakly on right. MRI- evolving know cerebellar and BG infarct, hemorrhagic conversion on L. New parietal lobe infarct 10/06: Status post tracheostomy and PEG tube placement yesterday. Will resume aspirin and Plavix. Due to left basal ganglia hemorrhagic conversion, not cleared for anticoagulation by Dr. Mcgovern. Start TP today 10/07: Tolerated approximately 6 hours of T piece yesterday, increase T piece time to 12 hours today and CPAP at night. Low-grade fever check sputum and urine cultures. DC Clemente use condom catheter if needed. MRI next week to reevaluate left basal ganglia bleed 10/08: still failing t-piece trials. plan for LTAC today. no changes or other improvements. Objective Vital Signs Date Time Temp Pulse Resp B/P (MAP) Pulse Ox O2 Delivery O2 Flow Rate FiO2 10/08/17 08:18 98 40 10/08/17 07:00 Mechanical Ventilator Trach Collar 10/08/17 07:00 94 10/08/17 07:00 99.2 16 99/70 (80) 10/07/17 09:00 6.00 Intake and Output 10/08/17 10/08/17 10/09/17 08:00 16:00 00:00 Intake Total 753 ml Output Total 100 ml Balance 653 ml Result Diagram: 10/07/17 0510 10/07/17 0525 Imaging Last Impressions Chest X-Ray 09/23/17 0500 Signed Impressions: Service Date/Time: Saturday, September 23, 2017 04:48 - CONCLUSION: 1. Interval extubation and removal of nasogastric tube. 2. Hazy opacity remains in both lungs with interval increase in opacity at the right lung base. 3. The costophrenic angles are mildly blunted. Ángel Frazier MD Lower Extremity Ultrasound 09/21/17 0000 Signed Impressions: Service Date/Time: Thursday, September 21, 2017 17:12 - CONCLUSION: Normal examination. Farhad Chao MD Chest CT 09/21/17 0000 Signed Impressions: Service Date/Time: Thursday, September 21, 2017 13:23 - CONCLUSION: 1. Upper lobe predominant centrilobular emphysema with 1.2 cm spiculated nodule in the right upper lobe inferiorly and adjacent satellite nodule measuring up to 7 mm. The findings are highly concerning for primary lung malignancy. Recommend PET/CT examination or sampling per 2017 Fleischner criteria. 2. Mediastinal adenopathy measuring up to 11 mm. Although nonspecific, cannot exclude metastatic adenopathy. PET/CT examination would be extremely beneficial in further assessment of the mediastinal adenopathy. 3. Small bilateral pleural effusions more prominent on the right with associated compressive atelectasis in the lower lobes and upper lobe interstitial edema, particularly on the right 4. Ascending thoracic aortic aneurysm measuring up to 4.1 cm. 5. Moderate coronary artery calcifications. Baldo Mcclain MD Carotid Artery Ultrasound 09/21/17 0000 Signed Impressions: Service Date/Time: Thursday, September 21, 2017 17:39 - CONCLUSION: 1. Mild visible plaque formation in the carotid arteries. No hemodynamically significant stenosis. Vertebral artery flow antegrade. Farhad Chao MD Objective Remarks GENERAL: Elderly male, lying in bed, off all sedation HEENT: Normocephalic. Atraumatic. Pupils are 3 mm, equal, reactive NECK: Trachea is midline. New trach with no significant bleeding CHEST: Midline sternotomy incision with wound VAC in place. equal chest rise. fio2 40%. moderate amount of phipps secretions. CARDIOVASCULAR: Afib. no JVD. ABDOMEN: Soft, nontender, nondistended. No guarding. BS active. PEG tube in place MUSCULOSKELETAL: Pulses 2+. No peripheral edema. Warm, well perfused. NEUROLOGICAL: Able to follow commands. Right facial droop. LUPE 5/5 in left upper/lower extremities. LUPE 2/5 in right distal upper extremity, 2/5 right proximal. 2/5 right distal lower extremity, 2/5 right proximal lower extremity. A/P Assessment and Plan Assessment: This is a 77-year-old male with coronary artery disease now status post CABG complicated by large left MCA CVA. Taken emergently for interventional radiology and thrombectomy, however when he went down to angiography, there was no more evidence of clot on four-vessel angioplasty at there is adequate perfusion distal to the left MCA, M1 branch. Clinically making improvements, but very high risk for decompensation and particularly may not be able to successfully separate from mechanical ventilation due to inability to handle secretions. Daily SBT. aggressive PT. s/p tracheostomy and PEG tube 10/05/17, Family well aware of risks of tracheostomy with sternal incision. plan for LTAC placement. Active problems: Acute large left MCA stroke (left cerebellar and basal ganglia cva) Acute encephalopathy Acute hypoxemic respiratory failure- now subacute requiring long-term vent weaning Aspiration pneumonia Status post CABG Coronary artery disease Spiculated right upper lobe mass concerning for primary lung cancer Emphysema Alcohol dependence Acute dysphagia Acute dysarthria Plan: NEURO: -IR attempted thrombectomy 09/25 with apparent resolution of the clot -Per Dr. Mcgovern neurology, avoid full anticoagulation/or prophylactic heparin now due to cerebellar infarct possibility of secondary hemorrhage -Dr. Mcgovern has not cleared for prophylactic Lovenox. -MRI of the brain showing left basal ganglia and left cerebellar stroke, focal hemorrhage in the left basal ganglia, follow up -MRI 10/04 evolving infarcts with persistent basal ganglia hemorrhage, new parietal lobe infarct RESP: -Intubated 09/26 for aspiration and extensive right lung consolidation -Status post trach and PEG 10/05/17 -TP up to 12 hour, PSV at night -Continue DuoNeb breathing treatments, inhaled budesonide -CT of the chest on 09/21 concerning for primary lung malignancy right upper lobe , not a candidate for invasive malignancy work up at this time CVS: -Blood pressure goals to 110 - 170. recent stroke but post CABG. Use phenylephrine + midodrine po for vasopressor as needed -IV Lasix on hold due to oliguria and prerenal azotemia. -Continue aspirin Plavix. Already has recent 2D echo, Already has recent carotid Dopplers Already has recent lipid panel: -Holding Lipitor due to transaminitis GI; -Status post PEG tube placement 10/05/17 -Tube feeds with Jevity -Holding Lipitor due to transaminitis -GB u/s negative for cholecystitis. : -Continue Clemente, IV hydration as above ID: -sputum culture-PS E Coli -Continue Ancef. Perioperative antibiotics per GI -Ancef 1gm iv q8h pansensitive ecoli -Repeat sputum and urine culture ENDO: -Electrolyte replacement per protocol OOB to chair. PT/OT/ST. Famotidine, SCDs Chemical DVT prophylaxis not cleared by Dr. Mcgovern due to left basal ganglia hemorrhage dispo: transfer to LTAC. Charly Mcghee MD Oct 08, 2017 10:29
[2017-10-08] MEDS ORDERED: ATOR40TA16 PO (10:34)
[2017-10-08] MEDS ORDERED: PANT40P IV (10:34)
[2017-10-08] MEDS ORDERED: MIDO5TAB PO (10:34)
[2017-10-08] MEDS ORDERED: NOVOLOGSS SQ (10:34)
[2017-10-08] MEDS ORDERED: PLAV75TA29 PO (10:34)
[2017-10-08] MEDS ORDERED: METO25TA3 PO (10:34)
[2017-10-08] MEDS ORDERED: LEVEMIR SQ (10:34)
[2017-10-08] MEDS ORDERED: Albuterol-Ipratropium Neb NEB ×2 (10:34)
--- NOTE | 2017-10-08 10:35 | HHI.DS ---
Discharge Summary Admission Date Sep 19, 2017 at 12:42 Admitting Diagnosis A. fib with RVR/elevated troponin (1) Atrial fibrillation with rapid ventricular response ICD Code: I48.91 - Unspecified atrial fibrillation Status: Acute (2) Non-STEMI (non-ST elevated myocardial infarction) ICD Code: I21.4 - Non-ST elevation (NSTEMI) myocardial infarction (3) Multi-vessel coronary artery stenosis ICD Code: I25.10 - Atherosclerotic heart disease of [place] coronary artery without angina pectoris Diagnosis: Principal Brief History 77-year-old male with a history of PAF, hypertension was sent from doctor's office secondary to atrial fibrillation with RVR and patient was scheduled for exercise stress test this a.m. secondary to ongoing chest pain over the past several days to weeks, however prior to the beginning of the study he was noted to be in A. fib with RVR for which he was sent to the ED for further evaluation. He was recently diagnosed with PAF and started on Eliquis among other medicine on 09/09/17. However patient states, 4 days into taking this medicine he started having severe chest discomfort, dizziness and a feeling of heart attack. He had stopped taking that medicine 3-4 days now. He was put back on aspirin and continued on his lisinopril for hypertension. Her this morning, patient had complaint of chest pain however since his admissions report improvements of symptoms. He also complained of decreased appetite but denies any nausea and vomiting with by mouth intake. Initial cardiac enzyme was elevated CBC/BMP: 10/07/17 0510 10/07/17 0525 Significant Findings Laboratory Tests Test 10/06/17 03:25 10/07/17 05:10 10/07/17 05:25 10/07/17 09:00 Red Blood Count 2.99 MIL/MM3 (4.50-5.90) 2.90 MIL/MM3 (4.50-5.90) Hemoglobin 9.5 GM/DL (13.0-17.0) 9.2 GM/DL (13.0-17.0) Hematocrit 28.8 % (39.0-51.0) 28.0 % (39.0-51.0) Neutrophils (%) (Auto) 80.9 % (16.0-70.0) Lymphocytes (%) (Auto) 8.8 % (9.0-44.0) Monocytes (%) (Auto) 8.8 % (0.0-8.0) Neutrophils # (Auto) 8.5 TH/MM3 (1.8-7.7) Lymphocytes # (Auto) 0.9 TH/MM3 (1.0-4.8) Blood Urea Nitrogen 27 MG/DL (7-18) 23 MG/DL (7-18) Creatinine 0.53 MG/DL (0.60-1.30) 0.53 MG/DL (0.60-1.30) Random Glucose 124 MG/DL (74-106) 255 MG/DL (74-106) Total Protein 5.7 GM/DL (6.4-8.2) 5.4 GM/DL (6.4-8.2) Albumin 2.2 GM/DL (3.4-5.0) 2.0 GM/DL (3.4-5.0) Calcium Level 8.1 MG/DL (8.5-10.1) 7.9 MG/DL (8.5-10.1) Aspartate Amino Transf (AST/SGOT) 68 U/L (15-37) 43 U/L (15-37) Alanine Aminotransferase (ALT/SGPT) 100 U/L (12-78) 85 U/L (12-78) Chloride Level 110 MEQ/L (98-107) Urine Glucose (UA) 1000 mg/dL (NEG) Urine Mucus MOD /lpf (OCC) PE at Discharge GENERAL: NAD SKIN: Warm and dry. HEAD: Normocephalic. EYES: No scleral icterus. No injection or drainage. NECK: Supple, trachea midline. No JVD or lymphadenopathy. CARDIOVASCULAR: irreg Regular rate and rhythm without murmurs, gallops, or rubs. RESPIRATORY: Breath sounds equal bilaterally. No accessory muscle use. GASTROINTESTINAL: Abdomen soft, non-tender, nondistended. MUSCULOSKELETAL: No cyanosis, or edema. BACK: Nontender without obvious deformity. No CVA tenderness. Hospital Course This is a 77-year-old male with a history of paroxysmal A. fib, hypertension, and presented with ischemic A. fib RVR with a proximal LAD lesion. He is now postop day 3 status post off-pump CABG with a BRODERICK to the LAD. He was on the floor clinically improving when he had sudden onset altered mental status and obtundation. He was last seen normal at 5 AM. Stroke alert was called at 7:[address] suggested the possibility of a left posterior fossa ischemic territory without evidence of hemorrhage. He was emergently transferred to the CVICU. I immediately evaluated him in the CVICU where he had acute left-sided facial droop, left-sided gaze deviation, flaccid right upper and lower extremities, and both receptive and expressive aphasia. I me immediately ordered an emergent CTA head and neck which demonstrated large filling defect in the primary left MCA near the M1 branch. I discussed the case with Dr. Gary business education teacher with interventional radiology who took the patient emergently for intervention. I placed emergent right radial arterial line, see separate procedure note for details. We will suppress the patient above 180 for systolic blood pressure and found that he intermittently with spontaneous movement his right upper extremity with blood pressures above 180. No additional information is available from the patient due to his severe obtundation. ROS unavailable. SUBJ 09/26: Worsening respiratory status, tachypneic. Bilateral coarse rhonchi and crackles. Chest x-ray shows extensive right-sided consolidation. Questionable airway protection probable aspiration. Patient and daughter at the bedside updated. Due to progressive respiratory failure and inability to protect airway will proceed with endotracheal intubation. Both are agreeable for trach if needed 09/27: Intubated yesterday for worsening respiratory status and aspiration. Currently intubated sedated but wakes up follows commands 4. Cough appears to be improved, secretions are decreasing. Chest x-ray shows some improvement in right-sided infiltrates. Remains on Richard-Synephrine 90 mcg/min to maintain cerebral perfusion. Will reduce systolic blood pressure target to 140-[address] Mcgovern. Also start IV Lasix 40 mg now and 20 every 12 due to fluid overload. 09/28: Clinically showing some respiratory improvement even though chest x-ray shows consolidation involving most of right lung and left lower lobe. Will get CT to further evaluate the chest also repeat CT of the brain. Not cleared for subcu Lovenox by Dr. Mcgovern. Remains on Richard-Synephrine to maintain cerebral perfusion 09/29: remains intubated. following commands this morning. secretions are still a problem. ultrasound at bedside and less than 2cm pocket of pleural effusion by right costophrenic angle and liver is anatomically in the way of reaching fluid. unable to thoracentese, and if that is the largest pocket of fluid, unlikely to be inhibiting pulmonary mechanics enough to prevent extubation. mental status and dysphagia/dysarthria poor cough/gag/swallow likely biggest barrier to successful extubation. 09/30: clinically worse than yesterday: only tolerated cpap for an hour and only about 10 minutes on minimal settings. adequate net negative balance. this appears to be a fatigue problem due to deconditioning. long discussion with his daughter today about need for aggressive PT, and my concerns that he may need trach/PEG and LTAC level care. 10/01: wbc uptrending but remains afebrile. tolerating cpap 10/5/40% better than yesterday. sent sputum and urine cultures and will d/c cvl. 10/02: Remains intubated off all sedation. Tolerating CPAP 10/5. Chest x-ray no acute changes. Still has moderate ET tube secretions. Urine output 3.3 L in 24 hours. Labs are pending today. 10/03: Contraction alkalosis after aggressive diuresis. T max 100.4, afebrile now. No new positive cultures. Tachypneic on CPAP. 10/04: more awake today. Just placed on CPAP. Afebrile. Daughter at the bedside updated 10/05: Awake alert, following commands on left, weakly on right. MRI- evolving know cerebellar and BG infarct, hemorrhagic conversion on L. New parietal lobe infarct 10/06: Status post tracheostomy and PEG tube placement yesterday. Will resume aspirin and Plavix. Due to left basal ganglia hemorrhagic conversion, not cleared for anticoagulation by Dr. Mcgovern. Start TP today 10/07: Tolerated approximately 6 hours of T piece yesterday, increase T piece time to 12 hours today and CPAP at night. Low-grade fever check sputum and urine cultures. DC Clemente use condom catheter if needed. MRI next week to reevaluate left basal ganglia bleed 10/08: still failing t-piece trials. plan for LTAC today. no changes or other improvements. accepted by LTAC. transfer today. Pt Condition on Discharge: Stable Discharge Disposition: Trnsfr to Other Facility Discharge Instructions DIET: Follow Instructions for: On Tube Feeding Activities you can perform: Regular-No Restrictions Charly Mcghee MD Oct 08, 2017 10:35
[2017-10-08 11:00] VITALS: BP 107/72; PULSE 92; PULSE 93; RESP 16; TEMP 99; O2SAT 99
== END 2017-10-08 14:00 | DRG 3 ==
LOC: NEPE 10:49 → NEDA 12:42 → NEDH 19:59 → HCIS 09-20 17:41 → HCVI 09-22 21:14 → HCPC 09-24 07:45 → HCVI 09-25 08:02
PROVIDERS: ADMIT Internal Medicine Critical Care Medicine; ATTEND Internal Medicine Critical Care Medicine
PROC: B2111ZZ Fluoroscopy of Multiple Coronary Arteries using Low Osmolar Contrast (ICD-10-PCS; 2017-09-21)
PROC: 4A023N7 Measurement of Cardiac Sampling and Pressure, Left Heart, Percutaneous Approach (ICD-10-PCS; 2017-09-21)
PROC: B2151ZZ Fluoroscopy of Left Heart using Low Osmolar Contrast (ICD-10-PCS; 2017-09-21)
PROC: B41F1ZZ Fluoroscopy of Right Lower Extremity Arteries using Low Osmolar Contrast (ICD-10-PCS; 2017-09-21)
PROC: 06BQ4ZZ Excision of Left Saphenous Vein, Percutaneous Endoscopic Approach (ICD-10-PCS; 2017-09-22)
PROC: 5A2204Z Restoration of Cardiac Rhythm, Single (ICD-10-PCS; 2017-09-22)
PROC: B246ZZ4 Ultrasonography of Right and Left Heart, Transesophageal (ICD-10-PCS; 2017-09-22)
PROC: 02100Z9 Bypass Coronary Artery, One Artery from Left Internal Mammary, Open Approach (ICD-10-PCS; 2017-09-22 17:17)
PROC: 0T9B70Z Drainage of Bladder with Drainage Device, Via Natural or Artificial Opening (ICD-10-PCS; 2017-09-25)
PROC: B3141ZZ Fluoroscopy of Left Common Carotid Artery using Low Osmolar Contrast (ICD-10-PCS; 2017-09-25)
PROC: B3171ZZ Fluoroscopy of Left Internal Carotid Artery using Low Osmolar Contrast (ICD-10-PCS; 2017-09-25)
PROC: 03HY32Z Insertion of Monitoring Device into Upper Artery, Percutaneous Approach (ICD-10-PCS; 2017-09-25)
PROC: 4A133B1 Monitoring of Arterial Pressure, Peripheral, Percutaneous Approach (ICD-10-PCS; 2017-09-25)
PROC: 4A133J1 Monitoring of Arterial Pulse, Peripheral, Percutaneous Approach (ICD-10-PCS; 2017-09-25)
PROC: 5A1955Z Respiratory Ventilation, Greater than 96 Consecutive Hours (ICD-10-PCS; 2017-09-26)
PROC: 0BH17EZ Insertion of Endotracheal Airway into Trachea, Via Natural or Artificial Opening (ICD-10-PCS; 2017-09-26)
PROC: 05H633Z Insertion of Infusion Device into Left Subclavian Vein, Percutaneous Approach (ICD-10-PCS; 2017-09-26)
PROC: 0DH63UZ Insertion of Feeding Device into Stomach, Percutaneous Approach (ICD-10-PCS; 2017-10-05)
PROC: 0DJ08ZZ Inspection of Upper Intestinal Tract, Via Natural or Artificial Opening Endoscopic (ICD-10-PCS; 2017-10-05)
PROC: 0BJ08ZZ Inspection of Tracheobronchial Tree, Via Natural or Artificial Opening Endoscopic (ICD-10-PCS; 2017-10-05)
PROC: 0B113F4 Bypass Trachea to Cutaneous with Tracheostomy Device, Percutaneous Approach (ICD-10-PCS; principal; 2017-10-05 15:45)
DX: I21.4 Non-ST elevation (NSTEMI) myocardial infarction (principal); J69.0 Pneumonitis due to inhalation of food and vomit; G93.40 Encephalopathy, unspecified; I63.512 Cerebral infarction due to unspecified occlusion or stenosis of left middle cerebral artery; I63.8 Other cerebral infarction; I95.9 Hypotension, unspecified; R13.10 Dysphagia, unspecified; E87.3 Alkalosis; I65.29 Occlusion and stenosis of unspecified carotid artery; J96.01 Acute respiratory failure with hypoxia; I48.92 Unspecified atrial flutter; R47.01 Aphasia; Z99.11 Dependence on respirator [ventilator] status; E87.70 Fluid overload, unspecified; I11.9 Hypertensive heart disease without heart failure; I48.0 Paroxysmal atrial fibrillation; J43.9 Emphysema, unspecified; F17.210 Nicotine dependence, cigarettes, uncomplicated; I25.10 Atherosclerotic heart disease of native coronary artery without angina pectoris; M19.90 Unspecified osteoarthritis, unspecified site; Z79.82 Long term (current) use of aspirin; Z83.3 Family history of diabetes mellitus; Z82.49 Family history of ischemic heart disease and other diseases of the circulatory system; E55.9 Vitamin D deficiency, unspecified; Z87.820 Personal history of traumatic brain injury; I70.0 Atherosclerosis of aorta; Z88.0 Allergy status to penicillin; R29.810 Facial weakness; E07.9 Disorder of thyroid, unspecified; F10.20 Alcohol dependence, uncomplicated; R47.1 Dysarthria and anarthria; K29.70 Gastritis, unspecified, without bleeding
CPT/HCPCS: 31500; 36223; 36224; 36600; 70450; 70496; 70498; 70553; 71045; 71046; 71250; 76604; 76705; 76937; 80048; 80053; 80061; 81001; 82550; 82552; 82805; 82948; 83036; 83735; 83880; 84100; 84132; 84484; 85014; 85025; 85027; 85384; 85576; 85610; 85730; 86850; 86900; 86901; 86920; 87040; 87070; 87077; 87186; 87205; 87640; 87641; 93005; 93306; 93458; 93880; 93970; 93998; 94002; 94003; 94010; 94150; 94640; 94664; 94667; 96374; A9579; C1760; C1768; C1769; C1887; C1893; C1894; C9113; G0269; J0131; J0171; J0282; J0360; J0461; J0690; J0692; J1265; J1644; J1650; J1815; J1817; J1885; J1940; J2250; J2370; J2440; J2720; J3010; J3370; J3475; J3480; J7030; J7040; J7050; J7060; P9045; Q0163; Q9967

== ENCOUNTER 2017-12-27 19:50 | Inpatient (IN) ==
[2017-12-31] MEDS ORDERED: dilTIAZem 30 MG Tablet ONE (22:24)
[2017-12-31] MEDS ORDERED: Insulin NovoLOG Aspart Correctional Sugar Inj SQ ONE (22:26)
[2018-01-01] MEDS ORDERED: Bisacodyl 10 MG Supp RECTAL PRN (00:01)
[2018-01-01] MEDS ORDERED: Acetaminophen 325 MG Tablet G-TUBE PRN (00:01)
[2018-01-01] MEDS ORDERED: Vancomycin Consult Pharmacy 1 EACH OTHER SCH (00:01)
[2018-01-01] MEDS ORDERED: Chlorhexidine Gluconate 2% 1 Pack (2 Cloths) TOPICAL PRN (04:00)
[2018-01-01] MEDS: Aztreonam Inj 2 GM in Sodium Chloride 0.9% Inj 100 ML IV.SIG SCH ×3 (05:08→20:33)
[2018-01-01] MEDS: Chlorhexidine Gluconate 2% 1 Pack (2 Cloths) TOPICAL SCH (05:08)
[2018-01-01] MEDS: Insulin NovoLOG Aspart Correctional Sugar Inj SQ SCH ×6 (05:09→23:17)
[2018-01-01] MEDS: dilTIAZem 30 MG Tablet G-TUBE SCH ×4 (05:10→23:13)
--- NOTE | 2018-01-01 05:12 | XR ---
EXAM DATE: 01/01/2018 4:45 AM EDT AGE/SEX: 77 years / Male INDICATIONS: Follow up respiratory status. CLINICAL DATA: This is the patient's subsequent encounter. Patient reports that signs and symptoms h ave been present for 3 days and indicates a pain score of 6/10. MEDICAL/SURGICAL HISTORY: None. None. COMPARISON: [facility] – [place], 12/31/2017. . FINDINGS: Basilar airspace disease similar to December 31. Bilateral pleural effusions are stable. Small caliber le ft chest tube without pneumothorax. Previous sternotomy. CONCLUSION: Basilar airspace disease and small effusions similar to December 31. Electronically signed by: Farhad Chao MD 01/01/2018 5:11 AM EDT
[2018-01-01 06:00] LABS: Baso % (Auto) 0.2 % (0.0-2.0); Hematocrit 34.5 % (39.0-51.0); Hemoglobin 10.8 gm/dL (13.0-17.0); Lymph # (Auto) 1.1 th/mm3 (1.0-4.8); Lymph % (Auto) 9.9 % (9.0-44.0); Mean Corpuscular HGB Conc 31.4 % (32.0-36.0); Mean Corpuscular Hemoglobin 26.1 pg (27.0-34.0); Mean Corpuscular Volume 83.1 fL (80.0-100.0); Mean Platelet Volume 9.8 fL (7.0-11.0); Mono # (Auto) 0.4 th/mm3 (0.0-0.9); Neut # (Auto) 9.4 th/mm3 (1.8-7.7); Neut % (Auto) 85.9 % (16.0-70.0); Platelet Count 225 th/mm3 (150-450); Red Blood Count 4.15 mil/mm3 (4.50-5.90); Red Cell Distribution Width 18.8 % (11.6-17.2); White Blood Count 10.9 th/mm3 (4.0-11.0)
[2018-01-01 06:55] LABS: Alanine Aminotransferase 18 U/L (12-78); Albumin 2.3 g/dL (3.4-5.0); Alkaline Phosphatase 143 U/L (45-117); Anion Gap 8 meq/L (5-15); Aspartate Aminotransferase 14 U/L (15-37); Blood Urea Nitrogen 34 mg/dL (7-18); Calcium 8.6 mg/dL (8.5-10.1); Chloride 117 meq/L (98-107); Glomerular Filtration Rate Greater Than 89 mL/min (>89); Glucose,Random 150 mg/dL (74-106); Potassium 3.7 meq/L (3.5-5.1)
[2018-01-01 07:08] LABS: Sodium 156 meq/L (136-145)
[2018-01-01 08:27] LABS: Lymphocytes 4 % (9-44); Monocytes 4 % (0-8); Myelocytes 1 % (0-0)
[2018-01-01 08:28] LABS: Ovalocytes 1+; Platelet Estimate Normal (Normal); Platelet Morphology Normal (Normal)
[2018-01-01] MEDS: Senna/Docusate Sodium 8.6/50 MG Tablet PO SCH ×2 (09:38→20:38)
[2018-01-01] MEDS: Metoprolol Tartrate 25 MG Tablet G-TUBE SCH ×2 (09:38→20:37)
[2018-01-01] MEDS: Famotidine 20 MG Tablet G-TUBE SCH ×2 (09:39→20:38)
[2018-01-01] MEDS: Heparin - SQ 10,000 UNITS/ML Vial SQ SCH ×2 (09:40→20:36)
[2018-01-01] MEDS: MethylPREDNISolone Sod Succinate Inj 40 MG/ML Vial IV.PUSH SCH ×2 (09:40→20:38)
[2018-01-01] MEDS: levoFLOXacin 750 MG Tablet PO SCH (09:40)
[2018-01-01] MEDS: Insulin Detemir Inj 1,000 UNIT/10 ML Vial SQ SCH ×2 (09:43→21:14)
[2018-01-01] MEDS: Vancomycin Inj 1,250 MG in Sodium Chlor 0.9% Inj 250 ML IV.SIG SCH ×2 (09:44→21:21)
[2018-01-01] MEDS: Sodium Chloride 0.45 % Inj 1,000 ML IV.CONT SCH (11:42)
--- NOTE | 2018-01-01 13:47 | P.PNIM ---
Subjective Interval history: Tachycardia and Hypernatremia present this morning. Respiratory status is stable compared to yesterday, on Nasal [place]. No new complaints from patient. Physical Exam Vital signs: Vital Signs 01/01/18 00:04 01/01/18 00:30 01/01/18 01:00 Temperature Pulse Rate 103 H 102 H 99 H Respiratory Rate 21 20 22 Blood Pressure 135/83 141/86 H Pulse Oximetry 98 98 98 01/01/18 01:30 01/01/18 02:00 01/01/18 02:30 Temperature Pulse Rate 104 H 106 H 107 H Respiratory Rate 21 21 22 Blood Pressure 144/89 H 143/89 H 124/86 Pulse Oximetry 98 97 98 01/01/18 03:00 01/01/18 03:30 01/01/18 03:59 Temperature Pulse Rate 106 H 107 H 111 H Respiratory Rate 21 21 24 Blood Pressure 134/93 H 143/91 H Pulse Oximetry 98 99 01/01/18 04:00 01/01/18 04:30 01/01/18 04:31 Temperature 98.3 F Pulse Rate 109 H 123 H 121 H Respiratory Rate 23 31 H 23 Blood Pressure 153/104 H 143/90 H 152/97 H Pulse Oximetry 98 97 98 01/01/18 07:42 Temperature Pulse Rate Respiratory Rate Blood Pressure Pulse Oximetry 96 Intake & Output 12/31/17 01/01/18 01/01/18 18:59 06:59 18:59 Intake Total 100 / 100 Balance 100 / 100 Intake: IV 100 / 100 Azactam Inj 2 GM In NS Inj 100 100 / 100 ML @ 200 mls/hr IV.SIG Q8H [facility] Rx#:[id number] Other: Date of Last Bowel Movement 01/27/18 - Routine HEENT Exam Comments: GENERAL: NAD, A&Ox3, patient on nasal cannula. HEAD: Normocephalic. NECK: Supple, trachea midline. No lymphadenopathy. EYES: No scleral icterus. No injection or drainage. CARDIOVASCULAR: Regular rate and rhythm without murmurs, gallops, or rubs. RESPIRATORY: Breath sounds equal bilaterally. No accessory muscle use. GASTROINTESTINAL: Abdomen soft, non-tender, nondistended. MUSCULOSKELETAL: No cyanosis, or edema. Global muscular atrophy. SKIN: Warm and dry. NEURO: No focal neurological deficitis. - Urinary Catheter Management Indwelling Urethral Catheter Cath placed during this visit: no Results - Labs CBC & Chem 7: 01/01/18 04:22 01/01/18 04:22 Labs: Laboratory Results - last 24 hr 12/29/17 12/29/17 12/29/17 04:03 04:03 04:03 WBC 10.9 RBC 3.62 L Hgb 9.5 L Hct 30.1 L MCV 83.2 MCH 26.4 L MCHC 31.7 L RDW 18.9 H Plt Count 191 MPV 9.1 Prelim Diff (Auto) Neut % (Auto) 88.6 H Lymph % (Auto) 6.2 L [place] % (Auto) 5.0 Eos % (Auto) 0.0 Baso % (Auto) 0.2 Neut # (Auto) 9.7 H Lymph # (Auto) 0.7 L [place] # (Auto) 0.5 Eos # (Auto) 0.0 Baso # (Auto) 0.0 CBC Comment DIFF FINAL WBC Differential Seg Neuts % (Manual) Band Neuts % (Manual) Lymphocytes % (Manual) Monocytes % (Manual) Myelocytes % (Man) Abs Neuts (Manual) Differential Comment Platelet Estimate Platelet Morphology Ovalocytes Puncture Site Patient Temperature HCO3 Base Excess O2 Saturation ABG pH ABG pCO2 ABG pO2 ABG O2 Content ABG Carboxyhemoglobin ABG Methemoglobin Hemoglobin O2 Delivery Device Liter Flow Inspired O2 Sodium 151 H Potassium 3.6 Chloride 116 H D Carbon Dioxide 29.0 Anion Gap 6 BUN 38 H Creatinine 0.41 L Estimated GFR 203 POC Glucose Random Glucose 140 H D Lactic Acid 1.3 Calcium 8.6 Phosphorus 2.7 Magnesium 2.3 Total Bilirubin AST ALT Alkaline Phosphatase Troponin I 0.02 Total Protein Albumin Pleural pH Pleural WBC Pleural RBC Pleural Neutrophils Pleural Lymphocytes Pleural Monocytes Pleural Mesothelial Pleural Total Protein Pleural LDH Pleural Glucose Vancomycin Trough 12/29/17 12/30/17 12/30/17 09:40 06:54 07:20 WBC RBC Hgb Hct MCV MCH MCHC RDW Plt Count MPV Prelim Diff (Auto) Neut % (Auto) Lymph % (Auto) [place] % (Auto) Eos % (Auto) Baso % (Auto) Neut # (Auto) Lymph # (Auto) [place] # (Auto) Eos # (Auto) Baso # (Auto) CBC Comment WBC Differential Seg Neuts % (Manual) Band Neuts % (Manual) Lymphocytes % (Manual) Monocytes % (Manual) Myelocytes % (Man) Abs Neuts (Manual) Differential Comment Platelet Estimate Platelet Morphology Ovalocytes Puncture Site RT RADIAL Patient Temperature 98.6 HCO3 30 H Base Excess 6.2 H O2 Saturation 97 ABG pH 7.46 H ABG pCO2 43 H ABG pO2 146 H ABG O2 Content 14.2 ABG Carboxyhemoglobin 0.9 ABG Methemoglobin 1.0 Hemoglobin 10.2 L O2 Delivery Device Non-Rebreathing Mask Liter Flow 15 Inspired O2 100 Sodium 153 H Potassium 3.5 Chloride 117 H Carbon Dioxide 30.8 Anion Gap 5 BUN 41 H Creatinine 0.48 L Estimated GFR 169 POC Glucose Random Glucose 243 H D Lactic Acid Calcium 8.2 L Phosphorus 3.2 Magnesium 2.3 Total Bilirubin AST ALT Alkaline Phosphatase Troponin I Total Protein Albumin Pleural pH Pleural WBC Pleural RBC Pleural Neutrophils Pleural Lymphocytes Pleural Monocytes Pleural Mesothelial Pleural Total Protein Pleural LDH Pleural Glucose Vancomycin Trough 11.8 H 12/30/17 12/30/17 12/30/17 07:20 12:35 12:35 WBC 10.1 RBC 3.87 L Hgb 10.4 L Hct 32.5 L MCV 83.9 MCH 26.7 L MCHC 31.9 L RDW 19.1 H Plt Count 199 MPV 9.7 Prelim Diff (Auto) Neut % (Auto) 87.1 H Lymph % (Auto) 6.3 L [place] % (Auto) 6.6 Eos % (Auto) 0.0 Baso % (Auto) 0.0 Neut # (Auto) 8.8 H Lymph # (Auto) 0.6 L [place] # (Auto) 0.7 Eos # (Auto) 0.0 Baso # (Auto) 0.0 CBC Comment DIFF FINAL WBC Differential Seg Neuts % (Manual) Band Neuts % (Manual) Lymphocytes % (Manual) Monocytes % (Manual) Myelocytes % (Man) Abs Neuts (Manual) Differential Comment Platelet Estimate Platelet Morphology Ovalocytes Puncture Site Patient Temperature HCO3 Base Excess O2 Saturation ABG pH ABG pCO2 ABG pO2 ABG O2 Content ABG Carboxyhemoglobin ABG Methemoglobin Hemoglobin O2 Delivery Device Liter Flow Inspired O2 Sodium Potassium Chloride Carbon Dioxide Anion Gap BUN Creatinine Estimated GFR POC Glucose Random Glucose Lactic Acid Calcium Phosphorus Magnesium Total Bilirubin AST ALT Alkaline Phosphatase Troponin I Total Protein Albumin Pleural pH 8.5 Pleural WBC 196 H Pleural RBC 79545 H Pleural Neutrophils 25 Pleural Lymphocytes 68 Pleural Monocytes 4 Pleural Mesothelial 3 Pleural Total Protein 1.5 Pleural LDH 67 Pleural Glucose 232 Vancomycin Trough 12/31/17 12/31/17 12/31/17 03:50 03:50 21:45 WBC 8.7 RBC 4.05 L Hgb 10.7 L Hct 33.8 L MCV 83.5 MCH 26.5 L MCHC 31.8 L RDW 19.0 H Plt Count 200 MPV 9.6 Prelim Diff (Auto) Neut % (Auto) 86.2 H Lymph % (Auto) 9.6 [place] % (Auto) 4.1 Eos % (Auto) 0.0 Baso % (Auto) 0.1 Neut # (Auto) 7.5 Lymph # (Auto) 0.8 L [place] # (Auto) 0.4 Eos # (Auto) 0.0 Baso # (Auto) 0.0 CBC Comment DIFF FINAL WBC Differential Seg Neuts % (Manual) Band Neuts % (Manual) Lymphocytes % (Manual) Monocytes % (Manual) Myelocytes % (Man) Abs Neuts (Manual) Differential Comment Platelet Estimate Platelet Morphology Ovalocytes Puncture Site Patient Temperature HCO3 Base Excess O2 Saturation ABG pH ABG pCO2 ABG pO2 ABG O2 Content ABG Carboxyhemoglobin ABG Methemoglobin Hemoglobin O2 Delivery Device Liter Flow Inspired O2 Sodium 153 H Potassium 3.7 Chloride 115 H Carbon Dioxide 32.1 H Anion Gap 6 BUN 38 H Creatinine 0.44 L Estimated GFR 187 POC Glucose Random Glucose 190 H Lactic Acid Calcium 8.6 Phosphorus Magnesium Total Bilirubin 0.3 AST 14 L ALT 17 Alkaline Phosphatase 143 H Troponin I Total Protein 6.2 L Albumin 2.4 L Pleural pH Pleural WBC Pleural RBC Pleural Neutrophils Pleural Lymphocytes Pleural Monocytes Pleural Mesothelial Pleural Total Protein Pleural LDH Pleural Glucose Vancomycin Trough 14.4 H 01/01/18 01/01/18 01/01/18 04:22 04:22 04:40 WBC 10.9 RBC 4.15 L Hgb 10.8 L Hct 34.5 L MCV 83.1 MCH 26.1 L MCHC 31.4 L RDW 18.8 H Plt Count 225 MPV 9.8 Prelim Diff (Auto) Slide review pending Neut % (Auto) 85.9 H Lymph % (Auto) 9.9 [place] % (Auto) 4.0 Eos % (Auto) 0.0 Baso % (Auto) 0.2 Neut # (Auto) 9.4 H Lymph # (Auto) 1.1 [place] # (Auto) 0.4 Eos # (Auto) 0.0 Baso # (Auto) 0.0 CBC Comment WBC Differential Manual diff final Seg Neuts % (Manual) 90 H Band Neuts % (Manual) 1 Lymphocytes % (Manual) 4 L Monocytes % (Manual) 4 Myelocytes % (Man) 1 H Abs Neuts (Manual) 10.0 H Differential Comment . Platelet Estimate Normal Platelet Morphology Normal Ovalocytes 1+ H Puncture Site Patient Temperature HCO3 Base Excess O2 Saturation ABG pH ABG pCO2 ABG pO2 ABG O2 Content ABG Carboxyhemoglobin ABG Methemoglobin Hemoglobin O2 Delivery Device Liter Flow Inspired O2 Sodium 156 H* Potassium 3.7 Chloride 117 H Carbon Dioxide 31.0 Anion Gap 8 BUN 34 H Creatinine 0.42 L Estimated GFR Greater than 89 POC Glucose 156 H Random Glucose 150 H Lactic Acid Calcium 8.6 Phosphorus Magnesium Total Bilirubin 0.3 AST 14 L ALT 18 Alkaline Phosphatase 143 H Troponin I Total Protein 6.0 L Albumin 2.3 L Pleural pH Pleural WBC Pleural RBC Pleural Neutrophils Pleural Lymphocytes Pleural Monocytes Pleural Mesothelial Pleural Total Protein Pleural LDH Pleural Glucose Vancomycin Trough 01/01/18 01/01/18 09:37 12:07 WBC RBC Hgb Hct MCV MCH MCHC RDW Plt Count MPV Prelim Diff (Auto) Neut % (Auto) Lymph % (Auto) [place] % (Auto) Eos % (Auto) Baso % (Auto) Neut # (Auto) Lymph # (Auto) [place] # (Auto) Eos # (Auto) Baso # (Auto) CBC Comment WBC Differential Seg Neuts % (Manual) Band Neuts % (Manual) Lymphocytes % (Manual) Monocytes % (Manual) Myelocytes % (Man) Abs Neuts (Manual) Differential Comment Platelet Estimate Platelet Morphology Ovalocytes Puncture Site Patient Temperature HCO3 Base Excess O2 Saturation ABG pH ABG pCO2 ABG pO2 ABG O2 Content ABG Carboxyhemoglobin ABG Methemoglobin Hemoglobin O2 Delivery Device Liter Flow Inspired O2 Sodium Potassium Chloride Carbon Dioxide Anion Gap BUN Creatinine Estimated GFR POC Glucose 182 H 174 H Random Glucose Lactic Acid Calcium Phosphorus Magnesium Total Bilirubin AST ALT Alkaline Phosphatase Troponin I Total Protein Albumin Pleural pH Pleural WBC Pleural RBC Pleural Neutrophils Pleural Lymphocytes Pleural Monocytes Pleural Mesothelial Pleural Total Protein Pleural LDH Pleural Glucose Vancomycin Trough - Imaging Imaging: Impressions Chest X-Ray 01/01/18 06:00 CONCLUSION: Basilar airspace disease and small effusions similar to December 31. Assessment and Plan - Plan 77-year-old male admitted with sepsis and A. 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 Respiratory status has remained stable and improved compared previously. Patient is tolerating nasal cannula oxygenation. Tachycardia is present today. Hypernatremia is present today. DNR status. Hypernatremia One half normal saline at a low rate is provided Continue to monitor sodium levels Healthcare associated pneumonia aztreonam and Levaquin and vancomycin Follow signs of infection A. fib RVR Coronary artery disease with prior CABG 09/2007 Tachycardia may represent recurrence of RVR Continue aspirin Continue Plavix Continue Diltiazem Continue Metoprolol Follow on telemetry Currently rate controlled COPD with acute exacerbation Emphysema Prior tobacco abuse Pleural effusions Respiratory failure Continue duo nebs scheduled and albuterol as needed Continue steroids Chest tube in place Respiratory status improved today compared to yesterday Chronic moderate protein energy malnutrition Continue PEG tube feedings Diabetes mellitus type 2 Follow blood sugars Insulin sliding scale Diabetic diet Severe sepsis Resolved DVT prophylaxis Heparin
--- NOTE | 2018-01-01 16:38 | P.PNPL ---
Subjective Interval history: 77 YOWM with CAD,S/p CABG,Resp insuff has ledft pl effusion Left chest cathetor drainage decreasedTube clamped Physical Exam Vital signs: Vital Signs 01/01/18 00:04 01/01/18 00:30 01/01/18 01:00 Temperature Pulse Rate 103 H 102 H 99 H Respiratory Rate 21 20 22 Blood Pressure 135/83 141/86 H Pulse Oximetry 98 98 98 01/01/18 01:30 01/01/18 02:00 01/01/18 02:30 Temperature Pulse Rate 104 H 106 H 107 H Respiratory Rate 21 21 22 Blood Pressure 144/89 H 143/89 H 124/86 Pulse Oximetry 98 97 98 01/01/18 03:00 01/01/18 03:30 01/01/18 03:59 Temperature Pulse Rate 106 H 107 H 111 H Respiratory Rate 21 21 24 Blood Pressure 134/93 H 143/91 H Pulse Oximetry 98 99 01/01/18 04:00 01/01/18 04:30 01/01/18 04:31 Temperature 98.3 F Pulse Rate 109 H 123 H 121 H Respiratory Rate 23 31 H 23 Blood Pressure 153/104 H 143/90 H 152/97 H Pulse Oximetry 98 97 98 01/01/18 05:00 01/01/18 05:07 01/01/18 06:00 Temperature Pulse Rate 117 H 118 H 110 H Respiratory Rate 22 21 25 H Blood Pressure 133/91 H 140/85 Pulse Oximetry 98 98 98 01/01/18 07:00 01/01/18 07:42 01/01/18 08:00 Temperature 98.6 F Pulse Rate 110 H 118 H Respiratory Rate 25 H 26 H Blood Pressure 144/86 H 141/98 H Pulse Oximetry 99 96 97 01/01/18 09:00 01/01/18 10:00 01/01/18 10:02 Temperature Pulse Rate 122 H 127 H 125 H Respiratory Rate 41 H 33 H 28 H Blood Pressure 144/89 H 144/106 H 149/110 H Pulse Oximetry 97 98 97 01/01/18 10:30 01/01/18 11:00 01/01/18 11:09 Temperature Pulse Rate 111 H 98 H 103 H Respiratory Rate 36 H 43 H 36 H Blood Pressure 151/105 H 146/101 H 145/109 H Pulse Oximetry 98 99 99 01/01/18 12:00 01/01/18 13:00 01/01/18 14:00 Temperature 98.6 F Pulse Rate 105 H 101 H 108 H Respiratory Rate 26 H 25 H 27 H Blood Pressure 154/95 H 143/92 H 149/88 H Pulse Oximetry 99 95 96 01/01/18 15:43 Temperature Pulse Rate 114 H Respiratory Rate 20 Blood Pressure Pulse Oximetry Intake & Output 12/31/17 01/01/18 01/01/18 18:59 06:59 18:59 Intake Total 100 / 100 100 / 100 Balance 100 / 100 100 / 100 Intake: IV 100 / 100 100 / 100 Azactam Inj 2 GM In NS Inj 100 100 / 100 100 / 100 ML @ 200 mls/hr IV.SIG Q8H [facility] Rx#:[id number] Other: Date of Last Bowel Movement 01/27/18 12/30/17 Objective Remarks GENERAL: Elderly male, mild sob SKIN: Warm and dry. HEAD: Normocephalic. EYES: No scleral icterus. No injection or drainage. NECK: Supple, trachea midline. No JVD or lymphadenopathy. CARDIOVASCULAR: Regular rate and rhythm without murmurs, gallops, or rubs. RESPIRATORY: Breath sounds equal bilaterally. No accessory muscle use. Left chest tube draing GASTROINTESTINAL: Abdomen soft, non-tender, nondistended. MUSCULOSKELETAL: No cyanosis, or edema. BACK: Nontender without obvious deformity. No CVA tenderness. - Urinary Catheter Management Indwelling Urethral Catheter Cath placed during this visit: no Assessment and Plan - Plan Resp insuff Pleural effusion CAD,s/p CABG CVA Aphasia PLAN: Chest tube clamped Supplement 02 Cont Abx Tube feeding
[2018-01-01] MEDS: Metoprolol Inj 5 MG/5 ML Vial IV.PUSH PRN ×2 (20:39→22:32)
[2018-01-02] MEDS: Aztreonam Inj 2 GM in Sodium Chloride 0.9% Inj 100 ML IV.SIG SCH ×3 (04:40→19:56)
[2018-01-02] MEDS: Chlorhexidine Gluconate 2% 1 Pack (2 Cloths) TOPICAL SCH (04:41)
[2018-01-02] MEDS: Insulin NovoLOG Aspart Correctional Sugar Inj SQ SCH ×5 (04:42→20:03)
[2018-01-02] MEDS: dilTIAZem 30 MG Tablet G-TUBE SCH ×4 (05:07→23:57)
[2018-01-02] MEDS: Metoprolol Inj 5 MG/5 ML Vial IV.PUSH PRN (05:07)
[2018-01-02 06:22] LABS: Baso % (Auto) 0.1 % (0.0-2.0); Hematocrit 34.7 % (39.0-51.0); Hemoglobin 10.5 gm/dL (13.0-17.0); Lymph # (Auto) 1.2 th/mm3 (1.0-4.8); Lymph % (Auto) 10.6 % (9.0-44.0); Mean Corpuscular Hemoglobin 25.6 pg (27.0-34.0); Mean Corpuscular Volume 84.4 fL (80.0-100.0); Mean Platelet Volume 9.5 fL (7.0-11.0); Mono # (Auto) 0.6 th/mm3 (0.0-0.9); Mono % (Auto) 5.2 % (0.0-8.0); Neut # (Auto) 9.8 th/mm3 (1.8-7.7); Neut % (Auto) 84.1 % (16.0-70.0); Platelet Count 217 th/mm3 (150-450); Red Blood Count 4.11 mil/mm3 (4.50-5.90); Red Cell Distribution Width 19.1 % (11.6-17.2); White Blood Count 11.7 th/mm3 (4.0-11.0)
[2018-01-02 06:23] LABS: Mean Corpuscular HGB Conc 30.4 % (32.0-36.0)
[2018-01-02 06:28] LABS: Alanine Aminotransferase 21 U/L (12-78); Albumin 2.1 g/dL (3.4-5.0); Anion Gap 9 meq/L (5-15); Aspartate Aminotransferase 14 U/L (15-37); Blood Urea Nitrogen 32 mg/dL (7-18); Calcium 8.2 mg/dL (8.5-10.1); Carbon Dioxide 28.1 meq/L (21.0-32.0); Chloride 116 meq/L (98-107); Glomerular Filtration Rate Greater Than 89 mL/min (>89); Glucose,Random 142 mg/dL (74-106); Potassium 3.7 meq/L (3.5-5.1); Sodium 153 meq/L (136-145)
[2018-01-02 06:30] LABS: Alkaline Phosphatase 125 U/L (45-117); Total Protein 5.6 g/dL (6.4-8.2)
[2018-01-02] MEDS: Senna/Docusate Sodium 8.6/50 MG Tablet PO SCH ×2 (08:01→20:05)
[2018-01-02] MEDS: Heparin - SQ 10,000 UNITS/ML Vial SQ SCH ×2 (08:01→20:04)
[2018-01-02] MEDS: MethylPREDNISolone Sod Succinate Inj 40 MG/ML Vial IV.PUSH SCH ×2 (08:01→20:05)
[2018-01-02] MEDS: levoFLOXacin 750 MG Tablet PO SCH (08:01)
[2018-01-02] MEDS: Metoprolol Tartrate 25 MG Tablet G-TUBE SCH ×2 (08:01→20:05)
[2018-01-02] MEDS: Famotidine 20 MG Tablet G-TUBE SCH ×2 (08:02→20:05)
[2018-01-02] MEDS: Insulin Detemir Inj 1,000 UNIT/10 ML Vial SQ SCH ×2 (08:03→20:05)
[2018-01-02] MEDS: Vancomycin Inj 1,250 MG in Sodium Chlor 0.9% Inj 250 ML IV.SIG SCH ×2 (09:08→22:21)
--- NOTE | 2018-01-02 11:19 | P.PNIM ---
Subjective Interval history: Respiratory status has remained stable. Patient's heart rate is also showing stability. Chest tube remains in place. Physical Exam Vital signs: Vital Signs 01/01/18 12:00 01/01/18 13:00 01/01/18 14:00 Temperature 98.6 F Pulse Rate 105 H 101 H 108 H Respiratory Rate 26 H 25 H 27 H Blood Pressure 154/95 H 143/92 H 149/88 H Pulse Oximetry 99 95 96 01/01/18 15:43 01/01/18 19:30 01/01/18 20:00 Temperature 99.1 F Pulse Rate 114 H 122 H 123 H Respiratory Rate 20 30 H 30 H Blood Pressure 184/112 H Pulse Oximetry 94 L 97 01/01/18 20:30 01/01/18 21:00 01/01/18 21:23 Temperature Pulse Rate 129 H 112 H 107 H Respiratory Rate 32 H 27 H 29 H Blood Pressure 168/109 H 174/105 H 163/117 H Pulse Oximetry 92 L 97 96 01/01/18 21:24 01/01/18 21:27 01/01/18 21:30 Temperature Pulse Rate 103 H 107 H Respiratory Rate 20 29 H Blood Pressure 177/117 H Pulse Oximetry 97 98 01/01/18 21:33 01/01/18 21:34 01/01/18 22:00 Temperature Pulse Rate 105 H 104 H 108 H Respiratory Rate 30 H 27 H 31 H Blood Pressure 173/126 H 176/119 H Pulse Oximetry 97 99 93 L 01/01/18 22:01 01/01/18 22:31 01/01/18 23:00 Temperature Pulse Rate 111 H 109 H 104 H Respiratory Rate 29 H 27 H 27 H Blood Pressure 191/114 H 158/109 H 165/104 H Pulse Oximetry 95 81 L 97 01/01/18 23:30 01/02/18 00:00 01/02/18 00:30 Temperature Pulse Rate 106 H 105 H 102 H Respiratory Rate 25 H 23 23 Blood Pressure 141/88 H 132/76 135/90 Pulse Oximetry 96 95 95 01/02/18 01:00 01/02/18 01:30 01/02/18 02:00 Temperature Pulse Rate 103 H 105 H 106 H Respiratory Rate 23 23 23 Blood Pressure 135/81 142/85 H 141/88 H Pulse Oximetry 96 95 95 01/02/18 02:30 01/02/18 03:00 01/02/18 03:30 Temperature Pulse Rate 110 H 109 H 111 H Respiratory Rate 26 H 25 H 23 Blood Pressure 138/91 H 148/96 H 131/83 Pulse Oximetry 96 97 97 01/02/18 04:00 01/02/18 04:22 01/02/18 04:30 Temperature Pulse Rate 113 H 113 H 108 H Respiratory Rate 22 20 22 Blood Pressure 143/87 H 146/93 H Pulse Oximetry 97 99 01/02/18 05:00 01/02/18 05:30 01/02/18 06:00 Temperature Pulse Rate 117 H 106 H 102 H Respiratory Rate 21 22 23 Blood Pressure 134/90 146/86 H 125/84 Pulse Oximetry 97 95 95 01/02/18 06:30 01/02/18 07:00 01/02/18 09:21 Temperature Pulse Rate 101 H 101 H Respiratory Rate 21 20 Blood Pressure 110/72 119/79 Pulse Oximetry 96 97 99 Intake & Output 01/01/18 01/02/18 01/02/18 18:59 06:59 18:59 Intake Total 873 / 873 1244.0 / 1244.0 Output Total 200 / 200 650 / 650 Balance 673 / 673 594.0 / 594.0 Weight 56 kg Intake: IV 100 / 100 625.0 / 625.0 Azactam Inj 2 GM In NS Inj 100 100 / 100 100 / 100 ML @ 200 mls/hr IV.SIG Q8H [facility] Rx#:[id number] Vancomycin Inj 1,250 MG In NS 525.0 / 525.0 Inj 250 ML @ 250 mls/hr IV.SIG Q12H [facility] Rx#:[id number] Oral 0 / 0 Tube Feeding 653 / 653 469 / 469 Tube Irrigant 120 / 120 150 / 150 Output: Urine 0 / 0 Stool 0 / 0 Urine Amount (Catheter) 200 / 200 650 / 650 Indwelling Urethral Catheter 200 / 200 650 / 650 Chest Tube Drainage 0 / 0 0 / 0 Left Upper Pleural 0 / 0 0 / 0 Other: Date of Last Bowel Movement 12/30/17 01/01/18 01/01/18 # Bowel Movements 1 - Routine HEENT Exam Comments: GENERAL: NAD, A&Ox3, nonverbal HEAD: Normocephalic. NECK: Supple, trachea midline. No lymphadenopathy. EYES: No scleral icterus. No injection or drainage. CARDIOVASCULAR: Regular rate and rhythm without murmurs, gallops, or rubs. RESPIRATORY: Breath sounds equal bilaterally. No accessory muscle use. GASTROINTESTINAL: Abdomen soft, non-tender, nondistended. MUSCULOSKELETAL: No cyanosis, or edema. SKIN: Warm and dry. NEURO: No focal neurological deficitis. - Urinary Catheter Management Indwelling Urethral Catheter Cath placed during this visit: no Results - Labs CBC & Chem 7: 01/02/18 05:20 01/02/18 05:20 Laboratory Results - last 24 hr 01/01/18 01/01/18 01/01/18 12:07 16:58 20:32 WBC RBC Hgb Hct MCV MCH MCHC RDW Plt Count MPV Neut % (Auto) Lymph % (Auto) [place] % (Auto) Eos % (Auto) Baso % (Auto) Neut # (Auto) Lymph # (Auto) [place] # (Auto) Eos # (Auto) Baso # (Auto) WBC Differential Differential Comment Sodium Potassium Chloride Carbon Dioxide Anion Gap BUN Creatinine Estimated GFR POC Glucose 174 H 169 H 169 H Random Glucose Calcium Total Bilirubin AST ALT Alkaline Phosphatase Total Protein Albumin 01/01/18 01/02/18 01/02/18 23:06 04:25 05:20 WBC 11.7 H RBC 4.11 L Hgb 10.5 L Hct 34.7 L MCV 84.4 MCH 25.6 L MCHC 30.4 L RDW 19.1 H Plt Count 217 MPV 9.5 Neut % (Auto) 84.1 H Lymph % (Auto) 10.6 [place] % (Auto) 5.2 Eos % (Auto) 0.0 Baso % (Auto) 0.1 Neut # (Auto) 9.8 H Lymph # (Auto) 1.2 [place] # (Auto) 0.6 Eos # (Auto) 0.0 Baso # (Auto) 0.0 WBC Differential . Differential Comment Auto diff final Sodium Potassium Chloride Carbon Dioxide Anion Gap BUN Creatinine Estimated GFR POC Glucose 132 H 148 H Random Glucose Calcium Total Bilirubin AST ALT Alkaline Phosphatase Total Protein Albumin 01/02/18 01/02/18 05:20 07:41 WBC RBC Hgb Hct MCV MCH MCHC RDW Plt Count MPV Neut % (Auto) Lymph % (Auto) [place] % (Auto) Eos % (Auto) Baso % (Auto) Neut # (Auto) Lymph # (Auto) [place] # (Auto) Eos # (Auto) Baso # (Auto) WBC Differential Differential Comment Sodium 153 H Potassium 3.7 Chloride 116 H Carbon Dioxide 28.1 Anion Gap 9 BUN 32 H Creatinine 0.34 L Estimated GFR Greater than 89 POC Glucose 159 H Random Glucose 142 H Calcium 8.2 L Total Bilirubin 0.3 AST 14 L ALT 21 Alkaline Phosphatase 125 H Total Protein 5.6 L Albumin 2.1 L Assessment and Plan - Plan 77-year-old male admitted with sepsis and A. 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 Patient is stable for transfer out of ICU today. Respiratory status has remained stable and improved compared previously. Patient is tolerating nasal cannula oxygenation. Tachycardia is present today, but improved compared to yesterday. Hypernatremia is present today. DNR status. Hypernatremia One half normal saline at a low rate is provided Continue to monitor sodium levels Healthcare associated pneumonia aztreonam and Levaquin and vancomycin Follow signs of infection A. fib RVR Coronary artery disease with prior CABG 09/2007 Tachycardia may represent recurrence of RVR Continue aspirin Continue Plavix Continue Diltiazem Continue Metoprolol Follow on telemetry Currently rate controlled COPD with acute exacerbation Emphysema Prior tobacco abuse Pleural effusions Respiratory failure Continue duo nebs scheduled and albuterol as needed Continue steroids Chest tube in place Respiratory status improved today compared to yesterday Chronic moderate protein energy malnutrition Continue PEG tube feedings Diabetes mellitus type 2 Follow blood sugars Insulin sliding scale Diabetic diet Severe sepsis Resolved DVT prophylaxis Heparin
[2018-01-02] MEDS: Sodium Chloride 0.45 % Inj 1,000 ML IV.CONT SCH (11:47)
--- NOTE | 2018-01-02 17:19 | P.PNPAL ---
Reason for Visit Reason for visit: a. To assist with evaluation and management of symptoms including: dyspnea b. To assist medical decision maker(s) with: better understanding of current medical conditions; weighing benefits/burdens of medical treatment options; making medical treatment decisions. Subjective Subjective/Interval History: Mr. Sullivan is seen and examined in ICU. No family at bedside. Patient is awakens easily. He smiles. He does not answer any of my questions verbally today. He nods no to shortness of breath. Chest tube remains in place. Clinical data: * WBC 11.7, hgb 10.5, hematocrit 34.7, platelets 217, neutrophils 84.1% * Sodium 153, creatinine 0.34 glucose 157 * Total bilirubin 0.3 * Albumin 2.1 * CXR - basilar airspace disease and small effusions. * Tolerating tube feeding. Notes indicate plan to move to medical floor when room available. Family/Friend Interactions: Called to speak with daughter, Sylvia via phone to provide medical update. She requests to be notified when her father is moved to medical floor. She appreciates call. She desires continued aggressive care short of NO CODE for now. Advance Directives Advance Directives Date on File: 09/26/17 (HCP designation acceptance form) Health Care Surrogate Name and Number: Sylvia Sullivan designated HCP Documented care wishes:: Has signed [place] DNR order signed on 01/29/18 paper chart. Significant change in goals:: Desires continued aggressive care short of NO CODE for now. Objective Vital Signs: Vital Signs 01/01/18 19:30 01/01/18 20:00 01/01/18 20:30 Temperature 99.1 F Pulse Rate 122 H 123 H 129 H Respiratory Rate 30 H 30 H 32 H Blood Pressure 184/112 H 168/109 H Pulse Oximetry 94 L 97 92 L 01/01/18 21:00 01/01/18 21:23 01/01/18 21:24 Temperature Pulse Rate 112 H 107 H 103 H Respiratory Rate 27 H 29 H 20 Blood Pressure 174/105 H 163/117 H Pulse Oximetry 97 96 01/01/18 21:27 01/01/18 21:30 01/01/18 21:33 Temperature Pulse Rate 107 H 105 H Respiratory Rate 29 H 30 H Blood Pressure 177/117 H 173/126 H Pulse Oximetry 97 98 97 01/01/18 21:34 01/01/18 22:00 01/01/18 22:01 Temperature Pulse Rate 104 H 108 H 111 H Respiratory Rate 27 H 31 H 29 H Blood Pressure 176/119 H 191/114 H Pulse Oximetry 99 93 L 95 01/01/18 22:31 01/01/18 23:00 01/01/18 23:30 Temperature Pulse Rate 109 H 104 H 106 H Respiratory Rate 27 H 27 H 25 H Blood Pressure 158/109 H 165/104 H 141/88 H Pulse Oximetry 81 L 97 96 01/02/18 00:00 01/02/18 00:30 01/02/18 01:00 Temperature Pulse Rate 105 H 102 H 103 H Respiratory Rate 23 23 23 Blood Pressure 132/76 135/90 135/81 Pulse Oximetry 95 95 96 01/02/18 01:30 01/02/18 02:00 01/02/18 02:30 Temperature Pulse Rate 105 H 106 H 110 H Respiratory Rate 23 23 26 H Blood Pressure 142/85 H 141/88 H 138/91 H Pulse Oximetry 95 95 96 01/02/18 03:00 01/02/18 03:30 01/02/18 04:00 Temperature Pulse Rate 109 H 111 H 113 H Respiratory Rate 25 H 23 22 Blood Pressure 148/96 H 131/83 143/87 H Pulse Oximetry 97 97 97 01/02/18 04:22 01/02/18 04:30 01/02/18 05:00 Temperature Pulse Rate 113 H 108 H 117 H Respiratory Rate 20 22 21 Blood Pressure 146/93 H 134/90 Pulse Oximetry 99 97 01/02/18 05:30 01/02/18 06:00 01/02/18 06:30 Temperature Pulse Rate 106 H 102 H 101 H Respiratory Rate 22 23 21 Blood Pressure 146/86 H 125/84 110/72 Pulse Oximetry 95 95 96 01/02/18 07:00 01/02/18 09:00 01/02/18 09:21 Temperature Pulse Rate 101 H 93 H Respiratory Rate 20 Blood Pressure 119/79 Pulse Oximetry 97 99 01/02/18 12:00 Temperature Pulse Rate Respiratory Rate Blood Pressure Pulse Oximetry 94 L Intake & Output 01/01/18 01/02/18 01/02/18 18:59 06:59 18:59 Intake Total 873 / 873 1344.0 / 1344.0 1000 / 1000 Output Total 200 / 200 650 / 650 Balance 673 / 673 694.0 / 694.0 1000 / 1000 Weight 56 kg Intake: IV 100 / 100 725.0 / 725.0 1000 / 1000 1/2 Normal Saline Inj 1,000 ML 1000 / 1000 @ 42 mls/hr IV.CONT .[id number] YURIY Rx#:[id number] Azactam Inj 2 GM In NS Inj 100 100 / 100 200 / 200 ML @ 200 mls/hr IV.SIG Q8H YURIY Rx#:[id number] Vancomycin Inj 1,250 MG In NS 525.0 / 525.0 Inj 250 ML @ 250 mls/hr IV.SIG Q12H YURIY Rx#:[id number] Oral 0 / 0 Tube Feeding 653 / 653 469 / 469 Tube Irrigant 120 / 120 150 / 150 Output: Urine 0 / 0 Stool 0 / 0 Urine Amount (Catheter) 200 / 200 650 / 650 Indwelling Urethral Catheter 200 / 200 650 / 650 Chest Tube Drainage 0 / 0 0 / 0 Left Upper Pleural 0 / 0 0 / 0 Other: Date of Last Bowel Movement 12/30/17 01/01/18 01/01/18 # Bowel Movements 1 Physical Exam: CONSTITUTIONAL/GENERAL: This is a thin, elderly male. No apparent distress. TUBES/LINES/DRAINS: PIV, NC oxygen. PEG tube, Clemente catheter. Left chest tube. SKIN: No jaundice, rashes, or lesions. No wounds seen anteriorly. Skin warm/ dry. EYES: Pupils equal and round and reactive. CARDIOVASCULAR: Irregular rate and rhythm. RESPIRATORY/CHEST: Symmetric, unlabored respirations, diminished breath sounds bilaterally. GASTROINTESTINAL: Abdomen soft, non-tender, nondistended. Bowel sounds present. PEG tube. GENITOURINARY: Without palpable bladder distension. Clemente catheter in place. MUSCULOSKELETAL: Extremities without clubbing, cyanosis, or edema. No mottling or clubbing. NEUROLOGICAL: Awakens easily. Nods no to SOB. Non-verbal today. PSYCHIATRIC: Calm. Diagnostic Tests Laboratory: Laboratory Results - last 72 hr 12/29/17 12/29/17 12/29/17 04:03 04:03 04:03 WBC 10.9 RBC 3.62 L Hgb 9.5 L Hct 30.1 L MCV 83.2 MCH 26.4 L MCHC 31.7 L RDW 18.9 H Plt Count 191 MPV 9.1 Prelim Diff (Auto) Neut % (Auto) 88.6 H Lymph % (Auto) 6.2 L [place] % (Auto) 5.0 Eos % (Auto) 0.0 Baso % (Auto) 0.2 Neut # (Auto) 9.7 H Lymph # (Auto) 0.7 L [place] # (Auto) 0.5 Eos # (Auto) 0.0 Baso # (Auto) 0.0 CBC Comment DIFF FINAL WBC Differential Seg Neuts % (Manual) Band Neuts % (Manual) Lymphocytes % (Manual) Monocytes % (Manual) Myelocytes % (Man) Abs Neuts (Manual) Differential Comment Platelet Estimate Platelet Morphology Ovalocytes Puncture Site Patient Temperature HCO3 Base Excess O2 Saturation ABG pH ABG pCO2 ABG pO2 ABG O2 Content ABG Carboxyhemoglobin ABG Methemoglobin Hemoglobin O2 Delivery Device Liter Flow Inspired O2 Sodium 151 H Potassium 3.6 Chloride 116 H D Carbon Dioxide 29.0 Anion Gap 6 BUN 38 H Creatinine 0.41 L Estimated GFR 203 POC Glucose Random Glucose 140 H D Lactic Acid 1.3 Calcium 8.6 Phosphorus 2.7 Magnesium 2.3 Total Bilirubin AST ALT Alkaline Phosphatase Troponin I 0.02 Total Protein Albumin Pleural pH Pleural WBC Pleural RBC Pleural Neutrophils Pleural Lymphocytes Pleural Monocytes Pleural Mesothelial Pleural Total Protein Pleural LDH Pleural Glucose Vancomycin Trough 12/29/17 12/30/17 12/30/17 09:40 06:54 07:20 WBC RBC Hgb Hct MCV MCH MCHC RDW Plt Count MPV Prelim Diff (Auto) Neut % (Auto) Lymph % (Auto) [place] % (Auto) Eos % (Auto) Baso % (Auto) Neut # (Auto) Lymph # (Auto) [place] # (Auto) Eos # (Auto) Baso # (Auto) CBC Comment WBC Differential Seg Neuts % (Manual) Band Neuts % (Manual) Lymphocytes % (Manual) Monocytes % (Manual) Myelocytes % (Man) Abs Neuts (Manual) Differential Comment Platelet Estimate Platelet Morphology Ovalocytes Puncture Site RT RADIAL Patient Temperature 98.6 HCO3 30 H Base Excess 6.2 H O2 Saturation 97 ABG pH 7.46 H ABG pCO2 43 H ABG pO2 146 H ABG O2 Content 14.2 ABG Carboxyhemoglobin 0.9 ABG Methemoglobin 1.0 Hemoglobin 10.2 L O2 Delivery Device Non-Rebreathing Mask Liter Flow 15 Inspired O2 100 Sodium 153 H Potassium 3.5 Chloride 117 H Carbon Dioxide 30.8 Anion Gap 5 BUN 41 H Creatinine 0.48 L Estimated GFR 169 POC Glucose Random Glucose 243 H D Lactic Acid Calcium 8.2 L Phosphorus 3.2 Magnesium 2.3 Total Bilirubin AST ALT Alkaline Phosphatase Troponin I Total Protein Albumin Pleural pH Pleural WBC Pleural RBC Pleural Neutrophils Pleural Lymphocytes Pleural Monocytes Pleural Mesothelial Pleural Total Protein Pleural LDH Pleural Glucose Vancomycin Trough 11.8 H 12/30/17 12/30/17 12/30/17 07:20 12:35 12:35 WBC 10.1 RBC 3.87 L Hgb 10.4 L Hct 32.5 L MCV 83.9 MCH 26.7 L MCHC 31.9 L RDW 19.1 H Plt Count 199 MPV 9.7 Prelim Diff (Auto) Neut % (Auto) 87.1 H Lymph % (Auto) 6.3 L [place] % (Auto) 6.6 Eos % (Auto) 0.0 Baso % (Auto) 0.0 Neut # (Auto) 8.8 H Lymph # (Auto) 0.6 L [place] # (Auto) 0.7 Eos # (Auto) 0.0 Baso # (Auto) 0.0 CBC Comment DIFF FINAL WBC Differential Seg Neuts % (Manual) Band Neuts % (Manual) Lymphocytes % (Manual) Monocytes % (Manual) Myelocytes % (Man) Abs Neuts (Manual) Differential Comment Platelet Estimate Platelet Morphology Ovalocytes Puncture Site Patient Temperature HCO3 Base Excess O2 Saturation ABG pH ABG pCO2 ABG pO2 ABG O2 Content ABG Carboxyhemoglobin ABG Methemoglobin Hemoglobin O2 Delivery Device Liter Flow Inspired O2 Sodium Potassium Chloride Carbon Dioxide Anion Gap BUN Creatinine Estimated GFR POC Glucose Random Glucose Lactic Acid Calcium Phosphorus Magnesium Total Bilirubin AST ALT Alkaline Phosphatase Troponin I Total Protein Albumin Pleural pH 8.5 Pleural WBC 196 H Pleural RBC 40759 H Pleural Neutrophils 25 Pleural Lymphocytes 68 Pleural Monocytes 4 Pleural Mesothelial 3 Pleural Total Protein 1.5 Pleural LDH 67 Pleural Glucose 232 Vancomycin Trough 12/31/17 12/31/17 12/31/17 03:50 03:50 21:45 WBC 8.7 RBC 4.05 L Hgb 10.7 L Hct 33.8 L MCV 83.5 MCH 26.5 L MCHC 31.8 L RDW 19.0 H Plt Count 200 MPV 9.6 Prelim Diff (Auto) Neut % (Auto) 86.2 H Lymph % (Auto) 9.6 [place] % (Auto) 4.1 Eos % (Auto) 0.0 Baso % (Auto) 0.1 Neut # (Auto) 7.5 Lymph # (Auto) 0.8 L [place] # (Auto) 0.4 Eos # (Auto) 0.0 Baso # (Auto) 0.0 CBC Comment DIFF FINAL WBC Differential Seg Neuts % (Manual) Band Neuts % (Manual) Lymphocytes % (Manual) Monocytes % (Manual) Myelocytes % (Man) Abs Neuts (Manual) Differential Comment Platelet Estimate Platelet Morphology Ovalocytes Puncture Site Patient Temperature HCO3 Base Excess O2 Saturation ABG pH ABG pCO2 ABG pO2 ABG O2 Content ABG Carboxyhemoglobin ABG Methemoglobin Hemoglobin O2 Delivery Device Liter Flow Inspired O2 Sodium 153 H Potassium 3.7 Chloride 115 H Carbon Dioxide 32.1 H Anion Gap 6 BUN 38 H Creatinine 0.44 L Estimated GFR 187 POC Glucose Random Glucose 190 H Lactic Acid Calcium 8.6 Phosphorus Magnesium Total Bilirubin 0.3 AST 14 L ALT 17 Alkaline Phosphatase 143 H Troponin I Total Protein 6.2 L Albumin 2.4 L Pleural pH Pleural WBC Pleural RBC Pleural Neutrophils Pleural Lymphocytes Pleural Monocytes Pleural Mesothelial Pleural Total Protein Pleural LDH Pleural Glucose Vancomycin Trough 14.4 H 01/01/18 01/01/18 01/01/18 04:22 04:22 04:40 WBC 10.9 RBC 4.15 L Hgb 10.8 L Hct 34.5 L MCV 83.1 MCH 26.1 L MCHC 31.4 L RDW 18.8 H Plt Count 225 MPV 9.8 Prelim Diff (Auto) Slide review pending Neut % (Auto) 85.9 H Lymph % (Auto) 9.9 [place] % (Auto) 4.0 Eos % (Auto) 0.0 Baso % (Auto) 0.2 Neut # (Auto) 9.4 H Lymph # (Auto) 1.1 [place] # (Auto) 0.4 Eos # (Auto) 0.0 Baso # (Auto) 0.0 CBC Comment WBC Differential Manual diff final Seg Neuts % (Manual) 90 H Band Neuts % (Manual) 1 Lymphocytes % (Manual) 4 L Monocytes % (Manual) 4 Myelocytes % (Man) 1 H Abs Neuts (Manual) 10.0 H Differential Comment . Platelet Estimate Normal Platelet Morphology Normal Ovalocytes 1+ H Puncture Site Patient Temperature HCO3 Base Excess O2 Saturation ABG pH ABG pCO2 ABG pO2 ABG O2 Content ABG Carboxyhemoglobin ABG Methemoglobin Hemoglobin O2 Delivery Device Liter Flow Inspired O2 Sodium 156 H* Potassium 3.7 Chloride 117 H Carbon Dioxide 31.0 Anion Gap 8 BUN 34 H Creatinine 0.42 L Estimated GFR Greater than 89 POC Glucose 156 H Random Glucose 150 H Lactic Acid Calcium 8.6 Phosphorus Magnesium Total Bilirubin 0.3 AST 14 L ALT 18 Alkaline Phosphatase 143 H Troponin I Total Protein 6.0 L Albumin 2.3 L Pleural pH Pleural WBC Pleural RBC Pleural Neutrophils Pleural Lymphocytes Pleural Monocytes Pleural Mesothelial Pleural Total Protein Pleural LDH Pleural Glucose Vancomycin Trough 01/01/18 01/01/18 01/01/18 09:37 12:07 16:58 WBC RBC Hgb Hct MCV MCH MCHC RDW Plt Count MPV Prelim Diff (Auto) Neut % (Auto) Lymph % (Auto) [place] % (Auto) Eos % (Auto) Baso % (Auto) Neut # (Auto) Lymph # (Auto) [place] # (Auto) Eos # (Auto) Baso # (Auto) CBC Comment WBC Differential Seg Neuts % (Manual) Band Neuts % (Manual) Lymphocytes % (Manual) Monocytes % (Manual) Myelocytes % (Man) Abs Neuts (Manual) Differential Comment Platelet Estimate Platelet Morphology Ovalocytes Puncture Site Patient Temperature HCO3 Base Excess O2 Saturation ABG pH ABG pCO2 ABG pO2 ABG O2 Content ABG Carboxyhemoglobin ABG Methemoglobin Hemoglobin O2 Delivery Device Liter Flow Inspired O2 Sodium Potassium Chloride Carbon Dioxide Anion Gap BUN Creatinine Estimated GFR POC Glucose 182 H 174 H 169 H Random Glucose Lactic Acid Calcium Phosphorus Magnesium Total Bilirubin AST ALT Alkaline Phosphatase Troponin I Total Protein Albumin Pleural pH Pleural WBC Pleural RBC Pleural Neutrophils Pleural Lymphocytes Pleural Monocytes Pleural Mesothelial Pleural Total Protein Pleural LDH Pleural Glucose Vancomycin Trough 01/01/18 01/01/18 01/02/18 20:32 23:06 04:25 WBC RBC Hgb Hct MCV MCH MCHC RDW Plt Count MPV Prelim Diff (Auto) Neut % (Auto) Lymph % (Auto) [place] % (Auto) Eos % (Auto) Baso % (Auto) Neut # (Auto) Lymph # (Auto) [place] # (Auto) Eos # (Auto) Baso # (Auto) CBC Comment WBC Differential Seg Neuts % (Manual) Band Neuts % (Manual) Lymphocytes % (Manual) Monocytes % (Manual) Myelocytes % (Man) Abs Neuts (Manual) Differential Comment Platelet Estimate Platelet Morphology Ovalocytes Puncture Site Patient Temperature HCO3 Base Excess O2 Saturation ABG pH ABG pCO2 ABG pO2 ABG O2 Content ABG Carboxyhemoglobin ABG Methemoglobin Hemoglobin O2 Delivery Device Liter Flow Inspired O2 Sodium Potassium Chloride Carbon Dioxide Anion Gap BUN Creatinine Estimated GFR POC Glucose 169 H 132 H 148 H Random Glucose Lactic Acid Calcium Phosphorus Magnesium Total Bilirubin AST ALT Alkaline Phosphatase Troponin I Total Protein Albumin Pleural pH Pleural WBC Pleural RBC Pleural Neutrophils Pleural Lymphocytes Pleural Monocytes Pleural Mesothelial Pleural Total Protein Pleural LDH Pleural Glucose Vancomycin Trough 01/02/18 01/02/18 01/02/18 05:20 05:20 07:41 WBC 11.7 H RBC 4.11 L Hgb 10.5 L Hct 34.7 L MCV 84.4 MCH 25.6 L MCHC 30.4 L RDW 19.1 H Plt Count 217 MPV 9.5 Prelim Diff (Auto) Neut % (Auto) 84.1 H Lymph % (Auto) 10.6 [place] % (Auto) 5.2 Eos % (Auto) 0.0 Baso % (Auto) 0.1 Neut # (Auto) 9.8 H Lymph # (Auto) 1.2 [place] # (Auto) 0.6 Eos # (Auto) 0.0 Baso # (Auto) 0.0 CBC Comment WBC Differential . Seg Neuts % (Manual) Band Neuts % (Manual) Lymphocytes % (Manual) Monocytes % (Manual) Myelocytes % (Man) Abs Neuts (Manual) Differential Comment Auto diff final Platelet Estimate Platelet Morphology Ovalocytes Puncture Site Patient Temperature HCO3 Base Excess O2 Saturation ABG pH ABG pCO2 ABG pO2 ABG O2 Content ABG Carboxyhemoglobin ABG Methemoglobin Hemoglobin O2 Delivery Device Liter Flow Inspired O2 Sodium 153 H Potassium 3.7 Chloride 116 H Carbon Dioxide 28.1 Anion Gap 9 BUN 32 H Creatinine 0.34 L Estimated GFR Greater than 89 POC Glucose 159 H Random Glucose 142 H Lactic Acid Calcium 8.2 L Phosphorus Magnesium Total Bilirubin 0.3 AST 14 L ALT 21 Alkaline Phosphatase 125 H Troponin I Total Protein 5.6 L Albumin 2.1 L Pleural pH Pleural WBC Pleural RBC Pleural Neutrophils Pleural Lymphocytes Pleural Monocytes Pleural Mesothelial Pleural Total Protein Pleural LDH Pleural Glucose Vancomycin Trough 01/02/18 01/02/18 11:45 16:02 WBC RBC Hgb Hct MCV MCH MCHC RDW Plt Count MPV Prelim Diff (Auto) Neut % (Auto) Lymph % (Auto) [place] % (Auto) Eos % (Auto) Baso % (Auto) Neut # (Auto) Lymph # (Auto) [place] # (Auto) Eos # (Auto) Baso # (Auto) CBC Comment WBC Differential Seg Neuts % (Manual) Band Neuts % (Manual) Lymphocytes % (Manual) Monocytes % (Manual) Myelocytes % (Man) Abs Neuts (Manual) Differential Comment Platelet Estimate Platelet Morphology Ovalocytes Puncture Site Patient Temperature HCO3 Base Excess O2 Saturation ABG pH ABG pCO2 ABG pO2 ABG O2 Content ABG Carboxyhemoglobin ABG Methemoglobin Hemoglobin O2 Delivery Device Liter Flow Inspired O2 Sodium Potassium Chloride Carbon Dioxide Anion Gap BUN Creatinine Estimated GFR POC Glucose 148 H 157 H Random Glucose Lactic Acid Calcium Phosphorus Magnesium Total Bilirubin AST ALT Alkaline Phosphatase Troponin I Total Protein Albumin Pleural pH Pleural WBC Pleural RBC Pleural Neutrophils Pleural Lymphocytes Pleural Monocytes Pleural Mesothelial Pleural Total Protein Pleural LDH Pleural Glucose Vancomycin Trough Result Diagrams: 01/02/18 05:20 01/02/18 05:20 Procedures: * 12/30/17 - US guided chest tube placement. Assessment and Plan - Disease Oriented Problem List (1) Hypernatremia (2) HCAP (healthcare-associated pneumonia) (3) Atrial fibrillation (4) CAD (coronary artery disease) (5) COPD exacerbation (6) Emphysema lung (7) Pleural effusion (8) Respiratory failure (9) Moderate protein-calorie malnutrition (10) Diabetes - Symptom Scale (1) Dyspnea 0-10 Scale: Unable to quantify Pertinent Non-Medical Issues: Psychosocial: . Spiritual: Shinto. Legal: Patient suffered significant stroke in September of this year. Has been nonverbal and dependent since that time. Does not appear to have advanced directives or health care surrogate. Healthcare proxy was completed naming daughter during that admission. Per EMR patient . Ethical issues impacting care: None. Important Contacts: Daughter. Hosea Sullivan [phone] Prognosis: This patient was admitted for acute respiratory issues, concern for sepsis. He has been dependent, debilitated in a long-term care facility setting since suffering a significant CVA in September of this year. Additionally he has multiple chronic medical comorbidities. He will remain at ongoing risk for infections, recurrent hospitalizations, various complications and continued decline. May be appropriate for hospice if goals comfort oriented. Code Status: No Code DNR ([place] DNR on chart completed 01/29/18) Plan: * Legal decision maker:Patient suffered significant stroke in September of this year. Has been nonverbal and dependent since that time. . No written advanced directives. Healthcare proxy was completed naming daughter during that admission. * NO CODE * 01/02/18 - Spoke with daughter, Sylvia to provide medical update. She has returned home to [place]. She desires continued aggressive care short of NO CODE for now. She requests to be notified if patient is moved out of ICU to medical floor. * Palliative care will continue to follow during hospital course as condition evolves, to assist patient/decision-maker with understanding of medical conditions, weighing benefits/burdens of treatment options, for clarification of goals of treatment. Additionally will assist with any symptoms of palliative concern SYMPTOMS: * Dyspnea-patient admitted for acute respiratory distress. Requiring increased O2 at nursing facility. Currently breathing comfortably on oxygen via NC. Receiving steroids, nebulizers, broad spectrum antibiotics. Chest tube remains in place. High risk for clinical deterioration and possible intubation. If goals were comfort oriented would add prn opiates, benzodiazepines for dyspnea/ tachypnea. * Pain-potential for related to chronic bedbound status. No signs of pain today. Will continue to evaluate.
[2018-01-03] MEDS: Insulin NovoLOG Aspart Correctional Sugar Inj SQ SCH ×5 (01:02→21:25)
[2018-01-03] MEDS: Chlorhexidine Gluconate 2% 1 Pack (2 Cloths) TOPICAL SCH (04:30)
[2018-01-03] MEDS: Aztreonam Inj 2 GM in Sodium Chloride 0.9% Inj 100 ML IV.SIG SCH ×3 (05:19→21:17)
[2018-01-03] MEDS: dilTIAZem 30 MG Tablet G-TUBE SCH ×2 (05:19→21:26)
[2018-01-03] MEDS: MethylPREDNISolone Sod Succinate Inj 40 MG/ML Vial IV.PUSH SCH ×2 (09:41→21:00)
[2018-01-03] MEDS: Heparin - SQ 10,000 UNITS/ML Vial SQ SCH ×2 (09:41→20:57)
[2018-01-03] MEDS: levoFLOXacin 750 MG Tablet PO SCH (09:42)
[2018-01-03] MEDS: Senna/Docusate Sodium 8.6/50 MG Tablet PO SCH ×2 (09:42→20:57)
[2018-01-03] MEDS: Metoprolol Tartrate 25 MG Tablet G-TUBE SCH ×2 (09:42→20:57)
[2018-01-03] MEDS: Famotidine 20 MG Tablet G-TUBE SCH ×2 (09:42→20:57)
[2018-01-03] MEDS ORDERED: Pharmacy Ordered Lab Info OTHER ONE (09:45)
[2018-01-03 11:11] LABS: Baso % (Auto) 0.1 % (0.0-2.0); Hematocrit 32.8 % (39.0-51.0); Hemoglobin 10.5 gm/dL (13.0-17.0); Lymph # (Auto) 1.1 th/mm3 (1.0-4.8); Lymph % (Auto) 9.9 % (9.0-44.0); Mean Corpuscular Hemoglobin 26.9 pg (27.0-34.0); Mean Corpuscular Volume 84.2 fL (80.0-100.0); Mean Platelet Volume 9.5 fL (7.0-11.0); Mono # (Auto) 0.8 th/mm3 (0.0-0.9); Mono % (Auto) 7.7 % (0.0-8.0); Neut # (Auto) 8.8 th/mm3 (1.8-7.7); Neut % (Auto) 82.3 % (16.0-70.0); Platelet Count 203 th/mm3 (150-450); Red Cell Distribution Width 18.7 % (11.6-17.2); White Blood Count 10.7 th/mm3 (4.0-11.0)
[2018-01-03 11:40] LABS: Alanine Aminotransferase 18 U/L (12-78); Albumin 1.9 g/dL (3.4-5.0); Anion Gap 6 meq/L (5-15); Aspartate Aminotransferase 13 U/L (15-37); Blood Urea Nitrogen 32 mg/dL (7-18); Carbon Dioxide 29.3 meq/L (21.0-32.0); Chloride 114 meq/L (98-107); Glomerular Filtration Rate Greater Than 89 mL/min (>89); Glucose,Random 167 mg/dL (74-106); Potassium 3.9 meq/L (3.5-5.1); Sodium 149 meq/L (136-145)
[2018-01-03 11:42] LABS: Alkaline Phosphatase 142 U/L (45-117); Total Protein 5.1 g/dL (6.4-8.2)
--- NOTE | 2018-01-03 12:17 | P.PNIM ---
Subjective Interval history: Patient resting in bed No acute complain He is on 3 L nasal cannula Physical Exam Vital signs: Vital Signs 01/02/18 12:30 01/02/18 13:00 01/02/18 13:30 Temperature Pulse Rate 100 H 101 H 98 H Respiratory Rate 23 26 H 24 Blood Pressure 115/70 129/76 110/73 Pulse Oximetry 92 L 97 96 01/02/18 14:00 01/02/18 14:30 01/02/18 15:00 Temperature Pulse Rate 103 H 98 H 100 H Respiratory Rate 24 25 H 25 H Blood Pressure 127/77 130/77 117/74 Pulse Oximetry 97 96 96 01/02/18 15:30 01/02/18 16:00 01/02/18 16:30 Temperature Pulse Rate 105 H 104 H 105 H Respiratory Rate 25 H 24 24 Blood Pressure 125/80 134/83 121/78 Pulse Oximetry 98 98 99 01/02/18 17:00 01/02/18 17:30 01/02/18 18:00 Temperature Pulse Rate 114 H 111 H 110 H Respiratory Rate 24 24 21 Blood Pressure 125/84 126/76 135/89 Pulse Oximetry 94 L 96 98 01/02/18 18:30 01/02/18 19:00 01/02/18 19:30 Temperature Pulse Rate 109 H 107 H 105 H Respiratory Rate 22 22 22 Blood Pressure 113/74 112/79 122/86 Pulse Oximetry 96 97 97 01/02/18 20:00 01/02/18 20:30 01/02/18 21:00 Temperature Pulse Rate 109 H 101 H 95 H Respiratory Rate 24 23 23 Blood Pressure 131/89 133/91 H 124/82 Pulse Oximetry 99 98 96 01/02/18 21:30 01/02/18 22:00 01/02/18 22:30 Temperature Pulse Rate 96 H 98 H 100 H Respiratory Rate 22 23 23 Blood Pressure 123/72 121/73 127/88 Pulse Oximetry 97 97 98 01/03/18 00:00 01/03/18 04:00 01/03/18 04:56 Temperature 98 F 97.5 F L Pulse Rate 105 H 113 H 105 H Respiratory Rate 24 18 18 Blood Pressure 153/71 H 144/80 H Pulse Oximetry 96 95 01/03/18 08:00 01/03/18 09:07 Temperature 95.7 F L Pulse Rate 115 H 100 H Respiratory Rate 20 22 Blood Pressure 119/73 Pulse Oximetry 97 94 L Intake & Output 01/02/18 01/03/18 01/03/18 18:59 06:59 18:59 Intake Total 2149.5 / 2149.5 100 / 100 Output Total 1050 / 1050 Balance 1099.5 / 1099.5 100 / 100 Weight 57.8 kg Intake: IV 1462.5 / 1462.5 100 / 100 1/2 Normal Saline Inj 1,000 ML 1000 / 1000 @ 42 mls/hr IV.CONT .[id number] [facility] Rx#:[id number] Azactam Inj 2 GM In NS Inj 100 200 / 200 100 / 100 ML @ 200 mls/hr IV.SIG Q8H [facility] Rx#:[id number] Vancomycin Inj 1,250 MG In NS 262.5 / 262.5 Inj 250 ML @ 250 mls/hr IV.SIG Q12H [facility] Rx#:[id number] Oral 0 / 0 Tube Feeding 687 / 687 Output: Stool 0 / 0 Urine Amount (Catheter) 1050 / 1050 Indwelling Urethral Catheter 1050 / 1050 Chest Tube Drainage 0 / 0 Left Upper Pleural 0 / 0 Other: Date of Last Bowel Movement 01/02/18 01/02/18 # Bowel Movements 0 Narrative: GENERAL: This is frail 77 years old male nonverbal in no apparent distress. CARDIOVASCULAR: RRR, no gallops, or rubs. RESPIRATORY: Fair air entry bilaterally. No W, R, or R GASTROINTESTINAL: Abdomen soft, non-tender, nondistended. Positive bowel sounds MUSCULOSKELETAL: Extremities without clubbing, cyanosis, or edema. Pedal pulses appreciated NEUROLOGICAL: Awake and alert nonverbal, able to move upper extremity and his feet, aphasic - Urinary Catheter Management Indwelling Urethral Catheter Cath placed during this visit: no Reason for continuing: Not indwelling catheter Results - Labs CBC & Chem 7: 01/03/18 10:43 01/04/18 05:30 Laboratory Results - last 24 hr 01/02/18 01/02/18 01/03/18 16:02 19:33 00:01 WBC RBC Hgb Hct MCV MCH MCHC RDW Plt Count MPV Neut % (Auto) Lymph % (Auto) [place] % (Auto) Eos % (Auto) Baso % (Auto) Neut # (Auto) Lymph # (Auto) [place] # (Auto) Eos # (Auto) Baso # (Auto) WBC Differential Differential Comment Sodium Potassium Chloride Carbon Dioxide Anion Gap BUN Creatinine Estimated GFR POC Glucose 157 H 152 H 123 H Random Glucose Calcium Total Bilirubin AST ALT Alkaline Phosphatase Total Protein Albumin 01/03/18 01/03/18 01/03/18 05:47 08:16 10:43 WBC 10.7 RBC 3.90 L Hgb 10.5 L Hct 32.8 L MCV 84.2 MCH 26.9 L MCHC 32.0 RDW 18.7 H Plt Count 203 MPV 9.5 Neut % (Auto) 82.3 H Lymph % (Auto) 9.9 [place] % (Auto) 7.7 Eos % (Auto) 0.0 Baso % (Auto) 0.1 Neut # (Auto) 8.8 H Lymph # (Auto) 1.1 [place] # (Auto) 0.8 Eos # (Auto) 0.0 Baso # (Auto) 0.0 WBC Differential . Differential Comment Auto diff final Sodium Potassium Chloride Carbon Dioxide Anion Gap BUN Creatinine Estimated GFR POC Glucose 127 H 147 H Random Glucose Calcium Total Bilirubin AST ALT Alkaline Phosphatase Total Protein Albumin 01/03/18 10:43 WBC RBC Hgb Hct MCV MCH MCHC RDW Plt Count MPV Neut % (Auto) Lymph % (Auto) [place] % (Auto) Eos % (Auto) Baso % (Auto) Neut # (Auto) Lymph # (Auto) [place] # (Auto) Eos # (Auto) Baso # (Auto) WBC Differential Differential Comment Sodium 149 H Potassium 3.9 Chloride 114 H Carbon Dioxide 29.3 Anion Gap 6 BUN 32 H Creatinine 0.30 L Estimated GFR Greater than 89 POC Glucose Random Glucose 167 H Calcium 8.0 L Total Bilirubin 0.3 AST 13 L ALT 18 Alkaline Phosphatase 142 H Total Protein 5.1 L Albumin 1.9 L Assessment and Plan - Plan 77-year-old male admitted with sepsis and A. 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 01/03: Sodium is 153 continue monitoring BMP need to increase IV fluid, continue IV antibiotic, chest tube management A/P Severe sepsis resolved Hyponatremia A. fib with RVR [facility] associated pneumonia Pleural effusion CAD with CABG in 2007 COPD with exacerbation Tobacco abuse Diabetes mellitus DNR status. Continue with half-normal saline and monitor sodium with BMP On aztreonam and Levaquin and vancomycin Chest tube management by furniture repairer Continue aspirin, Plavix, Cardizem, Lopressor DuoNeb, oxygen, Solu Medrol, chest tube in place Continue PEG tube feedings Accu-Chek with insulin sliding scale DVT prophylaxis Heparin
--- NOTE | 2018-01-03 19:38 | P.PNPL ---
Subjective Interval history: 77 YOWM with CVA, Pl effusion has left chest tube On NC No distress Physical Exam Vital signs: Vital Signs 01/02/18 20:00 01/02/18 20:30 01/02/18 21:00 Temperature Pulse Rate 109 H 101 H 95 H Respiratory Rate 24 23 23 Blood Pressure 131/89 133/91 H 124/82 Pulse Oximetry 99 98 96 01/02/18 21:30 01/02/18 22:00 01/02/18 22:30 Temperature Pulse Rate 96 H 98 H 100 H Respiratory Rate 22 23 23 Blood Pressure 123/72 121/73 127/88 Pulse Oximetry 97 97 98 01/03/18 00:00 01/03/18 04:00 01/03/18 04:56 Temperature 98 F 97.5 F L Pulse Rate 105 H 113 H 105 H Respiratory Rate 24 18 18 Blood Pressure 153/71 H 144/80 H Pulse Oximetry 96 95 01/03/18 08:00 01/03/18 09:07 01/03/18 12:00 Temperature 95.7 F L 97.3 F L Pulse Rate 115 H 100 H 102 H Respiratory Rate 20 22 20 Blood Pressure 119/73 113/82 Pulse Oximetry 97 94 L 96 01/03/18 16:00 01/03/18 16:27 01/03/18 16:28 Temperature 97.8 F Pulse Rate 111 H 90 Respiratory Rate 20 18 Blood Pressure 160/86 H Pulse Oximetry 94 L 96 Intake & Output 01/03/18 01/03/18 01/04/18 06:59 18:59 06:59 Intake Total 100 / 100 Balance 100 / 100 Weight 57.8 kg Intake: IV 100 / 100 Azactam Inj 2 GM In NS Inj 100 100 / 100 ML @ 200 mls/hr IV.SIG Q8H [facility] Rx#:[id number] Other: Date of Last Bowel Movement 01/02/18 GENERAL: SKIN: Warm and dry. HEAD: Normocephalic. EYES: No scleral icterus. No injection or drainage. NECK: Supple, trachea midline. No JVD or lymphadenopathy. CARDIOVASCULAR: Regular rate and rhythm without murmurs, gallops, or rubs. RESPIRATORY: Breath sounds equal bilaterally. No accessory muscle use. Left chest tube in place GASTROINTESTINAL: Abdomen soft, non-tender, nondistended. Has PEG tube MUSCULOSKELETAL: No cyanosis, or edema. BACK: Nontender without obvious deformity. No CVA tenderness. - Urinary Catheter Management Indwelling Urethral Catheter Cath placed during this visit: no Reason for continuing: Not indwelling catheter Assessment and Plan - Plan Resp insuff Pleural effusion CAD,s/p CABG CVA Aphasia PLAN: Chest tube clamped Supplement 02 Cont Abx Tube feeding Cont Present treatment plan
[2018-01-03] MEDS: Vancomycin Inj 1,250 MG in Sodium Chlor 0.9% Inj 250 ML IV.SIG SCH ×2 (21:16)
[2018-01-03] MEDS: Sodium Chloride 0.45 % Inj 1,000 ML IV.CONT SCH (21:17)
[2018-01-03] MEDS: Insulin Detemir Inj 1,000 UNIT/10 ML Vial SQ SCH ×2 (21:25)
[2018-01-04] MEDS: dilTIAZem 30 MG Tablet G-TUBE SCH ×4 (00:04→21:43)
[2018-01-04] MEDS: Insulin NovoLOG Aspart Correctional Sugar Inj SQ SCH ×6 (00:10→21:49)
[2018-01-04] MEDS: Aztreonam Inj 2 GM in Sodium Chloride 0.9% Inj 100 ML IV.SIG SCH ×3 (05:31→21:37)
[2018-01-04] MEDS: Chlorhexidine Gluconate 2% 1 Pack (2 Cloths) TOPICAL SCH (05:31)
[2018-01-04 07:10] LABS: Anion Gap 10 meq/L (5-15); Blood Urea Nitrogen 29 mg/dL (7-18); Calcium 8.3 mg/dL (8.5-10.1); Chloride 111 meq/L (98-107); Glomerular Filtration Rate Greater Than 89 mL/min (>89); Glucose,Random 89 mg/dL (74-106); Potassium 3.6 meq/L (3.5-5.1); Sodium 149 meq/L (136-145)
[2018-01-04] MEDS: Heparin - SQ 10,000 UNITS/ML Vial SQ SCH ×2 (09:19→21:41)
[2018-01-04] MEDS: Insulin Detemir Inj 1,000 UNIT/10 ML Vial SQ SCH ×2 (09:19→21:43)
[2018-01-04] MEDS: Famotidine 20 MG Tablet G-TUBE SCH ×2 (09:19→21:42)
[2018-01-04] MEDS: levoFLOXacin 750 MG Tablet PO SCH (09:19)
[2018-01-04] MEDS: Metoprolol Tartrate 25 MG Tablet G-TUBE SCH ×2 (09:20→21:43)
[2018-01-04] MEDS: MethylPREDNISolone Sod Succinate Inj 40 MG/ML Vial IV.PUSH SCH ×2 (09:20→21:39)
[2018-01-04] MEDS: Vancomycin Inj 1,250 MG in Sodium Chlor 0.9% Inj 250 ML IV.SIG SCH ×2 (09:21→21:38)
[2018-01-04] MEDS: Senna/Docusate Sodium 8.6/50 MG Tablet PO SCH ×2 (09:21→21:44)
[2018-01-04] MEDS: Sodium Chloride 0.45 % Inj 1,000 ML IV.CONT SCH (09:27)
[2018-01-04] MEDS: Dextrose 50% in Water 50 ML Vial IV.PUSH PRN (11:57)
--- NOTE | 2018-01-04 15:09 | P.PNIM ---
Subjective Interval history: Still aphasic able to mention his first name, otherwise he does not answer question Chest tube clamped by pulmonology Still on O2 nasal cannula Physical Exam Vital signs: Vital Signs 01/03/18 16:00 01/03/18 16:27 01/03/18 16:28 Temperature 97.8 F Pulse Rate 111 H 90 Respiratory Rate 20 18 Blood Pressure 160/86 H Pulse Oximetry 94 L 96 01/03/18 20:11 01/03/18 21:21 01/04/18 00:01 Temperature 97.8 F 97.7 F Pulse Rate 115 H 95 H 104 H Respiratory Rate 18 20 18 Blood Pressure 143/66 H 137/81 Pulse Oximetry 95 97 01/04/18 03:06 01/04/18 03:07 01/04/18 04:00 Temperature 97.5 F L Pulse Rate 95 H 105 H Respiratory Rate 21 20 Blood Pressure 126/79 Pulse Oximetry 98 98 01/04/18 05:30 01/04/18 08:00 01/04/18 10:15 Temperature 97.6 F Pulse Rate 105 H 95 H Respiratory Rate 18 16 Blood Pressure 126/82 Pulse Oximetry 99 98 98 01/04/18 12:00 Temperature 97.9 F Pulse Rate 108 H Respiratory Rate 16 Blood Pressure 130/76 Pulse Oximetry 96 Intake & Output 01/03/18 01/04/18 01/04/18 18:59 06:59 18:59 Intake Total 1712.5 / 1712.5 Output Total 1300 / 1300 Balance 412.5 / 412.5 Intake: IV 1462.5 / 1462.5 1/2 Normal Saline Inj 1,000 ML 1000 / 1000 @ 42 mls/hr IV.CONT .[id number] [facility] Rx#:[id number] Azactam Inj 2 GM In NS Inj 100 200 / 200 ML @ 200 mls/hr IV.SIG Q8H [facility] Rx#:[id number] Vancomycin Inj 1,250 MG In NS 262.5 / 262.5 Inj 250 ML @ 250 mls/hr IV.SIG Q12H [facility] Rx#:[id number] Tube Feeding 250 / 250 Output: Urine Amount (Catheter) 1200 / 1200 Indwelling Urethral Catheter 1200 / 1200 Chest Tube Drainage 100 / 100 Left Upper Pleural 100 / 100 Other: Date of Last Bowel Movement 01/03/18 01/03/18 Narrative: GENERAL: This is frail 77 years old male nonverbal in no apparent distress. CARDIOVASCULAR: RRR, no gallops, or rubs. RESPIRATORY: Fair air entry bilaterally. No W, R, or R GASTROINTESTINAL: Abdomen soft, non-tender, nondistended. Positive bowel sounds MUSCULOSKELETAL: Extremities without clubbing, cyanosis, or edema. Pedal pulses appreciated NEUROLOGICAL: Awake and alert nonverbal, able to move upper extremity and his feet, aphasic - Urinary Catheter Management Indwelling Urethral Catheter Cath placed during this visit: no Reason for continuing: Not indwelling catheter Results - Labs CBC & Chem 7: 01/03/18 10:43 01/04/18 05:30 Laboratory Results - last 24 hr 01/03/18 01/03/18 01/03/18 14:07 17:30 21:02 Sodium Potassium Chloride Carbon Dioxide Anion Gap BUN Creatinine Estimated GFR POC Glucose 218 H 170 H Random Glucose Calcium Vancomycin Trough 13.3 H 01/04/18 01/04/18 01/04/18 00:09 05:30 05:34 Sodium 149 H Potassium 3.6 Chloride 111 H Carbon Dioxide 28.0 Anion Gap 10 BUN 29 H Creatinine 0.25 L Estimated GFR Greater than 89 POC Glucose 147 H 92 Random Glucose 89 Calcium 8.3 L Vancomycin Trough 01/04/18 01/04/18 01/04/18 07:37 11:50 12:27 Sodium Potassium Chloride Carbon Dioxide Anion Gap BUN Creatinine Estimated GFR POC Glucose 81 61 L 132 H Random Glucose Calcium Vancomycin Trough Assessment and Plan - Plan 77-year-old male admitted with sepsis and A. 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 01/04: Sodium improved 153>149 continue, chest tube clamped by pulmonology, monitoring BMP need to increase IV fluid, continue IV antibiotic, Blood glucose reading was 81 and then 61 this morning we will hold on Levemir and check Accu-Chek every 3 hours only with sliding scale, to resume Levemir if blood glucose pickup, I discussed with the nurse no change in tube feed rate, no residual A/P Severe sepsis resolved Hyponatremia A. fib with RVR [facility] associated pneumonia Pleural effusion CAD with CABG in 2007 COPD with exacerbation Tobacco abuse Diabetes mellitus DNR status. Continue with half-normal saline and monitor sodium with BMP On aztreonam and Levaquin and vancomycin Chest tube management by swatcher Continue aspirin, Plavix, Cardizem, Lopressor DuoNeb, oxygen, Solu Medrol, chest tube in place Continue PEG tube feedings Accu-Chek with insulin sliding scale DVT prophylaxis Heparin
--- NOTE | 2018-01-04 16:36 | P.PNPL ---
Subjective Interval history: 77 YOWm with CVA, aphasia, pl eff left chest tube drained 100 cc no distress Physical Exam Vital signs: Vital Signs 01/03/18 20:11 01/03/18 21:21 01/04/18 00:01 Temperature 97.8 F 97.7 F Pulse Rate 115 H 95 H 104 H Respiratory Rate 18 20 18 Blood Pressure 143/66 H 137/81 Pulse Oximetry 95 97 01/04/18 03:06 01/04/18 03:07 01/04/18 04:00 Temperature 97.5 F L Pulse Rate 95 H 105 H Respiratory Rate 21 20 Blood Pressure 126/79 Pulse Oximetry 98 98 01/04/18 05:30 01/04/18 08:00 01/04/18 10:15 Temperature 97.6 F Pulse Rate 105 H 95 H Respiratory Rate 18 16 Blood Pressure 126/82 Pulse Oximetry 99 98 98 01/04/18 12:00 Temperature 97.9 F Pulse Rate 108 H Respiratory Rate 16 Blood Pressure 130/76 Pulse Oximetry 96 Intake & Output 01/03/18 01/04/18 01/04/18 18:59 06:59 18:59 Intake Total 1712.5 / 1712.5 Output Total 1300 / 1300 Balance 412.5 / 412.5 Intake: IV 1462.5 / 1462.5 1/2 Normal Saline Inj 1,000 ML 1000 / 1000 @ 42 mls/hr IV.CONT .[id number] [facility] Rx#:[id number] Azactam Inj 2 GM In NS Inj 100 200 / 200 ML @ 200 mls/hr IV.SIG Q8H [facility] Rx#:[id number] Vancomycin Inj 1,250 MG In NS 262.5 / 262.5 Inj 250 ML @ 250 mls/hr IV.SIG Q12H [facility] Rx#:[id number] Tube Feeding 250 / 250 Output: Urine Amount (Catheter) 1200 / 1200 Indwelling Urethral Catheter 1200 / 1200 Chest Tube Drainage 100 / 100 Left Upper Pleural 100 / 100 Other: Date of Last Bowel Movement 01/03/18 01/03/18 GENERAL: Elderly male NAD SKIN: Warm and dry. HEAD: Normocephalic. EYES: No scleral icterus. No injection or drainage. NECK: Supple, trachea midline. No JVD or lymphadenopathy. CARDIOVASCULAR: Regular rate and rhythm without murmurs, gallops, or rubs. RESPIRATORY: Breath sounds equal bilaterally. No accessory muscle use. left chest tube in place GASTROINTESTINAL: Abdomen soft, non-tender, nondistended. MUSCULOSKELETAL: No cyanosis, or edema. BACK: Nontender without obvious deformity. No CVA tenderness. - Urinary Catheter Management Indwelling Urethral Catheter Cath placed during this visit: no Reason for continuing: Not indwelling catheter Assessment and Plan - Plan Resp insuff Pleural effusion CAD,s/p CABG CVA Aphasia PLAN: Chest tube to suction Supplement 02 Cont Abx Tube feeding Cont Present treatment plan If drainage decrease, will dc chest tube
[2018-01-05] MEDS: Insulin NovoLOG Aspart Correctional Sugar Inj SQ SCH ×6 (00:06→20:00)
[2018-01-05] MEDS: dilTIAZem 30 MG Tablet G-TUBE SCH ×5 (00:12→23:05)
[2018-01-05] MEDS: Aztreonam Inj 2 GM in Sodium Chloride 0.9% Inj 100 ML IV.SIG SCH ×3 (04:38→20:00)
[2018-01-05] MEDS: Chlorhexidine Gluconate 2% 1 Pack (2 Cloths) TOPICAL SCH (04:38)
[2018-01-05] MEDS: Heparin - SQ 10,000 UNITS/ML Vial SQ SCH ×2 (08:32→23:09)
[2018-01-05] MEDS: levoFLOXacin 750 MG Tablet PO SCH (08:33)
[2018-01-05] MEDS: MethylPREDNISolone Sod Succinate Inj 40 MG/ML Vial IV.PUSH SCH ×2 (08:33→23:11)
[2018-01-05] MEDS: Metoprolol Tartrate 25 MG Tablet G-TUBE SCH ×2 (08:33→23:05)
[2018-01-05] MEDS: Famotidine 20 MG Tablet G-TUBE SCH ×2 (08:33→23:09)
[2018-01-05] MEDS: Senna/Docusate Sodium 8.6/50 MG Tablet PO SCH ×2 (08:35→23:08)
[2018-01-05] MEDS: Insulin Detemir Inj 1,000 UNIT/10 ML Vial SQ SCH ×2 (08:35→20:39)
[2018-01-05] MEDS: Vancomycin Inj 1,250 MG in Sodium Chlor 0.9% Inj 250 ML IV.SIG SCH ×2 (10:34→23:03)
[2018-01-05] MEDS: Sodium Chloride 0.45 % Inj 1,000 ML IV.CONT SCH (10:35)
--- NOTE | 2018-01-05 13:32 | P.PNIM ---
Subjective Interval history: Patient resting in bed he stated "no" when I asked him if he has any pain Chest tube drain are in place Physical Exam Vital signs: Vital Signs 01/04/18 16:00 01/04/18 16:50 01/04/18 19:41 Temperature 97.9 F Pulse Rate 70 108 H Respiratory Rate 16 16 Blood Pressure 98/64 L Pulse Oximetry 94 L 94 L 01/04/18 21:45 01/04/18 23:16 01/05/18 01:00 Temperature 98 F 98 F 98 F Pulse Rate 107 H 107 H 88 Respiratory Rate 17 18 19 Blood Pressure 130/73 130/60 130/69 Pulse Oximetry 98 98 98 01/05/18 03:08 01/05/18 03:47 01/05/18 05:50 Temperature 98 F Pulse Rate 99 H 96 H 102 H Respiratory Rate 16 21 Blood Pressure 132/80 Pulse Oximetry 97 01/05/18 06:00 01/05/18 08:00 01/05/18 09:00 Temperature 97.9 F Pulse Rate 101 H Respiratory Rate 20 Blood Pressure 138/78 Pulse Oximetry 97 96 98 01/05/18 11:38 Temperature 97.7 F Pulse Rate 91 H Respiratory Rate 20 Blood Pressure 120/72 Pulse Oximetry 96 Intake & Output 01/04/18 01/05/18 01/05/18 18:59 06:59 18:59 Intake Total 932.5 / 932.5 1012.5 / 1012.5 1100 / 1100 Output Total 460 / 460 260 / 260 Balance 472.5 / 472.5 752.5 / 752.5 1100 / 1100 Weight 58 kg Intake: IV 362.5 / 362.5 362.5 / 362.5 1100 / 1100 1/2 Normal Saline Inj 1,000 ML 1000 / 1000 @ 42 mls/hr IV.CONT .[id number] [facility] Rx#:[id number] Azactam Inj 2 GM In NS Inj 100 100 / 100 100 / 100 100 / 100 ML @ 200 mls/hr IV.SIG Q8H [facility] Rx#:[id number] Vancomycin Inj 1,250 MG In NS 262.5 / 262.5 262.5 / 262.5 Inj 250 ML @ 250 mls/hr IV.SIG Q12H [facility] Rx#:[id number] Oral 0 / 0 Tube Feeding 450 / 450 450 / 450 Tube Irrigant 120 / 120 Water Bolus Amount 200 / 200 Output: Urine 400 / 400 200 / 200 Chest Tube Drainage 60 / 60 60 / 60 Left Upper Pleural 60 / 60 60 / 60 Other: Date of Last Bowel Movement 01/03/18 01/03/18 01/03/18 # Bowel Movements 0 Narrative: GENERAL: This is frail 77 years old male nonverbal in no apparent distress. CARDIOVASCULAR: RRR, no gallops, or rubs. RESPIRATORY: Diminished breath sounds on the left base, chest tube drain are in place GASTROINTESTINAL: Abdomen soft, non-tender, nondistended. Positive bowel sounds MUSCULOSKELETAL: Extremities without clubbing, cyanosis, or edema. Pedal pulses appreciated NEUROLOGICAL: Awake and alert nonverbal, able to move upper extremity and his feet, aphasic - Urinary Catheter Management Indwelling Urethral Catheter Cath placed during this visit: no Reason for continuing: Chronic Urinary Retention Results - Labs CBC & Chem 7: 01/05/18 12:37 01/04/18 05:30 Laboratory Results - last 24 hr 01/04/18 01/04/18 01/04/18 17:37 21:46 23:56 POC Glucose 118 H 188 H 151 H 01/05/18 01/05/18 01/05/18 04:15 07:18 12:01 POC Glucose 240 H 269 H 181 H Assessment and Plan - Plan 77-year-old male admitted with sepsis and A. 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 A/P Severe sepsis resolved Hyponatremia A. fib with RVR [facility] associated pneumonia Pleural effusion CAD with CABG in 2007 COPD with exacerbation Tobacco abuse Diabetes mellitus DNR status. Continue with half-normal saline and monitor sodium with BMP On aztreonam and Levaquin and vancomycin Chest tube management by reinforcing steel placer Continue aspirin, Plavix, Cardizem, Lopressor DuoNeb, oxygen, Solu Medrol, chest tube in place Continue PEG tube feedings Accu-Chek with insulin sliding scale DVT prophylaxis Heparin 01/04: Sodium improved 153>149 continue, chest tube clamped by pulmonology, monitoring BMP need to increase IV fluid, continue IV antibiotic, Blood glucose reading was 81 and then 61 this morning we will hold on Levemir and check Accu-Chek every 3 hours only with sliding scale, to resume Levemir if blood glucose pickup, I discussed with the nurse no change in tube feed rate, no residual 01/05: Continue chest tube management followed by pulmonary, close monitoring of blood glucose, repeat lab Discharge Planning: Patient still have chest tube
[2018-01-05 14:17] LABS: Baso % (Auto) 0.1 % (0.0-2.0); Hematocrit 34.6 % (39.0-51.0); Hemoglobin 10.9 gm/dL (13.0-17.0); Lymph # (Auto) 0.5 th/mm3 (1.0-4.8); Lymph % (Auto) 3.7 % (9.0-44.0); Mean Corpuscular HGB Conc 31.6 % (32.0-36.0); Mean Corpuscular Hemoglobin 26.5 pg (27.0-34.0); Mean Corpuscular Volume 84.1 fL (80.0-100.0); Mean Platelet Volume 9.5 fL (7.0-11.0); Mono # (Auto) 0.3 th/mm3 (0.0-0.9); Mono % (Auto) 2.2 % (0.0-8.0); Neut # (Auto) 12.6 th/mm3 (1.8-7.7); Platelet Count 203 th/mm3 (150-450); Red Blood Count 4.12 mil/mm3 (4.50-5.90); Red Cell Distribution Width 19.1 % (11.6-17.2); White Blood Count 13.4 th/mm3 (4.0-11.0)
[2018-01-05 14:47] LABS: Anion Gap 8 meq/L (5-15); Blood Urea Nitrogen 27 mg/dL (7-18); Calcium 8.2 mg/dL (8.5-10.1); Carbon Dioxide 28.2 meq/L (21.0-32.0); Chloride 107 meq/L (98-107); Glomerular Filtration Rate Greater Than 89 mL/min (>89); Glucose,Random 195 mg/dL (74-106); Potassium 4.2 meq/L (3.5-5.1); Sodium 143 meq/L (136-145)
--- NOTE | 2018-01-05 19:03 | P.PNPL ---
Subjective Interval history: 77 YOWm with CVA, aphasia, pl eff left chest tube drained 125 cc no distress Physical Exam Vital signs: Vital Signs 01/04/18 19:41 01/04/18 21:45 01/04/18 23:16 Temperature 98 F 98 F Pulse Rate 107 H 107 H Respiratory Rate 17 18 Blood Pressure 130/73 130/60 Pulse Oximetry 94 L 98 98 01/05/18 01:00 01/05/18 03:08 01/05/18 03:47 Temperature 98 F Pulse Rate 88 99 H 96 H Respiratory Rate 19 16 Blood Pressure 130/69 Pulse Oximetry 98 01/05/18 05:50 01/05/18 06:00 01/05/18 08:00 Temperature 98 F Pulse Rate 102 H Respiratory Rate 21 Blood Pressure 132/80 Pulse Oximetry 97 97 96 01/05/18 08:10 01/05/18 09:00 01/05/18 11:38 Temperature 97.9 F 97.7 F Pulse Rate 109 H 101 H 91 H Respiratory Rate 20 20 Blood Pressure 138/78 120/72 Pulse Oximetry 98 96 01/05/18 14:53 01/05/18 18:32 Temperature 98.1 F Pulse Rate 122 H Respiratory Rate 20 Blood Pressure 140/81 Pulse Oximetry 95 97 Intake & Output 01/05/18 01/05/18 01/06/18 06:59 18:59 06:59 Intake Total 1012.5 / 1012.5 1100 / 1100 Output Total 260 / 260 Balance 752.5 / 752.5 1100 / 1100 Weight 58 kg Intake: IV 362.5 / 362.5 1100 / 1100 1/2 Normal Saline Inj 1,000 ML 1000 / 1000 @ 42 mls/hr IV.CONT .[id number] [facility] Rx#:[id number] Azactam Inj 2 GM In NS Inj 100 100 / 100 100 / 100 ML @ 200 mls/hr IV.SIG Q8H [facility] Rx#:[id number] Vancomycin Inj 1,250 MG In NS 262.5 / 262.5 Inj 250 ML @ 250 mls/hr IV.SIG Q12H [facility] Rx#:[id number] Oral 0 / 0 Tube Feeding 450 / 450 Water Bolus Amount 200 / 200 Output: Urine 200 / 200 Chest Tube Drainage 60 / 60 Left Upper Pleural 60 / 60 Other: Date of Last Bowel Movement 01/03/18 01/03/18 # Bowel Movements 0 1 Narrative: GENERAL: This is frail 77 years old male nonverbal in no apparent distress. CARDIOVASCULAR: RRR, no gallops, or rubs. RESPIRATORY: Diminished breath sounds on the left base, chest tube drain are in place GASTROINTESTINAL: Abdomen soft, non-tender, nondistended. Positive bowel sounds MUSCULOSKELETAL: Extremities without clubbing, cyanosis, or edema. Pedal pulses appreciated NEUROLOGICAL: Awake and alert nonverbal, able to move upper extremity and his feet, aphasic - Urinary Catheter Management Indwelling Urethral Catheter Cath placed during this visit: no Reason for continuing: Chronic Urinary Retention Assessment and Plan - Plan Resp insuff Pleural effusion CAD,s/p CABG CVA Aphasia PLAN: Chest tube to suction Supplement 02 Cont Abx Tube feeding If drainage decrease, will dc chest tube
[2018-01-06] MEDS: Insulin NovoLOG Aspart Correctional Sugar Inj SQ SCH ×6 (01:16→23:30)
--- NOTE | 2018-01-06 02:45 | P.DIET ---
Nutritional Evaluation Type of nutrition evaluation: follow-up Nutrition consult regarding: Tube Feeding Objective - Diagnosis Sepsis, Afib w/ rvr, respriatory distress. PMH see H&P - Objective % IBW: 73 Body Weight Used for Calculations: IBW Energy Needs - Lower Range (kCal/kg): 25 Energy Needs - Upper Range (kCal/kg): 30 Lower Limit kCal/kg (kCals): 1,750 Upper Limit kCal/kg (kCals): 2,100 Lower Limit Protein Factor (Grams per Kg): 1.2 Upper Limit Protein Factor (Grams per Kg): 1.5 Lower Protein Needs (Protein): 84 Upper Protein Needs (Protein): 105 Dietitian Reviewed in Medical Record: Curent medications, Intake & Output, Labs , Medical history, Tube feeding Diet Order: TF Wound Care Note: Not noted Assessment Assessment: Pt. with +UOP, +BM and tolerating TFing. Left chest tube still in place with + drainage. Continue Glucerna 1.5 @ goal rate of 55mls/hr. over 24 hours. Continue to monitor TFing tolerance, labs, skin and wt. Recommendations: 1. Continue Glucerna 1.5 @ goal rate of 55mls/hr. over 24 hours. 2. Continue to monitor TFing tolerance, labs, skin and wt Dietitian to Monitor: Lab values, Tube feeding tolerance, Weight change, Residuals, Wound/skin status, Medical course
[2018-01-06] MEDS: Aztreonam Inj 2 GM in Sodium Chloride 0.9% Inj 100 ML IV.SIG SCH ×3 (04:44→23:29)
[2018-01-06] MEDS: dilTIAZem 30 MG Tablet G-TUBE SCH ×4 (07:39→23:44)
[2018-01-06] MEDS: Famotidine 20 MG Tablet G-TUBE SCH ×2 (09:07→23:31)
[2018-01-06] MEDS: levoFLOXacin 750 MG Tablet PO SCH (09:07)
[2018-01-06] MEDS: MethylPREDNISolone Sod Succinate Inj 40 MG/ML Vial IV.PUSH SCH ×3 (09:07→23:31)
[2018-01-06] MEDS: Senna/Docusate Sodium 8.6/50 MG Tablet PO SCH ×2 (09:07→23:27)
[2018-01-06] MEDS: Insulin Detemir Inj 1,000 UNIT/10 ML Vial SQ SCH ×2 (09:08→23:30)
[2018-01-06] MEDS: Heparin - SQ 10,000 UNITS/ML Vial SQ SCH ×2 (09:08→23:28)
[2018-01-06] MEDS: Metoprolol Tartrate 25 MG Tablet G-TUBE SCH ×2 (09:11→23:26)
[2018-01-06] MEDS ORDERED: Pharmacy Ordered Lab Info OTHER ONE (09:45)
[2018-01-06] MEDS: Vancomycin Inj 1,250 MG in Sodium Chlor 0.9% Inj 250 ML IV.SIG SCH ×3 (11:14→23:32)
[2018-01-06 12:14] LABS: Anion Gap 8 meq/L (5-15); Blood Urea Nitrogen 28 mg/dL (7-18); Calcium 8.2 mg/dL (8.5-10.1); Carbon Dioxide 27.6 meq/L (21.0-32.0); Chloride 108 meq/L (98-107); Glomerular Filtration Rate Greater Than 89 mL/min (>89); Glucose,Random 181 mg/dL (74-106); Potassium 4.2 meq/L (3.5-5.1)
[2018-01-06 12:25] LABS: Sodium 144 meq/L (136-145)
[2018-01-06] MEDS: Sodium Chloride 0.45 % Inj 1,000 ML IV.CONT SCH ×2 (12:39→14:58)
--- NOTE | 2018-01-06 12:48 | P.PNIM ---
Subjective Interval history: No overnight events, no fever. Patient denies pain, appears comfortable. Physical Exam Vital signs: Vital Signs 01/05/18 14:53 01/05/18 18:32 01/05/18 21:50 Temperature 98.1 F 98.1 F Pulse Rate 122 H 93 H Respiratory Rate 20 20 Blood Pressure 140/81 140/79 Pulse Oximetry 95 97 96 01/06/18 00:40 01/06/18 04:50 01/06/18 08:00 Temperature 98.8 F 97.5 F L Pulse Rate 88 88 Respiratory Rate 21 21 16 Blood Pressure 136/67 140/66 Pulse Oximetry 96 96 93 L 01/06/18 08:28 Temperature 97.4 F L Pulse Rate 89 Respiratory Rate 16 Blood Pressure 109/66 Pulse Oximetry 93 L Intake & Output 01/05/18 01/06/18 01/06/18 18:59 06:59 18:59 Intake Total 1462.5 / 1462.5 462.5 / 462.5 Output Total 700 / 700 Balance 1462.5 / 1462.5 -237.5 / -237.5 Weight 58 kg Intake: IV 1462.5 / 1462.5 462.5 / 462.5 1/2 Normal Saline Inj 1,000 ML 1000 / 1000 @ 42 mls/hr IV.CONT .[id number] Y[facility]Y Rx#:[id number] Azactam Inj 2 GM In NS Inj 100 200 / 200 200 / 200 ML @ 200 mls/hr IV.SIG Q8H Y[facility]Y Rx#:[id number] Vancomycin Inj 1,250 MG In NS 262.5 / 262.5 262.5 / 262.5 Inj 250 ML @ 250 mls/hr IV.SIG Q12H Y[facility]Y Rx#:[id number] Oral 0 / 0 Other 0 / 0 Output: Urine Amount (Catheter) 600 / 600 Indwelling Urethral Catheter 600 / 600 Chest Tube Drainage 100 / 100 Left Upper Pleural 100 / 100 Other: Date of Last Bowel Movement 01/03/18 01/05/18 # Bowel Movements 1 0 Narrative: GENERAL: Frail, not in distress, sleeping, easily arousable. CARDIOVASCULAR: RRR, no gallops, or rubs. RESPIRATORY: Diminished breath sounds on the left base, chest tube drain in place GASTROINTESTINAL: Abdomen soft, non-tender, nondistended. Positive bowel sounds MUSCULOSKELETAL: Extremities without clubbing, cyanosis, or edema. Pedal pulses appreciated NEUROLOGICAL: Awake and alert, moves upper extremities, wiggles toes, positive for generalized weakness. Nonverbal. - Urinary Catheter Management Indwelling Urethral Catheter Cath placed during this visit: no Reason for continuing: Chronic Urinary Retention Results - Labs CBC & Chem 7: 01/05/18 12:37 01/06/18 10:56 Laboratory Results - last 24 hr 01/05/18 01/05/18 01/05/18 12:37 12:37 16:33 WBC 13.4 H RBC 4.12 L Hgb 10.9 L Hct 34.6 L MCV 84.1 MCH 26.5 L MCHC 31.6 L RDW 19.1 H Plt Count 203 MPV 9.5 Neut % (Auto) 94.0 H Lymph % (Auto) 3.7 L [place] % (Auto) 2.2 Eos % (Auto) 0.0 Baso % (Auto) 0.1 Neut # (Auto) 12.6 H Lymph # (Auto) 0.5 L [place] # (Auto) 0.3 Eos # (Auto) 0.0 Baso # (Auto) 0.0 WBC Differential . Differential Comment Auto diff final Sodium 143 Potassium 4.2 Chloride 107 Carbon Dioxide 28.2 Anion Gap 8 BUN 27 H Creatinine 0.38 L Estimated GFR Greater than 89 POC Glucose 156 H Random Glucose 195 H D Calcium 8.2 L Vancomycin Trough 01/05/18 01/06/18 01/06/18 20:02 01:15 04:30 WBC RBC Hgb Hct MCV MCH MCHC RDW Plt Count MPV Neut % (Auto) Lymph % (Auto) [place] % (Auto) Eos % (Auto) Baso % (Auto) Neut # (Auto) Lymph # (Auto) [place] # (Auto) Eos # (Auto) Baso # (Auto) WBC Differential Differential Comment Sodium Potassium Chloride Carbon Dioxide Anion Gap BUN Creatinine Estimated GFR POC Glucose 169 H 156 H 151 H Random Glucose Calcium Vancomycin Trough 01/06/18 01/06/18 01/06/18 07:58 10:56 10:56 WBC RBC Hgb Hct MCV MCH MCHC RDW Plt Count MPV Neut % (Auto) Lymph % (Auto) [place] % (Auto) Eos % (Auto) Baso % (Auto) Neut # (Auto) Lymph # (Auto) [place] # (Auto) Eos # (Auto) Baso # (Auto) WBC Differential Differential Comment Sodium 144 Potassium 4.2 Chloride 108 H Carbon Dioxide 27.6 Anion Gap 8 BUN 28 H Creatinine 0.41 L Estimated GFR Greater than 89 POC Glucose 180 H Random Glucose 181 H Calcium 8.2 L Vancomycin Trough 16.4 H 01/06/18 12:31 WBC RBC Hgb Hct MCV MCH MCHC RDW Plt Count MPV Neut % (Auto) Lymph % (Auto) [place] % (Auto) Eos % (Auto) Baso % (Auto) Neut # (Auto) Lymph # (Auto) [place] # (Auto) Eos # (Auto) Baso # (Auto) WBC Differential Differential Comment Sodium Potassium Chloride Carbon Dioxide Anion Gap BUN Creatinine Estimated GFR POC Glucose 198 H Random Glucose Calcium Vancomycin Trough Assessment and Plan - Plan 77-year-old male admitted with sepsis and A. 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 Severe sepsis secondary to healthcare associated pneumonia-on aztreonam, Levaquin and vancomycin, chest tube to suction, management per pulmonary. Drainage still 120cc per 24 hours. We will decrease Solu-Medrol and tapered to oral, oxygen, duo nebs. WBC is 13.4. Lab work today pending. Cultures including pleural fluid cultures were negative, stop aztreonam tomorrow. Hypernatremia-sodium 144, continue IVF, recheck BMP tomorrow. A. fib with RVR-resolved, continue Cardizem and Lopressor. CAD with CABG in 2007-continue aspirin, Plavix, Cardizem and Lopressor. COPD with exacerbation -continue steroids with DuoNeb's. Taper Solu-Medrol to 20 mg IV every 12 then switch to oral in the next few days. Diabetes mellitus-with hypoglycemia yesterday. Continue Accu-Cheks, continue sliding scale insulin. Resume Levemir , blood glucose are now 150s-190s. Nutrition through PEG tube feedings: Glucerna 1.5 at 55 cc/h over 24 hours. DNR status. DVT prophylaxis Heparin
[2018-01-06 13:55] LABS: Baso % (Auto) 0.1 % (0.0-2.0); Hemoglobin 10.9 gm/dL (13.0-17.0); Lymph # (Auto) 0.7 th/mm3 (1.0-4.8); Lymph % (Auto) 5.6 % (9.0-44.0); Mean Corpuscular HGB Conc 31.9 % (32.0-36.0); Mean Corpuscular Hemoglobin 26.8 pg (27.0-34.0); Mean Platelet Volume 9.3 fL (7.0-11.0); Mono # (Auto) 0.2 th/mm3 (0.0-0.9); Mono % (Auto) 2.1 % (0.0-8.0); Neut # (Auto) 10.8 th/mm3 (1.8-7.7); Neut % (Auto) 92.2 % (16.0-70.0); Platelet Count 188 th/mm3 (150-450); Red Blood Count 4.05 mil/mm3 (4.50-5.90); Red Cell Distribution Width 19.6 % (11.6-17.2); White Blood Count 11.7 th/mm3 (4.0-11.0)
--- NOTE | 2018-01-06 18:29 | P.PNPL ---
Subjective Interval history: 77 YOWm with CVA, aphasia, pl eff left chest tube drained 125 cc no distress No sig drainage from chest tube Physical Exam Vital signs: Vital Signs 01/05/18 18:32 01/05/18 21:50 01/06/18 00:40 Temperature 98.1 F 98.1 F 98.8 F Pulse Rate 122 H 93 H 88 Respiratory Rate 20 20 21 Blood Pressure 140/81 140/79 136/67 Pulse Oximetry 97 96 96 01/06/18 04:50 01/06/18 08:00 01/06/18 08:28 Temperature 97.5 F L 97.4 F L Pulse Rate 88 89 Respiratory Rate 21 16 16 Blood Pressure 140/66 109/66 Pulse Oximetry 96 93 L 93 L 01/06/18 12:00 01/06/18 16:40 01/06/18 18:10 Temperature 97.2 F L 97.9 F Pulse Rate 86 103 H Respiratory Rate 16 16 Blood Pressure 146/87 H 134/73 Pulse Oximetry 96 96 96 Intake & Output 01/05/18 01/06/18 01/06/18 18:59 06:59 18:59 Intake Total 1462.5 / 1462.5 462.5 / 462.5 362.5 / 362.5 Output Total 700 / 700 Balance 1462.5 / 1462.5 -237.5 / -237.5 362.5 / 362.5 Weight 58 kg Intake: IV 1462.5 / 1462.5 462.5 / 462.5 362.5 / 362.5 1/2 Normal Saline Inj 1,000 ML 1000 / 1000 @ 42 mls/hr IV.CONT .[id number] Y[facility]Y Rx#:[id number] Azactam Inj 2 GM In NS Inj 100 200 / 200 200 / 200 100 / 100 ML @ 200 mls/hr IV.SIG Q8H [facility] Rx#:[id number] Vancomycin Inj 1,250 MG In NS 262.5 / 262.5 262.5 / 262.5 262.5 / 262.5 Inj 250 ML @ 250 mls/hr IV.SIG Q12H [facility] Rx#:[id number] Oral 0 / 0 Other 0 / 0 Output: Urine Amount (Catheter) 600 / 600 Indwelling Urethral Catheter 600 / 600 Chest Tube Drainage 100 / 100 Left Upper Pleural 100 / 100 Other: Date of Last Bowel Movement 01/03/18 01/05/18 # Bowel Movements 1 0 Narrative: GENERAL: Frail, not in distress, sleeping, easily arousable. CARDIOVASCULAR: RRR, no gallops, or rubs. RESPIRATORY: Diminished breath sounds on the left base, chest tube drain in place GASTROINTESTINAL: Abdomen soft, non-tender, nondistended. Positive bowel sounds MUSCULOSKELETAL: Extremities without clubbing, cyanosis, or edema. Pedal pulses appreciated NEUROLOGICAL: Awake and alert, moves upper extremities, wiggles toes, positive for generalized weakness. Nonverbal. - Urinary Catheter Management Indwelling Urethral Catheter Cath placed during this visit: no Reason for continuing: Chronic Urinary Retention Assessment and Plan - Plan Resp insuff Pleural effusion CAD,s/p CABG CVA Aphasia PLAN: Chest tube to suction Supplement 02 Cont Abx Tube feeding DC chest tube-- done CXr in AM
[2018-01-07] MEDS: Insulin NovoLOG Aspart Correctional Sugar Inj SQ SCH ×6 (00:42→21:37)
[2018-01-07] MEDS: Aztreonam Inj 2 GM in Sodium Chloride 0.9% Inj 100 ML IV.SIG SCH ×2 (05:07→12:31)
[2018-01-07] MEDS: dilTIAZem 30 MG Tablet G-TUBE SCH ×3 (05:11→17:56)
--- NOTE | 2018-01-07 05:37 | XR ---
EXAM DATE: 01/07/2018 4:00 AM EDT AGE/SEX: 77 years / Male INDICATIONS: Shortness of breath. CLINICAL DATA: This is the patient's subsequent encounter. Patient reports that signs and symptoms h ave been present for 1 week and indicates a pain score of Nonresponsive. MEDICAL/SURGICAL HISTORY: Stroke. Diabetes mellitus type II. Hypertension. . CABG. Tonsillec roby. Right arm. COMPARISON: [facility] [place], CHEST 1V SINGLE AP, 01/01/2018. . FINDINGS: Single AP view of the chest. Median sternotomy wires. Bilateral lower lung zone parenchymal opacity a nd small bilateral pleural effusions increased from the prior study of 01/01/2018. Cardiomediastinal si lhouette unchanged. No evidence of pneumothorax. CONCLUSION: Increased bilateral lower lung zone opacity and pleural effusions. Electronically signed by: Khoa Kaiser MD 01/07/2018 5:36 AM EDT
[2018-01-07] MEDS: MethylPREDNISolone Sod Succinate Inj 40 MG/ML Vial IV.PUSH SCH (09:00)
[2018-01-07] MEDS: Metoprolol Tartrate 25 MG Tablet G-TUBE SCH ×2 (09:00→21:37)
[2018-01-07] MEDS: Famotidine 20 MG Tablet G-TUBE SCH ×2 (09:01→21:37)
[2018-01-07] MEDS: Heparin - SQ 10,000 UNITS/ML Vial SQ SCH ×2 (09:01→21:37)
[2018-01-07] MEDS: levoFLOXacin 750 MG Tablet PO SCH (09:01)
[2018-01-07] MEDS: Senna/Docusate Sodium 8.6/50 MG Tablet PO SCH ×2 (09:01→21:39)
[2018-01-07] MEDS: Insulin Detemir Inj 1,000 UNIT/10 ML Vial SQ SCH ×2 (09:02→21:38)
[2018-01-07] MEDS: Vancomycin Inj 1,250 MG in Sodium Chlor 0.9% Inj 250 ML IV.SIG SCH ×2 (10:52→21:40)
--- NOTE | 2018-01-07 11:39 | P.PNIM ---
Subjective Interval history: Patient afebrile, denies any increasing shortness of breath, chest tube removed yesterday. However chest x-ray showed increasing opacity and effusion bilaterally. Physical Exam Vital signs: Vital Signs 01/06/18 12:00 01/06/18 16:40 01/06/18 18:10 Temperature 97.2 F L 97.9 F Pulse Rate 86 103 H Respiratory Rate 16 16 Blood Pressure 146/87 H 134/73 Pulse Oximetry 96 96 96 01/06/18 20:00 01/06/18 22:50 01/07/18 08:00 Temperature 97.2 F L 97.2 F L Pulse Rate 104 H 75 Respiratory Rate 17 17 18 Blood Pressure 121/85 115/76 Pulse Oximetry 98 96 Intake & Output 01/06/18 01/07/18 01/07/18 18:59 06:59 18:59 Intake Total 362.5 / 362.5 362.5 / 362.5 Balance 362.5 / 362.5 362.5 / 362.5 Intake: IV 362.5 / 362.5 362.5 / 362.5 Azactam Inj 2 GM In NS Inj 100 100 / 100 100 / 100 ML @ 200 mls/hr IV.SIG Q8H Y[facility]Y Rx#:[id number] Vancomycin Inj 1,250 MG In NS 262.5 / 262.5 262.5 / 262.5 Inj 250 ML @ 250 mls/hr IV.SIG Q12H Y[facility]Y Rx#:[id number] Other: Date of Last Bowel Movement 01/05/18 01/05/18 Narrative: GENERAL: Frail, not in distress CARDIOVASCULAR: RRR, no gallops, or rubs. RESPIRATORY: Diminished breath sounds on the left base, chest tube drain out. GASTROINTESTINAL: Abdomen soft, non-tender, nondistended. Positive bowel sounds , PEG tube in place. MUSCULOSKELETAL: Extremities without clubbing, cyanosis, or edema. Pedal pulses appreciated NEUROLOGICAL: Awake and alert, moves upper extremities, wiggles toes, positive for generalized weakness. Nonverbal. - Urinary Catheter Management Indwelling Urethral Catheter Cath placed during this visit: no Reason for continuing: Chronic Urinary Retention Results - Labs CBC & Chem 7: 01/06/18 13:23 01/06/18 10:56 Laboratory Results - last 24 hr 01/06/18 01/06/18 01/06/18 10:56 10:56 12:31 WBC RBC Hgb Hct MCV MCH MCHC RDW Plt Count MPV Neut % (Auto) Lymph % (Auto) [place] % (Auto) Eos % (Auto) Baso % (Auto) Neut # (Auto) Lymph # (Auto) [place] # (Auto) Eos # (Auto) Baso # (Auto) WBC Differential Differential Comment Sodium 144 Potassium 4.2 Chloride 108 H Carbon Dioxide 27.6 Anion Gap 8 BUN 28 H Creatinine 0.41 L Estimated GFR Greater than 89 POC Glucose 198 H Random Glucose 181 H Calcium 8.2 L Vancomycin Trough 16.4 H 01/06/18 01/06/18 01/06/18 13:23 16:00 16:20 WBC 11.7 H RBC 4.05 L Hgb 10.9 L Hct 34.0 L MCV 84.0 MCH 26.8 L MCHC 31.9 L RDW 19.6 H Plt Count 188 MPV 9.3 Neut % (Auto) 92.2 H Lymph % (Auto) 5.6 L [place] % (Auto) 2.1 Eos % (Auto) 0.0 Baso % (Auto) 0.1 Neut # (Auto) 10.8 H Lymph # (Auto) 0.7 L [place] # (Auto) 0.2 Eos # (Auto) 0.0 Baso # (Auto) 0.0 WBC Differential . Differential Comment Auto diff final Sodium Potassium Chloride Carbon Dioxide Anion Gap BUN Creatinine Estimated GFR POC Glucose 169 H 172 H Random Glucose Calcium Vancomycin Trough 01/06/18 01/07/18 01/07/18 20:43 00:52 05:03 WBC RBC Hgb Hct MCV MCH MCHC RDW Plt Count MPV Neut % (Auto) Lymph % (Auto) [place] % (Auto) Eos % (Auto) Baso % (Auto) Neut # (Auto) Lymph # (Auto) [place] # (Auto) Eos # (Auto) Baso # (Auto) WBC Differential Differential Comment Sodium Potassium Chloride Carbon Dioxide Anion Gap BUN Creatinine Estimated GFR POC Glucose 122 H 86 54 L Random Glucose Calcium Vancomycin Trough 01/07/18 01/07/18 05:42 07:43 WBC RBC Hgb Hct MCV MCH MCHC RDW Plt Count MPV Neut % (Auto) Lymph % (Auto) [place] % (Auto) Eos % (Auto) Baso % (Auto) Neut # (Auto) Lymph # (Auto) [place] # (Auto) Eos # (Auto) Baso # (Auto) WBC Differential Differential Comment Sodium Potassium Chloride Carbon Dioxide Anion Gap BUN Creatinine Estimated GFR POC Glucose 182 H 94 Random Glucose Calcium Vancomycin Trough - Imaging Impressions Chest X-Ray 01/07/18 00:00 CONCLUSION: Increased bilateral lower lung zone opacity and pleural effusions. Assessment and Plan - Plan 77-year-old male admitted with sepsis and A. 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 Severe sepsis secondary to healthcare associated pneumonia-on aztreonam, Levaquin and vancomycin, chest tube to suction, management per pulmonary. Chest tube removed, chest x-ray post chest tube removal showed increasing opacity and effusion bilaterally. Will stop aztreonam, continue Levaquin and vancomycin. Continue prednisone, continue to ta leukocytosis improving, almost back to normal. Cultures including pleural fluid cultures were negative. Awaiting input from pulmonary. Hypernatremia-sodium 144, continue IVF, BMP pending for today. A. fib with RVR-resolved, continue Cardizem and Lopressor. CAD with CABG in 2007-continue aspirin, Plavix, Cardizem and Lopressor. COPD with exacerbation -continue steroids with DuoNeb's. Switch Solu-Medrol to prednisone. Diabetes mellitus-with hypoglycemia yesterday. Continue Accu-Cheks, continue sliding scale insulin. Continue Levemir , blood glucose are now 150s-190s. Nutrition through PEG tube feedings: Glucerna 1.5 at 55 cc/h over 24 hours. DNR status. DVT prophylaxis Heparin Discharge to senior living facility when ready , [facility] will take.
[2018-01-07 12:03] LABS: Anion Gap 7 meq/L (5-15); Blood Urea Nitrogen 26 mg/dL (7-18); Calcium 8.1 mg/dL (8.5-10.1); Carbon Dioxide 25.9 meq/L (21.0-32.0); Chloride 110 meq/L (98-107); Glomerular Filtration Rate Greater Than 89 mL/min (>89); Potassium 3.5 meq/L (3.5-5.1); Sodium 143 meq/L (136-145)
[2018-01-07 12:27] LABS: Glucose,Random 41 mg/dL (74-106)
[2018-01-07] MEDS: Dextrose 50% in Water 50 ML Vial IV.PUSH PRN (12:33)
[2018-01-07] MEDS: predniSONE 20 MG Tablet PO SCH (21:37)
[2018-01-08] MEDS: Insulin NovoLOG Aspart Correctional Sugar Inj SQ SCH ×6 (01:08→22:07)
[2018-01-08] MEDS: dilTIAZem 30 MG Tablet G-TUBE SCH ×4 (01:08→17:17)
[2018-01-08] MEDS: Sodium Chloride 0.45 % Inj 1,000 ML IV.CONT SCH (01:36)
[2018-01-08] MEDS: Heparin - SQ 10,000 UNITS/ML Vial SQ SCH ×2 (09:20→21:37)
[2018-01-08] MEDS: Insulin Detemir Inj 1,000 UNIT/10 ML Vial SQ SCH (09:21)
[2018-01-08] MEDS: Metoprolol Tartrate 25 MG Tablet G-TUBE SCH ×2 (09:22→21:37)
[2018-01-08] MEDS: Senna/Docusate Sodium 8.6/50 MG Tablet PO SCH ×2 (09:22→21:37)
[2018-01-08] MEDS: levoFLOXacin 750 MG Tablet PO SCH (09:22)
[2018-01-08] MEDS: Famotidine 20 MG Tablet G-TUBE SCH ×2 (09:22→21:37)
[2018-01-08] MEDS: predniSONE 20 MG Tablet PO SCH (09:24)
[2018-01-08] MEDS: Vancomycin Inj 1,250 MG in Sodium Chlor 0.9% Inj 250 ML IV.SIG SCH ×2 (09:39→23:23)
--- NOTE | 2018-01-08 15:16 | P.PNIM ---
Subjective Interval history: Patient appears stable, no change in respiratory status, breath sounds are present. No complaints. Poor historian. Physical Exam Vital signs: Vital Signs 01/07/18 17:27 01/07/18 20:00 01/07/18 21:32 Temperature 97.3 F L 98.0 F Pulse Rate 86 89 Respiratory Rate 18 18 Blood Pressure 98/63 L 118/70 Pulse Oximetry 96 95 96 01/08/18 05:00 01/08/18 08:00 01/08/18 09:00 Temperature 97.9 F 98.3 F Pulse Rate 97 H 80 Respiratory Rate 19 18 Blood Pressure 113/71 117/71 Pulse Oximetry 96 98 96 01/08/18 09:15 01/08/18 12:00 Temperature 97.5 F L 97.3 F L Pulse Rate 89 Respiratory Rate 18 18 Blood Pressure 118/76 121/83 Pulse Oximetry 95 99 Intake & Output 01/07/18 01/08/18 01/08/18 18:59 06:59 18:59 Intake Total 100 / 100 625.0 / 625.0 624 / 624 Output Total 450 / 450 Balance -350 / -350 625.0 / 625.0 624 / 624 Intake: IV 625.0 / 625.0 624 / 624 Azactam Inj 2 GM In NS Inj 100 100 / 100 ML @ 200 mls/hr IV.SIG Q8H Y[facility] Rx#:[id number] Vancomycin Inj 1,250 MG In NS 525.0 / 525.0 524 / 524 Inj 250 ML @ 250 mls/hr IV.SIG Q12H YURIY Rx#:[id number] Water Bolus Amount 100 / 100 Output: Urine 450 / 450 Other: Date of Last Bowel Movement 01/07/18 01/08/18 # Bowel Movements 1 # Incontinent Bowel Movements 1 Narrative: GENERAL: Frail, not in distress CARDIOVASCULAR: RRR, no gallops, or rubs. RESPIRATORY: Diminished breath sounds on the left base, better than yesterday, occasional crackles. GASTROINTESTINAL: Abdomen soft, non-tender, nondistended. Positive bowel sounds , PEG tube in place. MUSCULOSKELETAL: Extremities without clubbing, cyanosis, or edema. Pedal pulses appreciated NEUROLOGICAL: Awake and alert, moves upper extremities, wiggles toes, positive for generalized weakness. Nonverbal. - Urinary Catheter Management Indwelling Urethral Catheter Cath placed during this visit: no Reason for continuing: Acute urinary retention Results - Labs CBC & Chem 7: 01/06/18 13:23 01/07/18 11:14 Laboratory Results - last 24 hr 01/07/18 01/07/18 01/08/18 17:27 20:57 00:44 POC Glucose 94 82 92 01/08/18 01/08/18 01/08/18 05:13 07:15 12:21 POC Glucose 110 117 H 95 Assessment and Plan - Plan 77-year-old male admitted with sepsis and A. 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 Severe sepsis secondary to healthcare associated pneumonia-was on aztreonam, Levaquin and vancomycin, chest tube to suction, management per pulmonary. Chest tube removed 01/06/2018, chest x-ray post chest tube removal showed increasing opacity and effusion bilaterally. Sternum stop, continue Levaquin and vancomycin. Continue prednisone, taper today, leukocytosis improving, recheck CBC. If stable, stop vancomycin. Cultures including pleural fluid cultures were negative. Awaiting input from pulmonary. Hypernatremia-sodium 144, stop IVF, resolved. A. fib with RVR-resolved, continue Cardizem and Lopressor. CAD with CABG in 2007-continue aspirin, Plavix, Cardizem and Lopressor. COPD with exacerbation -continue steroids with DuoNeb's. Taper prednisone to 20 mg daily today Diabetes mellitus-with hypoglycemia again today, decrease Levemir to 10 units daily. Continue Accu-Cheks, continue sliding scale insulin. Nutrition through PEG tube feedings: Glucerna 1.5 at 55 cc/h over 24 hours. DNR status. DVT prophylaxis Heparin Discharge to retirement facility when ready , [facility] will take.
--- NOTE | 2018-01-08 16:43 | XR ---
EXAM DATE: 01/08/2018 3:51 PM EDT AGE/SEX: 77 years / Male INDICATIONS: Shortness of breath. CLINICAL DATA: This is the patient's subsequent encounter. Patient reports that signs and symptoms h ave been present for 2 weeks and indicates a pain score of 0/10. MEDICAL/SURGICAL HISTORY: Cardiovascular disease. Hypercholesterolemia. CABG. COMPARISON: [facility], CHEST 1V SINGLE AP, 01/07/2018. . FINDINGS: There is bilateral mostly basilar airspace disease and bilateral pleural effusions. Previous sternoto my. No pneumothorax. No acute bony abnormalities. CONCLUSION: Bilateral mostly basilar airspace disease and pleural effusions. Findings similar to January 07. Electronically signed by: Farhad Chao MD 01/08/2018 4:42 PM EDT
[2018-01-09] MEDS: dilTIAZem 30 MG Tablet G-TUBE SCH ×4 (02:07→17:07)
[2018-01-09] MEDS: Insulin NovoLOG Aspart Correctional Sugar Inj SQ SCH ×7 (02:07→23:59)
[2018-01-09] MEDS: Famotidine 20 MG Tablet G-TUBE SCH ×2 (08:30→22:41)
[2018-01-09] MEDS: predniSONE 20 MG Tablet PO SCH (08:31)
[2018-01-09] MEDS: levoFLOXacin 750 MG Tablet PO SCH (08:32)
[2018-01-09] MEDS: Heparin - SQ 10,000 UNITS/ML Vial SQ SCH ×2 (08:32→22:43)
[2018-01-09] MEDS: Senna/Docusate Sodium 8.6/50 MG Tablet PO SCH ×3 (08:33→22:45)
[2018-01-09] MEDS: Metoprolol Tartrate 25 MG Tablet G-TUBE SCH ×2 (08:33→22:43)
[2018-01-09 08:59] LABS: Eos # (Auto) 0.1 th/mm3 (0.0-0.4); Eos % (Auto) 0.8 % (0.0-4.0); Hematocrit 34.9 % (39.0-51.0); Hemoglobin 11.3 gm/dL (13.0-17.0); Lymph # (Auto) 1.4 th/mm3 (1.0-4.8); Lymph % (Auto) 13.5 % (9.0-44.0); Mean Corpuscular HGB Conc 32.4 % (32.0-36.0); Mean Corpuscular Hemoglobin 26.8 pg (27.0-34.0); Mean Corpuscular Volume 82.7 fL (80.0-100.0); Mono # (Auto) 0.7 th/mm3 (0.0-0.9); Neut # (Auto) 8.4 th/mm3 (1.8-7.7); Neut % (Auto) 78.7 % (16.0-70.0); Platelet Count 195 th/mm3 (150-450); Red Blood Count 4.23 mil/mm3 (4.50-5.90); Red Cell Distribution Width 21.2 % (11.6-17.2); White Blood Count 10.7 th/mm3 (4.0-11.0)
[2018-01-09] MEDS ORDERED: Insulin Detemir Inj 1,000 UNIT/10 ML Vial SQ SCH (09:00)
[2018-01-09 09:23] LABS: Anion Gap 7 meq/L (5-15); Blood Urea Nitrogen 23 mg/dL (7-18); Calcium 8.1 mg/dL (8.5-10.1); Carbon Dioxide 31.5 meq/L (21.0-32.0); Chloride 106 meq/L (98-107); Glomerular Filtration Rate Greater Than 89 mL/min (>89); Glucose,Random 80 mg/dL (74-106); Potassium 3.7 meq/L (3.5-5.1); Sodium 144 meq/L (136-145)
[2018-01-09] MEDS: Vancomycin Inj 1,250 MG in Sodium Chlor 0.9% Inj 250 ML IV.SIG SCH ×2 (12:44→22:58)
--- NOTE | 2018-01-09 14:59 | P.PNPAL ---
Reason for Visit Reason for visit: a. To assist with evaluation and management of symptoms including: dyspnea b. To assist medical decision maker(s) with: better understanding of current medical conditions; weighing benefits/burdens of medical treatment options; making medical treatment decisions. Subjective Subjective/Interval History: Mr. Sullivan is seen and examined in room. No family at bedside. Patient is awake and alert. He smiles. He is more verbal, able to answer questions appropriately. He denies pain, shortness of breath, anxiety or nausea. He reports he feels more lethargic and still very weak. Clinical data: * WBC 10.7, hgb 11.3, hematocrit 34.9, platelets 195, neutrophils 78.7% * Sodium 144, creatinine 0.33 glucose 140 * 01/08/18 - CXR - bilateral mostly basilar airspace disease and bilateral pleural effusions. * Tolerating tube feeding. Discussed with Dr. Holden. sales consultant residential manager notes indicate patient has been accepted to the [facility] when cleared for medical DC. Family/Friend Interactions: She called daughterSylvia to provide update. She requests a case picker call her regarding DC plans. She appreciates continued updates. Advance Directives Advance Directives Date on File: 09/26/17 (HCP designation acceptance form) Health Care Surrogate Name and Number: Sylvia Sullivan designated HCP Documented care wishes:: Has signed [place] DNR order signed on 01/29/18 paper chart. Significant change in goals:: Goal for patient to return to the [facility] upon DC. NO CODE (DNR/DNI). Objective Vital Signs: Vital Signs 01/08/18 15:55 01/08/18 20:00 01/09/18 05:59 Temperature 97.9 F 98.1 F 97.7 F Pulse Rate 88 77 77 Respiratory Rate 18 18 18 Blood Pressure 108/57 L 128/70 106/56 L Pulse Oximetry 98 96 01/09/18 08:35 01/09/18 09:00 01/09/18 09:53 Temperature 97.7 F Pulse Rate 76 90 Respiratory Rate 20 Blood Pressure 109/64 Pulse Oximetry 01/09/18 12:00 Temperature 98.1 F Pulse Rate 85 Respiratory Rate 16 Blood Pressure 97/59 L Pulse Oximetry 95 Intake & Output 07/08/18 07/09/18 07/09/18 18:59 06:59 18:59 Intake Total 1051 / 1051 925 / 925 300 / 300 Output Total 650 / 650 600 / 600 Balance 1051 / 1051 275 / 275 -300 / -300 Intake: IV 624 / 624 260 / 260 Vancomycin Inj 1,250 MG In NS 524 / 524 260 / 260 Inj 250 ML @ 250 mls/hr IV.SIG Q12H YURIY Rx#:[id number] Tube Feeding 427 / 427 465 / 465 Tube Irrigant 300 / 300 Water Bolus Amount 200 / 200 Output: Urine 650 / 650 Urine Amount (Catheter) 600 / 600 Indwelling Urethral Catheter 600 / 600 Other: Date of Last Bowel Movement 01/08/18 01/09/18 01/09/18 # Incontinent Bowel Movements 1 Physical Exam: CONSTITUTIONAL/GENERAL: This is a thin, elderly male. No apparent distress. TUBES/LINES/DRAINS: PIV, NC oxygen. PEG tube, Clemente catheter. SKIN: No jaundice, rashes, or lesions. No wounds seen anteriorly. Skin warm/ dry. CARDIOVASCULAR: RRR. RESPIRATORY/CHEST: Symmetric, unlabored respirations, diminished breath sounds bilaterally. GASTROINTESTINAL: Abdomen soft, non-tender, nondistended. Bowel sounds present. PEG tube. GENITOURINARY: Without palpable bladder distension. Clemente catheter in place. MUSCULOSKELETAL: Extremities without clubbing, cyanosis, or edema. No mottling or clubbing. NEUROLOGICAL: Awakens easily. Nods no to SOB. Non-verbal today. PSYCHIATRIC: Calm. Diagnostic Tests Laboratory: Laboratory Results - last 72 hr 01/06/18 01/06/18 01/06/18 16:00 16:20 20:43 WBC RBC Hgb Hct MCV MCH MCHC RDW Plt Count MPV Neut % (Auto) Lymph % (Auto) Union % (Auto) Eos % (Auto) Baso % (Auto) Neut # (Auto) Lymph # (Auto) Union # (Auto) Eos # (Auto) Baso # (Auto) WBC Differential Differential Comment Sodium Potassium Chloride Carbon Dioxide Anion Gap BUN Creatinine Estimated GFR POC Glucose 169 H 172 H 122 H Random Glucose Calcium 01/07/18 01/07/18 01/07/18 00:52 05:03 05:42 WBC RBC Hgb Hct MCV MCH MCHC RDW Plt Count MPV Neut % (Auto) Lymph % (Auto) Union % (Auto) Eos % (Auto) Baso % (Auto) Neut # (Auto) Lymph # (Auto) Union # (Auto) Eos # (Auto) Baso # (Auto) WBC Differential Differential Comment Sodium Potassium Chloride Carbon Dioxide Anion Gap BUN Creatinine Estimated GFR POC Glucose 86 54 L 182 H Random Glucose Calcium 01/07/18 01/07/18 01/07/18 07:43 11:14 12:33 WBC RBC Hgb Hct MCV MCH MCHC RDW Plt Count MPV Neut % (Auto) Lymph % (Auto) Union % (Auto) Eos % (Auto) Baso % (Auto) Neut # (Auto) Lymph # (Auto) Union # (Auto) Eos # (Auto) Baso # (Auto) WBC Differential Differential Comment Sodium 143 Potassium 3.5 Chloride 110 H Carbon Dioxide 25.9 Anion Gap 7 BUN 26 H Creatinine 0.23 L Estimated GFR Greater than 89 POC Glucose 94 39 L* Random Glucose 41 L* D Calcium 8.1 L 01/07/18 01/07/18 01/07/18 12:53 17:27 20:57 WBC RBC Hgb Hct MCV MCH MCHC RDW Plt Count MPV Neut % (Auto) Lymph % (Auto) Union % (Auto) Eos % (Auto) Baso % (Auto) Neut # (Auto) Lymph # (Auto) Union # (Auto) Eos # (Auto) Baso # (Auto) WBC Differential Differential Comment Sodium Potassium Chloride Carbon Dioxide Anion Gap BUN Creatinine Estimated GFR POC Glucose 134 H 94 82 Random Glucose Calcium 01/08/18 01/08/18 01/08/18 00:44 05:13 07:15 WBC RBC Hgb Hct MCV MCH MCHC RDW Plt Count MPV Neut % (Auto) Lymph % (Auto) Union % (Auto) Eos % (Auto) Baso % (Auto) Neut # (Auto) Lymph # (Auto) [place] # (Auto) Eos # (Auto) Baso # (Auto) WBC Differential Differential Comment Sodium Potassium Chloride Carbon Dioxide Anion Gap BUN Creatinine Estimated GFR POC Glucose 92 110 117 H Random Glucose Calcium 01/08/18 01/08/18 01/08/18 12:21 16:04 22:06 WBC RBC Hgb Hct MCV MCH MCHC RDW Plt Count MPV Neut % (Auto) Lymph % (Auto) Union % (Auto) Eos % (Auto) Baso % (Auto) Neut # (Auto) Lymph # (Auto) Union # (Auto) Eos # (Auto) Baso # (Auto) WBC Differential Differential Comment Sodium Potassium Chloride Carbon Dioxide Anion Gap BUN Creatinine Estimated GFR POC Glucose 95 137 H 143 H Random Glucose Calcium 01/09/18 01/09/18 01/09/18 01:35 05:35 07:41 WBC RBC Hgb Hct MCV MCH MCHC RDW Plt Count MPV Neut % (Auto) Lymph % (Auto) Union % (Auto) Eos % (Auto) Baso % (Auto) Neut # (Auto) Lymph # (Auto) [place] # (Auto) Eos # (Auto) Baso # (Auto) WBC Differential Differential Comment Sodium Potassium Chloride Carbon Dioxide Anion Gap BUN Creatinine Estimated GFR POC Glucose 88 97 83 Random Glucose Calcium 01/09/18 01/09/18 01/09/18 08:11 08:11 12:43 WBC 10.7 RBC 4.23 L Hgb 11.3 L Hct 34.9 L MCV 82.7 MCH 26.8 L MCHC 32.4 RDW 21.2 H Plt Count 195 MPV 9.0 Neut % (Auto) 78.7 H Lymph % (Auto) 13.5 Union % (Auto) 7.0 Eos % (Auto) 0.8 Baso % (Auto) 0.0 Neut # (Auto) 8.4 H Lymph # (Auto) 1.4 Union # (Auto) 0.7 Eos # (Auto) 0.1 Baso # (Auto) 0.0 WBC Differential . Differential Comment Auto diff final Sodium 144 Potassium 3.7 Chloride 106 Carbon Dioxide 31.5 Anion Gap 7 BUN 23 H Creatinine 0.33 L Estimated GFR Greater than 89 POC Glucose 140 H Random Glucose 80 Calcium 8.1 L Result Diagrams: 01/09/18 08:11 01/09/18 08:11 Imaging: Chest X-Ray 01/08/18 00:00 CONCLUSION: Bilateral mostly basilar airspace disease and pleural effusions. Findings similar to January 07. Procedures: * 12/30/17 - US guided chest tube placement. Assessment and Plan - Disease Oriented Problem List (1) Hypernatremia (2) HCAP (healthcare-associated pneumonia) (3) Atrial fibrillation (4) CAD (coronary artery disease) (5) COPD exacerbation (6) Emphysema lung (7) Pleural effusion (8) Respiratory failure (9) Moderate protein-calorie malnutrition (10) Diabetes Pertinent Non-Medical Issues: Psychosocial: . Spiritual: [place]. Legal: Patient suffered significant stroke in September of this year. Has been nonverbal and dependent since that time. Does not appear to have advanced directives or health care surrogate. Healthcare proxy was completed naming daughter during that admission. Per EMR patient . Ethical issues impacting care: None. Important Contacts: Daughter. Hosea Sullivan [phone] Prognosis: This patient was admitted for acute respiratory issues, concern for sepsis. He has been dependent, debilitated in a long-term care facility setting since suffering a significant CVA in September of this year. Additionally he has multiple chronic medical comorbidities. He will remain at ongoing risk for infections, recurrent hospitalizations, various complications and continued decline. May be appropriate for hospice if goals comfort oriented. Code Status: No Code DNR ([place] DNR on chart completed 01/29/18) Plan: * Legal decision maker:Patient suffered significant stroke in September of this year. Has been difficult to understand, dependent for care since that time. . No written advanced directives. Healthcare proxy was completed naming daughter during that admission. * NO CODE * 01/09/18 - Spoke with daughterSylvia to provide medical update. She is in [place]. She desires continued aggressive care short of NO CODE for now. She understands patient will likely be DC to [facility] in the coming days. She understands patient is high risk for repeat hospitalization and decline. She welcomes and appreciates palliative care if admitted in the future. * Palliative care will continue to follow during hospital course as condition evolves, to assist patient/decision-maker with understanding of medical conditions, weighing benefits/burdens of treatment options, for clarification of goals of treatment. Additionally will assist with any symptoms of palliative concern SYMPTOMS: * Dyspnea- patient admitted for acute respiratory distress on oxygen via [place]. High risk for clinical deterioration, daughter aware. * Pain-potential for related to chronic bedbound status. No signs of pain today. Will continue to evaluate. Attestation Attestation: To help prompt me to consider important information that might be impacting today's encounter and assessment, information from prior notes written by myself or my colleagues may have been "brought forward" into today's note. My signature on this note, however, is an attestation that I personally performed the exam, history, and/or decision-making noted today, and, unless otherwise indicated, the interactions with patient, family, and staff as well as the review of records all occurred today. I also attest that the listed assessment and stated plan reflect my best clinical judgment today based on the combination of historical information, prior notes, and today's exam/ interactions. When time spent is documented, it refers only to time spent today by the signer, or if indicated, combined time spent today by collaborating physician/nurse practitioner.
--- NOTE | 2018-01-09 15:03 | P.PNIM ---
Subjective Interval history: Patient now has chest tube out. He has been able to wean down to nasal cannula oxygen. No new complaints from patient. Options for outpatient rehab facilities have been established. Discharge pending determination of respiratory stability. Physical Exam Vital signs: Vital Signs 01/08/18 15:55 01/08/18 20:00 01/09/18 05:59 Temperature 97.9 F 98.1 F 97.7 F Pulse Rate 88 77 77 Respiratory Rate 18 Blood Pressure 108/57 L 128/70 106/56 L Pulse Oximetry 98 96 01/09/18 08:35 01/09/18 09:00 01/09/18 09:53 Temperature 97.7 F Pulse Rate 76 90 Respiratory Rate 20 Blood Pressure 109/64 Pulse Oximetry 01/09/18 12:00 Temperature 98.1 F Pulse Rate 85 Respiratory Rate 16 Blood Pressure 97/59 L Pulse Oximetry 95 Intake & Output 01/08/18 01/09/18 01/09/18 18:59 06:59 18:59 Intake Total 1051 / 1051 925 / 925 300 / 300 Output Total 650 / 650 600 / 600 Balance 1051 / 1051 275 / 275 -300 / -300 Intake: IV 624 / 624 260 / 260 Vancomycin Inj 1,250 MG In NS 524 / 524 260 / 260 Inj 250 ML @ 250 mls/hr IV.SIG Q12H YURIY Rx#:[id number] Tube Feeding 427 / 427 465 / 465 Tube Irrigant 300 / 300 Water Bolus Amount 200 / 200 Output: Urine 650 / 650 Urine Amount (Catheter) 600 / 600 Indwelling Urethral Catheter 600 / 600 Other: Date of Last Bowel Movement 01/08/18 01/09/18 01/09/18 # Incontinent Bowel Movements 1 Narrative: GENERAL: NAD, A&Ox3 HEAD: Normocephalic. NECK: Supple, trachea midline. No lymphadenopathy. EYES: No scleral icterus. No injection or drainage. CARDIOVASCULAR: Regular rate and rhythm without murmurs, gallops, or rubs. RESPIRATORY: Breath sounds equal bilaterally. No accessory muscle use. GASTROINTESTINAL: Abdomen soft, non-tender, nondistended. MUSCULOSKELETAL: No cyanosis, or edema. SKIN: Warm and dry. NEURO: No focal neurological deficits. Generalized weakness. - Urinary Catheter Management Indwelling Urethral Catheter Cath placed during this visit: no Reason for continuing: Chronic Urinary Retention Results - Labs CBC & Chem 7: 01/09/18 08:11 01/09/18 08:11 Laboratory Results - last 24 hr 01/08/18 01/08/18 01/09/18 16:04 22:06 01:35 WBC RBC Hgb Hct MCV MCH MCHC RDW Plt Count MPV Neut % (Auto) Lymph % (Auto) [place] % (Auto) Eos % (Auto) Baso % (Auto) Neut # (Auto) Lymph # (Auto) [place] # (Auto) Eos # (Auto) Baso # (Auto) WBC Differential Differential Comment Sodium Potassium Chloride Carbon Dioxide Anion Gap BUN Creatinine Estimated GFR POC Glucose 137 H 143 H 88 Random Glucose Calcium 01/09/18 01/09/18 01/09/18 05:35 07:41 08:11 WBC 10.7 RBC 4.23 L Hgb 11.3 L Hct 34.9 L MCV 82.7 MCH 26.8 L MCHC 32.4 RDW 21.2 H Plt Count 195 MPV 9.0 Neut % (Auto) 78.7 H Lymph % (Auto) 13.5 [place] % (Auto) 7.0 Eos % (Auto) 0.8 Baso % (Auto) 0.0 Neut # (Auto) 8.4 H Lymph # (Auto) 1.4 [place] # (Auto) 0.7 Eos # (Auto) 0.1 Baso # (Auto) 0.0 WBC Differential . Differential Comment Auto diff final Sodium Potassium Chloride Carbon Dioxide Anion Gap BUN Creatinine Estimated GFR POC Glucose 97 83 Random Glucose Calcium 01/09/18 01/09/18 08:11 12:43 WBC RBC Hgb Hct MCV MCH MCHC RDW Plt Count MPV Neut % (Auto) Lymph % (Auto) [place] % (Auto) Eos % (Auto) Baso % (Auto) Neut # (Auto) Lymph # (Auto) [place] # (Auto) Eos # (Auto) Baso # (Auto) WBC Differential Differential Comment Sodium 144 Potassium 3.7 Chloride 106 Carbon Dioxide 31.5 Anion Gap 7 BUN 23 H Creatinine 0.33 L Estimated GFR Greater than 89 POC Glucose 140 H Random Glucose 80 Calcium 8.1 L - Imaging Impressions Chest X-Ray 01/08/18 00:00 CONCLUSION: Bilateral mostly basilar airspace disease and pleural effusions. Findings similar to January 07. Assessment and Plan - Plan 77-year-old male admitted with sepsis and A. 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 Doing well status post removal of chest tube, remains oxygen dependent. Continue to monitor for any worsening of respiratory status. Most recent follow -up x-ray does not show any worsening of pleural effusion. Hypernatremia Continue to monitor sodium levels Healthcare associated pneumonia Treatment completed follow signs of infection A. fib RVR Coronary artery disease with prior CABG 09/2007 Tachycardia may represent recurrence of RVR Continue aspirin Continue Plavix Continue Diltiazem Continue Metoprolol Follow on telemetry Currently rate controlled COPD with acute exacerbation Emphysema Prior tobacco abuse Pleural effusions Respiratory failure Continue duo nebs scheduled and albuterol as needed Continue steroids Chest tube in place Respiratory status improved today compared to yesterday Oxygen supplementation as needed Chronic moderate protein energy malnutrition Continue PEG tube feedings Diabetes mellitus type 2 Follow blood sugars Insulin sliding scale Diabetic diet Severe sepsis Resolved DVT prophylaxis Heparin
--- NOTE | 2018-01-09 16:46 | P.PNPL ---
Subjective Interval history: 77 YOWm with CVA, aphasia, pl eff Chest tube removed CXR small pl eff Denies sob Physical Exam Vital signs: Vital Signs 01/08/18 20:00 01/09/18 05:59 01/09/18 08:35 Temperature 98.1 F 97.7 F Pulse Rate 77 77 76 Respiratory Rate 18 18 20 Blood Pressure 128/70 106/56 L 109/64 Pulse Oximetry 98 96 01/09/18 09:00 01/09/18 09:53 01/09/18 12:00 Temperature 97.7 F 98.1 F Pulse Rate 90 85 Respiratory Rate 16 Blood Pressure 97/59 L Pulse Oximetry 95 Intake & Output 01/08/18 01/09/18 01/09/18 18:59 06:59 18:59 Intake Total 1051 / 1051 925 / 925 300 / 300 Output Total 650 / 650 600 / 600 Balance 1051 / 1051 275 / 275 -300 / -300 Intake: IV 624 / 624 260 / 260 Vancomycin Inj 1,250 MG In NS 524 / 524 260 / 260 Inj 250 ML @ 250 mls/hr IV.SIG Q12H YURIY Rx#:[id number] Tube Feeding 427 / 427 465 / 465 Tube Irrigant 300 / 300 Water Bolus Amount 200 / 200 Output: Urine 650 / 650 Urine Amount (Catheter) 600 / 600 Indwelling Urethral Catheter 600 / 600 Other: Date of Last Bowel Movement 01/08/18 01/09/18 01/09/18 # Incontinent Bowel Movements 1 Narrative: GENERAL: NAD, A&Ox3 HEAD: Normocephalic. NECK: Supple, trachea midline. No lymphadenopathy. EYES: No scleral icterus. No injection or drainage. CARDIOVASCULAR: Regular rate and rhythm without murmurs, gallops, or rubs. RESPIRATORY: Breath sounds equal bilaterally. No accessory muscle use. GASTROINTESTINAL: Abdomen soft, non-tender, nondistended. MUSCULOSKELETAL: No cyanosis, or edema. SKIN: Warm and dry. NEURO: No focal neurological deficits. Generalized weakness. - Urinary Catheter Management Indwelling Urethral Catheter Cath placed during this visit: no Reason for continuing: Chronic Urinary Retention Assessment and Plan - Plan Resp insuff Pleural effusion, Transudate CAD,s/p CABG CVA Aphasia Hypopreinemia PLAN: Supplement 02 Cont Abx Tube feeding monitor Pl effusion DW
[2018-01-10] MEDS: dilTIAZem 30 MG Tablet G-TUBE SCH ×5 (05:05→23:37)
[2018-01-10] MEDS: Insulin NovoLOG Aspart Correctional Sugar Inj SQ SCH ×4 (05:12→17:23)
[2018-01-10] MEDS: Senna/Docusate Sodium 8.6/50 MG Tablet PO SCH ×2 (10:12→20:51)
[2018-01-10] MEDS: Heparin - SQ 10,000 UNITS/ML Vial SQ SCH ×2 (10:12→20:50)
[2018-01-10] MEDS: predniSONE 20 MG Tablet PO SCH (10:12)
[2018-01-10] MEDS: Famotidine 20 MG Tablet G-TUBE SCH ×2 (10:13→20:50)
[2018-01-10] MEDS: levoFLOXacin 750 MG Tablet PO SCH (10:13)
[2018-01-10] MEDS: Metoprolol Tartrate 25 MG Tablet G-TUBE SCH ×2 (10:14→20:52)
[2018-01-10] MEDS: Vancomycin Inj 1,250 MG in Sodium Chlor 0.9% Inj 250 ML IV.SIG SCH ×2 (10:20→23:39)
--- NOTE | 2018-01-10 12:24 | P.DS ---
Date of admission: 12/27/17 21:36 Primary care physician: Huy Brower MD Brief History from admission: Admitted secondary to sepsis and A. fib with RVR, see H&P. DS: Medications - Discharge Medications Prescriptions: aspirin 162 mg FEEDING TUBE DAILY #30 tab atorvastatin 40 mg FEEDING TUBE HS #30 tab clopidogrel [Plavix] 75 mg FEEDING TUBE DAILY #30 tab diltiazem HCl 30 mg G-TUBE Q6HR #120 tab escitalopram oxalate [Lexapro] 10 mg FEEDING TUBE DAILY #30 mg folic acid 1 mg FEEDING TUBE DAILY #30 tab insulin aspart U-100 1 sliding scale dose SUB-Q ACHS #1 bottle insulin detemir U-100 [Levemir U-100 Insulin] 5 unit SUB-Q Q12HR #1 bottle lactulose 30 ml FEEDING TUBE DAILY PRN #30 ml PRN Reason: Severe Consitipation metoprolol tartrate 25 mg G-TUBE Q12HR #60 tab oxybutynin chloride 5 mg FEEDING TUBE BID #60 tab prednisone 5 mg FEEDING TUBE DAILY 5 Days #25 ml DS: Summary Hospital Course: Mr. Reyes is admitted secondary to sepsis and A. fib RVR with subsequent CVA. he now has persistent neurologic deficits and difficulty speaking. She was held in the hospital due to respiratory failure related to pleural effusion. Pleural effusion was treated with a chest tube. This has been removed several days ago and patient shows no evidence of recurrence of pleural effusion or respiratory distress. At this point he is medically clear and stable for discharge to [facility] facility for which she will need further care in regards to his chronic neurological deficits. - Time Spent with Patient Total time spent providing and/or coordinating discharge services: Exam Vital signs: Vital Signs 01/09/18 16:00 01/09/18 19:45 01/09/18 20:00 Temperature 97.4 F L Pulse Rate 100 H 88 Respiratory Rate 16 Blood Pressure 119/82 Pulse Oximetry 98 98 01/09/18 20:40 01/09/18 23:55 01/10/18 05:02 Temperature 98.0 F 97.7 F 96.9 F L Pulse Rate 76 85 81 Respiratory Rate 18 18 18 Blood Pressure 117/66 116/76 116/67 Pulse Oximetry 98 99 01/10/18 07:24 01/10/18 07:28 01/10/18 09:51 Temperature 97.5 F L Pulse Rate 88 88 Respiratory Rate 20 Blood Pressure 101/65 Pulse Oximetry 97 100 01/10/18 12:00 Temperature 97.8 F Pulse Rate 89 Respiratory Rate 18 Blood Pressure 109/68 Pulse Oximetry 97 Intake & Output 01/09/18 01/10/18 01/10/18 18:59 06:59 18:59 Intake Total 562.5 / 562.5 0 / 0 262.5 / 262.5 Output Total 1100 / 1100 1200 / 1200 Balance -537.5 / -537.5 -1200 / -1200 262.5 / 262.5 Weight 65.6 kg Intake: IV 262.5 / 262.5 262.5 / 262.5 Vancomycin Inj 1,250 MG In NS 262.5 / 262.5 262.5 / 262.5 Inj 250 ML @ 250 mls/hr IV.SIG Q12H YURIY Rx#:[id number] Oral 0 / 0 Tube Irrigant 300 / 300 Output: Urine 200 / 200 Stool 0 / 0 Urine Amount (Catheter) 1100 / 1100 1000 / 1000 Indwelling Urethral Catheter 1100 / 1100 1000 / 1000 Other: Date of Last Bowel Movement 01/09/18 01/09/18 # Bowel Movements 0 Results Procedures completed during hospitalization: Chest tube Labs on day of discharge: Labs from last 24 hours 01/10/18 01/10/18 01/10/18 12:02 07:27 05:10 POC Glucose 199 H 143 H 129 H 01/09/18 01/09/18 01/09/18 23:39 21:53 16:32 POC Glucose 166 H 158 H 155 H 01/09/18 12:43 POC Glucose 140 H - Impressions ITS Impressions Chest X-Ray 01/08/18 00:00 CONCLUSION: Bilateral mostly basilar airspace disease and pleural effusions. Findings similar to January 07. Discharge Plan - Discharge Disposition Patient Disposition: Discharge to SNF - Discharge Condition Condition: Stable - Discharge Order Discharge Orders: Discharge Order (Routine); Ordered 01/10/18 Ordered By: Chi Holden - Discharge Details Anticipated Discharge Date: 01/10/18 - Physicians Team Primary Care Provider: Huy Brower Attending Provider: Cih Holden Other Providers: Bar Wasserman MD ; Rick Valente MD ; Kayla Durán MD ; ; [facility] - Rxs /Orders / Referrals /Forms Prescriptions: New aspirin 81 mg Tablet,Chewable 162 mg Feeding Tube DAILY Qty: 30 RF: 0 atorvastatin 40 mg Tablet 40 mg Feeding Tube HS Qty: 30 RF: 0 clopidogrel [Plavix] 75 mg Tablet 75 mg Feeding Tube DAILY Qty: 30 RF: 0 diltiazem HCl 30 mg Tablet 30 mg G-Tube Q6HR Qty: 120 RF: 0 lactulose 20 gram/30 mL Solution 30 ml Feeding Tube DAILY PRN (Reason: Severe Consitipation) Qty: 30 RF: 0 metoprolol tartrate 25 mg Tablet 25 mg G-Tube Q12HR Qty: 60 RF: 0 oxybutynin chloride 5 mg Tablet 5 mg Feeding Tube BID Qty: 60 RF: 0 prednisone 5 mg/5 mL Solution 5 mg Feeding Tube DAILY 5 Days Qty: 25 RF: 0 Continue insulin aspart U-100 100 unit/mL Cartridge 1 sliding scale dose SUB-Q ACHS Qty: 1 insulin detemir U-100 [Levemir U-100 Insulin] 100 unit/mL Solution 5 unit SUB-Q Q12HR Qty: 1 ipratropium-albuterol 0.5 mg-3 mg(2.5 mg base)/3 mL Solution For Nebulization 3 ml INHALATION Q6-8H PRN (Reason: Shortness Of Breath) Changed escitalopram oxalate [Lexapro] 10 mg Tablet 10 mg Feeding Tube DAILY Qty: 30 Changed from: 10 mg oral daily folic acid 1 mg Tablet 1 mg Feeding Tube DAILY Qty: 30 Changed from: 1 mg oral daily Discontinued aspirin 325 mg Tablet 325 mg PO DAILY atorvastatin 40 mg Tablet 40 mg PO HS clopidogrel 75 mg Tablet 75 mg PO DAILY ipratropium-albuterol 0.5 mg-3 mg(2.5 mg base)/3 mL Solution For Nebulization 3 ml INHALATION Q2HR NEB PRN (Reason: Shortness Of Breath) lactulose 20 gram/30 mL Solution 30 g PO PRN metoprolol tartrate 25 mg Tablet 25 mg PO Q12HR midodrine 5 mg Tablet 5 mg PO Q8HR Referrals: Huy Brower MD [Primary Care Provider] - See Instructions
--- NOTE | 2018-01-10 18:27 | P.PNPL ---
Subjective Interval history: 77 YOWm with CVA, aphasia, pl eff Chest tube removed CXR small pl eff Denies sob No new complaint Physical Exam Vital signs: Vital Signs 01/09/18 19:45 01/09/18 20:00 01/09/18 20:40 Temperature 98.0 F Pulse Rate 88 76 Respiratory Rate 18 Blood Pressure 117/66 Pulse Oximetry 98 98 01/09/18 23:55 01/10/18 05:02 01/10/18 07:24 Temperature 97.7 F 96.9 F L Pulse Rate 85 81 88 Respiratory Rate 18 18 Blood Pressure 116/76 116/67 Pulse Oximetry 99 01/10/18 07:28 01/10/18 09:51 01/10/18 12:00 Temperature 97.5 F L 97.8 F Pulse Rate 88 89 Respiratory Rate 20 18 Blood Pressure 101/65 109/68 Pulse Oximetry 97 100 97 01/10/18 16:00 Temperature 97.8 F Pulse Rate 86 Respiratory Rate 18 Blood Pressure 109/66 Pulse Oximetry 97 Intake & Output 01/09/18 01/10/18 01/10/18 18:59 06:59 18:59 Intake Total 562.5 / 562.5 0 / 0 992.5 / 992.5 Output Total 1100 / 1100 1200 / 1200 1600 / 1600 Balance -537.5 / -537.5 -1200 / -1200 -607.5 / -607.5 Weight 65.6 kg Intake: IV 262.5 / 262.5 512.5 / 512.5 Vancomycin Inj 1,250 MG In NS 262.5 / 262.5 512.5 / 512.5 Inj 250 ML @ 250 mls/hr IV.SIG Q12H YURIY Rx#:[id number] Oral 0 / 0 Tube Feeding 450 / 450 Tube Irrigant 300 / 300 30 / 30 Output: Urine 200 / 200 Stool 0 / 0 Urine Amount (Catheter) 1100 / 1100 1000 / 1000 1600 / 1600 Indwelling Urethral Catheter 1100 / 1100 1000 / 1000 1600 / 1600 Other: Date of Last Bowel Movement 01/09/18 01/09/18 # Bowel Movements 0 Narrative: GENERAL: NAD, A&Ox3 HEAD: Normocephalic. NECK: Supple, trachea midline. No lymphadenopathy. EYES: No scleral icterus. No injection or drainage. CARDIOVASCULAR: Regular rate and rhythm without murmurs, gallops, or rubs. RESPIRATORY: Breath sounds equal bilaterally. No accessory muscle use. GASTROINTESTINAL: Abdomen soft, non-tender, nondistended. MUSCULOSKELETAL: No cyanosis, or edema. SKIN: Warm and dry. NEURO: No focal neurological deficits. Generalized weakness. - Urinary Catheter Management Indwelling Urethral Catheter Cath placed during this visit: no Reason for continuing: Chronic Urinary Retention Assessment and Plan - Plan Resp insuff Pleural effusion, Transudate CAD,s/p CABG CVA Aphasia Hypopreinemia PLAN: Supplement 02 Cont Abx Tube feeding monitor Pl effusion DW DC plans for SNF
[2018-01-11] MEDS: Insulin NovoLOG Aspart Correctional Sugar Inj SQ SCH ×4 (00:06→09:34)
[2018-01-11] MEDS: dilTIAZem 30 MG Tablet G-TUBE SCH (05:14)
[2018-01-11] MEDS ORDERED: Insulin Detemir Inj 1,000 UNIT/10 ML Vial SQ SCH (09:00)
[2018-01-11] MEDS: levoFLOXacin 750 MG Tablet PO SCH (09:14)
[2018-01-11] MEDS: Famotidine 20 MG Tablet G-TUBE SCH (09:16)
[2018-01-11] MEDS: predniSONE 20 MG Tablet PO SCH (09:17)
[2018-01-11] MEDS: Metoprolol Tartrate 25 MG Tablet G-TUBE SCH (09:17)
[2018-01-11] MEDS: Senna/Docusate Sodium 8.6/50 MG Tablet PO SCH (09:18)
[2018-01-11] MEDS: Heparin - SQ 10,000 UNITS/ML Vial SQ SCH (09:21)
[2018-01-11 10:22] LABS: Glomerular Filtration Rate Greater Than 89 mL/min (>89)
--- NOTE | 2018-01-11 11:24 | P.PNIM ---
Subjective Interval history: Patient discharged on 01/10/2018. Awaiting placement. Physical Exam Vital signs: Vital Signs 01/10/18 12:00 01/10/18 16:00 01/10/18 21:15 Temperature 97.8 F 97.8 F 98 F Pulse Rate 89 86 95 H Respiratory Rate 18 18 20 Blood Pressure 109/68 109/66 Pulse Oximetry 97 97 94 L 01/10/18 21:51 01/11/18 00:15 01/11/18 05:45 Temperature 97.6 F 98 F Pulse Rate 89 100 H Respiratory Rate 21 19 Blood Pressure 125/67 136/99 H Pulse Oximetry 97 94 L 19 L 01/11/18 08:00 01/11/18 08:09 01/11/18 09:40 Temperature 98.9 F Pulse Rate 96 H 93 H Respiratory Rate 18 Blood Pressure 167/103 H Pulse Oximetry 96 95 Intake & Output 01/10/18 01/11/18 01/11/18 18:59 06:59 18:59 Intake Total 1005.0 / 1005.0 532 / 532 Output Total 1600 / 1600 300 / 300 Balance -595.0 / -595.0 232 / 232 Weight 66 kg Intake: IV 525.0 / 525.0 Vancomycin Inj 1,250 MG In NS 525.0 / 525.0 Inj 250 ML @ 250 mls/hr IV.SIG Q12H YURIY Rx#:[id number] Oral 0 / 0 Tube Feeding 450 / 450 432 / 432 Tube Irrigant 30 / 30 100 / 100 Output: Urine 300 / 300 Urine Amount (Catheter) 1600 / 1600 Indwelling Urethral Catheter 1600 / 1600 Other: # Incontinent Voids 8 Date of Last Bowel Movement 01/09/18 01/09/18 # Bowel Movements 0 # Incontinent Bowel Movements 4 - Urinary Catheter Management Indwelling Urethral Catheter Cath placed during this visit: no Reason for continuing: Not indwelling catheter Results - Labs CBC & Chem 7: 01/09/18 08:11 01/11/18 09:22 Laboratory Results - last 24 hr 01/10/18 01/10/18 01/10/18 12:02 16:18 20:49 Creatinine Estimated GFR POC Glucose 199 H 200 H 168 H 01/10/18 01/11/18 01/11/18 23:38 05:10 09:22 Creatinine 0.40 L Estimated GFR Greater than 89 POC Glucose 119 H 201 H 01/11/18 09:23 Creatinine Estimated GFR POC Glucose 176 H - Procedures Chest tube Assessment and Plan - Plan 77-year-old male admitted with sepsis and A. 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 Patient discharged on 01/10/2018. Awaiting placement. Hypernatremia Resolved Healthcare associated pneumonia Treatment completed A. 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 Continue aspirin Continue Plavix Continue Diltiazem Continue Metoprolol Follow on telemetry Currently rate controlled COPD with acute exacerbation Emphysema Prior tobacco abuse Pleural effusions Respiratory failure Continue duo nebs scheduled and albuterol as needed Continue steroids Chest tube removed Respiratory status improved today compared to yesterday Oxygen supplementation as needed Chronic moderate protein energy malnutrition Continue PEG tube feedings Diabetes mellitus type 2 Follow blood sugars Insulin sliding scale Diabetic diet Severe sepsis Resolved DVT prophylaxis Heparin
== END 2018-01-11 11:38 ==
LOC: HIMC 21:36 → N05 01-02 23:00
PROVIDERS: ADMIT Hospitalist; ATTEND Hospitalist